=== PATIENT | female | born 1965 | race Two or more races ===

== ENCOUNTER 2020-10-31 13:54 | Outpatient (REF) | payer OTHER, SELFPAY | END 2020-10-31 13:55 | disposition home or self-care (01) | LOC: HO.LAB 13:54 | PROVIDERS: Visit Provider Internal Medicine | DX: Z20.828 Contact with and (suspected) exposure to other viral communicable diseases (principal) | CPT/HCPCS: C9803; U0003 ==

== ENCOUNTER 2021-05-21 13:12 | Outpatient (REF) | payer OTHER, SELFPAY ==
[2021-05-21 15:34] LABS: Estimated Average Glucose 151 mg/dL; Hemoglobin A1c % 6.9 %
[2021-05-21 16:00] LABS: Alanine Aminotransferase 44 U/L (0-31); Albumin Level 4.4 g/dL (3.5-5.0); Alkaline Phosphatase 72 U/L (39-117); Anion Gap 14 (12-20); Aspartate Amino Transferase 39 U/L (5-31); Blood Urea Nitrogen 13 mg/dL (9-16); Calcium 10.1 mg/dL (8.4-10.2); Carbon Dioxide 27 mmol/L (22-29); Chloride 101 mmol/L (96-108); Estimated Glomerular Filt Rate > 60; Glucose Random 106 mg/dL (60-115); Potassium 4.4 mmol/L (3.3-5.1); Sodium 138 mmol/L (135-145); Total Protein 7.7 g/dL (6.5-8.0)
[2021-05-21 16:43] LABS: Bilirubin Total 0.2 mg/dL (0.0-1.0)
== END 2021-05-21 13:13 | disposition home or self-care (01) ==
LOC: HO.LAB 13:12
PROVIDERS: PCP Family Medicine; Referring Provider Family Medicine; Visit Provider Nurse Practitioner Family
DX: K58.9 Irritable bowel syndrome, unspecified (principal); K21.9 Gastro-esophageal reflux disease without esophagitis; K75.81 Nonalcoholic steatohepatitis (NASH); K74.60 Unspecified cirrhosis of liver; E11.9 Type 2 diabetes mellitus without complications
CPT/HCPCS: 36415; 80053; 83036; 99212

== ENCOUNTER 2021-08-09 09:46 | Outpatient (REF) | payer OTHER, SELFPAY ==
--- NOTE | ~2021-08-09 | MM_ITS ---
EXAMINATION: MM SCREENING DIGITAL BREAST TOMOSYNTHESIS, BILATERAL CLINICAL INFORMATION: Screening. Asymptomatic. The lifetime risk of breast cancer based on the Tyrer-Cuzick Model is 9.0%. COMPARISON: Mammography: May 22, 2019 and studies dating back to February 23, 2014 TECHNIQUE: Digital breast tomosynthesis is performed in both the craniocaudal and mediolateral oblique views along with computer-aided detection (CAD). Synthesized 2D images are generated from the tomosynthesis. FINDINGS: The breasts are almost entirely fatty (ACR BI-RADS breast composition Category a). There are no significant masses, abnormal calcifications, or other abnormalities. MM/MM tomosynthesis screening BI IMPRESSION: There are no significant changes from prior study. ASSESSMENT: BI-RADS 1: Negative RECOMMENDATION: Routine annual mammography screening. This patient's information was entered into a reminder system with a target due date for their next mammogram.
== END 2021-08-09 09:47 | disposition home or self-care (01) ==
LOC: HO.MAMMO 09:46
PROVIDERS: PCP Family Medicine; Visit Provider Family Medicine
DX: Z12.31 Encounter for screening mammogram for malignant neoplasm of breast (principal)
CPT/HCPCS: 77063; 77067

== ENCOUNTER 2021-10-07 08:31 | Outpatient (REF) | payer OTHER, SELFPAY ==
--- NOTE | ~2021-10-07 | US_ITS ---
EXAMINATION: US COMPLETE ABDOMEN WITH LIVER ELASTOGRAPHY CLINICAL INFORMATION: Abnormal findings on blood chemistry COMPARISON: Abdominal ultrasound 01/03/2019 TECHNIQUE: Real-time imaging of the abdominal viscera. Noninvasive ultrasound liver fibrosis assessment is performed using Caden ElastPQ point quantification shear wave elastography (pSWE) with a C5-2 MHz transducer. Multiple elastography samples are obtained. Today's examination is limited secondary to overlying bowel gas. FINDINGS: PANCREAS: The majority the pancreas is obscured by overlying bowel gas and therefore the pancreas is not accurately evaluated. Limited visualized portions of the pancreas are grossly unremarkable. ABDOMINAL AORTA: The proximal and middle aortic segments are normal in caliber. The distal abdominal aorta is poorly visualized. INFERIOR VENA CAVA: Visualized portions are normal. LIVER: The liver is normal in size but demonstrates diffusely increased echogenicity. There are some areas of decreased echogenicity adjacent to the gallbladder, nonspecific but suspected focal fatty sparing Liver contour is smooth. No focal hepatic lesion identified. No intrahepatic biliary ductal dilatation. The right lobe measures 16.2 cm in length. The left lobe measures 11.4 cm in length. Portal flow is hepatopedal Shear wave liver elastography median stiffness is 1.7 m/s (reference: normal median stiffness is 1.3 m/s or less). IQR/median stiffness to assess sampling precision is 0.14 (reference: good quality data set is IQR/median stiffness of 0.15 or less). GALLBLADDER: Normal. The gallbladder is physiologically distended without evidence of stones, sludge, polyps, wall thickening or pericholecystic fluid. Negative sonographic Conway's sign. COMMON BILE DUCT: Normal in caliber measuring 0.4 cm in diameter. RIGHT KIDNEY: Normal. No hydronephrosis. No renal calculi or focal parenchymal lesions. The kidney measures 11 cm in maximum dimension. LEFT KIDNEY: Normal. No hydronephrosis. No renal calculi or focal parenchymal lesions. The kidney measures 11.2 cm in maximum dimension. SPLEEN: Normal. The spleen measures 10.2 cm in maximum dimension. FREE FLUID: None. US/US abdomen comp w elastography IMPRESSION: 1. Diffusely increased liver echogenicity suggesting hepatic steatosis. Correlation with liver enzymes recommended. 2. Liver elastography: Measurements are suggestive of compensated advanced chronic liver disease but need further test for confirmation. REFERENCE: Society of Radiologists in Ultrasound Liver Stiffness Thresholds (2020): LIVER STIFFNESS THRESHOLDS: *Liver Stiffness equal or less than 1.3 m/s: High probability of being normal. *Liver Stiffness less than 1.7 m/s: In the absence of other known clinical signs, rules out compensated advanced chronic liver disease. *Liver Stiffness 1.7-2.1 m/s: Suggestive of compensated advanced chronic liver disease but need further test for confirmation. *Liver Stiffness over 2.1 m/s: Rules in compensated advanced chronic liver disease. *Liver Stiffness over 2.4 m/s: Suggestive of clinically significant portal hypertension. QUALITY OF DATA SET: *IQR/Median value equal or less than 0.15 implies a quality data set. *IQR/Median value over 0.15 implies a poor quality data set. SIGNIFICANT CHANGE FROM PRIOR EXAM: Significant change if liver stiffness measurement is 10% or greater from prior exam. OTHER CONSIDERATIONS: The stage of liver fibrosis may be overestimated in the setting of acute hepatitis, liver inflammation, elevated liver function tests, hepatic vascular congestion, obstructive cholestasis, non-fasting state, and infiltrative diseases such as amyloidosis and lymphoma. In some patients with NAFLD, the liver stiffness thresholds for compensated advanced chronic liver disease may be lower. In causes other than viral hepatitis and NAFLD, liver stiffness thresholds are not well established.
== END 2021-10-07 08:32 | disposition home or self-care (01) ==
LOC: HO.US 08:31
PROVIDERS: PCP Family Medicine; Visit Provider Nurse Practitioner Family
DX: R79.89 Other specified abnormal findings of blood chemistry (principal)
CPT/HCPCS: 76705; 76981

== ENCOUNTER → 2022-03-31 16:08 | Outpatient (BNVA) | payer OTHER, SELFPAY | PROVIDERS: PCP Family Medicine; Referring Provider Family Medicine; Visit Provider Nurse Practitioner Family | DX: K59.04 Chronic idiopathic constipation (principal); K58.1 Irritable bowel syndrome with constipation; K21.9 Gastro-esophageal reflux disease without esophagitis; K75.81 Nonalcoholic steatohepatitis (NASH) | CPT/HCPCS: 99212 ==

== ENCOUNTER 2022-07-31 16:06 | Outpatient (REF) | payer OTHER, SELFPAY ==
[2022-07-31 17:10] LABS: Estimated Average Glucose 171 mg/dL; Hemoglobin A1c % 7.6 %
[2022-07-31 17:11] LABS: Prothrombin Time 11.9 SEC (10.0-13.1)
[2022-07-31 17:47] LABS: Ferritin 142 ng/mL (10-250)
[2022-08-03 03:33] LABS: HBS Num1 1.85 mIU/mL (0-7.99); HBc Num1 0.13 S/CO (0.00-0.79); HBsAGNum1 0.19 S/CO (0.00-0.99); HIV AB/AG Nonreactive (Nonreactive); HIV Num 1 0.06 S/CO (0.00-0.99); Hepatitis B Core Antibody Nonreactive (Nonreactive); Hepatitis B Surface Antigen Negative (Negative); ~HepC Num1 0.06 S/CO (0.00-0.79); ~Hepatitis B Surface Antibody NONREACTIVE (Nonreactive); ~Hepatitis C Antibody Nonreactive (Nonreactive)
[2022-08-04 04:36] LABS: Ceruloplasmin 25 mg/dL (18-53)
[2022-08-04 11:51] LABS: Alpha Fetoprotein 2.1 ng/mL
[2022-08-04 14:37] LABS: Mitochondrial Antibodies NEGATIVE (NEGATIVE)
[2022-08-04 14:41] LABS: Anti Nuclear Antibody Screen POSITIVE (NEGATIVE)
[2022-08-04 16:36] LABS: Smooth Muscle Antibody <20 U (<20)
[2022-08-05 04:02] LABS: Hepatitis A Antibody IgM 0.26 Index (0-0.79); ~Hepatitis A Antibody IgM Nonreactive (Nonreactive)
== END 2022-07-31 16:07 | disposition home or self-care (01) ==
LOC: HO.LAB 16:06
PROVIDERS: PCP Family Medicine; Visit Provider Nurse Practitioner Family
DX: Z11.4 Encounter for screening for human immunodeficiency virus [HIV] (principal); R74.8 Abnormal levels of other serum enzymes; E11.9 Type 2 diabetes mellitus without complications; R79.89 Other specified abnormal findings of blood chemistry; K58.1 Irritable bowel syndrome with constipation; K21.9 Gastro-esophageal reflux disease without esophagitis; R74.01 Elevation of levels of liver transaminase levels
CPT/HCPCS: 36415; 82105; 82390; 82728; 83036; 85610; 86015; 86038; 86039; 86255; 86256; 86704; 86706; 86709; 86803; 87340; 87389; 99212

== ENCOUNTER 2022-08-10 14:40 | Outpatient (REF) | payer OTHER, SELFPAY ==
--- NOTE | ~2022-08-10 | MM_ITS ---
EXAMINATION: MM SCREENING DIGITAL BREAST TOMOSYNTHESIS, BILATERAL CLINICAL INFORMATION: Screening. Asymptomatic. The lifetime risk of breast cancer based on the Tyrer-Cuzick Model is 9%. COMPARISON: Mammography: 08/09/2021, 05/22/2019, 05/14/2018 TECHNIQUE: Digital breast tomosynthesis is performed in both the craniocaudal and mediolateral oblique views along with computer-aided detection (CAD). Synthesized 2D images are generated from the tomosynthesis. FINDINGS: The breasts are almost entirely fatty (ACR BI-RADS breast composition Category a). Background stromal markings are normal. There is no interval mass or architectural abnormality or abnormal calcifications. The axilla and skin contours are unremarkable. There is deodorant artifact overlying the bilateral axilla. MM/MM tomosynthesis screening BI IMPRESSION: No mammographic evidence of malignancy. ASSESSMENT: BI-RADS 2: Benign RECOMMENDATION: Routine annual mammography screening. This patient's information was entered into a reminder system with a target due date for their next mammogram.
== END 2022-08-10 14:41 | disposition home or self-care (01) ==
LOC: HO.MAMMO 14:40
PROVIDERS: PCP Family Medicine; Visit Provider Family Medicine
DX: Z12.31 Encounter for screening mammogram for malignant neoplasm of breast (principal)
CPT/HCPCS: 77063; 77067

== ENCOUNTER 2022-09-23 09:41 | Outpatient (REF) | payer OTHER, SELFPAY ==
--- NOTE | ~2022-09-23 | US_ITS ---
EXAMINATION: US ABDOMEN LIMITED CLINICAL INFORMATION: Other specific abnormal findings of blood chemistry. COMPARISON: Ultrasound abdomen complete 10/07/2021 TECHNIQUE: Real-time imaging of the right upper quadrant abdominal viscera. FINDINGS: PANCREAS: Normal. LIVER: The liver is normal in size. The liver contour is normal. Diffusely increased hepatic echogenicity and sound attenuation consistent with diffuse hepatic steatosis. There is an area of focal fatty sparing adjacent to gallbladder fossa. No suspicious or concerning focal hepatic lesion. There is no intrahepatic biliary duct dilatation seen. GALLBLADDER: Normal. The gallbladder is physiologically distended without evidence of stones, sludge, polyps, wall thickening or pericholecystic fluid. COMMON BILE DUCT: Normal in caliber measuring 0.3 cm in diameter. RIGHT KIDNEY: 2 mm right lower pole and 4 mm right upper pole nonobstructing renal calculi are present. No hydronephrosis or focal parenchymal lesions. The kidney measures 10.6 cm in maximum dimension. FREE FLUID: None. US/US abdomen limited IMPRESSION: Sonographic appearance consistent with diffuse hepatic steatosis. No biliary ductal dilatation. Nonobstructing right renal calculi without hydronephrosis.
== END 2022-09-23 09:42 | disposition home or self-care (01) ==
LOC: HO.US 09:41
PROVIDERS: Visit Provider Nurse Practitioner Family
DX: R79.89 Other specified abnormal findings of blood chemistry (principal)
CPT/HCPCS: 76705

== ENCOUNTER 2022-11-18 12:40 | Outpatient (REF) | payer OTHER, SELFPAY ==
[2022-11-18 16:48] LABS: Alanine Aminotransferase 50 U/L (0-31); Albumin Level 4.5 g/dL (3.5-5.0); Alkaline Phosphatase 68 U/L (39-117); Aspartate Amino Transferase 36 U/L (5-31); Bilirubin Direct < 0.2 mg/dL (0.0-0.5); Bilirubin Total 0.3 mg/dL (0.0-1.0)
== END 2022-11-18 12:41 | disposition home or self-care (01) ==
LOC: HO.LAB 12:40
PROVIDERS: PCP Family Medicine; Visit Provider Nurse Practitioner Family
DX: K58.1 Irritable bowel syndrome with constipation (principal); K21.9 Gastro-esophageal reflux disease without esophagitis; R74.01 Elevation of levels of liver transaminase levels
CPT/HCPCS: 36415; 80076; 99212

== ENCOUNTER → 2022-12-16 13:15 | Outpatient (BNVA) | payer OTHER, SELFPAY | PROVIDERS: PCP Family Medicine; Visit Provider Nurse Practitioner Family | DX: K58.1 Irritable bowel syndrome with constipation (principal); K21.9 Gastro-esophageal reflux disease without esophagitis; R74.01 Elevation of levels of liver transaminase levels | CPT/HCPCS: 99212 ==

== ENCOUNTER 2023-03-02 09:08 | Outpatient (REF) | payer OTHER, SELFPAY ==
--- NOTE | ~2023-03-02 | XR_ITS ---
EXAMINATION: XR CHEST CLINICAL INFORMATION: Cough and wheezing COMPARISON: 12/16/2007 TECHNIQUE: 2 views of the chest were obtained. FINDINGS: No significant abnormality is noted involving the heart, lungs, mediastinum, bony thorax or soft tissues. XR/XR chest 2V IMPRESSION: Unremarkable examination.
== END 2023-03-02 09:09 | disposition home or self-care (01) ==
LOC: HO.XRAY 09:08
PROVIDERS: PCP Family Medicine; Visit Provider Emergency Medicine
DX: R68.89 Other general symptoms and signs (principal); R05.9 Cough, unspecified; R06.2 Wheezing
CPT/HCPCS: 71046

== ENCOUNTER → 2023-03-16 11:43 | Outpatient (BNVA) | payer OTHER, SELFPAY | PROVIDERS: PCP Family Medicine; Visit Provider Nurse Practitioner Family | DX: Z12.11 Encounter for screening for malignant neoplasm of colon (principal); K58.1 Irritable bowel syndrome with constipation; K21.9 Gastro-esophageal reflux disease without esophagitis; R74.01 Elevation of levels of liver transaminase levels | CPT/HCPCS: 99212 ==

== ENCOUNTER 2023-04-22 14:34 | Outpatient (REF) | payer OTHER, SELFPAY ==
--- NOTE | ~2023-04-22 | XR_ITS ---
EXAMINATION: XR FOOT, RIGHT CLINICAL INFORMATION: Atraumatic pain for one week. COMPARISON: None available. TECHNIQUE: AP, lateral, and oblique views of the right foot. FINDINGS: There is no acute fracture or dislocation. The joint spaces are unremarkable. The tarsal bones are normally aligned. Incidental type I accessory navicular bone. Small plantar and moderate retrocalcaneal spurs. There is mild soft tissue swelling. XR/XR foot RT min 3V IMPRESSION: Mild soft tissue swelling and small degenerative calcaneal spurs. No acute fracture or significant degenerative changes.
== END 2023-04-22 14:35 | disposition home or self-care (01) ==
LOC: HO.HHCX 14:34
PROVIDERS: Visit Provider Family Medicine
DX: M79.671 Pain in right foot (principal)
CPT/HCPCS: 73630

== ENCOUNTER 2023-08-16 14:13 | Outpatient (REF) | payer OTHER, SELFPAY | END 2023-08-16 14:14 | disposition home or self-care (01) | LOC: HO.MAMMO 14:13 | PROVIDERS: PCP Family Medicine; Visit Provider Family Medicine | DX: Z12.31 Encounter for screening mammogram for malignant neoplasm of breast (principal) | CPT/HCPCS: 77063; 77067 ==

== ENCOUNTER → 2023-08-16 14:45 | Outpatient (BNV) | payer OTHER, SELFPAY | PROVIDERS: PCP Family Medicine; Visit Provider Radiology Diagnostic Radiology | DX: Z12.31 Encounter for screening mammogram for malignant neoplasm of breast (principal) | CPT/HCPCS: 77063; 77067 ==

== ENCOUNTER 2023-10-04 13:32 | Outpatient (REF) | payer OTHER, SELFPAY ==
[2023-10-04 16:28] LABS: Estimated Average Glucose 143 mg/dL; Hemoglobin A1c % 6.6 % (<6.0)
[2023-10-04 16:30] LABS: Alanine Aminotransferase 42 U/L (0-31); Albumin Level 4.4 g/dL (3.5-5.0); Alkaline Phosphatase 55 U/L (39-117); Anion Gap 16 (12-20); Aspartate Amino Transferase 40 U/L (5-31); Bilirubin Total 0.2 mg/dL (0.0-1.0); Blood Urea Nitrogen 13 mg/dL (9-16); Calcium 9.8 mg/dL (8.4-10.2); Carbon Dioxide 27 mmol/L (22-29); Chloride 100 mmol/L (96-108); Estimated Glomerular Filt Rate > 60; Glucose Random 106 mg/dL (60-115); Potassium 4.9 mmol/L (3.3-5.1); Sodium 138 mmol/L (135-145); Total Protein 7.9 g/dL (6.5-8.0)
== END 2023-10-04 13:33 | disposition home or self-care (01) ==
LOC: HO.HHCL 13:32
PROVIDERS: Visit Provider Family Medicine
DX: M10.9 Gout, unspecified (principal); E11.9 Type 2 diabetes mellitus without complications; I10 Essential (primary) hypertension
CPT/HCPCS: 36415; 80053; 83036; 84550

== ENCOUNTER 2023-10-21 10:08 | Outpatient (REF) | payer OTHER, SELFPAY ==
[2023-10-21 12:55] LABS: Alanine Aminotransferase 39 U/L (0-31); Albumin Level 4.5 g/dL (3.5-5.0); Alkaline Phosphatase 62 U/L (39-117); Aspartate Amino Transferase 34 U/L (5-31); Bilirubin Direct < 0.2 mg/dL (0.0-0.5); Bilirubin Total 0.2 mg/dL (0.0-1.0); Total Protein 8.2 g/dL (6.5-8.0); Uric Acid 6.1 mg/dL (2.4-5.7)
== END 2023-10-21 10:09 | disposition home or self-care (01) ==
LOC: HO.HHCL 10:08
PROVIDERS: Visit Provider Family Medicine
DX: M10.9 Gout, unspecified (principal); K76.0 Fatty (change of) liver, not elsewhere classified; Z79.899 Other long term (current) drug therapy
CPT/HCPCS: 36415; 80076; 84550

== ENCOUNTER 2023-12-30 10:30 | Day surgery (SDC) | payer OTHER, SELFPAY ==
[2023-12-28 10:19] VITALS: BMI 34.2
--- NOTE | 2023-12-29 09:28 | HO.ANESPROP2 ---
Documented by User: Edna De La Rosa NP 12/29/23 09:29 HPI - Anesthesia Eval Consult details Narrative: 58yo F for Upper Endoscopy and Colonoscopy PMF Active Problems Active Problems: All Active Problems (Updated 12/28/23 @ 10:17 by Leticia Rodriguez RN) IBS (irritable colon syndrome) (Acute) GERD (gastroesophageal reflux disease) (Acute) Past Medical History Medical History Elevated cholesterol HTN (hypertension) Diabetes IBS (irritable colon syndrome) GERD (gastroesophageal reflux disease) Family History Family History Mother Colon cancer Father Kidney disease Surgical History Surgical History History of surgery on wrist History of carpal tunnel surgery of left wrist Hx of tubal ligation Hx of umbilical hernia repair Hx of ventral hernia repair Hx of laparoscopy Hx of colonoscopy History of esophagogastroduodenoscopy (EGD) Social History Social History Advance Directives: No Advance Directives Information Provided: Yes Meds Allergies Allergy/AdvReac Type Severity Reaction Status Date / Time No Known Allergies Allergy Verified 03/16/23 11:49 [No Known Allergies*] Home Medications Medication Instructions Recorded Confirmed Last Taken Type aspirin 81 mg tablet,delayed 81 mg PO DAILY 05/21/21 12/28/23 Unknown History release blood sugar diagnostic #10 ea 05/21/21 05/21/21 Unknown History blood-glucose meter #1 ea 05/21/21 05/21/21 Unknown History buspirone 15 mg tablet 30 mg PO BID 05/21/21 12/28/23 Unknown History clonazepam 1 mg tablet 1 mg PO BID PRN Anxiety 05/21/21 12/28/23 Unknown History ergocalciferol (vitamin D2) 1,250 0 mcg PO 05/21/21 05/21/21 Unknown History mcg (50,000 unit) capsule lancets 28 gauge #100 ea 05/21/21 05/21/21 Unknown History lisinopril 40 mg tablet 40 mg PO DAILY 05/21/21 12/28/23 Unknown History metformin 500 mg tablet,extended 500 mg PO BID 05/21/21 12/28/23 Unknown History release 24 hr metoprolol succinate 25 mg 25 mg PO DAILY 05/21/21 12/28/23 Unknown History tablet,extended release 24 hr polyvinyl alcohol 1.4 % eye drops 1 drp ophthalmic (eye) TID-QID 05/21/21 05/21/21 Unknown History zolpidem 10 mg tablet 10 mg PO BEDTIME PRN Insomnia 05/21/21 12/28/23 Unknown History chlorthalidone 25 mg tablet 25 mg PO DAILY 03/31/22 12/28/23 Unknown History cholecalciferol (vitamin D3) 25 25 mcg PO DAILY 03/31/22 12/28/23 Unknown History mcg (1,000 unit) tablet hydrocortisone 1 % topical cream topical DAILY 03/31/22 Unknown History with perineal applicator nystatin 100,000 unit/gram topical topical BID 03/31/22 Unknown History cream sertraline 100 mg tablet 100 mg PO BID 03/31/22 12/28/23 Unknown History simvastatin 40 mg tablet 40 mg PO QPM 03/31/22 12/28/23 Unknown History Exam Height,Weight and Vital Signs: Height 5 ft 2 in Weight 84.822 kg Assessment and Plan Assessment Anesthesia Assessment: Chart Reviewed Documented by User: Fabiola Alejandro MD 12/30/23 12:12 [facility] Active Problems Active Problems: All Active Problems (Updated 12/30/23 @ 11:14 by Fabiola Alejandro MD) IBS (irritable colon syndrome) (Acute) GERD (gastroesophageal reflux disease) (Acute) Increased BMI Past Medical History Medical History Elevated cholesterol HTN (hypertension) Diabetes IBS (irritable colon syndrome) GERD (gastroesophageal reflux disease) Family History Family History Mother Colon cancer Father Kidney disease Family history of problems with anesthesia: No Surgical History Surgical History History of surgery on wrist History of carpal tunnel surgery of left wrist Hx of tubal ligation Hx of umbilical hernia repair Hx of ventral hernia repair Hx of laparoscopy Hx of colonoscopy History of esophagogastroduodenoscopy (EGD) History of Problems with Anesthesia: No Social History Social History Advance Directives: No Advance Directives Information Provided: Yes Meds Allergies Allergy/AdvReac Type Severity Reaction Status Date / Time No Known Allergies Allergy Verified 03/16/23 11:49 [No Known Allergies*] Home Medications Medication Instructions Recorded Confirmed Last Taken Type aspirin 81 mg tablet,delayed 81 mg PO DAILY 05/21/21 12/28/23 Unknown History release blood sugar diagnostic #10 ea 05/21/21 05/21/21 Unknown History blood-glucose meter #1 ea 05/21/21 05/21/21 Unknown History buspirone 15 mg tablet 30 mg PO BID 05/21/21 12/28/23 Unknown History clonazepam 1 mg tablet 1 mg PO BID PRN Anxiety 05/21/21 12/28/23 Unknown History ergocalciferol (vitamin D2) 1,250 0 mcg PO 05/21/21 05/21/21 Unknown History mcg (50,000 unit) capsule lancets 28 gauge #100 ea 05/21/21 05/21/21 Unknown History lisinopril 40 mg tablet 40 mg PO DAILY 05/21/21 12/28/23 Unknown History metformin 500 mg tablet,extended 500 mg PO BID 05/21/21 12/28/23 Unknown History release 24 hr metoprolol succinate 25 mg 25 mg PO DAILY 05/21/21 12/28/23 Unknown History tablet,extended release 24 hr polyvinyl alcohol 1.4 % eye drops 1 drp ophthalmic (eye) TID-QID 05/21/21 05/21/21 Unknown History zolpidem 10 mg tablet 10 mg PO BEDTIME PRN Insomnia 05/21/21 12/28/23 Unknown History chlorthalidone 25 mg tablet 25 mg PO DAILY 03/31/22 12/28/23 Unknown History cholecalciferol (vitamin D3) 25 25 mcg PO DAILY 03/31/22 12/28/23 Unknown History mcg (1,000 unit) tablet hydrocortisone 1 % topical cream topical DAILY 03/31/22 Unknown History with perineal applicator nystatin 100,000 unit/gram topical topical BID 03/31/22 Unknown History cream sertraline 100 mg tablet 100 mg PO BID 03/31/22 12/28/23 Unknown History simvastatin 40 mg tablet 40 mg PO QPM 03/31/22 12/28/23 Unknown History Exam Height,Weight and Vital Signs: Height 5 ft 2 in Weight 84.822 kg VS: 11:00 T 97.3 HR 73 RR 18 BP 151/75 SpO2 97%(RA) Airway Mallampati Class: II TM Dist: >3cm Neck ROM: Full Loose/Missing/Broken Teeth: Yes (Many missing) Heart: RRR Lungs: CTAB Assessment and Plan Assessment Anesthesia Assessment: Anesthesia Plan Discussed and Chart Reviewed Final Anesthetic Review Family History of Problems with Anesthesia: No History of Problems with Anesthesia: No NPO: No (Mouthful of orange juice at 8:30 for low blood sug) ASA Class: III Final Preanesthetic Review: No Changes in Pt Med Stat, Meds/Allgs Chart Reviewed, Consent Obtained/Reviewed and Anes Risks/Benef Reviewed Patient Risk: Intermediate Procedure Risk: Low Assessment/Block/Sedation in SS: Assess/Block/Sedation-SS Anesthetic Plan Anesthetic Plan: TIVA Disposition: Standard PACU
[2023-12-30 11:00] VITALS: BP 151/75; PULSE 76; RESP 18; TEMP 36.1; O2SAT 97
[2023-12-30 11:09] LABS: Glucose, Whole Blood 116 mg/dL (60-115)
--- NOTE | 2023-12-30 11:12 | MHC.SHP ---
Pre-Procedural Eval Section A - 24 Hr Update-Section A only Date of Service: 12/30/23 Section B - Complete if H&P > 30 days Chief Complaint: GERD, fam hx of CRC Details of Present Illness: PMH: GERD (gastroesophageal reflux disease) IBS (irritable colon syndrome) Surgical History History of esophagogastroduodenoscopy (EGD) Hx of colonoscopy Relevant Family History (Specify if Yes): Yes Present Medications: see Short Stay Collaborative assessment Allergies: Allergies Allergy/AdvReac Type Severity Reaction Status Date / Time No Known Allergies Allergy Verified 03/16/23 11:49 [No Known Allergies*] Review of Systems Review of Systems Comment: Ten point ROS negative Exam Exam Comment: Gen appear: No acute distress HEENT: no icterus Chest: No overt resp distress Abd: soft, nontender, nondistended Psych: Stable affect, answering questions appropriately Neuro: A/Ox3 noted to move all extremities spontaneously Ext: no peripheral edema Plan Diagnosis/Plan: Unchanged I have reviewed the history and physical and performed a pertinent physical examination on my patient. No changes have occurred unless specified. Time Spent With Patient Time: Total time managing care of this patient today ____ minutes.
--- NOTE | 2023-12-30 11:14 | P.OP_ITS ---
Operative Note Operative Note Date of Service: 12/30/23 Narrative: Procedure: Upper endoscopy and colonoscopy Indication: GERD, fam hx of colon ca Endoscopist: Cynthia Johnson MD Anesthesia Provider: Dr Fabiola Alejandro Anesthesia type: MAC Instrument: Olympus [id number]-[id number] ?? EGD Procedure:?? The procedure, indications, preparation and potential complications were reviewed with the patient, who indicated understanding and gave written informed consent to proceed. A physical exam was performed. The endoscope was introduced through the mouth, and advanced to the third part of duodenum. The mucosa was carefully examined on slow withdrawal of the endoscope. The patient tolerated the procedure well. There were no immediate complications.? ? EGD Findings:? * Esophagus:? Normal mucosa noted in the entire esophagus. The Z line was at 36 and irregular with the longest salmon colored tongue extending to 35 cm. Cold forceps biopsies were taken to rule out Chaudhari's esophagus. These will be sent for tissue cypher if dysplasia confirmed on pathology. Small hiatal he rnia was noted with a diaphragmatic pinch 38 cm. * Stomach:? A few scattered erosions were seen in the fundus and antrum of the stomach. Random cold forceps gastric biopsies were taken to rule out H Pylori infection. Retroflexion in the cardia showed Hill grade 2 hiatal hernia. * Duodenum:? Normal mucosa was noted in the whole of the examined duodenum. Colonoscopy Procedure: The patient was then turned for the colonoscopy. A digital rectal exam was performed which was normal. A distal attachment cap was affixed to the tip of the scope and the colonoscope was then inserted through the anus and advanced through the colon to the cecum at 80 cm. Appendiceal orifice and ileocecal valve were identified. Mucosa was carefully examined under high definition white light as the instrument was slowly withdrawn in a retrograde panoramic fashion. Retroflexion was performed in rectum. The procedure was not difficult. There were no immediate obvious complications. The quality of the prep was BBPS: 2+3+3 = adequate Withdrawal time 8 minutes. Limitations: No limitations. Colonoscopy Findings: Mucosa: Normal to cecum. Protruding lesions: * Medium internal hemorrhoids without stigmata of recent bleeding. Impressions:? * Irregular Z line r/o BE (biopsy, tissue cypher) * Hiatal hernia * Gastritis (biopsy) * Normal duodenum * Normal colon mucosa * Hemorrhoids Recommendations: - Follow path results. - If biopsies show BE, follow up EGD will be contingent on presence and extent of dysplasia. - Continue PPI - Repeat colonoscopy in 5 years due to family history of colon cancer
[2023-12-30] MEDS: Metoclopramide HCl 10 MG/2 ML VIAL IVPUSH (11:28)
[2023-12-30 12:04] VITALS: BP 90/49; PULSE 63; RESP 23; TEMP 36.4; O2SAT 96
[2023-12-30 12:20] VITALS: BP 112/61; PULSE 63; RESP 17; TEMP 36.4; O2SAT 96
--- NOTE | 2023-12-30 13:28 | PC.NURSE ---
patient speaks and understands [place]ian well. refused hospital supervisor.
== END 2023-12-30 12:52 | disposition home or self-care (01) ==
PROVIDERS: PCP Family Medicine; Visit Provider Internal Medicine
PROC: (CPT 43239; principal; 2023-12-30 14:40)
DX: K29.60 Other gastritis without bleeding (principal); K22.9 Disease of esophagus, unspecified; K44.9 Diaphragmatic hernia without obstruction or gangrene; Z12.11 Encounter for screening for malignant neoplasm of colon; K64.8 Other hemorrhoids; Z80.0 Family history of malignant neoplasm of digestive organs; E11.9 Type 2 diabetes mellitus without complications; I10 Essential (primary) hypertension; E78.00 Pure hypercholesterolemia, unspecified; K21.9 Gastro-esophageal reflux disease without esophagitis; K58.1 Irritable bowel syndrome with constipation; Z79.84 Long term (current) use of oral hypoglycemic drugs; Z79.82 Long term (current) use of aspirin; Z79.02 Long term (current) use of antithrombotics/antiplatelets
CPT/HCPCS: 43239; G0105; 82947; 88305; 88313; 88342; J2704; J2765

== ENCOUNTER → 2023-12-30 10:30 | Outpatient (BNV) | payer OTHER, SELFPAY | PROVIDERS: PCP Family Medicine; Visit Provider Internal Medicine | DX: Z12.11 Encounter for screening for malignant neoplasm of colon (principal); Z80.0 Family history of malignant neoplasm of digestive organs; K64.8 Other hemorrhoids; K21.9 Gastro-esophageal reflux disease without esophagitis; K29.70 Gastritis, unspecified, without bleeding; K22.89 Other specified disease of esophagus | CPT/HCPCS: 43239; G0105 ==

== ENCOUNTER 2024-01-14 11:26 | Outpatient (AMB) | payer OTHER, SELFPAY ==
[2024-01-14 11:29] VITALS: BP 148/83; PULSE 71; BMI 32.9
--- NOTE | 2024-01-14 11:29 | A.OFFVIS_ITS ---
Intake Vital Signs 01/14/24 11:29 Height 5 ft 2 in Weight 180 lb BMI 32.9 BP 148/83 H Blood Pressure Location Rt brachial Position Sitting Pulse 71 Pulse Source Monitor Intake Visit Reasons: s/p egd/colon Intake Note: Patient states no GI questions or concerns for today. Community Health Nursing Director Required: No Accompanied by: Brother Allergies No Known Allergies [No Known Allergies*] Allergy (Verified 01/14/24 11:33) HPI s/p egd/colon HPI Details LAST VISIT: IBS (irritable colon syndrome) Patient reports that she has been feeling better now that she started taking Dulcolax 2 tablets every day. Patient is also occasionally taking MiraLax. Patient states that she feels like she empties her bowels completely. He discussed with patient avoiding dietary triggers. Low FODMAP diet addressed with her again. GERD (gastroesophageal reflux disease) Continue taking pantoprazole. Patient was encouraged to avoid dietary triggers in late night snacking. Occasional acid reflux and epigastric discomfort with postprandial bloating. Will send patient for upper endoscopy as well to rule out esophagitis, gastritis, duodenitis, gastric or peptic ulcers, Chaudhari's, H pylori. Transaminitis Discussed with patient the importance of losing weight. Patient was also encouraged to eat food that is low in fat. Exercise stress with her as well. After colonoscopy will check her liver enzymes again. Patient had liver enzymes done end of October and were mildly elevated. Screen for colon cancer Discussed patient will to expect before during and after the procedure. Stressed importance of good bowel prep with patient. She is taking Dulcolax tablets every night and reports that she moves her bowels daily. Patient states that she feels like she empties empty completely. Patient was also encouraged to take MiraLax every day. Patient denies any issues with anesthesia in the past. Denies any history of sleep apnea. On low-dose aspirin. Denies any history of infectious diseases in the past or present. I will see her after the procedure, sooner on as needed basis. Patient is agreeable to this plan and verbalizes understanding of instructions. She was given the opportunity to ask questions and all questions answered. ? Thank you for allowing me participate care Plan Medications New polyethylene glycol 3350 (Miralax) As directed by gastroenterology department at [facility] 238 grams PO ONCE 238 grams 0RF Z12.11 - Encounter for screening for malignant neoplasm of colon magnesium oxide 400 mg PO BEDTIME 90 caps 2RF K59.04 - Chronic idiopathic constipation UPPER ENDOSCOPY AND COLONOSCOPY: EGD Findings:? * Esophagus:? Normal mucosa noted in the entire esophagus. The Z line was at 36 and irregular with the longest salmon colored tongue extending to 35 cm. Cold forceps biopsies were taken to rule out Chaudhari's esophagus. These will be sent for tissue cypher if dysplasia confirmed on pathology. Small hiatal hernia was noted with a diaphragmatic pinch 38 cm. * Stomach:? A few scattered erosions were seen in the fundus and antrum of the stomach. Random cold forceps gastric biopsies were taken to rule out H Pylori infection. Retroflexion in the cardia showed Hill grade 2 hiatal hernia. * Duodenum:? Normal mucosa was noted in the whole of the examined duodenum. Colonoscopy Procedure: The patient was then turned for the colonoscopy. A digital rectal exam was performed which was normal. A distal attachment cap was affixed to the tip of the scope and the colonoscope was then inserted through the anus and advanced through the colon to the cecum at 80 cm. Appendiceal orifice and ileocecal valve were identified. Mucosa was carefully examined under high definition white light as the instrument was slowly withdrawn in a r etrograde panoramic fashion. Retroflexion was performed in rectum. The procedure was not difficult. There were no immediate obvious complications. The quality of the prep was BBPS: 2+3+3 = adequate Withdrawal time 8 minutes. Limitations: No limitations. Colonoscopy Findings: Mucosa: Normal to cecum. Protruding lesions: * Medium internal hemorrhoids without stigmata of recent bleeding. Impressions:? * Irregular Z line r/o BE (biopsy, tissue cypher) * Hiatal hernia * Gastritis (biopsy) * Normal duodenum * Normal colon mucosa * Hemorrhoids Recommendations: - Follow path results. - If biopsies show BE, follow up EGD adelita l be contingent on presence and extent of dysplasia. - Continue PPI - Repeat colonoscopy in 5 years due to f amily history of colon cancer PATHOLOGY Diagnosis A. Stomach, random, biopsy: Antral-type and oxyntic mucosa with mild chronic inactive inflammation; no Helicobacter organisms seen. B. GE junction, biopsy: - Cardiofundic-type mucosa with moderate chronic inactive inflammation; no intestinal metaplasia seen. - Active esophagitis (maximum eosinophil count 3 per high powered field) TODAY'S VISIT Patient is here today for follow-up and to discuss upper endoscopy and colonoscopy results patient denies any ill effects with the prep, anesthesia or procedure itself. Patient reports to be feeling well. Takes pantoprazole every morning and her symptoms of acid reflux are suppressed. Patient also change her diet and is starting to lose weight. Patient reports that she is moving her bowels without any issues. Only takes MiraLax on as needed basis. Patient denies dyspepsia, dysphagia or odynophagia. Denies any melena, hematochezia, unintentional weight loss or ribbon like stools. Results from upper endoscopy, colonoscopy and biopsy discussed with patient. [facility] Medical History Elevated cholesterol HTN (hypertension) Diabetes IBS (irritable colon syndrome) GERD (gastroesophageal reflux disease) Surgical History History of surgery on wrist History of carpal tunnel surgery of left wrist Hx of tubal ligation Hx of umbilical hernia repair Hx of ventral hernia repair Hx of laparoscopy Hx of colonoscopy History of esophagogastroduodenoscopy (EGD) Family History Mother Colon cancer Father Kidney disease Social History Patient Tobacco Use Status: Never used Tobacco Review of Systems Const Denies weight gain and Denies weight loss ENT Reports no additional complaints, Denies dysphagia and Denies odynophagia Card Reports no additional complaints Resp Reports no additional complaints GI Denies abdominal pain, Denies belching, Denies melena, Denies bloating, Denies change in bowel habits, Denies dysphagia, Denies excessive flatus, Denies dyspepsia, Denies heartburn, Denies diarrhea, Denies loose stools, Denies nausea, Denies odynophagia and Denies vomiting Reports no additional complaints Musc Reports no additional complaints Neuro Reports no additional complaints Psych Reports no additional complaints Endo Reports no additional complaints Physical Exam Vital Signs: Last Vital Signs Pulse 71 01/14/24 11:29 BP 184/73 H 01/14/24 11:29 BMI result Body Mass Index 32.9 Const General: healthy appearing, no acute distress and well developed Nutritional Appearance: obese Orientation/consciousness: patient oriented x3 Resp Effort & Inspection: normal respiratory effort, able to speak in complete sentences, no tracheal deviation and symmetric chest movement Auscultation: clear to auscultation bilaterally Cardio Rate: regular rate GI Inspection: Yes normal to inspection, No distended and Yes obesity Palpation (GI): Soft to palpation, not firm, nontender and No hepatosplenomegaly present Auscultation: normal bowel sounds General: Yes no CVA tenderness Back/Spine/Pelvis Back: no CVA tenderness Skin General skin exam: elasticity normal, turgor normal and dry skin Neuro General: patient oriented x3 Psych Appearance: grossly normal Mental Status: mental status grossly normal Assessment & Plan Assessment & Plan (1) IBS (irritable colon syndrome): Code(s): K58.9 - Irritable bowel syndrome without diarrhea Qualifiers: Irritable bowel syndrome type: with constipation Qualified Code(s): K58.1 - Irritable bowel syndrome with constipation (2) GERD (gastroesophageal reflux disease): Code(s): K21.9 - Gastro-esophageal reflux disease without esophagitis Qualifiers: Esophagitis presence: esophagitis presence not specified Qualified Code(s): K21.9 - Gastro-esophageal reflux disease without esophagitis (3) Transaminitis: Code(s): R74.01 - Elevation of levels of liver transaminase levels Plan Continue pantoprazole every morning. Avoid dietary triggers and late night snacking. Staying upright for minimum 3 hours after meals discussed with patient. Continue diet change. Patient was encouraged to increase fluid intake and activity to promote better bowel motility. I will see patient on as needed basis. Colonoscopy recall in 5 years due to family history of CRC. I will see patient in 6 months, sooner on as needed basis. Patient is agreeable to this plan and verbalizes understanding of instructions. She was given the opportunity to ask questions and all questions answered. Thank you for allowing me to participate in her care Medications: Refilled pantoprazole take one tablet half an hour before breakfast 40 mg PO DAILY 90 tabs 2RF K21.9 - Gastro-esophageal reflux disease without esophagitis Discontinued magnesium oxide Discontinued Reason: Doctor's Order 400 mg PO BEDTIME 90 caps 2RF K59.04 - Chronic idiopathic constipation Coding Level of Care Code Est Pt Level 3 (27220) Diagnoses Irritable bowel syndrome with constipation K58.1 Irritable bowel syndrome type: with constipation Gastroesophageal reflux disease, unspecified whether esophagitis present K21.9 Esophagitis presence: esophagitis presence not specified Transaminitis R74.01 Time Spent (min) 30 Comment 20 minutes spent with patient and additional 10 minutes spent reviewing her records
== END 2024-01-14 11:55 | disposition home or self-care (01) ==
PROVIDERS: PCP Family Medicine; Visit Provider Nurse Practitioner Family
DX: K58.1 Irritable bowel syndrome with constipation (principal); K21.9 Gastro-esophageal reflux disease without esophagitis; R74.01 Elevation of levels of liver transaminase levels
CPT/HCPCS: 99213

== ENCOUNTER → 2024-01-14 11:26 | Outpatient (BNVA) | payer OTHER, SELFPAY | PROVIDERS: PCP Family Medicine; Visit Provider Nurse Practitioner Family | DX: K58.1 Irritable bowel syndrome with constipation (principal); K21.9 Gastro-esophageal reflux disease without esophagitis; R74.01 Elevation of levels of liver transaminase levels | CPT/HCPCS: 99212 ==

== ENCOUNTER 2024-03-28 13:33 | Outpatient (REF) | payer OTHER, SELFPAY ==
[2024-03-28 16:45] LABS: Estimated Average Glucose 146 mg/dL; Hemoglobin A1c % 6.7 % (<6.0)
[2024-03-28 17:22] LABS: Alanine Aminotransferase 55 U/L (0-31); Albumin Level 4.5 g/dL (3.5-5.0); Alkaline Phosphatase 69 U/L (39-117); Anion Gap 16 (12-20); Aspartate Amino Transferase 46 U/L (5-31); Bilirubin Total 0.2 mg/dL (0.0-1.0); Blood Urea Nitrogen 15 mg/dL (9-16); Calcium 10.4 mg/dL (8.4-10.2); Carbon Dioxide 26 mmol/L (22-29); Chloride 99 mmol/L (96-108); Cholesterol 175 mg/dL (<200); Estimated Glomerular Filt Rate > 60; Glucose Random 122 mg/dL (60-115); HDL Cholesterol 45 mg/dL (>40); LDL Cholesterol Calculated 99 mg/dL (<100); Potassium 4.3 mmol/L (3.3-5.1); Sodium 137 mmol/L (135-145); Total Protein 8.1 g/dL (6.5-8.0); Triglycerides 156 mg/dL (<150)
[2024-03-28 17:31] LABS: Folate 13.8 ng/mL (> or = 4.0); Vitamin B12 219 pg/mL (200-900)
[2024-03-28 17:41] LABS: TSH reflex Free T4 1.33 uIU/mL (0.32-4.0)
[2024-03-28 19:46] LABS: Creatinine Urine 30.18 mg/dL; Microalbumin Urine < 5.0 mg/L
[2024-03-28 20:19] LABS: Reflex LDLD? No
== END 2024-03-28 13:34 | disposition home or self-care (01) ==
LOC: HO.HHCL 13:33
PROVIDERS: Visit Provider Family Medicine
DX: E11.9 Type 2 diabetes mellitus without complications (principal)
CPT/HCPCS: 36415; 80053; 80061; 82570; 82607; 82746; 83036; 84443

== ENCOUNTER 2024-07-13 10:13 | Outpatient (REF) | payer OTHER, SELFPAY ==
--- NOTE | ~2024-07-13 | US_ITS ---
EXAMINATION: US COMPLETE ABDOMEN WITH LIVER ELASTOGRAPHY CLINICAL INFORMATION: Fatty liver. COMPARISON: Ultrasound abdomen 09/23/2022. TECHNIQUE: Real-time imaging of the abdominal viscera. Noninvasive ultrasound liver fibrosis assessment is performed using Caden ElastPQ point quantification shear wave elastography (pSWE) with a C5-2 MHz transducer. Multiple elastography samples are obtained. FINDINGS: PANCREAS: The visualized pancreas is unremarkable though most of the gland is obscured by bowel gas. ABDOMINAL AORTA: The proximal, middle, and distal aortic segments are normal in caliber. INFERIOR VENA CAVA: Visualized portions are normal. LIVER: Liver is enlarged and echogenic consistent with hepatic steatosis. There is focal fatty sparing seen adjacent to the gallbladder. No focal lesion or intrahepatic biliary duct dilatation. The right lobe measures 17.1 cm in length. The left lobe measures 16.3 cm in length. Portal flow is towards the liver (hepatopetal). Shear wave liver elastography median stiffness is 1.82 m/s (reference: normal median stiffness is 1.3 m/s or less). IQR/median stiffness to assess sampling precision is 0.10 (reference: good quality data set is IQR/median stiffness of 0.15 or less). GALLBLADDER: Normal. The gallbladder is physiologically distended without evidence of stones, sludge, polyps, wall thickening or pericholecystic fluid. COMMON BILE DUCT: CBD mildly dilated at 0.7 cm in diameter. RIGHT KIDNEY: Normal. No hydronephrosis. No renal calculi or focal parenchymal lesions. The kidney measures 10.7 cm in maximum dimension. LEFT KIDNEY: No hydronephrosis. No renal calculi . The kidney measures 10.6 cm in maximum dimension. A benign small 0.8 cm Bosniak class I renal cyst is noted which requires no additional imaging or follow up. No solid renal masses are seen. SPLEEN: Normal. The spleen measures 9.4 cm in maximum dimension. FREE FLUID: None. US/US abdomen comp w elastography IMPRESSION: 1. Enlarged fatty liver. 2. Liver Elastography: Measurements are suggestive of compensated advanced chroniic liver disease but need further test for confirmation. REFERENCE: Society of Radiologists in Ultrasound Liver Stiffness Thresholds (2020): LIVER STIFFNESS THRESHOLDS: *Liver Stiffness equal or less than 1.3 m/s: High probability of being normal. *Liver Stiffness less than 1.7 m/s: In the absence of other known clinical signs, rules out compensated advanced chronic liver disease. *Liver Stiffness 1.7-2.1 m/s: Suggestive of compensated advanced chronic liver disease but need further test for confirmation. *Liver Stiffness over 2.1 m/s: Rules in compensated advanced chronic liver disease. *Liver Stiffness over 2.4 m/s: Suggestive of clinically significant portal hypertension. QUALITY OF DATA SET: *IQR/Median value equal or less than 0.15 implies a quality data set. *IQR/Median value over 0.15 implies a poor quality data set. SIGNIFICANT CHANGE FROM PRIOR EXAM: Significant change if liver stiffness measurement is 10% or greater from prior exam. OTHER CONSIDERATIONS: The stage of liver fibrosis may be overestimated in the setting of acute hepatitis, liver inflammation, elevated liver function tests, hepatic vascular congestion, obstructive cholestasis, non-fasting state, and infiltrative diseases such as amyloidosis and lymphoma. In some patients with NAFLD, the liver stiffness thresholds for compensated advanced chronic liver disease may be lower. In causes other than viral hepatitis and NAFLD, liver stiffness thresholds are not well established. Electronically signed by: Jason Rubio MD 07/27/2024 09:55 PM EDT
== END 2024-07-13 10:14 | disposition home or self-care (01) ==
LOC: HO.US 10:13
PROVIDERS: PCP Family Medicine; Visit Provider Family Medicine
DX: K76.0 Fatty (change of) liver, not elsewhere classified (principal)
CPT/HCPCS: 76700; 76981

== ENCOUNTER 2024-08-07 12:33 | Outpatient (AMB) | payer OTHER, SELFPAY ==
[2024-08-07 12:55] VITALS: BP 152/76; PULSE 83; BMI 33.5
--- NOTE | 2024-08-07 12:55 | A.OFFVIS_ITS ---
Vital Signs 08/07/24 12:55 Height 5 ft 2 in Weight 182 lb 15.739 oz BMI 33.5 BP 152/76 H Blood Pressure Location Lt brachial Position Sitting Pulse 83 Intake Visit Reasons: 6 mos FUV. R/S from 07/14 Intake Note: Pauly presents to in office 6 months follow up of IBS. CC: Patient reports doing well with medications but reports occasional nausea sometimes after some meals. Denies having other GI concerns today. Allergies No Known Allergies [No Known Allergies*] Allergy (Verified 08/07/24 13:00) HPI HPI 6 mos FUV. R/S from 07/14: Details: LAST VISIT IBS (irritable colon syndrome) GERD (gastroesophageal reflux disease) Transaminitis Plan Continue pantoprazole every morning. Avoid dietary triggers and late night snacking. Staying upright for minimum 3 hours after meals discussed with patient. Continue diet change. Patient was encouraged to increase fluid intake and activity to promote better bowel motility. I will see patient on as needed basis. Colonoscopy recall in 5 years due to family history of CRC. I will see patient in 6 months, sooner on as needed basis. Patient is agreeable to this plan and verbalizes understanding of instructions. She was given the opportunity to ask questions and all questions answered. ? Thank you for allowing me to participate in her care Medications Refilled pantoprazole take one tablet half an hour before breakfast 40 mg PO DAILY 90 tabs 2RF K21.9 Discontinued magnesium oxide Discontinued Reason: Doctor's Order 400 mg PO BEDTIME 90 caps 2RF K59.04 TODAY'S VISIT Patient is here today for follow-up. Patient had ultrasound done with elastography that was ordered by PCP. Increased echogenicity and hepatomegaly found. Compensated chronic advanced liver disease found. Will need to order liver fibrosis panel to help stage it. Patient reports that she has been feeling well otherwise. Takes pantoprazole every morning. However patient does admit that occasionally she will feel nauseous depending on what she eats. Symptoms are very infrequent. Able to control her symptoms avoiding food that cause nausea. [facility] Medical History Elevated cholesterol HTN (hypertension) Diabetes IBS (irritable colon syndrome) GERD (gastroesophageal reflux disease) Surgical History History of surgery on wrist History of carpal tunnel surgery of left wrist Hx of tubal ligation Hx of umbilical hernia repair Hx of ventral hernia repair Hx of laparoscopy Hx of colonoscopy History of esophagogastroduodenoscopy (EGD) Family History Mother Colon cancer Father Kidney disease Social History Patient Tobacco Use Status: Never used Tobacco Review of Systems Const Denies weight gain and Denies weight loss ENT Reports no additional complaints, Denies dysphagia and Denies odynophagia Card Reports no additional complaints Resp Reports no additional complaints GI Denies abdominal pain, Denies belching, Denies melena, Denies bloating, Denies change in bowel habits, Denies dysphagia, Denies excessive flatus, Denies dyspepsia, Denies heartburn, Denies diarrhea, Denies loose stools, Reports nausea, Denies odynophagia and Denies vomiting Reports no additional complaints Musc Reports no additional complaints Neuro Reports no additional complaints Psych Reports no additional complaints Endo Reports no additional complaints Physical Exam Vital Signs: Last Vital Signs Pulse 83 08/07/24 12:55 BP 152/76 H 08/07/24 12:55 BMI result Body Mass Index 33.5 Const General: healthy appearing and no acute distress Nutritional Appearance: obese Orientation/consciousness: patient oriented x3 Resp Effort & Inspection: normal respiratory effort, able to speak in complete sentences, no tracheal deviation and symmetric chest movement Auscultation: clear to auscultation bilaterally Cardio Rate: regular rate GI Inspection: Yes normal to inspection, No distended and Yes obesity Palpation (GI): Soft to palpation, not firm, nontender and No hepatosplenomegaly present Auscultation: normal bowel sounds General: Yes no CVA tenderness Back/Spine/Pelvis Back: no CVA tenderness Skin General skin exam: elasticity normal, turgor normal and dry skin Neuro General: patient oriented x3 Psych Appearance: grossly normal Mental Status: mental status grossly normal Results Reviewed Results Reviewed: ABDOMINAL ULTRASOUND WITH ELASTOGRAPHY 07/13/2024 FINDINGS: PANCREAS: The visualized pancreas is unremarkable though most of the gland is obscured by bowel gas. ABDOMINAL AORTA: The proximal, middle, and distal aortic segments are normal in caliber. INFERIOR VENA CAVA: Visualized portions are normal. LIVER: Liver is enlarged and echogenic consistent with hepatic steatosis. There is focal fatty sparing seen adjacent to the gallbladder. No focal lesion or intrahepatic biliary duct dilatation. The right lobe measures 17.1 cm in length. The left lobe measures 16.3 cm in length. Portal flow is towards the liver (hepatopetal). Shear wave liver elastography median stiffness is 1.82 m/s (reference: normal median stiffness is 1.3 m/s or less). IQR/median stiffness to assess sampling precision is 0.10 (reference: good quality data set is IQR/median stiffness of 0.15 or less). GALLBLADDER: Normal. The gallbladder is physiologically distended without evidence of stones, sludge, polyps, wall thickening or pericholecystic fluid. COMMON BILE DUCT: CBD mildly dilated at 0.7 cm in diameter. RIGHT KIDNEY: Normal. No hydronephrosis. No renal calculi or focal parenchymal lesions. The kidney measures 10.7 cm in maximum dimension. LEFT KIDNEY: No hydronephrosis. No renal calculi . The kidney measures 10.6 cm in maximum dimension. A benign small 0.8 cm Bosniak class I renal cyst is noted which requires no additional imaging or follow up. No solid renal masses are seen. SPLEEN: Normal. The spleen measures 9.4 cm in maximum dimension. FREE FLUID: None. US/US abdomen comp w elastography IMPRESSION: 1. Enlarged fatty liver. 2. Liver Elastography: Measurements are suggestive of compensated advanced chroniic liver disease but need further test for confirmation. REFERENCE: Society of Radiologists in Ultrasound Liver Stiffness Thresholds (2020): LIVER STIFFNESS THRESHOLDS: *Liver Stiffness equal or less than 1.3 m/s: High probability of being normal. *Liver Stiffness less than 1.7 m/s: In the absence of other known clinical signs, rules out compensated advanced chronic liver disease. *Liver Stiffness 1.7-2.1 m/s: Suggestive of compensated advanced chronic liver disease but need further test for confirmation. *Liver Stiffness over 2.1 m/s: Rules in compensated advanced chronic liver disease. *Liver Stiffness over 2.4 m/s: Suggestive of clinically significant portal hypertension. QUALITY OF DATA SET: *IQR/Median value equal or less than 0.15 implies a quality data set. *IQR/Median value over 0.15 implies a poor quality data set. SIGNIFICANT CHANGE FROM PRIOR EXAM: Significant change if liver stiffness measurement is 10% or greater from prior exam. OTHER CONSIDERATIONS: The stage of liver fibrosis may be overestimated in the setting of acute hepatitis, liver inflammation, elevated liver function tests, hepatic vascular congestion, obstructive cholestasis, non-fasting state, and infiltrative diseases such as amyloidosis and lymphoma. In some patients with NAFLD, the liver stiffness thresholds for compensated advanced chronic liver disease may be lower. In causes other than viral hepatitis and NAFLD, liver stiffness thresholds are not well established. Assessment & Plan Assessment & Plan (1) IBS (irritable colon syndrome): Code(s): K58.9 - Irritable bowel syndrome without diarrhea Category: Medical Qualifiers: Irritable bowel syndrome type: with constipation Qualified Code(s): K58.1 - Irritable bowel syndrome with constipation (2) GERD (gastroesophageal reflux disease): Code(s): K21.9 - Gastro-esophageal reflux disease without esophagitis Category: Medical Qualifiers: Esophagitis presence: esophagitis presence not specified Qualified Code(s): K21.9 - Gastro-esophageal reflux disease without esophagitis (3) Transaminitis: Code(s): R74.01 - Elevation of levels of liver transaminase levels (4) Hepatic steatosis: Code(s): K76.0 - Fatty (change of) liver, not elsewhere classified Plan Patient will continue pantoprazole daily. Avoid dietary triggers and late night snacking. May take Dulcolax on as needed basis. Will repeat liver panel as well as liver fibrosis panel to help stage it. Low-fat high-protein diet recommended. Avoid carbs. Patient was encouraged to try to lose weight. Follow-up in the office in 6 months, sooner on as needed basis. She is agreeable to this plan and verbalizes understanding of instructions. She was given the opportunity to ask questions and all questions answered. Thank you for allowing me to participate in her care Orders: Orders Liver Panel Today R74.01 - Elevation of levels of liver transaminase levels Liver Fibrosis Pnl Today K76.0 - Fatty (change of) liver, not elsewhere classified Coding Level of Care Code Est Pt Level 3 (58240) Diagnoses Irritable bowel syndrome with constipation K58.1 Irritable bowel syndrome type: with constipation Gastroesophageal reflux disease, unspecified whether esophagitis present K21.9 Esophagitis presence: esophagitis presence not specified Transaminitis R74.01 Hepatic steatosis K76.0 Time Spent (min) 25 Comment 15 minutes spent with patient and additional 10 minutes spent reviewing her records
== END 2024-08-07 13:23 | disposition home or self-care (01) ==
PROVIDERS: PCP Family Medicine; Visit Provider Nurse Practitioner Family
DX: K58.1 Irritable bowel syndrome with constipation (principal); K21.9 Gastro-esophageal reflux disease without esophagitis; R74.01 Elevation of levels of liver transaminase levels; K76.0 Fatty (change of) liver, not elsewhere classified
CPT/HCPCS: 99213

== ENCOUNTER → 2024-08-07 12:33 | Outpatient (BNVA) | payer OTHER, SELFPAY | PROVIDERS: PCP Family Medicine; Visit Provider Nurse Practitioner Family | DX: K21.9 Gastro-esophageal reflux disease without esophagitis (principal); K58.9 Irritable bowel syndrome, unspecified; R74.01 Elevation of levels of liver transaminase levels; K76.0 Fatty (change of) liver, not elsewhere classified | CPT/HCPCS: 99212 ==

== ENCOUNTER 2024-08-21 07:54 | Outpatient (REF) | payer OTHER, SELFPAY ==
--- NOTE | ~2024-08-21 | MM_ITS ---
EXAMINATION: MM SCREENING DIGITAL BREAST TOMOSYNTHESIS, BILATERAL CLINICAL INFORMATION: Screening. Asymptomatic. COMPARISON: Mammography: Comparison is made with available priors TECHNIQUE: Digital breast mammography with tomosynthesis is performed in both the craniocaudal and mediolateral oblique views along with computer-aided detection (CAD). FINDINGS: There are scattered areas of fibroglandular density (ACR BI-RADS breast composition Category b). There are no significant masses, abnormal calcifications, or other abnormalities. MM/MM tomosynthesis screening BI IMPRESSION: No mammographic evidence of malignancy. ASSESSMENT: BI-RADS BI-RADS 1 - Negative RECOMMENDATION: Routine annual mammography screening. 1 year F/U This examination should not preclude the clinical evaluation of a suspicious palpable abnormality. This patient's information was entered into a reminder system with a target due date for their next mammogram. Electronically signed by: Patsy Quintana DO 08/31/2024 06:35 PM EDT
[2024-08-21 08:45] LABS: MANUAL DIFF FLAG NO
[2024-08-21 09:09] LABS: Basophils Absolute Auto 0.1 X10*3/uL (0.0-0.2); Basophils Percent Auto 0.7 % (0-2); Eosinophils Absolute Auto 0.3 X10*3/uL (0.0-0.4); Eosinophils Percent Auto 3.6 % (0-4); Hematocrit 37.8 % (37.0-47.0); Hemoglobin 12.6 g/dl (12.0-16.0); Imm Gran Abs Auto 0.02 X10*3/uL (0.00-0.03); Imm Gran Pct Auto 0.2 % (0.0-0.4); Lymphocytes Percent Auto 45.6 % (20-40); Mean Corpuscular HGB Conc 33.3 g/dl (31.0-35.0); Mean Corpuscular Volume 86.9 fL (80.0-98.0); Mean Platelet Volume 10.6 fL (9.4-12.3); Monocytes Absolute Auto 0.6 X10*3/uL (0.1-1.2); Monocytes Percent Auto 7.3 % (2-11); Neutrophils Absolute Auto 3.8 x10*3/uL (2.0-8.3); Neutrophils Percent Auto 42.6 % (45-73); Platelet Count 295 X10*3/uL (160-400); Red Blood Count 4.35 X10*6/uL (4.20-5.50); Red Cell Distribution Width 12.7 % (11.0-16.0); White Blood Count 8.8 X10*3/uL (4.8-10.8)
[2024-08-21 09:53] LABS: Alanine Aminotransferase 46 U/L (0-31); Albumin Level 4.5 g/dL (3.5-5.0); Alkaline Phosphatase 58 U/L (39-117); Anion Gap 14 (12-20); Aspartate Amino Transferase 52 U/L (5-31); Bilirubin Direct < 0.2 mg/dL (0.0-0.5); Bilirubin Total 0.2 mg/dL (0.0-1.0); Blood Urea Nitrogen 15 mg/dL (9-16); Calcium 10.6 mg/dL (8.4-10.2); Carbon Dioxide 29 mmol/L (22-29); Chloride 101 mmol/L (96-108); Cholesterol 117 mg/dL (<200); Estimated Glomerular Filt Rate > 60; Glucose Random 146 mg/dL (60-115); HDL Cholesterol 39 mg/dL (>40); LDL Cholesterol Calculated 61 mg/dL (<100); Potassium 4.5 mmol/L (3.3-5.1); Sodium 139 mmol/L (135-145); Triglycerides 85 mg/dL (<150); Uric Acid 7.4 mg/dL (2.4-5.7)
[2024-08-21 10:46] LABS: Reflex LDLD? No
[2024-08-26 18:18] LABS: FIB-ALT 41 U/L (6-29); FIB-Alpha-2-Macroglobulin 218 mg/dL (106-279); FIB-Apolipoprotein A1 142 mg/dL (101-198); FIB-GGT 53 U/L (3-65); FIB-Haptoglobin 202 mg/dL (43-212); FIB-Total Bilirubin 0.2 mg/dL (0.2-1.2); Liver Fibrosis Score 0.15; Liver Fibrosis Stage F0; Nec Inflam Act Grade A0-A1; Nec Inflam Act Score 0.19
== END 2024-08-21 07:55 | disposition home or self-care (01) ==
LOC: HO.MAMMO 07:54
PROVIDERS: Absent Provider Nurse Practitioner Family; PCP Family Medicine; Visit Provider Family Medicine
DX: Z12.31 Encounter for screening mammogram for malignant neoplasm of breast (principal); K76.0 Fatty (change of) liver, not elsewhere classified; E11.9 Type 2 diabetes mellitus without complications; E78.00 Pure hypercholesterolemia, unspecified; E79.0 Hyperuricemia without signs of inflammatory arthritis and tophaceous disease; R74.01 Elevation of levels of liver transaminase levels
CPT/HCPCS: 36415; 77063; 77067; 80053; 80061; 81596; 82248; 84550; 85025

== ENCOUNTER → 2024-08-21 08:15 | Outpatient (BNV) | payer OTHER, SELFPAY | PROVIDERS: Absent Provider Nurse Practitioner Family; PCP Family Medicine; Visit Provider Internal Medicine | DX: Z12.31 Encounter for screening mammogram for malignant neoplasm of breast (principal) | CPT/HCPCS: 77063; 77067 ==

== ENCOUNTER 2025-02-01 12:32 | Outpatient (AMB) | payer OTHER, SELFPAY ==
--- NOTE | 2025-02-01 13:06 | MHC.OFFVIS ---
Vital Signs 02/01/25 13:19 Height 5 ft 2 in Weight 177 lb 11.081 oz BMI 32.5 BP 148/64 H Blood Pressure Location Rt brachial Position Sitting Pulse 66 Pulse Source Pulse Oximeter Pulse Oximetry (%) 97 Oxygen Delivery Method Room Air Intake Visit Reasons: 6 month follow up Intake Note: ESTABLISHED PATIENT for GERD mgmt. Lab done. Chief Complaint; Pt states that her reflux is well controlled currently and has improved since last visit. Headlight Adjuster Required: No Allergies No Known Allergies [No Known Allergies*] Allergy (Verified 08/07/24 13:00) HPI HPI 6 month follow up: Details: LAST VISIT IBS (irritable colon syndrome) GERD (gastroesophageal reflux disease) Transaminitis Hepatic steatosis Plan Patient will continue pantoprazole daily. Avoid dietary triggers and late night snacking. May take Dulcolax on as needed basis. Will repeat liver panel as well as liver fibrosis panel to help stage it. Low-fat high-protein diet recommended. Avoid carbs. Patient was encouraged to try to lose weight. Follow-up in the office in 6 months, sooner on as needed basis. She is agreeable to this plan and verbalizes understanding of instructions. She was given the opportunity to ask questions and all questions answered. ? Thank you for allowing me to participate in her care Orders Orders Liver Panel Today R74.01 Liver Fibrosis Pnl Today K76.0 TODAY'S VISIT: Patient is here today for f/u . Patient reports that she has been doing well since last visit. Patient is taking pantoprazole in the morning and her symptoms of acid reflux are suppressed. Patient is taking MiraLax as needed when no bowel movements in 2-3 days. Patient denies any nausea or vomiting. Denies any dyspepsia, dysphagia or odynophagia. Denies melena, hematochezia, unintentional weight loss or ribbon like stools. Patient had liver enzymes done last fall and they are still elevated. PCP send patient for ultrasound, last ultrasound was done in June ABDOMINAL ULTRASOUND WITH ELASTOGRAPHY MPRESSION: 1. Enlarged fatty liver. 2. Liver Elastography: Measurements are suggestive of compensated advanced chroniic liver disease but need further test for confirmation. Laboratory Tests 03/28/24 08/21/24 13:35 08:45 AST 46 H 52 H ALT 55 H 46 H Alkaline Phosphatase 69 58 Liver Fibrosis Stage F0 [facility] Medical History Elevated cholesterol HTN (hypertension) Diabetes IBS (irritable colon syndrome) GERD (gastroesophageal reflux disease) Surgical History History of surgery on wrist History of carpal tunnel surgery of left wrist Hx of tubal ligation Hx of umbilical hernia repair Hx of ventral hernia repair Hx of laparoscopy Hx of colonoscopy History of esophagogastroduodenoscopy (EGD) Family History Mother Colon cancer Father Kidney disease Social History Patient Tobacco Use Status: Never used Tobacco Review of Systems Const Denies weight gain and Denies weight loss ENT Reports no additional complaints, Denies dysphagia and Denies odynophagia Card Reports no additional complaints Resp Reports no additional complaints GI Denies abdominal pain, Denies belching, Denies melena, Denies bloating, Denies change in bowel habits, Denies dysphagia, Denies excessive flatus, Denies dyspepsia, Denies heartburn, Denies diarrhea, Denies loose stools, Denies nausea, Denies odynophagia and Denies vomiting Musc Reports no additional complaints Neuro Reports no additional complaints Psych Reports no additional complaints Endo Reports no additional complaints Physical Exam Vital Signs: Last Vital Signs Pulse 66 02/01/25 13:19 BP 148/64 H 02/01/25 13:19 Pulse Ox 97 02/01/25 13:19 Oxygen Delivery Method Room Air 02/01/25 13:19 BMI result Body Mass Index 32.5 Const General: healthy appearing and no acute distress Nutritional Appearance: obese Orientation/consciousness: patient oriented x3 Resp Effort & Inspection: normal respiratory effort, able to speak in complete sentences, no tracheal deviation and symmetric chest movement Auscultation: clear to auscultation bilaterally Cardio Rate: regular rate GI Inspection: Yes normal to inspection, No distended and Yes obesity Palpation (GI): Soft to palpation, not firm, nontender and No hepatosplenomegaly present Auscultation: normal bowel sounds General: Yes no CVA tenderness Back/Spine/Pelvis Back: no CVA tenderness Skin General skin exam: elasticity normal, turgor normal and dry skin Neuro General: patient oriented x3 Psych Appearance: grossly normal Mental Status: mental status grossly normal Assessment & Plan Assessment & Plan (1) IBS (irritable colon syndrome): Code(s): K58.9 - Irritable bowel syndrome, unspecified Category: Medical Qualifiers: Irritable bowel syndrome type: with constipation Qualified Code(s): K58.1 - Irritable bowel syndrome with constipation (2) GERD (gastroesophageal reflux disease): Code(s): K21.9 - Gastro-esophageal reflux disease without esophagitis Category: Medical Qualifiers: Esophagitis presence: esophagitis presence not specified Qualified Code(s): K21.9 - Gastro-esophageal reflux disease without esophagitis (3) Transaminitis: Code(s): R74.01 - Elevation of levels of liver transaminase levels (4) Hepatic steatosis: Code(s): K76.0 - Fatty (change of) liver, not elsewhere classified (5) Hepatomegaly: Code(s): R16.0 - Hepatomegaly, not elsewhere classified Plan patient was encouraged to eat low-fat, low salt, low carb and high-protein diet. Encouraged to control her sugar currently is on metformin. Patient might benefit from taking GLP 1 and can be monitored for symptoms. Will repeat liver enzymes and liver fibrosis panel. Patient will be sent for abdominal ultrasound with elastography again to compare. Continue pantoprazole daily. Patient was encouraged to take MiraLax daily to help her move her bowels better. Increase fluid intake and activity to promote better bowel motility. patient will follow-up in 6 months, sooner on as needed basis. Patient is agreeable to this plan and verbalizes understanding of instructions. She was given the opportunity to ask questions and all questions answered. Thank you for allowing me to participate in her care Orders: Orders Liver Panel Today R74.01 - Elevation of levels of liver transaminase levels Liver Fibrosis Pnl Today K76.0 - Fatty (change of) liver, not elsewhere classified US abdomen garcia w elastography Today K76.0 - Fatty (change of) liver, not elsewhere classified Medications: Refilled pantoprazole take one tablet half an hour before breakfast 40 mg PO DAILY 90 tabs 3RF K21.9 - Gastro-esophageal reflux disease without esophagitis Coding Level of Care Code Est Pt Level 4 (89101) Complex EM visit Add On G2211 Diagnoses Irritable bowel syndrome with constipation K58.1 Irritable bowel syndrome type: with constipation Gastroesophageal reflux disease, unspecified whether esophagitis present K21.9 Esophagitis presence: esophagitis presence not specified Transaminitis R74.01 Hepatic steatosis K76.0 Hepatomegaly R16.0 Time Spent (min) 35 Comment 25 minutes spent with patient and additional 10 minutes spent reviewing her records
[2025-02-01 13:19] VITALS: BP 148/64; PULSE 66; O2SAT 97; BMI 32.5
--- OUTSIDE RECORDS SUMMARY | 2025-02-01 15:48 | XMS_ITS | Encounter Summary ---
Author Organization [facility] Address [address] [facility] [address] [place] [address] Care Team Providers Care Beauty Advisor Name Role Phone Richa Jeter MD Primary Care Provider [phone] Jer Guerra PharmD Unavailable [phone] Reason for Referral * Consultation (Routine) - Authorized Specialty Diagnoses / Procedures Referred By Contdavid t Referred To Contact Pharmacy Diagnoses Primary hypertension Type 2 diabetes mellitus without complication, without long-term current use of insulin (CMS/HCC) Richa Jeter MD [address] [place] [address] Phone: tel: fax: Referral ID Status Reason Start Date Expiration Date Visits Requested Visits Authorized [id number] Authorized Consult and Treat 10/03/2024 10/03/2025 6 6 Encounter Details Date Type Department Care Team (Late st Contact Info) Description 10/03/2024 Orders Only [facility] [address] [place], [place] [phone] Richa Jeter MD [address] [place], [place] [phone] Primary hypertension (Primary Dx); Type 2 diabetes mellitus without complication, without long-term current use of insulin (CMS/HCC) Social History Tobacco Use Types Packs/Day Years Used Date Smoking Tobacco: Never Passive Smoke Exposure: Never Smokeless Tobacco: Never Alcohol Use Standard Drinks/Week Comments Never 0 (1 standard drink = 0.6 oz pur e alcohol) Depression Answer Date Recorded Patient Health Questionnaire-9 Score 7 06/29/2024 Patient Health Questionnaire-9 Score 7 06/29/2024 Last PHQ-9: Questionnaire Data Not on file 0 06/29/2024 Housing Stability Answer Date Recorded What is your housing situation today? I have zachary brunson 09/20/[address] you li ve. Do you have problems with any of the following? None of the above 09/20/2023 Food Insecurity Answer Date Recorded Within the past 12 months, y ou worried that your food would run out before you got money to buy more: Never True 09/20/2023 Within the past 12 months,th e food you bought just didn't last and you didn't have enough money to get more: Never True Transportation Answer Date Recorded In the past 12 months, has l ack of transportation kept you from medical appts, meetings, work or from getting things needed for daily living? No 03/21/2024 Utilities Answer Date Recorded In the past 12 months, has t he electric, gas, oil or water company threatened to shut off services in your home? No 09/20/2023 Depression Answer Date Recorded Patient Health Questionnaire-2 Score 3 06/29/2024 Comments Unknown Sex and Gender Information Value Date Recorded Sex Assigned at Female 09/21/2022 10:14 AM EDT Legal Sex Female 10:14 AM EDT Gender Identity Female 09/21/2022 10:14 AM EDT Sexual Orientation Straight 09/21/2022 10 :14 AM EDT documented as of this encounter Plan of Treatment Upcoming Encounters Date Type Department Care Team (Late st Contact Info) Description 04/25/2025 10:30 AM EDT Medication Management [facility] [address] [place] [address] Jer Guerra, PharmD [address] [place] [address] Scheduled Referrals Name Type Priority Associated Diagnoses Orde r Schedule Referral to Pharmacy CDTM Outpatient Referral Routine Primary hypertension Type 2 diabetes mellitus without complication, without long-term current use of insulin ([facility]) Ordered: 10/03/2024 documented as of this encounter Goals Goal Patient Goal Type Associated Problems Recent Progress Patient-Stated? Author Blood Pressure < 140/90 Blood Pressure 132/66( 025 10:32 AM EST) No Jer Guerra, PharmD documented as of this encounter Visit Diagnoses Diagnosis Primary hypertension- Primary Unspecified essential hypertension Type 2 diabetes mellitus without complication, without long-term current use of insulin ([facility]) documented in this encounter Additional Health Concerns Assessment Noted Time PHQ-9 Depression Total Score: 7 06/29/20 24 11:26 AM EDT documented as of this encounter Care Teams Beauty Advisor Relationship Specialty Start Date End Date Richa Jeter MD [address] [place] [address] PCP - General Family Medicine 11/22/18 Jer Guerra, PharmD [address] [place] [address] Pharmacist Internal Medicine 10/08/23 documented as of this encounter
--- OUTSIDE RECORDS SUMMARY | 2025-02-01 15:48 | XMS_ITS | Encounter Summary ---
Author Organization [employer] [facility] Address [address] [facility] 7t [place] [address] Care Team Providers Care Test Department Helper Name Role Phone Richa Jeter MD Primary Care Provider [phone] Jer Guerra PharmD Unavailable [phone] Encounter Details Date Type Department Care Team (Late Contact Info) Description 04/23/2023 Orders Only [facility] [address] [place], [place] [phone] Negin Flowers MD [address] [place], [place] [phone] Social History Tobacco Use Types Packs/Day Years Used Date Smoking Tobacco: Never Smokeless Tobacco: Never Alcohol Use Standard Drinks/Week Comments Never 0 (1 standard drink = 0.6 oz pur e alcohol) PHQ-2 Answer Date Recorded Patient Health Questionnaire-2 Score 2 03/31/2023 Depression Answer Date Recorded Patient Health Questionnaire-9 Score 4 12/31/2022 Depression Answer Date Recorded Patient Health Questionnaire-2 Score 2 03/31/2023 Comments Unknown Sex and Gender Information Value Date Recorded Sex Assigned at Female 09/21/2022 10:14 AM EDT Legal Sex Female 10:14 AM EDT Gender Identity Female 09/21/2022 10:14 AM EDT Sexual Orientation Straight 09/21/2022 10 :14 AM EDT COVID-19 Exposure Response Date Recorded In the last 10 days, have yo u been in contact with someone who was confirmed or suspected to have Coronavirus/COVID-19? No / Unsure 04/22/2023 1:22 PM EDT documented as of this encounter Plan of Treatment Upcoming Encounters Date Type Department Care Team (Late Contact Info) Description 04/25/2025 10:30 AM EDT Medication Management [facility] [address] [place] [address] Jer Guerra, PharmD [address] [place] [address] documented as of this encounter Procedures Procedure Name Priority Date/Time Associated Diagnosis Comments XR FOOT 3+ VIEWS RIGHT Routine 04/22/2023 2:49 PM EDT documented in this encounter Results * XR Foot 3+ Views Right (04/22/2023 2:49 PM EDT) Anatomical Region Laterality Modality Lower Extremities, Foot Right Radiogra phic Imaging 04/22/2023 2:49 PM EDT Narrative 04/22/2023 3:23 PM EDT ?[facility] ?[address] ?[place] [address] ?XRay Report ? Signed ? Patient: Pauly Mendoza ?MR#: [id number] ?? [id number] ? : 1965 ?Acct:[id number] ? Age/Sex: 57 / F ?ADM Date: 04/22/23 ? Loc: HO.HHCX ? Attending Dr: Negin Flowers MD ? Ordering Physician: Negin Flowers MD ?? Date of Service: 04/22/23 ?? Procedure(s): XR foot RT min 3V ?? Accession Number(s): [id number] ? cc: Negin Flowers MD ? EXAMINATION: ?? XR FOOT, RIGHT ? CLINICAL INFORMATION: ?? Atraumatic pain for one week. ? COMPARISON: ?? None available. ? TECHNIQUE: ?? AP, lateral, and oblique views of the right foot. ? FINDINGS: ?? There is no acute fracture or dislocation. The joint spaces are ?? unremarkable. The tarsal bones are normally aligned. Incidental type I ?? accessory navicular bone. Small plantar and moderate retrocalcaneal ?? spurs. There is mild soft tissue swelling. ? XR/XR foot RT min 3V ?? IMPRESSION: ?? Mild soft tissue swelling and small degenerative calcaneal spurs. No ?? acute fracture or significant degenerative changes. ? Dictated By: ?Watson Smith MD ? Signed By: ?<Electronically signed by Watson Smith MD in OV> ?04/22/23 1521 ? DD/ 1449 ? TD/TT: ? Glass Etcher Helper: RYLIE ? Procedure Note [place], Image - 05/19/[address] [address] XRay Report Signed Patient: Kip Mendoza#: [id number] : 1965Acct:[id number] Age/Sex: 57 / FADM Date: 04/22/23 Loc: HO.HHCX Attending Dr: Negin Flowers MD Ordering Physician: Negin Flowers MD Date of Service: 04/22/23 Procedure(s): XR foot RT min 3V Accession Number(s): [id number] cc: Negin Flowers MD EXAMINATION: XR FOOT, RIGHT CLINICAL INFORMATION: Atraumatic pain for one week. COMPARISON: None available. TECHNIQUE: AP, lateral, and oblique views of the right foot. FINDINGS: There is no acute fracture or dislocation. The joint spaces are unremarkable. The tarsal bones are normally aligned. Incidental type I accessory navicular bone. Small plantar and moderate retrocalcaneal spurs. There is mild soft tissue swelling. XR/XR foot RT min 3V IMPRESSION: Mild soft tissue swelling and small degenerative calcaneal spurs. No acute fracture or significant degenerative changes. Dictated By: Watson Smith MD Signed By: <Electronically signed by Watson Smith MD in OV> 04/22/23 1521 DD/ 1449 TD/TT: Glass Etcher Helper: RYLIE [facility] External Provider IMG XR PROCEDURES Final Result documented in this encounter Visit Diagnoses Not on filedocumented in this encounter Additional Health Concerns Assessment Noted Time PHQ-9 Depression Total Score: 4 12/31/19 23 11:23 AM EST documented as of this encounter Care Teams Test Department Helper Relationship Specialty Start Date End Date Richa Jeter MD [address] [place] [address] PCP - General Family Medicine 11/22/18 Jer Guerra, TrangD [address] [place] [address] Pharmacist Internal Medicine 10/08/23 documented as of this encounter
--- OUTSIDE RECORDS SUMMARY | 2025-02-01 15:49 | XMS_ITS | Encounter Summary ---
Author Organization [facility] [facility] Address [address] [facility] 7t [place] [address] Care Team Providers Care Memorial Mason Name Role Phone Richa Jeter MD Primary Care Provider [phone] Jer Guerra PharmD Unavailable [phone] Reason for Visit * Reason Comments Med Refill Encounter Details Date Type Department Care Team (Late Contact Info) Description 02/26/2023 Refill [facility] [address] [place], [place] [phone] Richa Jeter MD [address] [place] [address] Type 2 diabetes mellitus without complication, without long-term current use of insulin ([facility]) Social History Tobacco Use Types Packs/Day Years Used Date Smoking Tobacco: Never Smokeless Tobacco: Never Alcohol Use Standard Drinks/Week Comments Never 0 (1 standard drink = 0.6 oz pur e alcohol) Depression Answer Date Recorded Patient Health Questionnaire-9 Score 4 12/31/2022 Comments Unknown Sex and Gender Information Value [...] suspected to have Coronavirus/COVID-19? No / Unsure 03/01/2023 10:54 AM EDT documented as of this encounter Plan of Treatment Upcoming Encounters Date Type Department Care Team (Late Contact Info) Description 04/25/2025 10:30 AM EDT Medication Management [facility] [address] [place] [address] Jer Guerra, PharmD [address] [place] [address] documented as of this encounter Visit Diagnoses Diagnosis Type 2 diabetes mellitus without complication, without long-term current use of insulin ([facility]) documented in this encounter Additional Health Concerns Assessment Noted Time PHQ-9 Depression Total Score: 4 12/31/19 23 11:23 AM EST documented as of this encounter Care Teams [facility] Relationship Specialty Start Date End Date Richa Jeter MD [address] [place] [phone] PCP - General Family Medicine 11/22/18 Jer Guerra, PharmD [address] [place] [address] Pharmacist Internal Medicine 10/08/23 documented as of this encounter
--- OUTSIDE RECORDS SUMMARY | 2025-02-01 15:49 | XMS_ITS | Encounter Summary ---
Author Organization [employer] Address [address] [facility] [address] [place] [address] Care Team Providers Care Grade Teacher Name Role Phone Richa Jeter MD Primary Care Provider [phone] Jer Guerra PharmD Unavailable [phone] Encounter Details Date Type Department Care Team (Late st Contact Info) Description 02/01/2025 Orders Only [facility] EXTERNAL DATA DEPARTMENT Provider, Generic External Data Social History Tobacco Use Types Packs/Day Years [...] Description 04/25/2025 10:30 AM EDT Medication [address] [facility] [address] [place] [address] Jer Guerra PharmD [address] [place] [address] documented as of this encounter Goals Goal Patient Goal Type Associated Problems Recent Progress Patient-Stated? Author Blood Pressure < 140/90 Blood Pressure 132/66( 025 10:32 AM EST) No Jer Guerra, Gopi documented as of this encounter Procedures Procedure Name Priority Date/Time Associated Diagnosis Comments HEPATIC FUNCTION PANEL Routine 02/01/2025 1:38 PM EDT documented in this encounter Results * (ABNORMAL) Hepatic Function Panel (02/01/2025 1:38 PM EDT) Bilirubin, Total 0.2 0.0 - 1.0 mg/dL [facility] Bilirubin, Direct <0.2 0.0 - 0.5 mg/dL [facility] Aspartate Amino Transferase 30 5 - 31 U/L [facility] Alanine Aminotransferase 34(H) 0 - 31 U/L [facility] Total Protein 8.1(H) 6.5 - 8.0 g/dL [facility] Albumin Level 4.2 3.5 - 5.0 g/dL [facility] Alkaline Phosphatase 58 39 - 117 U/L [facility] 02/01/2025 1:38 PM EDT 02/01/2025 1:38 PM EDT us Generic External Data Provider LAB BLOOD ORDERAB LES Final Result [facility] [address] [place] [address] [phone] documented in this encounter Visit Diagnoses Not on filedocumented in this encounter Additional Health Concerns Assessment Noted Time PHQ-9 Depression Total Score: 7 06/29/20 24 11:26 AM EDT documented as of this encounter Care Teams Grade Teacher Relationship Specialty Start Date End Date Richa Jeter MD [address] [place] [address] PCP - General Family Medicine 11/22/18 Jer Guerra, PharmD [address] [place] [address] Pharmacist Internal Medicine 10/08/23 documented as of this encounter
--- OUTSIDE RECORDS SUMMARY | 2025-02-01 15:49 | XMS_ITS | Encounter Summary ---
Author Organization [employer] Address [address] [facility] [address]t [place] [address] Care Team Providers Care Golf Club Maker Name Role Phone Richa Jeter MD Primary Care Provider [phone] Jer Guerra PharmD Unavailable [phone] Encounter Details Date Type Department Care Team (Latest Contact Info) Description 01/17/2025 Travel Social History Tobacco Use Types Packs/Day Years [...] is your housing situation today? I have zacharybing brunson 09/20/[address] you [...] Description 04/25/2025 10:30 AM EDT Medication Management [facility] [address] [place] [address] Jer Guerra PharmD [address] [place] [address] documented as of this encounter Goals Goal Patient Goal Type Associated Problems Recent Progress Patient-Stated? Author Blood Pressure < 140/90 Blood Pressure 132/66( 025 10:32 AM EST) No Jer Guerra PharmD documented as of this encounter Visit Diagnoses Not on filedocumented in this encounter Additional Health Concerns Assessment Noted Time PHQ-9 Depression Total Score: 7 06/29/20 24 11:26 AM EDT documented as of this encounter Care Teams Golf Club Maker Relationship Specialty Start Date End Date Richa Jeter MD [address] [place] [address] PCP - General Family Medicine 11/22/18 Jer Guerra, TrangD [address] [place] [address] Pharmacist Internal Medicine 10/08/23 documented as of this encounter
--- OUTSIDE RECORDS SUMMARY | 2025-02-01 15:49 | XMS_ITS | Encounter Summary ---
Author Organization [employer] Address [address] [facility] [address] [place] [address] Care Team Providers Care Car Rental Service Attendant Name Role Phone Richa Jeter MD Primary Care Provider [phone] Jer Guerra PharmD Unavailable [phone] Reason for Visit * Reason Comments Med Refill Encounter Details Date Type Department Care Team ([facility] st Contact Info) Description 01/15/2025 Refill [facility] [address] [place], [place] [phone] Richa Jeter MD [address] [place], [place] [phone] Type 2 diabetes mellitus without complication, without long-term current use of insulin ([facility]) Social History Tobacco Use Types Packs/Day Years [...] Description 04/25/2025 10:30 AM EDT Medication Management [facility] [address] [place] [address] Jer Guerra, PharmD [address] [place] [phone] documented as of this encounter Goals Goal Patient Goal Type Associated Problems Recent Progress Patient-Stated? Author Blood Pressure < 140/90 Blood Pressure 132/66( 025 10:32 AM EST) No Jer Guerra, PharmEugenie documented as of this encounter Visit Diagnoses Diagnosis Type 2 diabetes mellitus without complication, without long-term current use of insulin ([facility]) documented in this encounter Additional Health Concerns Assessment Noted Time PHQ-9 Depression Total Score: 7 06/29/20 24 11:26 AM EDT documented as of this encounter Care Teams Car Rental Service Attendant Relationship Specialty Start Date End Date Richa Jeter MD [address] [place] [address] [phone] PCP - General Family Medicine 11/22/18 Jer Guerra, PharmD [address] [place] [address] [phone] Pharmacist Internal Medicine 10/08/23 documented as of this encounter
--- OUTSIDE RECORDS SUMMARY | 2025-02-01 15:49 | XMS_ITS | Encounter Summary ---
Author Organization [employer] Address [address] [facility] [address] [place] [address] Care Team Providers Care Equipment Service Technician Name Role Phone Richa Jeter MD Primary Care Provider [phone] Jer Guerra PharmD Unavailable [phone] Reason for Visit * Reason Comments Med Refill Encounter Details Date Type Department Care Team ([facility] st Contact Info) Description 01/30/2025 Refill [facility] [address] [place], [place] [phone] Richa Jeter MD [address] [place], [place] [phone] Type 2 diabetes mellitus without complication, without long-term current use of insulin ([facility]) Social History Tobacco Use Types Packs/Day Years [...] Description 04/25/2025 10:30 AM EDT Medication Management [facility] [address] [place] [address] Jer Guerra, PharmD [address] [place] [phone] documented as of this encounter Goals Goal Patient Goal Type Associated Problems Recent Progress Patient-Stated? Author Blood Pressure < 140/90 Blood Pressure 132/66( 025 10:32 AM EST) No Jer Guerra, PharmEugenie documented as of this encounter Visit Diagnoses Diagnosis Type 2 diabetes mellitus without complication, without long-term current use of insulin ([facility]) documented in this encounter Additional Health Concerns Assessment Noted Time PHQ-9 Depression Total Score: 7 06/29/20 24 11:26 AM EDT documented as of this encounter Care Teams Equipment Service Technician Relationship Specialty Start Date End Date Richa Jeter MD [address] [place] [address] [phone] PCP - General Family Medicine 11/22/18 Jer Guerra, PharmD [address] [place] [address] [phone] Pharmacist Internal Medicine 10/08/23 documented as of this encounter
--- OUTSIDE RECORDS SUMMARY | 2025-02-01 15:49 | XMS_ITS | Clinical Summary ---
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 023 Active Hydrocortisone, Perianal, 1 % cream APPLY TO AFFECTED AREA EVERY DAY 022 Active clonazePAM (KlonoPIN) 1 MG tablet Take 1 mg by mouth 2 times daily. 023 Active lidocaine (Lidoderm) 5 % patchIndication s:Fibromyalgia, Disseminated idiopathic skeletal hyperostosis Apply 1 patch topically in the morning. Remove & discard patch within 12 hours or as directed by MD. 90 patch 3 023 Active albuterol 108 (90 Base) MCG/ACT inhaler Inhale 2 puffs every 4 (four) hours if needed for wheezing or shortness of breath. 18 g 1 023 Active Spacer/Aero-Hol ding Chambers (OptiChamber Ashli) misc 1 each every 4 (four) hours if needed (asthma). 1 each 023 Active nystatin (Mycostatin) cream Apply topically 2 times daily. to affected area 30 g 3 023 Active busPIRone (Buspar) 15 MG tablet 023 Active GaviLAX 17 GM/SCOOP powder 238 G ORALLY ONCE DIRECTED BY GASTROENTEROLOGY DEPARTMENT AT [facility] 023 Active Blood Pressure Monitor kitIndications: Essential hypertension Use daily as directed to measure blood pressure 1 kit 023 Active FreeStyle lancetsIndicati ons:Type 2 diabetes mellitus without complication, without long-term current use of insulin ([facility]) 1 each by Other route 2 times daily. Check blood glucose 100 each 12 024 Active lisinopril 40 MG tablet Take 1 tablet (40 mg) by mouth Once per day. 90 tablet 3 024 Active rosuvastatin (Crestor) 20 MG tablet Take 1 tablet (20 mg) by mouth Once per day. 90 tablet 3 024 2024 Active FREESTYLE LITE test stripIndication s:Type 2 diabetes mellitus without complications (CMS/[facility]),Essen tial (primary) hypertension USE TO TEST TWICE DAILY 100 strip 10 024 Active cholecalciferol (Vitamin D3) 25 MCG (1000 UT) tablet TAKE 1 TABLET (25 MCG) BY MOUTH IN THE MORNING 90 tablet 2 024 Active metoprolol succinate XL (Toprol XL) 100 MG 24 hr tabletIndicatio ns:Primary hypertension Take 1 tablet by mouth once daily 90 tablet 3 024 Active allopurinol (Zyloprim) 100 MG tablet TAKE 2 TABLETS BY MOUTH EVERY DAY 180 tablet 3 024 Active Blood Glucose Monitoring Suppl (FreeStyle [place] Lite) w/Device kitIndications: Type 2 diabetes mellitus without complication, without long-term current use of insulin ([facility]) Use to test blood sugar 2 times daily 1 kit 024 Active hydrocortisone 2.5 % cream APPLY TOPICALLY 2 TIMES DAILY. APPLY TO AFFECTED AREA THIN LAYER ONCE DAILY 476 g 3 024 Active chlorthalidone (Hygroton) 25 MG tabletIndicatio ns:Primary hypertension TAKE 1 TABLET BY MOUTH EVERY DAY 90 tablet 3 Active dapagliflozin (Farxiga) 5 MG Take 1 tablet (5 mg) by mouth Once per day. 90 tablet 3 024 2024 Active ibuprofen 800 MG tablet TAKE 1 TABLET BY MOUTH EVERY 8 HOURS IF NEEDED FOR MILD PAIN OR MODERATE PAIN. 90 tablet 1 025 Active Aspirin Low Dose 81 MG EC tabletIndicatio ns:Type 2 diabetes mellitus without complication, without long-term current use of insulin (CMS/HCC) TAKE 1 TABLET BY MOUTH EVERY DAY 90 tablet 3 025 Active metFORMIN XR (Glucophage-XR) 500 MG 24 hr tabletIndicatio ns:Type 2 diabetes mellitus without complication, without long-term current use of insulin (CMS/[facility]) TAKE 2 TABLETS BY MOUTH WITH BREAKFAST AND EVENING MEAL 360 tablet 025 Active Aspirin Low Dose 81 MG EC tabletIndicatio ns:Type 2 diabetes mellitus without complication, without long-term current use of insulin (CMS/[facility]) TAKE 1 TABLET BY MOUTH EVERY DAY 90 tablet 3 024 2024 Discontinued metFORMIN XR (Glucophage-XR) 500 MG 24 hr tabletIndicatio ns:Type 2 diabetes mellitus without complication, without long-term current use of insulin ([facility]) TAKE 2 TABLETS BY MOUTH WITH BREAKFAST AND EVENING MEAL 360 tablet 3 024 2024 Discontinued Active Problems Problem Noted Date Diagnosed Date Carpal tunnel syndrome 06/29/2024 Assessment & Plan (06/29/2024 11:58 AM EDT): - s/p carpal tunnel release >10 years ago - continue judicious use of ibuprofen - will prescribe wrist brace - she is not interested in another surgery Sleep disturbance 01/18/2024 Assessment & Plan (01/18/2024 4:12 PM EST): Wakes up several times per night, ro ARNAUD Order sleep study and fu with PCP Hyperuricemia 10/08/2023 Assessment & Plan (06/30/2024 6:07 PM EDT): - continue allopurinol - low purine diet - check uric acid and adjust allopurinol dose accordingly Assessment & Plan (01/03/2024 9:08 AM EST): - continue allopurinol - low purine diet Assessment & Plan (10/08/2023 9:55 AM EST): - will start allopurinol if still elevated - will monitor LFT closely Gout 10/04/2023 Assessment & Plan (11/06/2024 6:03 PM EST): - Hx hyperuricemia, last uric acid 7.4 on 08/21/24 - last flare in April 2023 - judicious use of NSAIDs - low-purine diet - continue allopurinol 200 mg daily, consider increasing Assessment & Plan (06/30/2024 6:07 PM EDT): - Hx hyperuricemia - last flare in April 2023 - judicious use of NSAIDs Assessment & Plan (01/03/2024 9:06 AM EST): - Hx hyperuricemia - last flare in April 2023 - judicious use of NSAIDs Assessment & Plan (10/08/2023 9:54 AM EST): - Hx hyperuricemia - Will check uric acid level and will start allopurinol if still elevated - judicious use of NSAIDs Right foot pain 04/22/2023 Overview (04/22/2023): Likely sprain but will check uric acid and x-ray. Supportive care given. Tylenol for pain. Shivam bandage. Assessment & Plan (04/22/2023 2:19 PM EDT): Likely sprain but will check uric acid and x-ray. Supportive care given. Tylenol for pain. Shivam bandage. Candidiasis of breast 03/31/2023 Assessment & Plan (03/31/2023 5:18 PM EDT): Recurrent Avoid wearing bra Aerate the area Apply Nysatin cream Irritable bowel syndrome 12/31/2022 Assessment & Plan (01/03/2024 9:01 AM EST): -Followed by GI -Continue low FODMAP diet -Previously tried Linzess, but pt self-discontinued due to intolerance -Predominantly constipation, current bowel regimen with Miralax and Dulcolax Assessment & Plan (10/08/2023 9:52 AM EST): -Followed by GI, last seen on 03/16/23 -Continue low FODMAP diet -Previously tried Linzess, but pt self-discontinued due to intolerance -Predominantly constipation, current bowel regimen with Miralax and Dulcolax Assessment & Plan (07/05/2023 1:00 PM EDT): -Followed by GI, last seen on 03/16/23 -Continue low FODMAP diet -Previously tried Linzess, but pt self-discontinued due to intolerance -Predominantly constipation, current bowel regimen with Miralax and Dulcolax Assessment & Plan (03/31/2023 5:15 PM EDT): -Followed by GI, last seen on 03/16/23 -Continue FODMAP diet -Previously tried Linzess, but pt self-discontinued due to intolerance -Predominantly constipation, current bowel regimen with Miralax and Dulcolax Assessment & Plan (01/01/2023 7:03 AM EST): -Followed by GI, last seen on 12/14/21 -Continue FODMAP diet -Previously tried Linzess, but pt self-discontinued due to intolerance -Predominantly constipation, current bowel regimen with Miralax and Dulcolax Metabolic dysfunction-associ ated steatotic liver disease (MASLD) 12/31/2022 Assessment & Plan (11/06/2024 5:08 AM EST): [place] [facility] [place] abdominal US performed on 09/23/22, no focal lesion or cirrhosis -FIB4 index 1.23 -Fibrosis test 08/11/24 Stage F0 -Avoid hepatotoxic drugs -Continue working on lifestyle modfications Assessment & Plan (06/30/2024 6:06 PM EDT): -[place] [facility] [place]Last abdominal US performed on 09/23/22, no focal lesion or cirrhosis -FIB4 index 1.23 -Avoid hepatotoxic drugs -Continue working on lifestyle modfications Assessment & Plan (03/28/2024 1:08 PM EDT): -Most recent LFT 10/21/23 AST 34; ALT 39, stable -GI: [facility] -Last abdominal US performed on 09/23/22, no focal lesion or cirrhosis -Avoid hepatotoxic drugs -Continue working on lifestyle modfications Assessment & Plan (01/03/2024 9:01 AM EST): -Most recent LFT 10/21/23 AST 34; ALT 39, stable -GI: [facility] -Last abdominal US performed on 09/23/22, no focal lesion or cirrhosis -Avoid hepatotoxic drugs -Continue working on lifestyle modfications Assessment & Plan (10/08/2023 9:58 AM EST): -Most recent LFT 03/2023, stable -GI: [facility] -Last abdominal US performed on 09/23/22, no focal lesion or cirrhosis -Avoid hepatotoxic drugs -Continue working on lifestyle modfications Assessment & Plan (07/05/2023 1:00 PM EDT): -Most recent LFT 05/21/21 AST 39; ALT 44, stable -GI: [facility] -Last abdominal US performed on 09/23/22, no focal lesion or cirrhosis -Avoid hepatotoxic drugs -Continue working on lifestyle modfications Assessment & Plan (03/31/2023 5:14 PM EDT): -Most recent LFT 05/21/21 AST 39; ALT 44, stable -GI: [facility] -Last abdominal US performed on 09/23/22, no focal lesion or cirrhosis -Avoid hepatotoxic drugs -Continue working on lifestyle modfications Assessment & Plan (01/01/2023 7:05 AM EST): -Most recent LFT 05/21/21 AST 39; ALT 44, stable -GI: [facility] -Last abdominal US performed on 09/23/22, no focal lesion or cirrhosis -Avoid hepatotoxic drugs -Continue working on lifestyle modfications Fibromyalgia 12/31/2022 Assessment & Plan (01/03/2024 9:03 AM EST): Consider consulting her psychiatrist for changing sertraline to duloxetine, if her symptoms worsen. Encouraged to stay physically active. Pt has already been seen by laryngologist. Pt has already tried acupuncture and physical therapy. Continue judicious use of APAP prn. Previously tried medications: tramadol; cyclobenzaprine; gabapentin; tizanidine Continue lidocaine topical, which has been effective Recommended to speak with her psychiatrist if pt can try duloxetine Assessment & Plan (07/05/2023 1:02 PM EDT): Consider consulting her psychiatrist for changing sertraline to duloxetine, if her symptoms worsen. Encouraged to stay physically active. Pt has already been seen by laryngologist. Pt has already tried acupuncture and physical therapy. Continue judicious use of APAP prn. Previously tried medications: tramadol; cyclobenzaprine; gabapentin; tizanidine Continue lidocaine topical, which has been effective Recommended to speak with her psychiatrist if pt can try duloxetine Assessment & Plan (03/31/2023 5:16 PM EDT): Consider consulting her psychiatrist for changing sertraline to duloxetine, if her symptoms worsen. Encouraged to stay physically active. Pt has already been seen by laryngologist. Pt has already tried acupuncture and physical therapy. Continue judicious use of APAP prn. Previously tried medications: tramadol; cyclobenzaprine; gabapentin; tizanidine Continue lidocaine topical, which has been effective Assessment & Plan (01/01/2023 7:00 AM EST): Consider consulting her psychiatrist for changing sertraline to duloxetine, if her symptoms worsen. Encouraged to stay physically active. Pt has already been seen by laryngologist. Pt has already tried acupuncture and physical therapy. Continue judicious use of APAP prn. Previously tried medications: tramadol; cyclobenzaprine; gabapentin; tizanidine Restart lidocaine topical. Pt previously had a good response to lidoderm. History of right salpingo-oophorectomy 9 Primary hypertension 09/23/2015 Assessment & Plan (11/06/2024 5:58 PM EST): -Goal BP <140/90 per JNC-8 guideline, < 130/80 per ACC/AHA guideline -BP not at goal 11/06/24, starting SGLT2 inhibitor today -Co-managed with our pharmacist through [facility] -Continue monitoring BP at home -Continue working on lifestyle modifications -Continue metoprolol succinate 50 mg daily -Continue lisinopril 40mg dailydaily -Continue chlorthalidone 25 mg daily -Continue ASA 81 mg daily (no absolute indication, will discuss to discontinue) - Treatment Hx: hydrochlorothiazide was switched to chlorthalidone in March 2023 - Invited [employer] walking program Assessment & Plan (06/30/2024 6:10 PM EDT): -Goal BP <140/90 per JNC-8 guideline, < 130/80 per ACC/AHA guideline -Co-managed with our pharmacist through [facility] -Continue monitoring BP at home -Continue working on lifestyle modifications -Continue metoprolol succinate 50 mg daily -Continue lisinopril 40mg dailydaily -Continue chlorthalidone 25 mg daily -Continue ASA 81 mg daily (no absolute indication, will discuss to discontinue) - Treatment Hx: hydrochlorothiazide was switched to chlorthalidone in March 2023 -Follow up in 3 - 6 mo or sooner prn Assessment & Plan (03/28/2024 1:08 PM EDT): Uncontrolled x 1w, it had previously improved with increased dose of metoprolol. No change in meds today, continue monitoring BP and fu with [facility] on 01/29, consider changing metoprolol to a non selective B-jignesh. Order sleep study. Assessment & Plan (01/18/2024 4:11 PM EST): Uncontrolled x 1w, it had previously improved with increased dose of metoprolol. No change in meds today, continue monitoring BP and fu with [facility] on 01/29, consider changing metoprolol to a non selective B-jignesh. Order sleep study. Assessment & Plan (01/03/2024 8:58 AM EST): -Goal BP <140/90 per JNC-8 guideline, < 130/80 per ACC/AHA guideline -Co-managed with our pharmacist through [facility] -Continue monitoring BP at home -Continue working on lifestyle modifications -Continue metoprolol succinate 50 mg daily -Continue lisinopril 40mg dailydaily -Continue chlorthalidone 25 mg daily -Continue ASA 81 mg daily (no absolute indication, will discuss to discontinue) - Treatment Hx: hydrochlorothiazide was switched to chlorthalidone in March 2023 -Follow up in 3 - 6 mo or sooner prn Assessment & Plan (10/08/2023 9:51 AM EST): -Goal BP <140/90 per JNC-8 guideline, < 130/80 per ACC/AHA guideline -Home SBP is > 140 about half of the time -Discussed about the importance of lifestyle modification and medication adherence. -Continue metoprolol succinate 25 mg daily -Continue lisinopril 40mg dailydaily -Continue chlorthalidone 25 mg daily -Continue ASA 81 mg daily (no absolute indication, will discuss to discontinue) - Treatment Hx: hydrochlorothiazide was switched to chlorthalidone in March 2023 -Referred to [facility] -Follow up in 3 - 6 mo or sooner prn Assessment & Plan (07/05/2023 1:04 PM EDT): -Goal BP <140/90. Suboptimally controelled -Discussed about the importance of lifestyle modification and medication adherence. -Continue metoprolol succinate 25 mg daily -Continue lisinopril 40mg dailydaily -Continue chlorthalidone 25 mg daily -Continue ASA 81 mg daily - Treatment Hx: hydrochlorothiazide was switched to chlorthalidone in March 2023 -Refer to [facility] -Follow up in 3 - 6 mo or sooner prn Assessment & Plan (03/31/2023 5:13 PM EDT): -Goal BP <140/90. BP in acceptable range at home -Discussed about the importance of lifestyle modification and medication adherence. -Continue metoprolol succinate 25 mg daily -Continue lisinopril 40mg daily -Discontinue HCTZ 25 mg daily -Continue chlorthalidone 25 mg daily -Continue ASA 81 mg daily -Follow up in 3 - 6 mo or sooner prn Assessment & Plan (12/31/2022 11:37 AM EST): -Goal BP <140/90. BP in acceptable range today -Discussed about the importance of lifestyle modification and medication adherence. -Continue metoprolol succinate 25 mg daily -Continue lisinopril 40mg daily -Discontinue HCTZ 25 mg daily -Continue chlorthalidone 25 mg daily -Continue ASA 81 mg daily -Advised to check home BP and contact us if it is persistently elevated at home Type 2 diabetes mellitus 09/23/2015 Assessment & Plan (11/06/2024 6:01 PM EST): -A1C 6.8% on 06/29/24, stable -A1C 7.6% on 10/09/24 -Continue working on lifestyle modification. -Continue SMBG. -Continue Metformin ER 1,000mg BID -Start SGLT2 inhibitor, dapagliflozin (Farxiga) 5 mg or empagliflozin 10 mg daily -Discussed starting GLP-1. Pt is hesitant to use injectable medication, but interested in it. -Last eye exam: 11/03/24, no diabetic retinopathy. -Last comprehensive foot exam: 03/28/24 -Last microalbumin test: 03/28/24 UACR normal. No microalbuminuria -Last lipid profile: 03/28/24 TC 175; TG 156; HDL 45; LDL 99 -Immunizations: Up to date Assessment & Plan (06/29/2024 11:56 AM EDT): -A1C 6.8% on 06/29/24, stable -Continue working on lifestyle modification. -Continue SMBG. -Continue Metformin ER 1,000mg BID -Last eye exam: 06/18/23, no diabetic retinopathy. -Last comprehensive foot exam: 03/28/24 -Last microalbumin test: 03/28/24 UACR normal. No microalbuminuria -Last lipid profile: 03/28/24 TC 175; TG 156; HDL 45; LDL 99 -Immunizations: Up to date -f/u in 3 months Assessment & Plan (03/28/2024 1:31 PM EDT): -A1C 6.8% on 01/03/24, stable for last 6 mo (6.6% on 10/05/23, 6.9% on 07/05/23) -Continue working on lifestyle modification. -Continue SMBG. -Continue Metformin ER 1,000mg BID -Last eye exam: 06/18/23, no diabetic retinopathy. -Last comprehensive foot exam: 03/28/24 -Last microalbumin test: 04/02/23 UACR 3. No microalbuminuria -Last lipid profile: 04/02/23 TC 168; TG 111; HDL 55; LDL 92 -Immunizations: Up to date -f/u in 3 months Assessment & Plan (01/03/2024 9:05 AM EST): -A1C 6.8% on 01/03/24, stable for last 6 mo (6.6% on 10/05/23, 6.9% on 07/05/23) -Continue working on lifestyle modification. -Continue SMBG. -Continue Metformin ER 1,000mg BID -Last eye exam: 06/18/23, no diabetic retinopathy. -Last comprehensive foot exam: 07/05/23 -Last microalbumin test: 04/02/23 UACR 3. No microalbuminuria -Last lipid profile: 04/02/23 TC 168; TG 111; HDL 55; LDL 92 -Immunizations: Up to date -f/u in 3 months Assessment & Plan (10/08/2023 9:57 AM EST): -A1C 6.6% on 10/05/23, 6.9% on 07/05/23, improved from 7.4% on 03/31/23 -Continue working on lifestyle modification. -Continue SMBG. -Continue Metformin ER 1,000mg BID -Last eye exam: 06/18/23, no diabetic retinopathy. -Last comprehensive foot exam: 07/05/23 -Last microalbumin test: 04/02/23 UACR 3. No microalbuminuria -Last lipid profile: 04/02/23 TC 168; TG 111; HDL 55; LDL 92 -Immunizations: Up to date -f/u in 3 months Assessment & Plan (07/05/2023 1:03 PM EDT): -A1C 6.9% on 07/05/23, improved from 7.4% on 03/31/23 -Continue working on lifestyle modification. -Continue SMBG. -Continue Metformin ER 1,000mg BID -Last eye exam: 05/21/22, no diabetic retinopathy. -Last comprehensive foot exam: 07/05/23 -Last microalbumin test: 04/02/23 UACR 3. No microalbuminuria -Last lipid profile: 04/02/23 TC 168; TG 111; HDL 55; LDL 92 -Immunizations: Up to date -f/u in 3 months Assessment & Plan (03/31/2023 5:18 PM EDT): -A1C 7.4% on 03/31/23 improved from 8.0% on 12/31/22 -Continue working on lifestyle modification. -Continue SMBG. -Continue Metformin ER 1,000mg BID -Last eye exam: 05/21/22, no diabetic retinopathy. -Last comprehensive foot exam: 07/06/22 -Last microalbumin test: 12/05/21. UACR 5. No microalbuminuria -Last FLP: 12/13/20, currently on simvastatin Immunizations: Up to date -f/u in 3 months Assessment & Plan (01/01/2023 6:51 AM EST): -A1C 8.0% on 12/31/22, worsened from 7.5% on 07/06/22, -Continue working on lifestyle modification. -Continue SMBG. -Increase Metformin ER 500 mg BID to 1,000mg BID -Last eye exam: 05/21/22, no diabetic retinopathy. -Last comprehensive foot exam: 07/06/22 -Last microalbumin test: 12/05/21. UACR 5. No microalbuminuria -Last FLP: 12/13/20, currently on simvastatin Immunizations: Up to date -f/u in 3 months History of Helicobacter pylori infection 015 Lumbar spondylosis 03/20/2015 Trochanteric bursitis 03/20/2015 Chronic recurrent major depressive disorder 01/2014 Disseminated idiopathic skeletal hyperostosis Assessment & Plan (01/01/2023 6:59 AM EST): -previously followed by rheumatology service; discharged due to no change in treatment plan -Continue judicious use of APAP prn. -Restart lidocaine topical; consider diclofenac topical -Previously tried medications: tramadol; cyclobenzaprine; gabapentin; tizanidine -Previously tried acupuncture and physical therapy -Encouraged to stay physically active Mixed anxiety and depressive disorder 06/02/2013 Assessment & Plan (11/06/2024 6:03 PM EST): -[facility] provider: Dr. Diamond MEREDITH -Current medications: lorazepam; sertraline; zolpidem -Continue current treatment plan. -She was able to contract her safety today. Assessment & Plan (06/29/2024 11:32 AM EDT): -[facility] provider: Dr. Diamond MEREDITH -Current medications: lorazepam; sertraline -Continue current treatment plan. -She was able to contract her safety today. Assessment & Plan (01/03/2024 9:09 AM EST): -[facility] provider: Dr. Diamond MEREDITH -Current medications: lorazepam; sertraline -Continue current treatment plan. -She was able to contract her safety today. Assessment & Plan (03/31/2023 10:14 AM EDT): -[facility] provider: Dr. Diamond MEREDITH -Current medications: lorazepam; sertraline -Currently grieving. -Continue current treatment plan. -She was able to contract her safety today. Assessment & Plan (12/31/2022 11:36 AM EST): -[facility] provider: Dr. Diamond MEREDITH -Current medications: lorazepam; sertraline -Currently grieving. -Continue current treatment plan. -She was able to contract her safety today. Abdominal hernia without obstruction or gangrene 03/01/2013 Constipation 08/31/2012 Assessment & Plan (01/03/2024 8:59 AM EST): [place] [facility] [place]Fiber-rich diet -Continue Miralax and Dulolax -Colonoscopy on 12/30/23 Assessment & Plan (07/05/2023 1:01 PM EDT): -follow[place] [facility] [place] [facility] [place]Fiber-rich diet -Continue Miralax and Dulolax Assessment & Plan (03/31/2023 5:14 PM EDT): -follow[place] [facility] [place] [facility] [place]Fiber-rich diet -Continue Miralax and Dulolax Assessment & Plan (01/01/2023 7:04 AM EST): -[place] [facility] [place] [facility] [place]Fiber-rich diet -Continue Miralax and Dulolax Chronic abdominal pain 08/31/2012 Assessment & Plan (11/06/2024 1:06 PM EST): - following with GI - colonoscopy / EGD done on 12/30/23 with [facility] [place] [facility] Assessment & Plan (07/05/2023 1:00 PM EDT): - following with GI - currently having a new abdominal pain with increased BM - check H. Pylori - recommended to go to [facility] [place] [facility] [place] to schedule colonoscopy / EGD Vitamin D deficiency 08/31/2012 Assessment & Plan (07/05/2023 4:47 AM EDT): 04/02/23 vitamin D 24 Continue Vitamin D supplementation, 1000 units daily currently. Assessment & Plan (03/31/2023 10:17 AM EDT): Continue Vitamin D supplementation Obesity 07/08/2012 Gastroesophageal reflux disease 05/11/2012 Assessment & Plan (03/28/2024 1:08 PM EDT): -Followed by GI -Recently switched from omeprazole to pantoprazole with good effect -Continue pantoprazole 40 mg daily -EGD being scheduled Assessment & Plan (01/03/2024 9:01 AM EST): -Followed by GI -Recently switched from omeprazole to pantoprazole with good effect -Continue pantoprazole 40 mg daily -EGD being scheduled Assessment & Plan (10/08/2023 9:52 AM EST): -Followed by GI -Recently switched from omeprazole to pantoprazole with good effect -Continue pantoprazole 40 mg daily -EGD being scheduled Assessment & Plan (03/31/2023 5:16 PM EDT): -Followed by GI -Recently switched from omeprazole to pantoprazole with good effect -Continue pantoprazole 40 mg daily -EGD being scheduled Assessment & Plan (01/01/2023 7:06 AM EST): -Followed by GI -Recently switched from omeprazole to pantoprazole with good effect -Continue pantoprazole 40 mg daily PCOS (polycystic ovarian syndrome) 05/11/2012 Hypercholesterolemia 04/14/2012 Assessment & Plan (06/29/2024 11:59 AM EDT): - Current medication: Simvastatin 40 mg at bedtime, will switch to rosuvastatin 20 mg at bedtime - Last lipid profile 03/28/24 - Continue working on lifestyle modification Assessment & Plan (07/05/2023 1:03 PM EDT): Current medication: Simvastatin 40 mg at bedtime Last lipid profile 04/02/23 TC 168; TG 111; HDL 55; LDL 92 Consider changing to atorvastatin or rosuvastatin, especially if pt needs to start CCB. Continue working on lifestyle modification Assessment & Plan (03/31/2023 10:08 AM EDT): Current medication: Simvastatin 40 mg at bedtime Last lipid profile > 1 year ago Check lipid profile Consider changing to atorvastatin or rosuvastatin Continue working on lifestyle modification Assessment & Plan (01/01/2023 6:52 AM EST): Current medication: Simvastatin 40 mg at bedtime Last lipid profile > 1 year ago Check lipid profile Consider changing to atorvastatin or rosuvastatin Continue working on lifestyle modification Encounters Date Type Department Care Team Description 02/01/2025 Orders Only GENERIC EXTERNAL DATA DEPARTMENT Provider, Generic External Data 01/30/2025 Refill [facility] [address] [facility] [place] [address] Richa Jeter MD Type 2 diabetes mellitus without complication, without long-term current use of insulin ([facility]) 01/17/2025 Travel 01/15/2025 Refill [facility] [address] [address] Richa Jeter MD Type 2 diabetes mellitus without complication, without long-term current use of insulin (CMS/HCC) 12/30/2024 Refill [facility] [address] [address] Richa Jeter MD 12/18/2024 Travel 11/06/2024 1:00 PM EST Office Visit [facility] [address] [address] Richa Jeter MD Chronic abdominal pain (Primary Dx); Primary hypertension; Metabolic dysfunction-associate d steatotic liver disease (MASLD); Type 2 diabetes mellitus without complication, without long-term current use of insulin (CMS/HCC); Gout, unspecified cause, unspecified chronicity, unspecified site; Encounter for immunization; Dietary counseling; Exercise counseling; Class 2 severe obesity due to excess calories with serious comorbidity and body mass index (BMI) of 36.0 to 36.9 in adult ([facility]); Chronic recurrent major depressive disorder ([facility]); Mixed anxiety and depressive disorder 11/06/2024 Travel 11/05/2024 Refill [facility] [address] [place] [address] Richa Jeter MD Primary hypertension from Last 3 Months Immunizations Name Administration Dates Next Due DTaP 08/18/2010 Hep A, Adult 11/06/2024 Hep B, adult 10/07/2015,06/25/2015,03/20/2015 Influenza injectable quadriv alent IIV4 with preservative 08/31/2018,11/17/2017,10/07/2015 Influenza injectable quadriv alent preservative free 10/04/2023,12/31/2022,09/04/2021,08/02,10/05/2019,11/03/2016 Influenza, IIV3, injectable 09/25/2014,0 08/05/2011,08/18/2010,08/09,2008,08/05/2007,08/26/2006 ,11/17/2004,08/31/2003,09/18/2002 Influenza, Split (incl. [place] f[place] antigen) 08/15/2014,09/13/2013,08/31/2012 Influenza, seasonal, injecta ble, preservative free 11/06/2024,10/19/2005 Moderna Covid-19 Vaccine 12+ 12/31/2022 Pneumococcal Conjugate PCV 20 06/29/2024 Pneumococcal Polysaccharide PPSV23 07/24/2014,,2002 TD (adult), 2 Lf tetanus tox oid, preservative free, adsorbed 12/31/2022,07/23/2000 Tdap 08/18/2010 Family History Medical History Relation Name Comments Mental illness Brother Diabetes Father Hypertension Father Kidney disease Father Colon cancer Mother Diabetes Mother Hypertension Mother Relation Name Status Comments Brother Father Mother Social History Tobacco Use Types Packs/Day Years Used Date Smoking Tobacco: Never Passive Smoke Exposure: Never Smokeless Tobacco: Never Tobacco Cessation:Counseling Given: Not Answered Alcohol Use Standard Drinks/Week Comments Never 0 [...] Orientation Straight 09/21/2022 10 :14 AM EDT Last Filed Vital Signs Vital Sign Reading Time Taken Comments Blood Pressure 132/66 01/17/2025 10:32 AM EST Pulse 66 01/17/2025 10:32 AM EST Temperature 36.1 ??C (96.9 ??F) 11/06/2024 1:02 PM ES T Respiratory Rate 17 11/06/2024 1:02 PM EST Oxygen Saturation 95% 11/06/2024 1:02 PM EST Inhaled Oxygen Concentration - - Weight 83.1 kg (183 lb 3.2 oz) 11/06/2024 1:02 P M EST Height 151.2 cm (4' 11.54 ) 11/06/2024 1:[address] Body Mass Index 36.34 11/06/2024 1:02 PM EST Plan of Treatment Upcoming Encounters Date Type Department Care Team (Late st Contact Info) Description 04/25/2025 10:30 AM EDT Medication Management [facility] [address] [place] [address] Jer Guerra, PharmD [address] [place] [address] Health Maintenance Due Date Last Done Comments CT Colonography 1965 FIT DNA/Cologuard 1965 FIT 1965 FOBT 1965 Sigmoidoscopy 1965 Zoster Vaccines (1 of 2) 2013 RSV Patients and Patients Aged 60 years or older (1 - Risk 60-74 years 1-dose series) 2023 COVID-19 Vaccine ( season) 2024 12/31/2022, 12/05/2021, 02/21/2021, Additional history exists Pap Smear 03/16/2025 03/16/2022 SDOH Screening 03/21/2025 03/21/2024 Diabetes: Foot Exam 03/28/2025 03/28/2024, 03/28/2024, 03/28/2024, Additional history exists Diabetes: Urine Protein Screening 03/28/2025 03/28/2024, 04/02/2023, 12/05/2021, Additional history exists Hepatitis A Vaccines (2 of 2 - Risk 2-dose series) 05/07/2025 11/06/2024 Depression Screening 06/29/2025 06/29/2024, 06/29/20 Diabetes: Hemoglobin A1C 07/17/2025 025, 10/09/2024, 06/29/2024, Additional history exists Lipid Panel 08/21/2025 08/21/2024, 05/2024, 04/02/2023, Additional history exists Alcohol/Substance Use Screening 11/06/2025 11/06/2024 Tobacco Screening 01/17/2026 01/17/2025 Mammogram 08/21/2026 08/21/2024, 07/24, 08/10/2022, Additional history exists Eye Exam 10/23/2026 10/23/2024, 12/2023, 10/23/2024, Additional history exists Cervical Cancer Screening 03/16/2027 HPV/Cotest 03/16/2027 03/16/2022, 08/04/2016 Colonoscopy 12/30/2028 12/30/2023, 07/11/2018 Colorectal Cancer Screening 12/30/2028 DTaP/Tdap/Td Vaccines (4 - Td or Tdap) 12/31/2032 12/31/2022, 08/18/2010, 08/18/2010, Additional history exists Hepatitis B Vaccines Completed 10/07/2015, 06/25/2015, 03/20/2015 HIV Screening Completed 07/31/2022, 12/28/2019 Hepatitis C Screening Completed 07/31/2022, 020 Pneumococcal Vaccine: 50+ Years Completed 06/29/2024, 07/24/2014, 08/09/2009, Additional history exists Influenza Vaccine Completed 11/06/2024, , 12/31/2022, Additional history exists HIB Vaccines Aged Out No longer eligi ble based on patient's age to complete this topic HPV Vaccines Aged Out No longer eligi ble based on patient's age to complete this topic IPV Vaccines Aged Out No longer eligi ble based on patient's age to complete this topic Meningococcal Vaccine Aged Out No juan ramon elena eligible based on patient's age to complete this topic RSV under 20 months Aged Out No longe r eligible based on patient's age to complete this topic Rotavirus Vaccines Aged Out No longer eligible based on patient's age to complete this topic Goals Goal Patient Goal Type Associated Problems Recent Progress Patient-Stated? Author Blood Pressure < 140/90 Blood Pressure 132/66( 025 10:32 AM EST) No Jer Guerra, Gopi Procedures Procedure Name Priority Date/Time Associated Diagnosis Comments HEPATIC FUNCTION PANEL Routine 1:38 PM EDT POCT GLYCATED HEMOGLOBIN, TOTAL Routine 01/17/2025 10:45 AM EST Type 2 diabetes mellitus without complication, without long-term current use of insulin (CMS/HCC) POCT GLUCOSE Routine 11/06/2024 1:01 PM EST Type 2 diabetes mellitus without complication, without long-term current use of insulin (CMS/HCC) LIPID PANEL WITH REFLEX TO DIRECT LDL Routine 08/21/2024 8:45 AM EDT Type 2 diabetes mellitus without complication, without long-term current use of insulin (CMS/HCC) Hypercholesterolem ia BI MAMMOGRAM SCREENING TOMOSYNTHESIS BILATERAL Routine 08/21/2024 8:00 AM EDT ALBUMIN, RANDOM URINE W/CREATININE Routine 03/28/2024 12:00 AM EDT Type 2 diabetes mellitus without complication, without long-term current use of insulin (CMS/HCC) HM COLONOSCOPY Routine 12/30/2023 ZZZ HISTORICAL HEPATITIS A,B,C PROFILE Routine 07/31/2022 4:21 PM EDT THINPREP IMAGING PAP AND HPV MRNA E6/E7 WITH REFLEX TO HPV 16,18/45 Routine 03/16/2022 2:00 PM EDT from Last 3 Months or Most Recently Relevant to Health Maintenance Results * (ABNORMAL) Hepatic Function Panel (02/01/2025 1:38 PM EDT) Bilirubin, Total 0.2 0.0 - 1.0 mg/dL [facility] Bilirubin, Direct <0.2 0.0 - 0.5 mg/dL [facility] Aspartate Amino Transferase 30 5 - 31 U/L [facility] Alanine Aminotransferase 34(H) 0 - 31 U/L [facility] Total Protein 8.1(H) 6.5 - 8.0 g/dL [facility] Albumin Level 4.2 3.5 - 5.0 g/dL [facility] Alkaline Phosphatase 58 39 - 117 U/L [facility] 02/01/2025 1:38 PM EDT 02/01/2025 1:38 PM EDT us Generic External Data Provider LAB BLOOD ORDERAB LES Final Result Performing Organization Address City/State/[facility] Co de Phone Number [facility] [address] [place] [phone] * (ABNORMAL) POCT HGB A1C (01/17/2025 10:45 AM EST) Hemoglobin A1C 6.9(A) 4.0 - 6.0 % QC Media Lot # [id number] Lot# Expiration Date Blood 01/17/2025 10:4 5 AM EST us Richa Jeter MD POINT OF CARE TEST ENTER/EDIT OR DERABLES Final Result * POCT glucose manually resulted (11/06/2024 1:01 PM EST) Glucose Blood, POC 146 60 - 200 mg/dL QC Media Lot # [id number] Lot# Expiration Date [id number] Blood Capillary blood specimen / Unknown 11/06/2024 1:01 PM EST us Richa Jeter MD POINT OF CARE TEST ENTER/EDIT OR DERABLES Final Result * (ABNORMAL) Lipid Panel with Reflex to Direct LDL (08/21/2024 8:45 AM EDT) Triglycerides 85 <150 mg/dL [facility] Comment:Desirable Triglyceri de: less than 150 mg/dLBorderline High Triglyceride 150-199 mg/dLHigh Triglyceride: 200-499 mg/dLVery High Triglyceride: greater than or equal to 5OO mg/dL Cholesterol 117 <200 mg/dL [facility] Comment:Desirable Cholestero l: less than 200 mg/dLBorderline High Cholesterol: 200-239 mg/dLHigh Cholesterol: greater than 239 mg/dL LDL Cholesterol Calculated 61 <100 mg/dL [facility] Comment:Desirable LDL: less than 100 mg/dLNear Optimal/Above Optimal LDL: 110- 129 mg/dLBorderline High LDL: 130-159 mg/dLHigh LDL: 160-189 mg/dLVery High LDL: greater than or equal to 190 mg/dL HDL Cholesterol 39(L) >40 mg/dL [facility] Comment:Desirable HDL: great er than 40 mg/dL Note: This HDL assay may give artificially low results in patients with liver disease. Blood 08/21/2024 8:45 AM EDT 08/21/2024 8:45 AM EDT us Richa Jeter MD LAB BLOOD ORDERABLES Final Resul t [facility] [address] [place] [phone] * BI Mammogram Screening Tomosynthesis Bilateral (08/21/2024 8:00 AM EDT) Anatomical Region Laterality Modality Breast Bilateral Mammography 08/21/2024 8:00 AM EDT Narrative 08/31/2024 6:39 PM EDT ? [facility] ? [address] ?[place] [address] ? Mammography Report ? Signed ? Patient: Reji Conroy,Pauly ?MR#: ?? [id number] ? : 1965 ?Acct:[id number] ? Age/Sex: 58 / F ?ADM Date: 08/21/24 ? Loc: HO.MAMMO ? Attending Dr: Richa Jeter MD ? Ordering Physician: Richa Jeter MD ?Results: 1Negative ? Date of Service: 08/21/24 ?Follow Up: 1 Year From Orig ?? inal Mammogram ? Procedure(s): MM tomosynthesis screening BI ?? Accession Number(s): [id number] ? cc: Richa Jeter MD ? EXAMINATION: ?? MM SCREENING DIGITAL BREAST TOMOSYNTHESIS, BILATERAL ? CLINICAL INFORMATION: ? Screening. Asymptomatic. ? COMPARISON: ?? Mammography: Comparison is made with available priors ? TECHNIQUE: ?? Digital breast mammography with tomosynthesis is performed in both the ?? craniocaudal and mediolateral oblique views along with computer-aided ?? detection (CAD). ? FINDINGS: ?? There are scattered areas of fibroglandular density (ACR BI-RADS breast ?? composition Category b). ? There are no significant masses, abnormal calcifications, or other ?? abnormalities. ? MM/MM tomosynthesis screening BI ?? IMPRESSION: ?? No mammographic evidence of malignancy. ? ASSESSMENT: ? BI-RADS BI-RADS 1 - Negative ? RECOMMENDATION: ?? Routine annual mammography screening. ? 1 year F/U ? This examination should not preclude the clinical evaluation of a ?? suspicious palpable abnormality. ? This patient's information was entered into a reminder system with a ?? target due date for their next mammogram. ? Electronically signed by: ??Patsy Quintana DO ??08/31/2024 06:35 PM EDT ?? RP ? Dictated By: ?Patsy Quintana DO ? Signed By: ?<Electronically signed by Patsy Quintana, DO in OV> ? 08/31/24 1835 ? DD/ 0800 ? TD/TT: 08/21/24 0820 ? Remote Control Assembler: ? Procedure Note Gauri, Image - 08/31/2024 [place] [facility] [address] [place], [place] [address] Mammography Report Signed Patient: Kip Mina#: [id number] : 1965Acct:[id number] Age/Sex: 58 / FADM Date: 08/21/24 Loc: [facility] Attending Dr: Richa Jeter MD Ordering Physician: Richa Jeter MDResults: 1Negative Date of Service: 08/21/24Follow Up: 1 Year From Orig inal Mammogram Procedure(s): MM tomosynthesis screening BI Accession Number(s): [id number] cc: Richa Jeter MD EXAMINATION: MM SCREENING DIGITAL BREAST TOMOSYNTHESIS, BILATERAL CLINICAL INFORMATION: Screening. Asymptomatic. COMPARISON: Mammography: Comparison is made with available priors TECHNIQUE: Digital breast mammography with tomosynthesis is performed in both the craniocaudal and mediolateral oblique views along with computer-aided detection (CAD). FINDINGS: There are scattered areas of fibroglandular density (ACR BI-RADS breast composition Category b). There are no significant masses, abnormal calcifications, or other abnormalities. MM/MM tomosynthesis screening BI IMPRESSION: No mammographic evidence of malignancy. ASSESSMENT: BI-RADS BI-RADS 1 - Negative RECOMMENDATION: Routine annual mammography screening. 1 year F/U This examination should not preclude the clinical evaluation of a suspicious palpable abnormality. This patient's information was entered into a reminder system with a target due date for their next mammogram. Electronically signed by: Patsy Quintana DO 08/31/2024 06:35 PM EDT RP Dictated By: Patsy Quintana DO Signed By: <Electronically signed by Patsy Quintana DO in OV> 08/31/24 1835 DD/ 0800 TD/TT: 08/21/24 0820 Remote Control Assembler: Richa Jeter MD IMG BI PROCEDURES Edited Result - Final * Albumin, Random Urine W/Creatinine (03/28/2024 12:00 AM EDT) Creatinine, Urine 30.18 mg/dL [facility] Microalbumin Urine <5.0 mg/L [facility] Microalbum Creatinine Ratio Ur TNP <30 ug/mg cr [facility] Comment:Unable to calculate albumin/creatinine ratio due to lowmicroalbumin or creatinine result. Urine 03/28/2024 03/28/2024 Richa Jeter MD LAB URINE ORDERABLES Final Resul t [facility] [address] [place] [phone] * Hm Colonoscopy (12/30/2023) Colonoscopy Normal Normal Jodi Thomson MD HEALTH MAINTENANCE Final Result * Hepatitis A,B,C Profile (07/31/2022 4:21 PM EDT) Pathologist [facility] Hepatitis B Core Antibody Nonreactive Nonreactive [facility] Hepatitis B Surface Antibody NONREACTIVE Nonreactive [facility] Comment:Nonreactive: < 8.00 mIU/mL Hepatitis B Surface Antigen Negative Negative [facility] Hepatitis C Antibody Nonreactive Nonreactive [facility] Comment: Antibodies to HCV not detected; does not exclude early acute HCV infection. HIV AB/AG Nonreactive Nonreactive [facility] Comment: HIV-1 p24 Ag and/or HIV-1/HIV-2 Ab not detected. ?? A test result that is nonreactive does not exclude the possibility of exposure to or infection with HIV-1 and/or HIV-2. Nonreactive results in this assay for individuals with prior exposure to HIV-1 and/or HIV-2 may be due to antigen and antibody levels that are below the limit of detection of this assay. ?? The [employer] HIV Ag/Ab Combo assay result and supplemental assay results should be interpreted in conjunction with the patient's clinical presentation, history and other laboratory results. ??If the results are inconsistent with clinical evidence, additional testing is suggested to confirm the result. 07/31/2022 4:21 PM EDT us Historical Provider HISTORICAL/NON ORDERABLE LABS Final Result [facility] [address] * THINPREP TIS PAP AND HPV mRNA E6/E7 WITH REFLEX TO HPV 16,18/45 (03/16/2022 2:00 PM EDT) Pathologist [facility] Clinical Information: None given [facility] COMMENT SEE COMMENT [facility] Comment: EXPLANATORY NOTE: ? The Pap is a screening test for cervical cancer. It is ?? not a diagnostic test and is subject to false negative ?? and false positive results. It is most reliable when a ?? satisfactory sample, regularly obtained, is submitted ?? with relevant clinical findings and history, and when ?? the Pap result is evaluated along with historic and ?? current clinical information. ?? COMMENT: This Pap test has been evaluated with computer assisted technology. [facility] Carder Blankets: SEE COMMENT [facility] Comment: [facility], CT(ASCP) CT screening location: [address] ??[id number] HPV nRNA E6/E7 Not Detected Not Detected [facility] Comment: Methodology: Global Marketing Specialist-Mediated Amplification This assay detects E6/E7 viral messenger RNA (mRNA) from 14 high-risk HPV types (16,18,31,33,35,39,45,51,52,56,58,59,66,68). ? The analytical performance characteristics of this assay have been determined by [employer]. The modifications have not been cleared or approved by the FDA. This assay has been validated pursuant to the CLIA regulations and is used for clinical purposes. ?? For additional information, please refer to http://education.[employer]/faq/XUX916h5 (This link if provided for information/ educational purposes only.) Interpretation/Res ult: SEE COMMENT [facility] Comment: Negative for intraepithelial lesion or malignancy. Atrophic pattern; predominantly parabasal cells LMP: NONE GIVEN [facility] Prev. BX: NONE GIVEN [facility] Prev. PAP: NONE GIVEN [facility] SOURCE: None given [facility] Statement Of Adequacy: SATISFACTORY FOR EVALUATION [facility] 03/16/2022 2:00 PM EDT Richa Jeter MD LAB PATHOLOGY ORDERABLES Final R esult [facility] [address] from Last 3 Months or Most Recently Relevant to Health Maintenance Insurance [facility] * Guarantor: Pauly Mina Account Type Relation to Patient Date of Phone Billing Address Personal/Family Self [address] [place] [address] * Guarantor: Pauly Mina Account Type Relation to Patient Date of Phone Billing Address Personal/Family Self [address] [place] [address] Care Teams Bicycle Repairman Relationship Specialty Start Date End Date Richa Jeter MD [address] [place] [address] PCP - General Family Medicine 11/22/18 Jer Guerra, PharmD [address] [place] [address] Pharmacist Internal Medicine 10/08/23
== END 2025-02-01 13:25 | disposition home or self-care (01) ==
LOC: HO.HGI 12:32
PROVIDERS: PCP Family Medicine; Visit Provider Nurse Practitioner Family
DX: K58.1 Irritable bowel syndrome with constipation (principal); K21.9 Gastro-esophageal reflux disease without esophagitis; R74.01 Elevation of levels of liver transaminase levels; K76.0 Fatty (change of) liver, not elsewhere classified; R16.0 Hepatomegaly, not elsewhere classified
CPT/HCPCS: 99214; G2211

== ENCOUNTER 2025-02-01 12:32 | Outpatient (REF) | payer OTHER, SELFPAY ==
[2025-02-01 14:51] LABS: Alanine Aminotransferase 34 U/L (0-31); Albumin Level 4.2 g/dL (3.5-5.0); Aspartate Amino Transferase 30 U/L (5-31); Bilirubin Direct < 0.2 mg/dL (0.0-0.5); Bilirubin Total 0.2 mg/dL (0.0-1.0); Total Protein 8.1 g/dL (6.5-8.0)
[2025-02-01 15:05] LABS: Alkaline Phosphatase 58 U/L (39-117)
--- OUTSIDE RECORDS SUMMARY | 2025-02-01 17:05 | XMS_ITS | Encounter Summary ---
Author Organization [facility] Address [address] [place] [address] Care Team Providers Care Defensive Secondary Coach Name Role Phone Richa Jeter MD Primary Care Provider [phone] Jer Guerra PharmD Unavailable [phone] Reason for Referral * Consultation (Routine) - Authorized Specialty Diagnoses / Procedures Referred By Contdavid t Referred To Contact Pharmacy Diagnoses Primary hypertension Type 2 diabetes mellitus without complication, without long-term current use of insulin (CMS/HCC) Richa Jeter MD [address] [place] [address] Phone: tel: fax: Referral ID Status Reason Start Date Expiration Date Visits Requested Visits Authorized [id number] Authorized Consult and Treat 10/03/2024 10/03/2025 6 6 Encounter Details Date Type Department Care Team (Late st Contact Info) Description 10/03/2024 Orders Only [facility] [address] [place], [place] [phone] Richa Jeter MD [address] [place], [place] [phone] Primary hypertension (Primary Dx); Type 2 diabetes [...] Description 04/25/2025 10:30 AM EDT Medication Management [facility] [address] [place] [address] Jer Guerra, PharmD [address] [place] [address] Scheduled Referrals Name Type Priority Associated Diagnoses Orde r Schedule Referral to Pharmacy CDTM Outpatient Referral Routine Primary hypertension Type 2 diabetes mellitus without complication, without long-term current use of insulin ([facility]) Ordered: 10/03/2024 documented as of this encounter Goals Goal Patient Goal Type Associated Problems Recent Progress Patient-Stated? Author Blood Pressure < 140/90 Blood Pressure 132/66( 025 10:32 AM EST) No Jer Guerra, PharmD documented as of this encounter Visit Diagnoses Diagnosis Primary hypertension- Primary Unspecified essential hypertension Type 2 diabetes mellitus without complication, without long-term current use of insulin ([facility]) documented in this encounter Additional Health Concerns Assessment Noted Time PHQ-9 Depression Total Score: 7 06/29/20 24 11:26 AM EDT documented as of this encounter Care Teams Defensive Secondary Coach Relationship Specialty Start Date End Date Richa Jeter MD [address] [place] [address] PCP - General Family Medicine 11/22/18 Jer Guerra, PharmD [address] [place] [address] Pharmacist Internal Medicine 10/08/23 documented as of this encounter
--- OUTSIDE RECORDS SUMMARY | 2025-02-01 17:05 | XMS_ITS | Encounter Summary ---
Author Organization [employer] [facility] Address [address] 7t [place] [address] Care Team Providers Care Marketing Automation Manager Name Role Phone Richa Jeter MD Primary Care Provider [phone] eJr Guerra PharmD Unavailable [phone] Encounter Details Date Type Department Care Team (Late Contact Info) Description 04/23/2023 Orders Only [facility] [address] [place], [place] [phone] Negin Flowers MD [address] [place], [place] [phone] Social History Tobacco Use Types Packs/Day Years [...] Description 04/25/2025 10:30 AM EDT Medication Management [facility] [address] [place] [address] Jer Guerra, PharmD [address] [place] [address] documented as of this encounter Procedures Procedure Name Priority Date/Time Associated Diagnosis Comments XR FOOT 3+ VIEWS RIGHT Routine 04/22/2023 2:49 PM EDT documented in this encounter Results * XR Foot 3+ Views Right (04/22/2023 2:49 PM EDT) Anatomical Region Laterality Modality Lower Extremities, Foot Right Radiogra phic Imaging 04/22/2023 2:49 PM EDT Narrative 04/22/2023 3:23 PM EDT ?[facility] ?[address] ?[place] [address] ?XRay Report ? Signed ? Patient: Pauly Mendoza ?MR#: [id number] ?? [id number] ? : 1965 ?Acct:[id number] ? Age/Sex: 57 / F ?ADM Date: 04/22/23 ? Loc: HO.HHCX ? Attending Dr: Negin Flowers MD ? Ordering Physician: Negin Flowers MD ?? Date of Service: 04/22/23 ?? Procedure(s): XR foot RT min 3V ?? Accession Number(s): [id number] ? cc: Negin Flowers MD ? EXAMINATION: [...] 1521 ? DD/ 1449 ? TD/TT: ? News Internship: [facility] ? Procedure Note Donmathew, Image - 05/19/[address] [address] XRay Report Signed Patient: Kip Mendoza#: [id number] : 1965Acct:[id number] Age/Sex: 57 / FADM Date: 04/22/23 Loc: HO.HHCX Attending Dr: Negin Flowers MD Ordering Physician: Negin Flowers MD Date of Service: 04/22/23 Procedure(s): XR foot RT min 3V Accession Number(s): [id number] cc: Negin Flowers MD EXAMINATION: XR FOOT, [...] in OV> 04/22/23 1521 DD/ 1449 TD/TT: News Internship: [facility] External Provider IMG XR PROCEDURES Final Result documented in this encounter Visit Diagnoses Not on filedocumented in this encounter Additional Health Concerns Assessment Noted Time PHQ-9 Depression Total Score: 4 12/31/19 23 11:23 AM EST documented as of this encounter Care Teams Marketing Automation Manager Relationship Specialty Start Date End Date Richa Jeter MD [address] [place] [address] PCP - General Family Medicine 11/22/18 Jer Guerra, TrangD [address] [place] [phone] Pharmacist Internal Medicine 10/08/23 documented as of this encounter
--- OUTSIDE RECORDS SUMMARY | 2025-02-01 17:06 | XMS_ITS | Encounter Summary ---
Author Organization [employer] Address [address] [facility] 7t [place] [address] Care Team Providers Care Supervisor Paste Plant Name Role Phone Richa Jeter MD Primary Care Provider [phone] Jer Guerra PharmD Unavailable [phone] Encounter Details Date Type Department Care Team [...] Description 04/25/2025 10:30 AM EDT Medication Management [facility] 230 [place] [address] Jer Guerra PharmD [address] [place] [address] documented as of this encounter Goals Goal [...] documented as of this encounter Care Teams Supervisor Paste Plant Relationship Specialty Start Date End Date Richa Jeter MD [address] [place] [phone] PCP - General Family Medicine 11/22/18 Jer Guerra, TrangD [address] [place] [phone] Pharmacist Internal Medicine 10/08/23 documented as of this encounter
--- OUTSIDE RECORDS SUMMARY | 2025-02-01 17:06 | XMS_ITS | Encounter Summary ---
Author Organization [employer] [facility] Address [address] 7t [place] [address] Care Team Providers Care Clinical Reviewer Name Role Phone Richa Jeter MD Primary Care Provider [phone] Jer Guerra PharmD Unavailable [phone] Reason for Visit * Reason Comments Med Refill Encounter Details Date Type Department Care Team (Late Contact Info) Description 02/26/[address] [facility] 230 [place], [place] [phone] Richa Jeter MD 230 [place] [address] Type 2 diabetes mellitus without complication, without long-term current use of insulin ([facility]) Social History Tobacco Use Types Packs/Day Years [...] 04/25/2025 10:30 AM EDT Medication Management [facility] [address] [place] [address] Jer Guerra, PharmD [address] [place] [address] documented as of this encounter Visit Diagnoses Diagnosis Type 2 diabetes mellitus without complication, without long-term current use of insulin ([facility]) documented in this encounter Additional Health Concerns Assessment Noted Time PHQ-9 Depression Total Score: 4 12/31/19 23 11:23 AM EST documented as of this encounter Care Teams Clinical Reviewer Relationship Specialty Start Date End Date Richa Jeter MD [address] [place] [phone] PCP - General Family Medicine 11/22/18 Jer Guerra, PharmD [address] [place] [phone] Pharmacist Internal Medicine 10/08/23 documented as of this encounter
--- OUTSIDE RECORDS SUMMARY | 2025-02-01 17:06 | XMS_ITS | Encounter Summary ---
Author Organization [employer] Address [address] [facility] 7t [place] [address] Care Team Providers Care Sustainability Engineer Name Role Phone Richa Jeter MD Primary Care Provider [phone] Jer Guerra PharmD Unavailable Reason for Visit * Reason Comments Med Refill Encounter Details Date Type Department Care Team ([facility] st Contact Info) Description 01/30/2025 Refill [facility] [address] [place], [place] [phone] Richa Jeter MD 230 [place], [place] [phone] Type 2 diabetes mellitus without complication, without long-term current use of insulin ([facility]) Social History Tobacco Use [...] Description 04/25/2025 10:30 AM EDT Medication Management [facility] [address] [place] [address] Jer Guerra, PharmD [address] [place] [phone] documented as of this encounter Goals Goal Patient Goal Type Associated Problems Recent Progress Patient-Stated? Author Blood Pressure < 140/90 Blood Pressure 132/66( 025 10:32 AM EST) No Jer Guerra, PharmEugenie documented as of this encounter Visit Diagnoses Diagnosis Type 2 diabetes mellitus without complication, without long-term current use of insulin ([facility]) documented in this encounter Additional Health Concerns Assessment Noted Time PHQ-9 Depression Total Score: 7 06/29/20 24 11:26 AM EDT documented as of this encounter Care Teams Sustainability Engineer Relationship Specialty Start Date End Date Richa Jeter MD [address] [place] [address] [phone] PCP - General Family Medicine 11/22/18 Jer Guerra, PharmD [address] [place] [address] [phone] Pharmacist Internal Medicine 10/08/23 documented as of this encounter
--- OUTSIDE RECORDS SUMMARY | 2025-02-01 17:06 | XMS_ITS | Clinical Summary ---
Demographics Address [address] [place] [address] Mobile Phone Home Phone Preferred Language es Marital Status Single Gnosticist Affiliation Unknown Race Other Race Ethnic Group or Author Organization [employer] Address [address] [facility] 7t [place] [address] Care Team Providers Care Melting Furnace Skimmer Name Role Phone Richa Jeter MD Primary Care Provider Jer Guerra PharmD Unavailable [phone] Allergies No known active allergies Medications pantoprazole [...] ORALLY ONCE DIRECTED BY GASTROENTEROLOGY DEPARTMENT AT [facility] 023 Active Blood Pressure Monitor kitIndications: Essential hypertension Use daily as directed to measure blood pressure 1 kit 023 Active FreeStyle lancetsIndicati ons:Type 2 diabetes mellitus without complication, without long-term current use of insulin ([facility]) 1 each by Other route 2 [...] stripIndication s:Type 2 diabetes mellitus without complications ([facility]),Essen tial (primary) hypertension USE TO TEST [...] 024 Active Blood Glucose Monitoring Suppl (FreeStyle [place] Lite) w/Device kitIndications: Type 2 diabetes mellitus without complication, without long-term current use of insulin ([facility]) Use to test blood sugar 2 [...] complication, without long-term current use of insulin ([facility]) TAKE 2 TABLETS BY MOUTH WITH BREAKFAST AND EVENING MEAL 360 tablet 025 Active Aspirin Low Dose 81 MG EC tabletIndicatio ns:Type 2 diabetes mellitus without complication, without long-term current use of insulin ([facility]) TAKE 1 TABLET BY MOUTH EVERY DAY 90 tablet 3 024 2024 Discontinued metFORMIN XR (Glucophage-XR) 500 MG 24 hr tabletIndicatio ns:Type 2 diabetes mellitus without complication, without long-term current use of insulin ([facility]) TAKE 2 TABLETS BY MOUTH WITH [...] & Plan (11/06/2024 5:08 AM EST): -GI: [facility] -Last abdominal US performed on 09/23/22, no focal lesion or cirrhosis -FIB4 index 1.23 -Fibrosis test 08/11/24 Stage F0 -Avoid hepatotoxic drugs -Continue working on lifestyle modfications Assessment & Plan (06/30/2024 6:06 PM EDT): -GI: [facility] -Last abdominal US performed on 09/23/22, no [...] active. Pt has already been seen by seismograph observer. Pt has already tried acupuncture and physical [...] active. Pt has already been seen by seismograph observer. Pt has already tried acupuncture and physical [...] active. Pt has already been seen by seismograph observer. Pt has already tried acupuncture and physical therapy. Continue judicious use of APAP prn. Previously tried medications: tramadol; cyclobenzaprine; gabapentin; tizanidine Continue lidocaine topical, which has been effective Assessment & Plan (01/01/2023 7:00 AM EST): Consider consulting her psychiatrist for changing sertraline to duloxetine, if her symptoms worsen. Encouraged to stay physically active. Pt has already been seen by seismograph observer. Pt has already tried acupuncture and physical [...] today, continue monitoring BP and fu with [facility] HTN clinic on 01/29, consider changing metoprolol to a non selective B-jignesh. Order sleep study. Assessment & Plan (01/18/2024 4:11 PM EST): Uncontrolled x 1w, it had previously improved with increased dose of metoprolol. No change in meds today, continue monitoring BP and fu with [facility] HTN clinic on 01/29, consider changing metoprolol [...] Assessment & Plan (11/06/2024 6:03 PM EST): -[facility] provider: Dr. Diamond MEREDITH -Current medications: lorazepam; sertraline; zolpidem -Continue current treatment plan. -She was able to contract her safety today. Assessment & Plan (06/29/2024 11:32 AM EDT): -[facility] provider: Dr. Diamond MEREDITH -Current medications: lorazepam; sertraline -Continue current treatment plan. -She was able to contract her safety today. Assessment & Plan (01/03/2024 9:09 AM EST): -[facility] provider: Dr. Diamond MEREDITH -Current medications: lorazepam; sertraline -Continue current treatment plan. -She was able to contract her safety today. Assessment & Plan (03/31/2023 10:14 AM EDT): -[facility] provider: Dr. Diamond MEREDITH -Current medications: lorazepam; sertraline -Currently grieving. -Continue current treatment plan. -She was able to contract her safety today. Assessment & Plan (12/31/2022 11:36 AM EST): -[facility] provider: Dr. Diamond MEREDITH -Current medications: lorazepam; sertraline -Currently grieving. -Continue current treatment plan. -She was able to contract her safety today. Abdominal hernia without obstruction or gangrene 03/01/2013 Constipation 08/31/2012 Assessment & Plan (01/03/2024 8:59 AM EST): -followed by [facility] -Fiber-rich diet -Continue Miralax and Dulolax -Colonoscopy on 12/30/23 Assessment & Plan (07/05/2023 1:01 PM EDT): -followed by [facility] GI -Fiber-rich diet -Continue Miralax and Dulolax Assessment & Plan (03/31/2023 5:14 PM EDT): -followed by [facility] -Fiber-rich diet -Continue Miralax and Dulolax Assessment & Plan (01/01/2023 7:04 AM EST): -followed by [facility] GI -Fiber-rich diet -Continue Miralax and Dulolax Chronic abdominal pain 08/31/2012 Assessment & Plan (11/06/2024 1:06 PM EST): - following with GI - colonoscopy / EGD done on 12/30/23 with [facility] Assessment & Plan (07/05/2023 1:00 PM EDT): - following with GI - currently having a new abdominal pain with increased BM - check H. Pylori - recommended to go to [facility] office to schedule colonoscopy / EGD [...] Provider, Generic External Data 01/30/2025 Refill [facility] [address] [facility] [place] [facility] [place] [address] Richa Jeter MD Type 2 diabetes mellitus without complication, without long-term current use of insulin ([facility]) 01/17/2025 Travel 01/15/2025 Refill [facility] [address] [facility] [place] [address] iRcha Jeter MD Type 2 diabetes mellitus without complication, without long-term current use of insulin (CMS/HCC) 12/30/2024 Refill [facility] [address] [facility] [place] [address] Richa Jeter MD 12/18/2024 Travel 11/06/2024 1:00 PM EST Office Visit [facility] [address] [facility] [place] [address] Richa Jeter MD Chronic abdominal pain (Primary [...] (BMI) of 36.0 to 36.9 in adult ([facility]); Chronic recurrent major depressive disorder ([facility]); Mixed anxiety and depressive disorder 11/06/2024 Travel 11/05/2024 Refill [facility] [address] [place] [address] Richa Jeter MD Primary hypertension from Last [...] 04/25/2025 10:30 AM EDT Medication Management [facility] [address] [place] [address] Jer Guerra, PharmD [address] [place] [address] Health Maintenance Due Date Last Done Comments [...] this topic Meningococcal Vaccine Aged Out No juanr amon elena eligible based on patient's age to [...] Bilirubin, Total 0.2 0.0 - 1.0 mg/dL [facility] Bilirubin, Direct <0.2 0.0 - 0.5 mg/dL [facility] Aspartate Amino Transferase 30 5 - 31 U/L [facility] Alanine Aminotransferase 34(H) 0 - 31 U/L [facility] Total Protein 8.1(H) 6.5 - 8.0 g/dL [facility] Albumin Level 4.2 3.5 - 5.0 g/dL [facility] Alkaline Phosphatase 58 39 - 117 U/L [facility] 02/01/2025 1:38 PM EDT 02/01/2025 1:38 PM EDT us Generic External Data Provider LAB BLOOD ORDERAB LES Final Result Performing Organization Address City/State/[facility] Co de Phone Number [facility] [address] [place] [phone] * (ABNORMAL) POCT HGB A1C (01/17/2025 [...] Media Lot # [id number] Lot# Expiration Date [id number] Blood Capillary blood specimen / Unknown 11/06/2024 1:01 PM EST us Richa Jeter MD POINT OF CARE TEST ENTER/EDIT OR DERABLES Final Result * (ABNORMAL) Lipid Panel with Reflex to Direct LDL (08/21/2024 8:45 AM EDT) Triglycerides 85 <150 mg/dL [facility] Comment:Desirable Triglyceri de: less than 150 mg/dLBorderline High Triglyceride 150-199 mg/dLHigh Triglyceride: 200-499 mg/dLVery High Triglyceride: greater than or equal to 5OO mg/dL Cholesterol 117 <200 mg/dL [facility] Comment:Desirable Cholestero l: less than 200 mg/dLBorderline High Cholesterol: 200-239 mg/dLHigh Cholesterol: greater than 239 mg/dL LDL Cholesterol Calculated 61 <100 mg/dL [facility] Comment:Desirable LDL: less than 100 mg/dLNear Optimal/Above Optimal LDL: 110- 129 mg/dLBorderline High LDL: 130-159 mg/dLHigh LDL: 160-189 mg/dLVery High LDL: greater than or equal to 190 mg/dL HDL Cholesterol 39(L) >40 mg/dL [facility] Comment:Desirable HDL: great er than 40 mg/dL Note: This HDL assay may give artificially low results in patients with liver disease. Blood 08/21/2024 8:45 AM EDT 08/21/2024 8:45 AM EDT us Richa Jeter MD LAB BLOOD ORDERABLES Final Resul t [facility] [address] [place] [phone] * BI Mammogram Screening Tomosynthesis Bilateral (08/21/2024 8:00 AM EDT) Anatomical Region Laterality Modality Breast Bilateral Mammography 08/21/2024 8:00 AM EDT Narrative 08/31/2024 6:39 PM EDT ? [facility] ? [address] ?[place] [address] ? Mammography Report ? Signed ? Patient: Reji Conroy,Pauly ?MR#: ?? [id number] ? : 1965 ?Acct:[id number] ? Age/Sex: 58 / F ?ADM Date: 08/21/24 ? Loc: HO.MAMMO ? Attending Dr: Richa Jeter MD ? Ordering Physician: Richa Jeter MD ?Results: 1Negative ? Date of Service: 08/21/24 ?Follow Up: 1 Year From Orig ?? inal Mammogram ? Procedure(s): MM tomosynthesis screening BI ?? Accession Number(s): [id number] ? cc: Richa Jeter MD ? EXAMINATION: [...] DD/ 0800 ? TD/TT: 08/21/24 0820 ? Adjunct Faculty Instructor: ? Procedure Note Gauri, Image - 08/31/2024 [place] [facility] [address] [place], [place] [address] Mammography Report Signed Patient: Kip Mina#: [id number] : 1965Acct:[id number] Age/Sex: 58 / FADM Date: 08/21/24 Loc: [facility] Attending Dr: Richa Jeter MD Ordering Physician: Richa Jeter MDResults: 1Negative Date of Service: 08/21/24Follow Up: 1 Year From Orig inal Mammogram Procedure(s): MM tomosynthesis screening BI Accession Number(s): [id number] cc: Richa Jeter MD EXAMINATION: MM SCREENING [...] 08/31/24 1835 DD/ 0800 TD/TT: 08/21/24 0820 Adjunct Faculty Instructor: Richa Jeter MD IMG BI PROCEDURES Edited Result - Final * Albumin, Random Urine W/Creatinine (03/28/2024 12:00 AM EDT) Creatinine, Urine 30.18 mg/dL [facility] Microalbumin Urine <5.0 mg/L [facility] Microalbum Creatinine Ratio Ur TNP <30 ug/mg cr [facility] Comment:Unable to calculate albumin/creatinine ratio due to lowmicroalbumin or creatinine result. Urine 03/28/2024 03/28/2024 Richa Jeter MD LAB URINE ORDERABLES Final Resul t [facility] [address] [place] [address] [phone] * Hm Colonoscopy (12/30/2023) Colonoscopy Normal Normal Jodi Thomson MD HEALTH MAINTENANCE Final Result * Hepatitis A,B,C Profile (07/31/2022 4:21 PM EDT) Pathologist [facility] Hepatitis B Core Antibody Nonreactive Nonreactive [facility] Hepatitis B Surface Antibody NONREACTIVE Nonreactive [facility] Comment:Nonreactive: < 8.00 mIU/mL Hepatitis B Surface Antigen Negative Negative [facility] Hepatitis C Antibody Nonreactive Nonreactive [facility] Comment: Antibodies to HCV not [...] detection of this assay. ?? The [employer] Control Operator HIV Ag/Ab Combo assay result and supplemental assay results should be interpreted in conjunction with the patient's clinical presentation, history and other laboratory results. ??If the results are inconsistent with clinical evidence, additional testing is suggested to confirm the result. 07/31/2022 4:21 PM EDT us Historical Provider HISTORICAL/NON ORDERABLE LABS Final Result [facility] [address] * THINPREP TIS PAP AND HPV mRNA E6/E7 WITH REFLEX TO HPV 16,18/45 (03/16/2022 2:00 PM EDT) Pathologist [facility] Clinical Information: None given [facility] COMMENT SEE COMMENT [facility] [...] has been evaluated with computer assisted technology. [facility] Racing Car Driver: SEE COMMENT [facility] Comment: [facility], CT(ASCP) CT screening location: [address] ??[id number] HPV nRNA E6/E7 Not Detected Not Detected [facility] Comment: Methodology: Nurse Supervisor-Mediated Amplification This assay detects E6/E7 viral messenger RNA (mRNA) from 14 high-risk HPV types (16,18,31,33,35,39,45,51,52,56,58,59,66,68). ? The analytical performance characteristics of this assay have been determined by [employer]. The modifications have not been cleared or approved by the FDA. This assay has been validated pursuant to the CLIA regulations and is used for clinical purposes. ?? For additional information, please refer to http://education.[employer]pine/faq/OHW336x8 (This link if provided for information/ educational [...] MD LAB PATHOLOGY ORDERABLES Final R esult [facility] [address] from Last 3 Months or Most Recently Relevant to Health Maintenance Insurance [facility] * Guarantor: Pauly Mina Account Type Relation to Patient Date of Phone Billing Address Personal/Family Self [address] [place] [address] * Guarantor: Pauly Mina Account Type Relation to Patient Date of Phone Billing Address Personal/Family Self [address] [place] [address] Care Teams Melting Furnace Skimmer Relationship Specialty Start Date End Date Richa Jeter MD [address] [place] [address] PCP - General Family Medicine 11/22/18 Jer Guerra, PharmD [address] [place] [address] Pharmacist Internal Medicine 10/08/23
--- OUTSIDE RECORDS SUMMARY | 2025-02-01 17:06 | XMS_ITS | Encounter Summary ---
Author Organization [employer] Address 75 [facility] 7t [place] [address] Care Team Providers Care Technical Training Coordinator Name Role Phone Richa Jeter MD Primary Care Provider [phone] Jer Guerra PharmD Unavailable [phone] Encounter Details Date Type Department Care Team [...] Description 04/25/2025 10:30 AM EDT Medication Management [facility] [address] [place] [address] Jer Guerra PharmD [address] [place] [address] documented as of this encounter Goals Goal [...] Bilirubin, Total 0.2 0.0 - 1.0 mg/dL [facility] Bilirubin, Direct <0.2 0.0 - 0.5 mg/dL [facility] Aspartate Amino Transferase 30 5 - 31 U/L [facility] Alanine Aminotransferase 34(H) 0 - 31 U/L [facility] Total Protein 8.1(H) 6.5 - 8.0 g/dL [facility] Albumin Level 4.2 3.5 - 5.0 g/dL [facility] Alkaline Phosphatase 58 39 - 117 U/L [facility] 02/01/2025 1:38 PM EDT 02/01/2025 1:38 PM EDT us Generic External Data Provider LAB BLOOD ORDERAB LES Final Result [facility] [address] [place] [address] [phone] documented in this encounter Visit Diagnoses Not on filedocumented in this encounter Additional Health Concerns Assessment Noted Time PHQ-9 Depression Total Score: 7 06/29/20 24 11:26 AM EDT documented as of this encounter Care Teams Technical Training Coordinator Relationship Specialty Start Date End Date Richa Jeter MD [address] [place] [address] PCP - General Family Medicine 11/22/18 Jer Guerra, PharmD [address] [place] [address] Pharmacist Internal Medicine 10/08/23 documented as of this encounter
--- OUTSIDE RECORDS SUMMARY | 2025-02-01 17:06 | XMS_ITS | Encounter Summary ---
Author Organization [employer] Address 75 [facility] 7t [place] [address] Care Team Providers Care Geotechnical Engineering Technician Name Role Phone Richa Jeter MD Primary Care Provider [phone] Jer Guerra PharmD Unavailable [phone] Reason for Visit * Reason Comments Med Refill Encounter Details Date Type Department Care Team ([facility] st Contact Info) Description 01/15/2025 Refill [facility] [address] [place], [place] [phone] Richa Jeter MD 230 [place], [place] [phone] Type 2 diabetes mellitus without complication, without long-term current use of insulin ([facility]) Social History Tobacco Use Types Packs/Day [...] Description 04/25/2025 10:30 AM EDT Medication Management [facility] [address] [place] [address] Jer Guerra, PharmD [address] [place] [phone] documented as of this encounter Goals Goal Patient Goal Type Associated Problems Recent Progress Patient-Stated? Author Blood Pressure < 140/90 Blood Pressure 132/66( 025 10:32 AM EST) No Jer Guerra, PharmEugenie documented as of this encounter Visit Diagnoses Diagnosis Type 2 diabetes mellitus without complication, without long-term current use of insulin ([facility]) documented in this encounter Additional Health Concerns Assessment Noted Time PHQ-9 Depression Total Score: 7 06/29/20 24 11:26 AM EDT documented as of this encounter Care Teams Geotechnical Engineering Technician Relationship Specialty Start Date End Date Richa Jeter MD [address] [place] [address] [phone] PCP - General Family Medicine 11/22/18 Jer Guerra, PharmD [address] [place] [address] [phone] Pharmacist Internal Medicine 10/08/23 documented as of this encounter
[2025-02-08 15:58] LABS: FIB-ALT 26 U/L (6-29); FIB-Alpha-2-Macroglobulin 223 mg/dL (106-279); FIB-Apolipoprotein A1 135 mg/dL (101-198); FIB-GGT 28 U/L (3-65); FIB-Haptoglobin 213 mg/dL (43-212); FIB-Total Bilirubin 0.2 mg/dL (0.2-1.2); Liver Fibrosis Score 0.13; Liver Fibrosis Stage F0; Nec Inflam Act Grade A0; Nec Inflam Act Score 0.09
== END 2025-02-01 12:33 | disposition home or self-care (01) ==
LOC: HO.LAB 12:32
PROVIDERS: PCP Family Medicine; Visit Provider Nurse Practitioner Family
DX: R74.01 Elevation of levels of liver transaminase levels (principal); K76.0 Fatty (change of) liver, not elsewhere classified; K21.9 Gastro-esophageal reflux disease without esophagitis; K58.1 Irritable bowel syndrome with constipation; R16.0 Hepatomegaly, not elsewhere classified
CPT/HCPCS: 36415; 80076; 81596; 99212

== ENCOUNTER 2025-03-07 09:05 | Outpatient (REF) | payer OTHER, SELFPAY ==
--- NOTE | ~2025-03-07 | US_ITS ---
EXAMINATION: US ABDOMEN LIMITED WITH LIVER ELASTOGRAPHY HISTORY: K76.0 - Fatty (change of) liver, not elsewhere classified TECHNIQUE: Real-time grayscale ultrasound imaging of the right upper quadrant was performed and images were reviewed. COMPARISON: Comparison is made with the prior examination dated 07/13/2024. FINDINGS: Liver: The right lobe of the liver measures 14.2 cm in size. The left lobe of the liver measures 10.7 cm in size. The liver demonstrates increased echotexture, consistent with steatosis. There is a 5 mm cyst in the right lobe. No intrahepatic biliary ductal dilatation is identified. There is normal hepatopedal flow in the portal vein. Ultrasound elastography of the liver was performed with 10 separate measurements of the liver parenchyma with the patient in the supine position. Measurements were obtained approximately 2 cm below Digna's capsule and perpendicular to the capsule. Images are of satisfactory quality. The median shear wave velocity is 1.23 m/s (previously 1.82 m/s). The interquartile range/median (IQR/median) is 0.06. Gallbladder and biliary tree: The gallbladder is unremarkable, without evidence of calculi, wall thickening, or pericholecystic fluid. There is no sonographic Conway sign. The common bile duct is normal in caliber measuring 3 mm. Right Kidney: The right kidney measures 10.2 cm in length. There is a prominent artery noted extending laterally through the renal cortex into the retroperitoneum which cannot be followed. The right kidney is otherwise unremarkable, without evidence of masses, hydronephrosis, or calculi. Pancreas: The pancreatic head, neck, and body are unremarkable. The pancreatic tail is obscured by bowel gas. Abdominal aorta and inferior vena cava: The visualized portions of the abdominal aorta and inferior vena cava are normal in caliber. There is no free fluid in the right upper quadrant. US/US abdomen garcia w elastography IMPRESSION: Hepatic steatosis. The median shear wave velocity in the liver is 1.23 m/s, corresponding to a median liver stiffness of 4.61 kPa. The IQR/median value is 0.06. This is indicative of a quality data set. Findings are indicative of a normal elastography value with a low likelihood of severe fibrosis or cirrhosis. REFERENCE: Society of Radiologists in Ultrasound Liver Stiffness Thresholds (2020): LIVER STIFFNESS THRESHOLDS: *Shear wave velocity less than 1.3 m/s (Liver Stiffness equal or less than 5 kPa): High probability of being normal. *Shear wave velocity less than 1.7 m/s (Liver Stiffness less than 9 kPa): In the absence of other known clinical signs, rules out compensated advanced chronic liver disease. *Shear wave velocity between 1.7-2.1 m/s (Liver Stiffness 9-13 kPa): Suggestive of compensated advanced chronic liver disease but need further test for confirmation. *Shear wave velocity between 2.1-2.4 m/s (Liver Stiffness 13-17 kPa): Rules in compensated advanced chronic liver disease. *Shear wave velocity greater than 2.4 m/s (Liver Stiffness over 17 kPa): Suggestive of clinically significant portal hypertension. QUALITY OF DATA SET: *IQR/Median value equal or less than 0.15 implies a quality data set. *IQR/Median value over 0.15 implies a poor quality data set. SIGNIFICANT CHANGE FROM PRIOR EXAM: Significant change if liver stiffness measurement is 10% or greater from prior exam. OTHER CONSIDERATIONS: The stage of liver fibrosis may be overestimated in the setting of acute hepatitis, liver inflammation, elevated liver function tests, hepatic vascular congestion, obstructive cholestasis, non-fasting state, and infiltrative diseases such as amyloidosis and lymphoma. In some patients with NAFLD, the liver stiffness thresholds for compensated advanced chronic liver disease may be lower. In causes other than viral hepatitis and NAFLD, liver stiffness thresholds are not well established. Electronically signed by: Modesto Godoy MD 03/07/2025 10:51 AM EDT
--- OUTSIDE RECORDS SUMMARY | 2025-03-07 09:47 | XMS_ITS | Encounter Summary ---
Author Organization [employer] Address 75 [facility] 7t [place] [address] Care Team Providers Care Help Desk Administrator Name Role Phone Richa Jeter MD Primary Care Provider [phone] Jer Guerra PharmD Unavailable [phone] Reason for Visit * Reason Comments Med Change Request Encounter Details Date Type Department Care Team ([facility] st Contact Info) Description 03/02/2025 Refill [facility] MEDICINE [address] [place] [address] Lisa Sims MD [address] [place] [address] Social History Tobacco Use Types Packs/Day Years [...] Description 04/25/2025 10:30 AM EDT Medication Management [facility] [address] [place] [phone] Jer Guerra PharmD [address] [place] [phone] documented as of this encounter Goals Goal [...] documented as of this encounter Care Teams Help Desk Administrator Relationship Specialty Start Date End Date Richa Jeter MD [address] [place] [phone] PCP - General Family Medicine 11/22/18 Jer Guerra PharmD [address] [place] [phone] Pharmacist Internal Medicine 10/08/23 documented as of this encounter
--- OUTSIDE RECORDS SUMMARY | 2025-03-07 09:47 | XMS_ITS | Encounter Summary ---
Author Organization [facility] Address 75 [facility] 7t [place] [address] Care Team Providers Care Windows Desktop Support Name Role Phone Richa Jeter MD Primary Care Provider [phone] Jer Guerra PharmD Unavailable [phone] Reason for Visit * Reason Comments Med Refill Encounter Details Date Type Department Care Team (Late Contact Info) Description 02/26/2023 Refill [facility] MED[facility]INE [address] [place], [place] [phone] Richa Jeter MD 230 [place] [address] Type 2 diabetes mellitus without complication, without long-term current use of insulin ([facility]) Social History Tobacco Use Types Packs/Day [...] Description 04/25/2025 10:30 AM EDT Medication Management [facility] MEDICINE [address] [place] [address] Jer Guerra, PharmD [address] [place] [address] documented as of this encounter Visit Diagnoses Diagnosis Type 2 diabetes mellitus without complication, without long-term current use of insulin ([facility]) documented in this encounter Additional Health Concerns Assessment Noted Time PHQ-9 Depression Total Score: 4 12/31/19 23 11:23 AM EST documented as of this encounter Care Teams Windows Desktop Support Relationship Specialty Start Date End Date Richa Jeter MD [address] [place] [phone] PCP - General Family Medicine 11/22/18 Jer Guerra, PharmD [address] [place] [phone] Pharmacist Internal Medicine 10/08/23 documented as of this encounter
--- OUTSIDE RECORDS SUMMARY | 2025-03-07 09:47 | XMS_ITS | Encounter Summary ---
Author Organization [facility] Address 75 [facility] 7t [place] [address] Care Team Providers Care Turret Lathe Tender Name Role Phone Richa Jeter MD Primary Care Provider [phone] Jer Guerra PharmD Unavailable [phone] Reason for Referral * Consultation (Routine) - Authorized Specialty Diagnoses / Procedures Referred By Contdavid t Referred To Contact Pharmacy Diagnoses Primary hypertension Type 2 diabetes mellitus without complication, without long-term current use of insulin (CMS/HCC) Richa Jeter MD [address] [place] [address] Phone: tel: fax: Referral ID Status Reason Start Date Expiration Date Visits Requested Visits Authorized [id number] Authorized Consult and Treat 10/03/2024 10/03/2025 6 6 Encounter Details Date Type Department Care Team (Late st Contact Info) Description 10/03/2024 Orders Only [facility] MEDICINE [address] [place], [place] [phone] Richa Jeter MD [address] [place], [place] [phone] Primary hypertension (Primary Dx); Type 2 diabetes [...] Description 04/25/2025 10:30 AM EDT Medication Management [facility] MEDICINE [address] [place] [address] Jer Guerra, PharmD [address] [place] [address] Scheduled Referrals Name Type Priority Associated Diagnoses Orde r Schedule Referral to Pharmacy CDTM Outpatient Referral Routine Primary hypertension Type 2 diabetes mellitus without complication, without long-term current use of insulin ([facility]) Ordered: 10/03/2024 documented as of this encounter Goals Goal Patient Goal Type Associated Problems Recent Progress Patient-Stated? Author Blood Pressure < 140/90 Blood Pressure 132/66( 025 10:32 AM EST) No Jer Guerra, PharmD documented as of this encounter Visit Diagnoses Diagnosis Primary hypertension- Primary Unspecified essential hypertension Type 2 diabetes mellitus without complication, without long-term current use of insulin ([facility]) documented in this encounter Additional Health Concerns Assessment Noted Time PHQ-9 Depression Total Score: 7 06/29/20 24 11:26 AM EDT documented as of this encounter Care Teams Turret Lathe Tender Relationship Specialty Start Date End Date Richa Jeter MD [address] [place] [address] PCP - General Family Medicine 11/22/18 Jer Guerra, PharmD [address] [place] [address] Pharmacist Internal Medicine 10/08/23 documented as of this encounter
--- OUTSIDE RECORDS SUMMARY | 2025-03-07 09:47 | XMS_ITS | Encounter Summary ---
Author Organization [employer] Address 75 [facility] 7t [place] [address] Care Team Providers Care Academic Advisement Director Name Role Phone Richa Jeter MD Primary Care Provider [phone] Jer Guerra PharmD Unavailable [phone] Reason for Visit * Reason Comments Med Refill Encounter Details Date Type Department Care Team (Late st Contact Info) Description 02/04/[address] [facility] MEDICINE [address] [place], [place] [phone] Karen Becker MD 230 [place], [place] [phone] Type 2 diabetes mellitus without complication, without long-term current use of insulin ([facility]) Social History Tobacco Use Types Packs/Day Years [...] 04/25/2025 10:30 AM EDT Medication Management [facility] MEDICINE [address] [place] [phone] Jer Guerra, PharmD [address] [place] [phone] documented as of this encounter Goals Goal Patient Goal Type Associated Problems Recent Progress Patient-Stated? Author Blood Pressure < 140/90 Blood Pressure 132/66( 025 10:32 AM EST) No Jer Guerra, PharmEugenie documented as of this encounter Visit Diagnoses Diagnosis Type 2 diabetes mellitus without complication, without long-term current use of insulin ([facility]) documented in this encounter Additional Health Concerns Assessment Noted Time PHQ-9 Depression Total Score: 7 06/29/20 24 11:26 AM EDT documented as of this encounter Care Teams Academic Advisement Director Relationship Specialty Start Date End Date Richa Jeter MD [address] [place] [address] [phone] PCP - General Family Medicine 11/22/18 Jer Guerra, PharmD [address] [place] [address] [phone] Pharmacist Internal Medicine 10/08/23 documented as of this encounter
--- OUTSIDE RECORDS SUMMARY | 2025-03-07 09:47 | XMS_ITS | Encounter Summary ---
Author Organization [employer] [facility] Address 75 [facility] 7t [place] [address] Care Team Providers Care Garland Maker Name Role Phone Richa Jeter MD Primary Care Provider [phone] Jer Guerra PharmD Unavailable [phone] Encounter Details Date Type Department Care Team (Late Contact Info) Description 04/23/2023 Orders Only [facility] MEDICINE [address] [place], [place] [phone] Negin Flowers MD [address] [place], [place] [phone] Social History Tobacco Use Types Packs/Day Years [...] Description 04/25/2025 10:30 AM EDT Medication Management [facility] MEDICINE [address] [place] [address] Jer Guerra, PharmD [address] [place] [address] documented as of this encounter Procedures Procedure Name Priority Date/Time Associated Diagnosis Comments XR FOOT 3+ VIEWS RIGHT Routine 04/22/2023 2:49 PM EDT documented in this encounter Results * XR Foot 3+ Views Right (04/22/2023 2:49 PM EDT) Anatomical Region Laterality Modality Lower Extremities, Foot Right Radiogra phic Imaging 04/22/2023 2:49 PM EDT Narrative 04/22/2023 3:23 PM EDT ?[facility] ?[address] ?[place] [address] ?XRay Report ? Signed ? Patient: Pauly Mendoza ?MR#: [id number] ?? [id number] ? : 1965 ?Acct:[id number] ? Age/Sex: 57 / F ?ADM Date: 04/22/23 ? Loc: HO.HHCX ? Attending Dr: Negin Flowers MD ? Ordering Physician: Negin Flowers MD ?? Date of Service: 04/22/23 ?? Procedure(s): XR foot RT min 3V ?? Accession Number(s): [id number] ? cc: Negin Flowers MD ? EXAMINATION: [...] 1521 ? DD/ 1449 ? TD/TT: ? Capacity Planning Analyst: RYLIE ? Procedure Note [place], Image - 05/19/[address] [address] XRay Report Signed Patient: Kip Mendoza#: [id number] : 1965Acct:[id number] Age/Sex: 57 / FADM Date: 04/22/23 Loc: HO.HHCX Attending Dr: Negin Flowers MD Ordering Physician: Negin Flowers MD Date of Service: 04/22/23 Procedure(s): XR foot RT min 3V Accession Number(s): [id number] cc: Negin Flowers MD EXAMINATION: XR FOOT, [...] in OV> 04/22/23 1521 DD/ 1449 TD/TT: Capacity Planning Analyst: RYLIE [facility] External Provider IMG XR PROCEDURES Final Result documented in this encounter Visit Diagnoses Not on filedocumented in this encounter Additional Health Concerns Assessment Noted Time PHQ-9 Depression Total Score: 4 12/31/19 23 11:23 AM EST documented as of this encounter Care Teams Garland Maker Relationship Specialty Start Date End Date Richa Jeter MD [address] [place] [address] PCP - General Family Medicine 11/22/18 Jer Guerra, TrangD [address] [place] [phone] Pharmacist Internal Medicine 10/08/23 documented as of this encounter
--- OUTSIDE RECORDS SUMMARY | 2025-03-07 09:47 | XMS_ITS | Clinical Summary ---
Demographics Address [address] [facility] [address] [place] [address] Mobile Phone Home Phone Preferred Language es Marital Status Single Cheondoism Affiliation Unknown Race Other Race Ethnic Group or Author Organization [employer] Address [address] [facility] 7[address] [place] [address] Care Team Providers Care Hand Rounder Name Role Phone Richa Jeter MD Primary Care Provider [phone] Jer Guerra PharmD Unavailable [phone] Allergies No known active allergies Medications pantoprazole [...] ORALLY ONCE DIRECTED BY GASTROENTEROLOGY DEPARTMENT AT [facility] 023 Active Blood Pressure Monitor kitIndications: Essential hypertension Use daily as directed to measure blood pressure 1 kit 023 Active FreeStyle lancetsIndicati ons:Type 2 diabetes mellitus without complication, without long-term current use of insulin ([facility]) 1 each by Other route 2 [...] stripIndication s:Type 2 diabetes mellitus without complications ([facility]),Essen tial (primary) hypertension USE TO TEST [...] 024 Active Blood Glucose Monitoring Suppl (FreeStyle [place] Lite) w/Device kitIndications: Type 2 diabetes mellitus without complication, without long-term current use of insulin ([facility]) Use to test blood sugar 2 times daily 1 kit 024 Active chlorthalidone ([place]ro[place]) 25 MG tabletIndicatio ns:Primary hypertension TAKE 1 TABLET BY MOUTH EVERY DAY 90 tablet 3 024 Active dapagliflozin (Farxiga) 5 MG Take 1 tablet (5 mg) by mouth Once per day. 90 tablet 3 024 2024 Active Aspirin Low Dose 81 MG EC tabletIndicatio ns:Type 2 diabetes mellitus without complication, without long-term current use of insulin ([facility]) TAKE 1 TABLET BY MOUTH EVERY DAY 90 tablet 3 025 Active metFORMIN XR (Glucophage-XR) 500 MG 24 hr tabletIndicatio ns:Type 2 diabetes mellitus without complication, without long-term current use of insulin ([facility]) TAKE 2 TABLETS BY MOUTH WITH BREAKFAST AND EVENING MEAL 360 tablet 025 Active ibuprofen 800 MG tablet TAKE 1 TABLET BY MOUTH EVERY 8 HOURS IF NEEDED FOR MILD PAIN OR MODERATE PAIN. 90 tablet 025 Active hydrocortisone 2.5 % cream Apply topically if needed each day for rash. Apply to affected area thin layer once daily 476 g 025 Active hydrocortisone 2.5 % cream APPLY TOPICALLY 2 TIMES DAILY. APPLY TO AFFECTED AREA THIN LAYER ONCE DAILY 476 g 3 024 2024 Discontinued ibuprofen 800 MG tablet TAKE 1 TABLET BY MOUTH EVERY 8 HOURS IF NEEDED FOR MILD PAIN OR MODERATE PAIN. 90 tablet 1 025 2024 Discontinued hydrocortisone 2.5 % cream APPLY TOPICALLY 2 TIMES DAILY. APPLY TO AFFECTED AREA THIN LAYER ONCE DAILY 453.6 g 025 2024 Discontinued Active Problems Problem Noted Date [...] & Plan (11/06/2024 5:08 AM EST): -GI: [facility] -Last abdominal US performed on 09/23/22, no focal lesion or cirrhosis -FIB4 index 1.23 -Fibrosis test 08/11/24 Stage F0 -Avoid hepatotoxic drugs -Continue working on lifestyle modfications Assessment & Plan (06/30/2024 6:06 PM EDT): -GI: [facility] -Last abdominal US performed on 09/23/22, no [...] active. Pt has already been seen by recreation officer. Pt has already tried acupuncture and physical [...] active. Pt has already been seen by recreation officer. Pt has already tried acupuncture and physical [...] active. Pt has already been seen by recreation officer. Pt has already tried acupuncture and physical therapy. Continue judicious use of APAP prn. Previously tried medications: tramadol; cyclobenzaprine; gabapentin; tizanidine Continue lidocaine topical, which has been effective Assessment & Plan (01/01/2023 7:00 AM EST): Consider consulting her psychiatrist for changing sertraline to duloxetine, if her symptoms worsen. Encouraged to stay physically active. Pt has already been seen by recreation officer. Pt has already tried acupuncture and physical [...] today, continue monitoring BP and fu with [facility] clinic on 01/29, consider changing metoprolol to a non selective B-jignesh. Order sleep study. Assessment & Plan (01/18/2024 4:11 PM EST): Uncontrolled x 1w, it had previously improved with increased dose of metoprolol. No change in meds today, continue monitoring BP and fu with [facility]N clinic on 01/29, consider changing [...] Assessment & Plan (11/06/2024 6:03 PM EST): -[facility] provider: Dr. Diamond MEREDITH -Current medications: lorazepam; sertraline; zolpidem -Continue current treatment plan. -She was able to contract her safety today. Assessment & Plan (06/29/2024 11:32 AM EDT): -[facility] provider: Dr. Diamond MEREDITH -Current medications: lorazepam; sertraline -Continue current treatment plan. -She was able to contract her safety today. Assessment & Plan (01/03/2024 9:09 AM EST): -[facility] provider: Dr. Diamond MEREDITH -Current medications: lorazepam; sertraline -Continue current treatment plan. -She was able to contract her safety today. Assessment & Plan (03/31/2023 10:14 AM EDT): -[facility] provider: Dr. Diamond MEREDITH -Current medications: lorazepam; sertraline -Currently grieving. -Continue current treatment plan. -She was able to contract her safety today. Assessment & Plan (12/31/2022 11:36 AM EST): -[facility] provider: Dr. Diamond MEREDITH -Current medications: lorazepam; sertraline -Currently grieving. -Continue current treatment plan. -She was able to contract her safety today. Abdominal hernia without obstruction or gangrene 03/01/2013 Constipation 08/31/2012 Assessment & Plan (01/03/2024 8:59 AM EST): -followed by [facility] GI -Fiber-rich diet -Continue Miralax and Dulolax -Colonoscopy on 12/30/23 Assessment & Plan (07/05/2023 1:01 PM EDT): -followed by [facility] GI -Fiber-rich diet -Continue Miralax and Dulolax Assessment & Plan (03/31/2023 5:14 PM EDT): -followed by [facility] GI -Fiber-rich diet -Continue Miralax and Dulolax Assessment & Plan (01/01/2023 7:04 AM EST): -followed by [facility] GI -Fiber-rich diet -Continue Miralax and Dulolax Chronic abdominal pain 08/31/2012 Assessment & Plan (11/06/2024 1:06 PM EST): - following with GI - colonoscopy / EGD done on 12/30/23 with [facility] GI Assessment & Plan (07/05/2023 1:00 PM EDT): - following with GI - currently having a new abdominal pain with increased BM - check H. Pylori - recommended to go to [facility] GI office to schedule colonoscopy / EGD [...] Encounters Date Type Department Care Team Description 03/02/2025 Refill [facility] [address] [place] [address] Lisa Sims MD 03/02/2025 Refill [facility] [address] [place] [address] Richa Jeter MD 02/04/2025 Refill [facility] [address] [place] [address] Karen Becker MD Type 2 diabetes mellitus without complication, without long-term current use of insulin ([facility]) 02/04/2025 [facility]ill [facility] [address] [facility] [place] [address] Richa Jeter MD 02/01/2025 Orders Only GENERIC EXTERNAL DATA DEPARTMENT Provider, Generic External Data 01/30/2025 Refill [facility] [address] [place] [address] Richa Jeter MD Type 2 diabetes mellitus without complication, without long-term current use of insulin ([facility]) 01/17/2025 Travel 01/15/2025 Refill [facility] [address] [place] [address] Richa Jeter MD Type 2 diabetes mellitus without complication, without long-term current use of insulin ([facility]) 12/30/2024 Refill [facility] [address] [place] [address] Richa Jeter MD 12/18/2024 Travel from Last 3 Months Immunizations Name Administration [...] Description 04/25/2025 10:30 AM EDT Medication Management [facility] [address] [place] [address] Jer Guerra, PharmD [address] [place] [address] Health Maintenance Due Date Last Done Comments [...] Procedure Name Priority Date/Time Associated Diagnosis Comments LIVER FIBROSIS, FIBROTEST ACTITEST PANEL Routine 02/01/2025 1:38 PM EDT HEPATIC FUNCTION PANEL Routine 1:38 PM EDT [...] Relevant to Health Maintenance Results * (ABNORMAL) Liver Fibrosis (HCV), FibroTest-ActiTest Panel (02/01/2025 1:38 PM EDT) Liver Fibrosis Score 0.13 [facility] Liver Fibrosis Stage F0 [facility] Liver Fibrosis Interpretation SEE NOTE [facility] Comment:no fibrosisFibro Amina t Score (f) Metavir Score f>=0 and f<=0.21 : F0 (no fibrosis)f>0.21 and f<=0.27 : F0-F1 (no fibrosis)f>0.27 and f<=0.31 : F1 (minimal fibrosis)f>0.31 and f<=0.48 : F1-F2 (minimal fibrosis)f>0.48 and f<=0.58 : F2 (moderate fibrosis)f>0.58 and f<=0.72 : F3 (advanced fibrosis)f>0.72 and f<=0.74 : F3-F4 (advanced fibrosis)f>0.74 and f<=1.00 : F4 (severe fibrosis) Nec Inflam Act Score 0.09 [facility] Nec Inflam Act Grade A0 [facility] Nec Inflam Act Interpretation SEE NOTE [facility] Comment:no activityActiTest Score (a) Metavir Score a>=0 and a<=0.17 : A0 (no activity)a>0.17 and a<=0.29 : A0-A1 (no activity)a>0.29 and a<=0.36 : A1 (minimal activity)a>0.36 and a<=0.52 : A1-A2 (minimal activity)a>0.52 and a<=0.60 : A2 (significant activity)a>0.60 and a<=0.62 : A2-A3 (significant activity)a>0.62 and a<=1.00 : A3 (severe activity) NJE-Bihqi-2-Macroglo bulin 223 106 - 279 mg/dL [facility] FIB-Haptoglobin 213(A) 43 - 212 mg/dL [facility] FIB-Apolipoprotein A1 135 101 - 198 mg/dL [facility] FIB-Total Bilirubin 0.2 0.2 - 1.2 mg/dL [facility] FIB-GGT 28 3 - 65 U/L [facility] FIB-ALT 26 6 - 29 U/L [facility] Reference ID [id number] [facility] Footnote SEE NOTE [facility] Comment: The reliability of results is dependent on compliance withthe preanalytical and analytical conditions recommended by[employer]. The tests have to be deferred for: acutehemolysis, acute hepatitis, acute inflammation, extrahepatic cholestasis. The advice of a specialist should besought for interpretation in chronic hemolysis and Gilbert'ssyndrome. The test interpretation is not validated in livertransplant patients. Isolated extreme values of one of thecomponents should lead to caution in interpreting theresults. In case of discordance between a biopsy result yaa test, it is recommended to seek the advice of aspecialist. The causes of these discordances could be due toa flaw of the test or to a flaw in the biopsy: i.e. a liverbiopsy has a 33% variability rate for one fibrosis stage.FibroTest is interpretable for chronic hepatitis B and C,alcoholic and non alcoholic steatosis. ActiTest isinterpretable for chronic hepatitis B and C.The performance characteristics have been determined by[employer] [facility]. Ithas not been cleared or approved by the U.S. Food and DrugAdministration. Performance characteristics refer to theanalytical performance of the test.[employer], the associated logo, [employer] and all associated [employer] love are theregistered trademarks of [employer]. All third partymarks - (R) and (TM) - are the property of their respectiveowners. (C) [id number] [employer]. Allrights reserved.THIS TEST WAS PERFORMED AT:[employer] [id number] [place], [place] ??[id number] MOE MD,PHD,EDITH 02/01/2025 1:38 PM EDT 02/01/2025 1:38 PM EDT Generic External Data Provider LAB BLOOD ORDERAB LES Final Result Performing Organization Address [facility]/ZIP Co de Phone Number [facility] [address] [place] [phone] * (ABNORMAL) Hepatic Function Panel (02/01/2025 1:38 PM EDT) Pathologist [facility] Bilirubin, Total 0.2 0.0 - 1.0 mg/dL [facility] Bilirubin, Direct <0.2 0.0 - 0.5 mg/dL [facility] Aspartate Amino Transferase 30 5 - 31 U/L [facility] Alanine Aminotransferase 34(H) 0 - 31 U/L [facility] Total Protein 8.1(H) 6.5 - 8.0 g/dL [facility] Albumin Level 4.2 3.5 - 5.0 g/dL [facility] Alkaline Phosphatase 58 39 - 117 U/L [facility] 02/01/2025 1:38 PM EDT 02/01/2025 1:38 PM EDT Generic External Data Provider LAB BLOOD ORDERAB LES Final Result Performing Organization Address [facility] Co de Phone Number [facility] [address] [place] [phone] * (ABNORMAL) POCT HGB A1C (01/17/2025 10:45 AM EST) [facility] Hemoglobin A1C 6.9(A) 4.0 - 6.0 % QC Media Lot # [id number] Lot# Expiration Date Blood 01/17/2025 10:4 5 AM EST Richa Jeter MD POINT OF CARE TEST ENTER/EDIT OR DERABLES Final Result * (ABNORMAL) Lipid Panel with Reflex to Direct LDL (08/21/2024 8:45 AM EDT) Pathologist [facility] Triglycerides 85 <150 mg/dL [facility] Comment:Desirable Triglyceri de: less than 150 mg/dLBorderline High Triglyceride 150-199 mg/dLHigh Triglyceride: 200-499 mg/dLVery High Triglyceride: greater than or equal to 5OO mg/dL Cholesterol 117 <200 mg/dL [facility] Comment:Desirable Cholestero l: less than 200 mg/dLBorderline High Cholesterol: 200-239 mg/dLHigh Cholesterol: greater than 239 mg/dL LDL Cholesterol Calculated 61 <100 mg/dL [facility] Comment:Desirable LDL: less than 100 mg/dLNear Optimal/Above Optimal LDL: 110- 129 mg/dLBorderline High LDL: 130-159 mg/dLHigh LDL: 160-189 mg/dLVery High LDL: greater than or equal to 190 mg/dL HDL Cholesterol 39(L) >40 mg/dL [facility] Comment:Desirable HDL: great er than 40 mg/dL Note: This HDL assay may give artificially low results in patients with liver disease. Blood 08/21/2024 8:45 AM EDT 08/21/2024 8:45 AM EDT us Richa Jeter MD LAB BLOOD ORDERABLES Final Resul t [facility] [address] [place] [phone] * BI Mammogram Screening Tomosynthesis Bilateral (08/21/2024 8:00 AM EDT) Anatomical Region Laterality Modality Breast Bilateral Mammography 08/21/2024 8:00 AM EDT Narrative 08/31/2024 6:39 PM EDT ? [facility] [place] ? [address] ?[place] [address] ? Mammography Report ? Signed ? Patient: Reji Conroy,Pauly ?MR#: ?? [id number] ? : 1965 ?Acct:[id number] ? Age/Sex: 58 / F ?ADM Date: 09/30/24 ? Loc: HO.MAMMO ? Attending Dr: Richa Jeter MD ? Ordering Physician: Richa Jeter MD ?Results: 1Negative ? Date of Service: 08/21/24 ?Follow Up: 1 Year From Orig ?? inal Mammogram ? Procedure(s): MM tomosynthesis screening BI ?? Accession Number(s): [id number] ? cc: Richa Jeter MD ? EXAMINATION: [...] DD/ 0800 ? TD/TT: 08/21/24 0820 ? Felt Pad Cutter: ? Procedure Note Donotuseinterpreter, Image - 08/31/[address] [facility] [address] [place], [place] [address] Mammography Report Signed Patient: Kip Mina#: [id number] : 1965Acct:[id number] Age/Sex: 58 / FADM Date: 08/21/24 Loc: [facility] Attending Dr: Richa Jeter MD Ordering Physician: Richa Jeter MDResults: 1Negative Date of Service: 08/21/24Follow Up: 1 Year From Orig inal Mammogram Procedure(s): MM tomosynthesis screening BI Accession Number(s): [id number] cc: Richa Jeter MD EXAMINATION: MM SCREENING [...] Patsy Quintana DO 08/31/2024 06:35 PM EDT Dictated By: Patsy Quintana DO Signed By: <Electronically signed by Patsy Quintana DO in OV> 08/31/24 1835 DD/ 0800 TD/TT: 08/21/24 0820 Felt Pad Cutter: Richa Jeter MD IMG BI PROCEDURES Edited Result - Final * Albumin, Random Urine W/Creatinine (03/28/2024 12:00 AM EDT) [facility] Creatinine, Urine 30.18 mg/dL [facility] Microalbumin Urine <5.0 mg/L [facility] Microalbum Creatinine Ratio Ur TNP <30 ug/mg cr [facility] Comment:Unable to calculate albumin/creatinine ratio due to lowmicroalbumin or creatinine result. Urine 03/28/2024 03/28/2024 Richa Jeter MD LAB URINE ORDERABLES Final Resul t [facility] [address] [place] [phone] * Colonoscopy (12/30/2023) [facility] Colonoscopy Normal Normal Jodi Thomson MD HEALTH MAINTENANCE Final Result * Hepatitis A,B,C Profile (07/31/2022 4:21 PM EDT) [facility] Hepatitis B Core Antibody Nonreactive Nonreactive [facility] Hepatitis B Surface Antibody NONREACTIVE Nonreactive [facility] Comment:Nonreactive: < 8.00 mIU/mL Hepatitis B Surface Antigen Negative Negative [facility] Hepatitis C Antibody Nonreactive Nonreactive [facility] Comment: Antibodies to HCV not detected; does not exclude early acute HCV infection. HIV AB/AG Nonreactive Nonreactive [facility] Comment: HIV-1 p24 Ag and/or [...] detection of this assay. ?? The Mcdaniels Skein Winding Operator HIV Ag/Ab Combo assay result and supplemental assay results should be interpreted in conjunction with the patient's clinical presentation, history and other laboratory results. ??If the results are inconsistent with clinical evidence, additional testing is suggested to confirm the result. 07/31/2022 4:21 PM EDT us Historical Provider HISTORICAL/NON ORDERABLE LABS Final Result [facility] [address] * THINPREP TIS PAP AND HPV mRNA E6/E7 WITH REFLEX TO HPV 16,18/45 (03/16/2022 2:00 PM EDT) Clinical Information: None given [facility] COMMENT SEE COMMENT FOUNDAT[facility] [...] evaluated with computer assisted technology. [facility] Refrigeration Systems Installer: SEE COMMENT [facility] Comment: JANETTE CT(ASCP) CT screening location: [address] ??[address] HPV nRNA E6/E7 Not Detected Not Detected [facility] Comment: Methodology: Yarn Salvager-Mediated Amplification This assay detects E6/E7 viral messenger RNA (mRNA) from 14 high-risk HPV types (16,18,31,33,35,39,45,51,52,56,58,59,66,68). ? The analytical performance characteristics of this assay have been determined by [employer]. The modifications have not been cleared or approved by the FDA. This assay has been validated pursuant to the CLIA regulations and is used for clinical purposes. ?? For additional information, please refer to http://education.[employer]/faq/YDS916e2 (This link if provided for information/ educational [...] [facility] 03/16/2022 2:00 PM EDT us Richa Jeter MD LAB PATHOLOGY ORDERABLES Final R esult [facility] [address] [place] [address], from Last 3 Months or Most Recently Relevant to Health Maintenance Insurance * Guarantor: Pauly Mina Account Type Relation to Patient Date of Phone Billing Address Personal/Family Self [address] [place] [address] [facility] * Guarantor: Pauly Mina Account Type Relation to Patient Date of Phone Billing Address Personal/Family Self [address] [place] [address] * Guarantor: Pauly Mina Account Type Relation to Patient Date of Phone Billing Address Personal/Family Self [address] [place] [address] Care Teams Hand Rounder Relationship Specialty Start Date End Date Richa Jeter MD [address] [place], [place] [phone] PCP - General Family Medicine 11/22/18 Jer Guerra, TrangD [address] [place], [place] [phone] Pharmacist Internal Medicine 10/08/23
--- OUTSIDE RECORDS SUMMARY | 2025-03-07 09:47 | XMS_ITS | Encounter Summary ---
Author Organization [employer] Address [address] [facility] 7t [place] [address] Care Team Providers Care Library Manager Name Role Phone Richa Jeter MD Primary Care Provider [phone] Jer Guerra PharmD Unavailable [phone] Reason for Visit * Reason Comments Med Refill Encounter Details Date Type Department Care Team (Late st Contact Info) Description 03/02/2025 Refill [facility] MED[facility] [address] [place], [place] [phone] Richa Jeter MD [address] [place], [place] [phone] Social History Tobacco Use Types Packs/Day Years [...] Description 04/25/2025 10:30 AM EDT Medication Management [facility] MED[facility] [address] [place] [phone] Jer Guerra PharmD [address] [place] [phone] documented as of this encounter Goals Goal [...] documented as of this encounter Care Teams Library Manager Relationship Specialty Start Date End Date Richa Jeter MD [address] [place] [phone] PCP - General Family Medicine 11/22/18 Jer Guerra, TrangD [address] [place] [phone] Pharmacist Internal Medicine 10/08/23 documented as of this encounter
--- OUTSIDE RECORDS SUMMARY | 2025-03-07 09:47 | XMS_ITS | Encounter Summary ---
Author Organization [employer] Address [address] [facility] [address] [place] [address] Care Team Providers Care Directional Driller Name Role Phone Richa Jeter MD Primary Care Provider [phone] Jer Guerra PharmD Unavailable [phone] Reason for Visit * Reason Comments Med Refill Encounter Details Date Type Department Care Team (Late st Contact Info) Description 02/04/2025 Refill [facility] MED[facility] [address] [place], [place] [phone] Richa Jeter MD [address] [place], [place] [phone] Social History Tobacco Use Types Packs/Day Years [...] Description 04/25/2025 10:30 AM EDT Medication Management [facility] MED[facility]INE [address] [place] [phone] Jer Guerra PharmD [address] [place] [phone] documented as of this encounter Goals Goal [...] documented as of this encounter Care Teams Directional Driller Relationship Specialty Start Date End Date Richa Jeter MD [address] [place] [phone] PCP - General Family Medicine 11/22/18 Jer Guerra, TrangD [address] [place] [phone] Pharmacist Internal Medicine 10/08/23 documented as of this encounter
== END 2025-03-07 09:06 | disposition home or self-care (01) ==
LOC: HO.US 09:05
PROVIDERS: PCP Family Medicine; Visit Provider Nurse Practitioner Family
DX: K76.0 Fatty (change of) liver, not elsewhere classified (principal)
CPT/HCPCS: 76705; 76981

== ENCOUNTER → 2025-03-07 09:08 | Outpatient (BNV) | payer OTHER, SELFPAY | PROVIDERS: PCP Family Medicine; Visit Provider Radiology Diagnostic Radiology | DX: K76.0 Fatty (change of) liver, not elsewhere classified (principal) | CPT/HCPCS: 76705; 76981 ==

== ENCOUNTER 2025-08-02 14:28 | Outpatient (AMB) | payer OTHER, SELFPAY ==
[2025-08-02 14:29] VITALS: BP 140/74; PULSE 70; O2SAT 96; BMI 31.6
--- NOTE | 2025-08-02 14:29 | MHC.OFFVIS ---
Vital Signs 08/02/25 14:29 Height 5 ft 2 in Weight 172 lb 13.478 oz BMI 31.6 BP 140/74 H Blood Pressure Location Lt brachial Position Sitting Pulse 70 Pulse Source Pulse Oximeter Pulse Oximetry (%) 96 Oxygen Delivery Method Room Air Intake Visit Reasons: 6m GERD review imaging Intake Note: ESTABLISHED PATIENT for GERD mgmt. Chief Complaint; C.O. LUQ pain, constipation, and bloating despite current therapies. Pt states that her PPI is working as intended. No additional concerns at this time. Medical Officer Psychiatry Required: No Accompanied by: Other Relationship Allergies No Known Allergies (No Known Allergies*) Allergy (Verified 08/07/24 13:00) HPI HPI 6m GERD review imaging: Details: LAST VISIT IBS (irritable colon syndrome) GERD (gastroesophageal reflux disease) Transaminitis Hepatic steatosis Hepatomegaly Plan patient was encouraged to eat low-fat, low salt, low carb and high-protein diet. Encouraged to control her sugar currently is on metformin. Patient might benefit from taking GLP 1 and can be monitored for symptoms. Will repeat liver enzymes and liver fibrosis panel. Patient will be sent for abdominal ultrasound with elastography again to compare. Continue pantoprazole daily. Patient was encouraged to take MiraLax daily to help her move her bowels better. Increase fluid intake and activity to promote better bowel motility. patient will follow-up in 6 months, sooner on as needed basis. Patient is agreeable to this plan and verbalizes understanding of instructions. She was given the opportunity to ask questions and all questions answered. ? Thank you for allowing me to participate in her care Orders Liver Panel Today R74.01 Liver Fibrosis Pnl Today K76.0 US abdomen garcia w elastography Today K76.0 Refilled pantoprazole take one tablet half an hour before breakfast 40 mg PO DAILY 90 tabs 3RF K21.9 TODAY'S VISIT Patient is here today for follow-up and to discuss lab results and ultrasound results. Elastography improved as well as liver enzymes. Patient is eating better. She lost 5 lb since last visit. She reports that her acid reflux is suppressed. Is denies any dyspepsia, dysphagia or odynophagia. Currently is taking pantoprazole daily. Patient reports left upper quadrant pain. Patient reports that last week she was constipated for over 1 week. Patient was taking Dulcolax and took extra MiraLax. Was able to have couple bowel movements since 1 on Wednesday and then small amount on Wednesday. Patient denies melena, hematochezia, unintentional weight loss or ribbon like stools. Patient denies any other GI concerning symptoms. Last colonoscopy in 2022 recommendation was made for 5 year follow-up. [facility] Medical History Elevated cholesterol HTN (hypertension) Diabetes IBS (irritable colon syndrome) GERD (gastroesophageal reflux disease) Surgical History History of surgery on wrist History of carpal tunnel surgery of left wrist Hx of tubal ligation Hx of umbilical hernia repair Hx of ventral hernia repair Hx of laparoscopy Hx of colonoscopy History of esophagogastroduodenoscopy (EGD) Family History Mother Colon cancer Father Kidney disease Social History Patient Tobacco Use Status: Never used Tobacco Review of Systems Const Denies weight gain and Denies weight loss ENT Reports no additional complaints, Denies dysphagia and Denies odynophagia Card Reports no additional complaints Resp Reports no additional complaints GI Denies abdominal pain, Denies belching, Denies melena, Denies bloating, Denies change in bowel habits, Denies dysphagia, Denies excessive flatus, Denies dyspepsia, Denies heartburn, Denies diarrhea, Denies loose stools, Denies nausea, Denies odynophagia and Denies vomiting Musc Reports no additional complaints Neuro Reports no additional complaints Psych Reports no additional complaints Endo Reports no additional complaints Physical Exam Const General: healthy appearing and no acute distress Nutritional Appearance: obese Orientation/consciousness: patient oriented x3 Resp Effort & Inspection: normal respiratory effort, able to speak in complete sentences, no tracheal deviation and symmetric chest movement Auscultation: clear to auscultation bilaterally Cardio Rate: regular rate GI Inspection: Yes normal to inspection, No distended and Yes obesity Palpation (GI): Soft to palpation, not firm, nontender and No hepatosplenomegaly present Auscultation: normal bowel sounds General: Yes no CVA tenderness Back/Spine/Pelvis Back: no CVA tenderness Skin General skin exam: elasticity normal, turgor normal and dry skin Neuro General: patient oriented x3 Psych Appearance: grossly normal Mental Status: mental status grossly normal Results Reviewed Results Reviewed: Laboratory Tests 02/01/25 13:38 Total Bilirubin 0.2 Direct Bilirubin < 0.2 AST 30 ALT 34 H Alkaline Phosphatase 58 Liver Fibrosis Stage F0 ABDOMINAL ULTRASOUND WITH LIVER ELASTOGRAPHY FINDINGS: Liver: The right lobe of the liver measures 14.2 cm in size. The left lobe of the liver measures 10.7 cm in size. The liver demonstrates increased echotexture, consistent with steatosis. There is a 5 mm cyst in the right lobe. No intrahepatic biliary ductal dilatation is identified. There is normal hepatopedal flow in the portal vein. Ultrasound elastography of the liver was performed with 10 separate measurements of the liver parenchyma with the patient in the supine position. Measurements were obtained approximately 2 cm below Digna's capsule and perpendicular to the capsule. Images are of satisfactory quality. The median shear wave velocity is 1.23 m/s (previously 1.82 m/s). The interquartile range/median (IQR/median) is 0.06. Gallbladder and biliary tree: The gallbladder is unremarkable, without evidence of calculi, wall thickening, or pericholecystic fluid. There is no sonographic Conway sign. The common bile duct is normal in caliber measuring 3 mm. Right Kidney: The right kidney measures 10.2 cm in length. There is a prominent artery noted extending laterally through the renal cortex into the retroperitoneum which cannot be followed. The right kidney is otherwise unremarkable, without evidence of masses, hydronephrosis, or calculi. Pancreas: The pancreatic head, neck, and body are unremarkable. The pancreatic tail is obscured by bowel gas. Abdominal aorta and inferior vena cava: The visualized portions of the abdominal aorta and inferior vena cava are normal in caliber. There is no free fluid in the right upper quadrant. US/US abdomen garcia w elastography IMPRESSION: Hepatic steatosis. The median shear wave velocity in the liver is 1.23 m/s, corresponding to a median liver stiffness of 4.61 kPa. The IQR/median value is 0.06. This is indicative of a quality data set. Findings are indicative of a normal elastography value with a low likelihood of severe fibrosis or cirrhosis. Assessment & Plan Assessment & Plan (1) IBS (irritable colon syndrome): Code(s): K58.9 - Irritable bowel syndrome, unspecified Category: Medical Qualifiers: Irritable bowel syndrome type: with constipation Qualified Code(s): K58.1 - Irritable bowel syndrome with constipation (2) GERD (gastroesophageal reflux disease): Code(s): K21.9 - Gastro-esophageal reflux disease without esophagitis Category: Medical Qualifiers: Esophagitis presence: esophagitis presence not specified Qualified Code(s): K21.9 - Gastro-esophageal reflux disease without esophagitis (3) Elevated transaminase measurement: Code(s): R74.01 - Elevation of levels of liver transaminase levels (4) Steatosis of liver: Code(s): K76.0 - Fatty (change of) liver, not elsewhere classified (5) Hepatomegaly: Code(s): R16.0 - Hepatomegaly, not elsewhere classified Plan Patient will continue taking Dulcolax. Will add Colace. Patient will take it together with Dulcolax. She can continue taking MiraLax daily. Increase fluid intake and activity to promote better bowel motility. Continue weight loss as discussed. Will order labs next visit. Discussed with patient low fat, low salt, low carb and high-protein diet. Avoid dietary triggers to avoid reflux. Continue pantoprazole daily. Patient will return to the office in 3 months, sooner on as needed basis. She is agreeable to this plan and verbalizes understanding of instructions. She was given the opportunity to ask questions and all questions answered. Thank you for allowing me to participate in her care Medications: New magnesium oxide 400 mg PO DAILY 90 caps 2RF K59.04 - Chronic idiopathic constipation docusate sodium 200 mg (2 x 100 mg) PO BEDTIME 180 caps 3RF K59.00 - Constipation, unspecified Refilled bisacodyl (Dulcolax (bisacodyl)) 10 mg (2 x 5 mg) PO BEDTIME 90 tabs 4RF K59.00 - Constipation, unspecified Coding Level of Care Code Est Pt Level 4 (16710) Complex EM visit Add On G2211 Diagnoses Irritable bowel syndrome with constipation K58.1 Irritable bowel syndrome type: with constipation Gastroesophageal reflux disease, unspecified whether esophagitis present K21.9 Esophagitis presence: esophagitis presence not specified Elevated transaminase measurement R74.01 Steatosis of liver K76.0 Hepatomegaly R16.0 Time Spent (min) 35 Comment 25 minute spent with patient and additional 10 minutes spent reviewing her records
--- OUTSIDE RECORDS SUMMARY | 2025-08-02 18:11 | XMS_ITS | Encounter Summary ---
Author Organization [employer] Address [address] [place] [address] Care Team Providers Care Buyer Name Role Phone Richa Jeter MD Primary Care Provider Jer Guerra PharmD Unavailable [phone] Reason for Visit * Reason Comments Med Refill Encounter Details Date Type Department Care Team ([facility] st Contact Info) Description 03/07/2025 Refill [facility] [address], [place] [phone] Karen Becker MD [address] [place] [address] Type 2 diabetes mellitus without complication, without long-term current use of insulin ([facility]) Social History Tobacco Use Types Packs/Day Years [...] Care Team (Late st Contact Info) Description 08/23/2025 11:30 AM EDT Office Visit [facility] [address] [place] [address] Richa Jeter MD [address] [place] [address] 10/25/2025 11:00 AM EST Medication Management [facility] [address] [place] [address] Jer Guerra, PharmD [address] [place] [address] 12/14/2025 11:00 AM EST Office Visit [facility] [address] [place] [address] Colette Anders, PAVITHRA [address] [place] [address] documented as of this encounter Goals Goal Patient Goal Type Associated Problems Recent Progress Patient-Stated? Author Blood Pressure < 140/90 Blood Pressure 110/68( 025 10:02 AM EDT) No Jer Guerra, PharmD documented as of this encounter Visit Diagnoses Diagnosis Type 2 diabetes mellitus without complication, without long-term current use of insulin ([facility]) documented in this encounter Additional Health Concerns Assessment Noted Time PHQ-9 Depression Total Score: 7 06/29/20 24 11:26 AM EDT documented as of this encounter Care Teams Buyer Relationship Specialty Start Date End Date Richa Jeter MD [address] [place] [address] PCP - General Family Medicine 11/22/18 Jer Guerra, Gopi [address] [place] [address] Pharmacist Internal Medicine 10/08/23 documented as of this encounter
--- OUTSIDE RECORDS SUMMARY | 2025-08-02 18:11 | XMS_ITS | Encounter Summary ---
Author Organization [employer] Address [address] [place] [address] Care Team Providers Care Cartography Supervisor Name Role Phone Richa Jeter MD Primary Care Provider [phone] Jer Guerra PharmD Unavailable [phone] Encounter Details Date Type Department Care Team (Late Contact Info) Description 04/23/2023 Orders Only [facility] [address] [place] [address] Negin Flowers MD [address] [place] [address] Social History Tobacco Use Types Packs/Day Years [...] Description 08/23/2025 11:30 AM EDT Office Visit [facility] [address] [place] [address] Richa Jeter MD [address] [place] [address] 10/25/2025 11:00 AM EST Medication Management [facility] [address] [place] [address] Jer Guerra, PharmD [address] [place] [address] 12/14/2025 11:00 AM EST Office Visit [facility] OPTOMETRY [address] [place] [address] ChagoColette bullard, OD [address] [place] [address] documented as of this encounter Procedures Procedure Name Priority Date/Time Associated Diagnosis Comments XR FOOT 3+ VIEWS RIGHT Routine 04/22/2023 2:49 PM EDT documented in this encounter Results * XR Foot 3+ Views Right (04/22/2023 2:49 PM EDT) Anatomical Region Laterality Modality Lower Extremities, Foot Right Radiogra phic Imaging 04/22/2023 2:49 PM EDT Narrative 04/22/2023 3:23 PM EDT [facility] [address] [place] [address] XRay Report Signed Patient: Pauly Mendoza MR#: [id number] : 1965 Acct:[id number] Age/Sex: 57 / F ADM Date: 04/22/23 Loc: .[facility] Attending Dr: Negin Flowers MD Ordering Physician: Negin Flowers MD Date of Service: 04/22/23 Procedure(s): XR foot RT min 3V Accession Number(s): [id number] cc: Negin Flowers MD EXAMINATION: XR FOOT, [...] in OV> 04/22/23 1521 DD/ 1449 TD/TT: Part Maker: RYLIE Procedure Note Donotuseinterpreter, Image - 05/19/[address] [address] XRay Report Signed Patient: Kip Mendoza#: [id number] : 1965Acct:[id number] Age/Sex: 57 / FADM Date: 04/22/23 Loc: [facility] Attending Dr: Negin Flowers MD Ordering Physician: Negin Flowers MD Date of Service: 04/22/23 Procedure(s): XR foot RT min 3V Accession Number(s): [id number] cc: Negin Flowers MD EXAMINATION: XR FOOT, [...] in OV> 04/22/23 1521 DD/ 1449 TD/TT: Part Maker: RYLIE [facility] External Provider IMG XR PROCEDURES Final Result documented in this encounter Visit Diagnoses Not on filedocumented in this encounter Additional Health Concerns Assessment Noted Time PHQ-9 Depression Total Score: 4 12/31/19 23 11:23 AM EST documented as of this encounter Care Teams Cartography Supervisor Relationship Specialty Start Date End Date Richa Jeter MD [address] [place] [address] PCP - General Family Medicine 11/22/18 Jer Guerra, TrangD [address] [place] [address] Pharmacist Internal Medicine 10/08/23 documented as of this encounter
--- OUTSIDE RECORDS SUMMARY | 2025-08-02 18:11 | XMS_ITS | Clinical Summary ---
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 023 Active clonazePAM (KlonoPIN) 1 MG tablet Take 1 mg by mouth 2 times daily. 023 Active lidocaine (Lidoderm) 5 % patchIndications :Fibromyalgia,Di sseminated idiopathic skeletal hyperostosis Apply 1 patch topically in the morning. Remove & discard patch within 12 hours or as directed by MD. 90 patch 3 023 Active albuterol 108 (90 Base) MCG/ACT inhaler Inhale 2 puffs every 4 (four) hours if needed for wheezing or shortness of breath. 18 g 1 023 Active Spacer/Aero-Hold ing Chambers (OptiChamber Ashli) misc 1 each every 4 (four) hours if needed (asthma). 1 each 023 Active busPIRone (Buspar) 15 MG tablet 023 Active GaviLAX 17 GM/SCOOP powder 238 G ORALLY ONCE DIRECTED BY GASTROENTEROLOGY DEPARTMENT AT [facility] 023 Active Blood Pressure Monitor kitIndications:E ssential hypertension Use daily as directed to measure blood pressure 1 kit 023 Active lisinopril 40 MG tablet Take 1 tablet (40 mg) by mouth Once per day. 90 tablet 3 024 Active FREESTYLE LITE test stripIndications :Type 2 diabetes mellitus without complications ([facility]),Essent ial (primary) hypertension USE TO TEST TWICE DAILY 100 strip 10 024 Active metoprolol succinate XL (Toprol XL) 100 MG 24 hr tabletIndication s:Primary hypertension Take 1 tablet by mouth once daily 90 tablet 3 024 Active chlorthalidone (Hygroton) 25 MG tabletIndication s:Primary hypertension TAKE 1 TABLET BY MOUTH EVERY DAY 90 tablet 3 024 Active dapagliflozin (Farxiga) 5 MG Take 1 tablet (5 mg) by mouth Once per day. 90 tablet 3 024 11/06 Active Aspirin Low Dose 81 MG EC tabletIndication s:Type 2 diabetes mellitus without complication, without long-term current use of insulin ([facility]) TAKE 1 TABLET BY MOUTH EVERY DAY 90 tablet 3 025 Active cholecalciferol (Vitamin D3) 25 MCG (1000 UT) tablet TAKE 1 TABLET (25 MCG) BY MOUTH IN THE MORNING 90 tablet 2 025 Active rosuvastatin (Crestor) 20 MG tablet TAKE 1 TABLET BY MOUTH EVERY DAY 90 tablet 3 025 Active Ketotifen Fumarate 0.035 % solutionIndicati ons:Allergic conjunctivitis of both eyes Administer 1 drop into affected eye(s) if needed in the morning and at bedtime (allergies). 10 mL 025 Active hydrocortisone 2.5 % cream APPLY TOPICALLY IF NEEDED EACH DAY FOR RASH. APPLY TO AFFECTED AREA THIN LAYER ONCE DAILY 453.6 g 11 025 Active metFORMIN XR (Glucophage-XR) 500 MG 24 hr tabletIndication s:Type 2 diabetes mellitus without complication, without long-term current use of insulin ([facility]) Take 2 tablets (1,000 mg) by mouth with breakfast and with evening meal. Do not crush, chew, or split.TAKE 2 TABLETS BY MOUTH WITH BREAKFAST AND EVENING MEAL 360 tablet 3 025 Active FreeStyle lancetsIndicatio ns:Type 2 diabetes mellitus without complication, without long-term current use of insulin ([facility]) 1 each by Other route 2 times daily. Check blood glucose 100 each Active Blood Glucose Monitoring Suppl (FreeStyle Lite) w/Device kit 1 Device before breakfast. 1 kit 1 Active ibuprofen 800 MG tablet TAKE 1 TABLET BY MOUTH EVERY 8 HOURS IF NEEDED FOR MILD PAIN OR MODERATE PAIN. 90 tablet 025 Active allopurinol (Zyloprim) 100 MG tablet TAKE 2 TABLETS BY MOUTH EVERY DAY 180 tablet 3 025 Active allopurinol (Zyloprim) 100 MG tablet TAKE 2 TABLETS BY MOUTH EVERY DAY 180 tablet 3 024 07/09 Discontinued ibuprofen 800 MG tablet TAKE 1 TABLET BY MOUTH EVERY 8 HOURS IF NEEDED FOR MILD PAIN OR MODERATE PAIN. 90 tablet 025 07/05 Discontinued Active Problems Problem Noted Date Diagnosed [...] liver disease (MASLD) 12/31/2022 Assessment & Plan (06/04/2025 1:06 PM EDT): -GI: [facility] -Last abdominal US performed on 03/07/25. Hepatic steatosis, no focal lesion or cirrhosis. The mean shear velocity is 1.23 m/s -FIB4 index 1.56 -Fibrosis test 08/11/24 Stage F0 -Avoid hepatotoxic drugs -Continue working on lifestyle modfications -Discussed about GLP1 RA pros and cons. Assessment & Plan (11/06/2024 5:08 AM EST): -GI: [facility] -Last abdominal US performed on 09/23/22, no focal lesion or cirrhosis -FIB4 index 1.23 -Fibrosis test 08/11/24 Stage F0 -Avoid hepatotoxic drugs -Continue working on lifestyle modfications Assessment & Plan (06/30/2024 6:06 PM EDT): -GI: [facility] -Last abdominal US performed on [...] 05/21/21 AST 39; ALT 44, stable -GI: [facility] -Last abdominal US performed on 09/23/22, no focal lesion or cirrhosis -Avoid hepatotoxic drugs -Continue working on lifestyle modfications Fibromyalgia 12/31/2022 Assessment & Plan (01/03/2024 9:03 AM EST): Consider consulting her psychiatrist for changing sertraline to duloxetine, if her symptoms worsen. Encouraged to stay physically active. Pt has already been seen by wastewater plant civil engineer. Pt has already tried acupuncture and physical [...] active. Pt has already been seen by wastewater plant civil engineer. Pt has already tried acupuncture and physical [...] active. Pt has already been seen by wastewater plant civil engineer. Pt has already tried acupuncture and physical therapy. Continue judicious use of APAP prn. Previously tried medications: tramadol; cyclobenzaprine; gabapentin; tizanidine Continue lidocaine topical, which has been effective Assessment & Plan (01/01/2023 7:00 AM EST): Consider consulting her psychiatrist for changing sertraline to duloxetine, if her symptoms worsen. Encouraged to stay physically active. Pt has already been seen by wastewater plant civil engineer. Pt has already tried acupuncture and physical therapy. Continue judicious use of APAP prn. Previously tried medications: tramadol; cyclobenzaprine; gabapentin; tizanidine Restart lidocaine topical. Pt previously had a good response to lidoderm. History of right salpingo-oophorectomy 9 Primary hypertension 09/23/2015 Assessment & Plan (06/11/2025 5:55 PM EDT): -Goal BP < 130/80 per ACC/AHA guideline -BP at goal today -Co-managed with our pharmacist through [facility] -Continue monitoring BP at home -Continue working on lifestyle modifications -Continue metoprolol succinate 50 mg daily -Continue lisinopril 40mg dailydaily -Continue chlorthalidone 25 mg daily -Continue ASA 81 mg daily (no absolute indication, will discuss to discontinue) - Treatment Hx: hydrochlorothiazide was switched to chlorthalidone in March 2023 - Invited [employer] walking program Assessment & Plan (11/06/2024 5:58 PM EST): [...] today, continue monitoring BP and fu with [facility] clinic on 01/29, consider changing metoprolol to a non selective B-jignesh. Order sleep study. Assessment & Plan (01/18/2024 4:11 PM EST): Uncontrolled x 1w, it had previously improved with increased dose of metoprolol. No change in meds today, continue monitoring BP and fu with [facility] clinic on 01/29, consider changing [...] 2 diabetes mellitus 09/23/2015 Assessment & Plan (06/11/2025 5:57 PM EDT): - Current A1c: 6.7% 04/25/25 -Previous A1C: 7.6% on 10/09/24 -Continue working on lifestyle modification. -Continue SMBG. -Continue Metformin ER 1,000mg BID -Continue dapagliflozin (Farxiga) 5 mg -Discussed about GLP-1RA. Pt is hesitant to use injectable medication, but interested in it. -Last eye exam: 11/03/24, no diabetic retinopathy. -Last comprehensive foot exam: 06/04/2025 -Last microalbumin test: 03/28/24 UACR normal. No microalbuminuria -Last lipid profile: 08/21/24 TC 117; TG 85; HDL 39; LDL 61 -Immunizations: Up to date except COVId and Shingrix. Assessment & Plan (11/06/2024 6:01 PM EST): [...] and depressive disorder 06/02/2013 Assessment & Plan (06/11/2025 5:59 PM EDT): - PHQ-9 score 1 on 06/04/2025; NANCY-7 score 8 on 06/04/2025 -[facility] provider: Dr. Diamond MEREDITH -Current medications: Clonazepam; sertraline; zolpidem -Continue current treatment plan. -She was able to contract her safety today. Assessment & Plan (11/06/2024 6:03 PM EST): -[facility] provider: Dr. Diamond MEREDITH -Current medications: lorazepam; sertraline; zolpidem -Continue current treatment plan. -She was able to contract her safety today. Assessment & Plan (06/29/2024 11:32 AM EDT): -[facility] provider: Dr. Diamond MEREDITH -Current medications: lorazepam; sertraline -Continue current treatment plan. -She was able to contract her safety today. Assessment & Plan (01/03/2024 9:09 AM EST): -[facility] provider: Dr. Diamond MEREDITH -Current medications: lorazepam; sertraline -Continue current treatment plan. -She was able to contract her safety today. Assessment & Plan (03/31/2023 10:14 AM EDT): -[facility] provider: Dr. Diamond MEREDITH -Current medications: lorazepam; sertraline -Currently grieving. -Continue current treatment plan. -She was able to contract her safety today. Assessment & Plan (12/31/2022 11:36 AM EST): -[facility] provider: Dr. Diamond MEREDITH -Current medications: lorazepam; sertraline -Currently grieving. -Continue current treatment plan. -She was able to contract her safety today. Abdominal hernia without obstruction or gangrene 03/01/2013 Constipation 08/31/2012 Assessment & Plan (01/03/2024 8:59 AM EST): -followed by [facility] GI -Fiber-rich diet -Continue Miralax and Dulolax -Colonoscopy on 12/30/23 Assessment & Plan (07/05/2023 1:01 PM EDT): -followed by [facility] GI -Fiber-rich diet -Continue Miralax and Dulolax Assessment & Plan (03/31/2023 5:14 PM EDT): -followed by [facility] GI -Fiber-rich diet -Continue Miralax and Dulolax Assessment & Plan (01/01/2023 7:04 AM EST): -followed by [facility] GI -Fiber-rich diet -Continue Miralax and Dulolax Chronic abdominal pain 08/31/2012 Assessment & Plan (11/06/2024 1:06 PM EST): - following with GI - colonoscopy / EGD done on 12/30/23 with [facility] Assessment & Plan (07/05/2023 1:00 PM EDT): - following with GI - currently having a new abdominal pain with increased BM - check H. Pylori - recommended to go to [facility] GI office to schedule colonoscopy / EGD Vitamin D deficiency 08/31/2012 Assessment & Plan (07/05/2023 4:47 AM EDT): 04/02/23 vitamin D 24 Continue Vitamin D supplementation, 1000 units daily currently. Assessment & Plan (03/31/2023 10:17 AM EDT): Continue Vitamin D supplementation Obesity 07/08/2012 Assessment & Plan (06/04/2025 11:51 AM EDT): - Continue working on lifestyle modifications. - Discussed about a GLP1 RA; Pt would like to consider Gastroesophageal reflux disease 05/11/2012 Assessment & Plan [...] syndrome) 05/11/2012 Hypercholesterolemia 04/14/2012 Assessment & Plan (06/04/2025 1:11 PM EDT): - Current medication: Simvastatin 40 mg at bedtime, will switch to rosuvastatin 20 mg at bedtime - Last lipid profile 08/21/24 - Continue working on lifestyle modification Assessment & Plan (06/29/2024 11:59 AM EDT): [...] Encounters Date Type Department Care Team Description 07/08/2025 Refill [facility] [address] [place] [address] Richa Jeter MD 07/05/2025 Refill [place] [address] Richa Jeter MD 06/04/2025 10:00 AM EDT Office Visit [place] [address] Richa Jeter MD Hypercholesterolemia (Primary Dx); Type 2 diabetes mellitus without complication, without long-term current use of insulin (CMS/HCC); Primary hypertension; Metabolic dysfunction-associated steatotic liver disease (MASLD); Class 1 obesity due to excess calories with serious comorbidity and body mass index (BMI) of 33.0 to 33.9 in adult; Mixed anxiety and depressive disorder; Chronic recurrent major depressive disorder (CMS/HCC); Dietary counseling; Exercise counseling 06/04/2025 Travel 06/03/2025 [place]ill [place] [address] Richa Jeter MD 06/01/2025 Telephone [place] [address] Richa Jeter MD chart prep 05/06/2025 Refill [facility] [address] [place] [address] Karen Becker MD Type 2 diabetes mellitus without complication, without long-term current use of insulin (CMS/HCC) 05/06/2025 Refill [facility] [address] [place] [address] Lisa Sims MD Type 2 diabetes mellitus without complication, without long-term current use of insulin (CMS/HCC) 05/04/2025 Orders Only [place] [address] Richa Jeter MD Type 2 diabetes mellitus without complication, without long-term current use of insulin ([facility]) (Primary Dx); Primary hypertension 05/02/2025 Telephone [facility] [address] [place] [address] Richa Jeter MD from Last 3 Months Immunizations Immunization Administration Dates Next Due DTaP 08/18/2010 Hep A, Adult 06/04/2025,11/06/2024 Hep B, adult 10/07/2015,06/25/2015,03/20/2015 Influenza injectable quadriv [...] Answer Date Recorded Patient Health Questionnaire-9 Score 8 06/04/2025 Patient Health Questionnaire-9 Score 8 06/04/2025 Last PHQ-9: Questionnaire Data Not on file 0 06/04/2025 Housing Stability Answer Date Recorded What is your housing situation today? I have zachary brunson 06/04/[address] you li ve. Do you have problems with any of the following? None of the above 06/04/2025 Food Insecurity Answer Date Recorded Within the past 12 months, y ou worried that your food would run out before you got money to buy more: Never True 06/04/2025 Within the past 12 months,th e food you bought just didn't last and you didn't have enough money to get more: Never True Transportation Answer Date Recorded In the past 12 months, has l ack of transportation kept you from medical appts, meetings, work or from getting things needed for daily living? No 06/04/2025 Utilities Answer Date Recorded In the past 12 months, has t he electric, gas, oil or water company threatened to shut off services in your home? No 06/04/2025 Depression Answer Date Recorded Patient Health Questionnaire-2 Score 1 06/04/2025 Internet Access Answer Date Recorded Internet Access Q1 Yes 06/04/2025 Internet Access Q2 Not on file 06/04/2025 Comments No Sex and Gender Information Value Date Recorded Sex Assigned at Female 09/21/2022 10:14 AM EDT Legal Sex Female 10:14 AM EDT Gender Identity Female 09/21/2022 10:14 AM EDT Sexual Orientation Straight 09/21/2022 10 :14 AM EDT Last Filed Vital Signs Vital Sign Reading Time Taken Comments Blood Pressure 110/68 06/04/2025 10:02 AM EDT Pulse 63 06/04/2025 10:02 AM EDT Temperature 36 C (96.8 F) 06/04/2025 10:02 AM EDT Respiratory Rate 15 06/04/2025 10:0 2 AM EDT Oxygen Saturation 98% 06/04/2025 10: 02 AM EDT Inhaled Oxygen Concentration - - Weight 78.8 kg (173 lb 12.8 oz) 025 10:02 AM EDT Height 149.9 cm (4' 11 ) 06/04/2025 10: 02 AM EDT Body Mass Index 35.1 06/04/2025 10:02 AM EDT Plan of Treatment Upcoming Encounters Date Type Department Care Team (Late st Contact Info) Description 08/23/2025 11:30 AM EDT Office Visit [facility] [address] [place] [address] Richa Jeter MD [address] [place] [address] 10/25/2025 11:00 AM EST Medication Management [facility] [address] [place] [address] Jer Guerra, PharmD [address] [place] [address] 12/14/2025 11:00 AM EST Office Visit [facility] [address] [place] [address] Colette Anders, OD [address] [place] [address] Health Maintenance Due Date Last Done Comments CT Colonography 1965 FIT DNA/Cologuard 1965 FIT 1965 FOBT 1965 Sigmoidoscopy 1965 Zoster Vaccines (1 of 2) 2013 RSV Patients and Patients Aged 60 years or older (1 - Risk 60-74 years 1-dose series) 2023 Pap Smear 03/16/2025 03/16/2022 Diabetes: Urine Protein Screening 03/28/2025 03/28/2024, 04/02/2023, 12/05/2021, Additional history exists COVID-19 Vaccine ( season) 2025 12/31/2022, 12/05/2021, 02/21/2021, Additional history exists Influenza Vaccine (#1) 2025 , 10/04/2023, 12/31/2022, Additional history exists Diabetes: Hemoglobin A1C 07/26/2025 025, 01/17/2025, 10/09/2024, Additional history exists Lipid Panel 08/21/2025 08/21/2024, 050 05/2024, 04/02/2023, Additional history exists Alcohol/Substance Use Screening 11/06/2025 11/06/2024 Depression Screening 06/04/2026 06/04/2025, 06/04/20 25 Diabetes: Foot Exam 06/04/2026 06/04/2025, 06/04/2025, 06/04/2025, Additional history exists Disability Screening 06/04/2026 06/04/2025 SDOH Screening 06/04/2026 06/04/2025 Tobacco Screening 06/04/2026 06/04/2025 Mammogram 08/21/2026 08/21/2024, 07/24, 08/10/2022, Additional history [...] Completed 06/29/2024, 07/24/2014, 08/09/2009, Additional history exists Hepatitis A Vaccines Completed 06/04/2025, 11/06/20 24 HIB Vaccines Aged Out No longer eligi ble based on patient's age to complete this topic HPV Vaccines Aged Out No longer eligi ble based on patient's age to complete this topic IPV Vaccines Aged Out No longer eligi ble based on patient's age to complete this topic Meningococcal B Vaccine Aged Out No l onger eligible based on patient's age to complete [...] Blood Pressure 110/68( 025 10:02 AM EDT) Jer Youngblood, Gopi Procedures Procedure Name Priority Date/Time Associated Diagnosis Comments POCT GLUCOSE Routine 06/04/2025 10:03 AM EDT Type 2 diabetes mellitus without complication, without long-term current use of insulin ([facility]) POCT GLYCATED HEMOGLOBIN, TOTAL Routine 04/25/2025 10:46 AM EDT Type 2 diabetes mellitus without complication, without long-term current use of insulin ([facility]) LIPID PANEL WITH REFLEX TO DIRECT LDL Routine 08/21/2024 8:45 AM EDT Type 2 diabetes mellitus without complication, without long-term current use of insulin ([facility]) Hypercholesterolem ia BI MAMMOGRAM SCREENING TOMOSYNTHESIS BILATERAL Routine 08/21/2024 8:00 AM EDT ALBUMIN, RANDOM URINE W/CREATININE Routine 03/28/2024 12:00 AM EDT Type 2 diabetes mellitus without complication, without long-term current use of insulin ([facility]) HM COLONOSCOPY Routine 12/30/2023 ZZZ HISTORICAL HEPATITIS A,B,C PROFILE Routine 07/31/2022 4:21 PM EDT THINPREP IMAGING PAP AND HPV MRNA E6/E7 WITH REFLEX TO HPV 16,18/45 Routine 03/16/2022 2:00 PM EDT from Last 3 Months or Most Recently Relevant to Health Maintenance Results * POCT glucose manually resulted (06/04/2025 10:03 AM EDT) Glucose Blood, POC 135 60 - 200 mg/dL QC Media Lot # [id number] Lot# Expiration Date Blood Capillary blood specimen / Unknown 06/04/2025 10:03 AM EDT Richa Jeter MD POINT OF CARE TEST ENTER/EDIT OR DERABLES Final Result * (ABNORMAL) POCT HGB A1C (04/25/2025 10:46 AM EDT) Hemoglobin A1C 6.7(A) 4.0 - 6.0 % QC Media Lot # [id number] Lot# Expiration Date Blood 04/25/2025 10:4 6 AM EDT Richa Jeter MD POINT OF CARE TEST ENTER/EDIT OR DERABLES Final Result * (ABNORMAL) Lipid Panel with Reflex to Direct LDL (08/21/2024 8:45 AM EDT) Pathologist [facility] Triglycerides 85 <150 mg/dL [facility] Comment:Desirable Triglyceri de: less than 150 mg/dLBorderline High Triglyceride 150-199 mg/dLHigh Triglyceride: 200-499 mg/dLVery High Triglyceride: greater than or equal to 5OO mg/dL Cholesterol 117 <200 mg/dL [facility] Comment:Desirable Cholestero l: less than 200 mg/dLBorderline High Cholesterol: 200-239 mg/dLHigh Cholesterol: greater than 239 mg/dL LDL Cholesterol Calculated 61 <100 mg/dL [facility] Comment:Desirable LDL: less than 100 mg/dLNear Optimal/Above Optimal LDL: 110- 129 mg/dLBorderline High LDL: 130-159 mg/dLHigh LDL: 160-189 mg/dLVery High LDL: greater than or equal to 190 mg/dL HDL Cholesterol 39(L) >40 mg/dL [facility] Comment:Desirable HDL: great er than 40 mg/dL Note: This HDL assay may give artificially low results in patients with liver disease. Blood 08/21/2024 8:45 AM EDT 08/21/2024 8:45 AM EDT us Richa Jeter MD LAB BLOOD ORDERABLES Final Resul t [facility] [address] [place] [address] [phone] * BI Mammogram Screening Tomosynthesis Bilateral (08/21/2024 8:00 AM EDT) Anatomical Region Laterality Modality Breast Bilateral Mammography 08/21/2024 8:00 AM EDT Narrative 08/31/2024 6:39 PM EDT [address] [place] [address] Mammography Report Signed Patient: Pauly Mina MR#: [id number] : 1965 Acct:[id number] Age/Sex: 58 / F ADM Date: 08/21/24 Loc: [facility] Attending Dr: Richa Jeter MD Ordering Physician: Richa Jeter MD Results: 1Negative Date of Service: 08/21/24 Follow Up: 1 Year From [facility] Mammogram Procedure(s): MM tomosynthesis screening BI Accession Number(s): [id number] cc: Richa Jeter MD EXAMINATION: MM SCREENING [...] 08/31/24 1835 DD/ 0800 TD/TT: 08/21/24 0820 Hide Buyer: Procedure Note Donotuseinterpreter, Image - 08/31/2024 [facility] [address] [place] [address] Mammography Report Signed Patient: Kip Mina#: [id number] : 1965Acct:[id number] Age/Sex: 58 / FADM Date: 08/21/24 Loc: [facility] Attending Dr: Richa Jeter MD Ordering Physician: Richa Jeter MDResults: 1Negative Date of Service: 08/21/24Follow Up: 1 Year From Orig inal Mammogram Procedure(s): MM tomosynthesis screening BI Accession Number(s): [id number] cc: Richa Jeter MD EXAMINATION: MM SCREENING [...] 08/31/24 1835 DD/ 0800 TD/TT: 08/21/24 0820 Hide Buyer: Richa Jeter MD IMG BI PROCEDURES Edited Result - Final * Albumin, Random Urine W/Creatinine (03/28/2024 12:00 AM EDT) [facility] Creatinine, Urine 30.18 mg/dL [facility] Microalbumin Urine <5.0 mg/L [facility] Microalbum Creatinine Ratio Ur TNP <30 ug/mg cr [facility] Comment:Unable to calculate albumin/creatinine ratio due to lowmicroalbumin or creatinine result. Urine 03/28/2024 03/28/2024 Richa Jeter MD LAB URINE ORDERABLES Final Resul t [facility] [address] [place] [address] [phone] * Colonoscopy (12/30/2023) [facility] Colonoscopy Normal Normal Jodi Thomson MD HEALTH MAINTENANCE Final Result * Hepatitis A,B,C Profile (07/31/2022 4:21 PM EDT) [facility] Hepatitis B Core Antibody Nonreactive [...] p24 Ag and/or HIV-1/HIV-2 Ab not detected. A test result that is nonreactive does not exclude the possibility of exposure to or infection with HIV-1 and/or HIV-2. Nonreactive results in this assay for individuals with prior exposure to HIV-1 and/or HIV-2 may be due to antigen and antibody levels that are below the limit of detection of this assay. The [employer] HIV Ag/Ab Combo assay result and supplemental assay results should be interpreted in conjunction with the patient's clinical presentation, history and other laboratory results. If the results are inconsistent with clinical evidence, additional testing is suggested to confirm the result. 07/31/2022 4:21 PM EDT us Historical Provider HISTORICAL/NON ORDERABLE LABS Final Result [facility] [address] * THINPREP TIS PAP AND HPV mRNA E6/E7 WITH REFLEX TO HPV 16,18/45 (03/16/2022 2:00 PM EDT) Clinical Information: None given [facility] [facility] COMMENT SEE COMMENT [facility] Comment: EXPLANATORY NOTE: The Pap is a screening test for cervical cancer. It is not a diagnostic test and is subject to false negative and false positive results. It is most reliable when a satisfactory sample, regularly obtained, is submitted with relevant clinical findings and history, and when the Pap result is evaluated along with historic and current clinical information. COMMENT: This Pap test has been evaluated with computer assisted technology. [facility] Glassware Verifier: SEE COMMENT [facility] Comment: [facility], CT(ASCP) CT screening location: [place] [address] HPV nRNA E6/E7 Not Detected Not Detected [facility] Comment: Methodology: Size Roller Operator-Mediated Amplification This assay detects E6/E7 viral messenger RNA (mRNA) from 14 high-risk HPV types (16,18,31,33,35,39,45,51,52,56,58,59,66,68). The analytical performance characteristics of this assay have been determined by [employer]. The modifications have not been cleared or approved by the FDA. This assay has been validated pursuant to the CLIA regulations and is used for clinical purposes. For additional information, please refer to http://education.doForms.EZ4U/faq/SES658k0 (This link if provided for information/ educational [...] [facility] [address] from Last 3 Months or Most Recently Relevant to Health Maintenance Insurance * Guarantor: Pauly Mina Account Type Relation to Patient Date of Phone Billing Address Personal/Family Self [address] [place] [address] [facility] < 63 [address] [id number] * Guarantor: Pauly Mina Account Type Relation to Patient Date of Phone Billing Address Personal/Family Self [address] [place] [address] * Guarantor: Pauly Mina Account Type Relation to Patient Date of Phone Billing Address Personal/Family Self [address] [place] [address] * Guarantor: Pauly Mina Account Type Relation to Patient Date of Phone Billing Address Personal/Family Self [address] [place] [address] Care Teams High School Music Instructor Relationship Specialty Start Date End Date Richa Jeter MD [address] [place] [address] PCP - General Family Medicine 11/22/18 Jer Guerra, TrangD [address] [place] [address] Pharmacist Internal Medicine 10/08/23
--- OUTSIDE RECORDS SUMMARY | 2025-08-02 18:11 | XMS_ITS | Encounter Summary ---
Author Organization [employer] Address [address] [facility] [address] [address] Care Team Providers Care Special Needs Bus Driver Name Role Phone Richa Jeter MD Primary Care Provider Jer Guerra PharmD Unavailable [phone] Reason for Referral * Consultation (Routine) - Canceled Specialty Diagnoses / Procedures Referred By Thalia t Referred To Contact Pharmacy Diagnoses Primary hypertension Type 2 diabetes mellitus without complication, without long-term current use of insulin (CMS/HCC) Richa Jeter MD [address] [place] [address] Phone: tel: fax: Referral ID Status Reason Start Date Expiration Date V isits Requested Visits Authorized [id number] Canceled Consult and Treat 10/03/2024 10/03/2025 6 6 Encounter Details Date Type Department Care Team (Late st Contact Info) Description 10/03/2024 Orders Only [facility] [address] [place], [place] [phone] Richa Jeter MD [address] [place], [place] [phone] Primary hypertension (Primary Dx); Type 2 diabetes [...] Description 08/23/2025 11:30 AM EDT Office Visit [facility] [address] [place] [address] Richa Jeter MD [address] [place] [address] 10/25/2025 11:00 AM EST Medication Management [facility] [address] [place] [address] Jer Guerra, PharmD [address] [place] [address] 12/14/2025 11:00 AM EST Office Visit [facility] [address] [place] [address] ChagoColette, OD [address] [place] [address] Scheduled Referrals Name Type Priority Associated Diagnoses Orde r Schedule Referral to Pharmacy CDTM Outpatient Referral Routine Primary hypertension Type 2 diabetes mellitus without complication, without long-term current use of insulin (CMS/[facility]) Ordered: 10/03/2024 documented as of this encounter Goals Goal Patient Goal Type Associated Problems Recent Progress Patient-Stated? Author Blood Pressure < 140/90 Blood Pressure 110/68( 025 10:02 AM EDT) No Jer Guerra, PharmEugenie documented as of this encounter Visit Diagnoses Diagnosis Primary hypertension- Primary Unspecified essential hypertension Type 2 diabetes mellitus without complication, without long-term current use of insulin (CMS/[facility]) documented in this encounter Additional Health Concerns Assessment Noted Time PHQ-9 Depression Total Score: 7 06/29/20 24 11:26 AM EDT documented as of this encounter Care Teams Special Needs Bus Driver Relationship Specialty Start Date End Date Richa Jeter MD [address] [place] [address] PCP - General Family Medicine 11/22/18 Jer Guerra, PharmD [address] [place] [address] Pharmacist Internal Medicine 10/08/23 documented as of this encounter
--- OUTSIDE RECORDS SUMMARY | 2025-08-02 18:11 | XMS_ITS | Encounter Summary ---
Author Organization [employer] Address [address] [facility] [address] [address] Care Team Providers Care Associate Professor Of Physics Name Role Phone Richa Jeter MD Primary Care Provider Jer Guerra PharmD Unavailable [phone] Reason for Visit * Reason Comments Med Refill Encounter Details Date Type Department Care Team ([facility] st Contact Info) Description 03/07/2025 Refill [facility] [address] [place] [address] Lisa Sims MD [address] [place] [address] Social History Tobacco Use Types Packs/Day Years [...] Upcoming Encounters Date Type Department Care Team ([facility] st Contact Info) Description 08/23/2025 11:30 AM EDT Office Visit [facility] [address] [place] [address] Richa Jeter MD [address] [place] [address] 10/25/2025 11:00 AM EST Medication Management [facility] [address] [place] [address] Jer Guerra, PharmD 230 [place] [address] 12/14/2025 11:00 AM EST Office Visit [facility] [address] [place] [address] Colette Anders, OD [address] [place] [address] documented as of this encounter Goals Goal [...] documented as of this encounter Care Teams Associate Professor Of Physics Relationship Specialty Start Date End Date Richa Jeter MD [address] [place], [place] [phone] PCP - General Family Medicine 11/22/18 Jer Guerra, TrangD [address] [place] [address] Pharmacist Internal Medicine 10/08/23 documented as of this encounter
--- OUTSIDE RECORDS SUMMARY | 2025-08-02 18:11 | XMS_ITS | Encounter Summary ---
Author Organization [employer] Address 75 [facility] [address] [place] [address] Care Team Providers Care Parts Representative Name Role Phone Richa Jeter MD Primary Care Provider [phone] Jer Guerra PharmD Unavailable [phone] Reason for Visit * Reason Comments Med Refill Encounter Details Date Type Department Care Team ([facility] st Contact Info) Description 02/04/2025 Refill [facility] [address] [place], [place] [phone] Karen Becker MD 230 [place] [address] Type 2 diabetes mellitus without complication, without long-term current use of insulin ([facility]) Social History Tobacco Use Types [...] Description 08/23/2025 11:30 AM EDT Office Visit [facility] [address] [place] [address] Richa Jeter MD [address] [place] [address] 10/25/2025 11:00 AM EST Medication Management [facility] [address] [place] [address] Jer Guerra, PharmD [address] [place] [address] 12/14/2025 11:00 AM EST Office Visit [facility] [address] [place] [address] Colette Anders, PAVITHRA [address] [place] [address] documented as of this encounter Goals Goal Patient Goal Type Associated Problems Recent Progress Patient-Stated? Author Blood Pressure < 140/90 Blood Pressure 110/68( 025 10:02 AM EDT) No Jer Guerra, PharmD documented as of this encounter Visit Diagnoses Diagnosis Type 2 diabetes mellitus without complication, without long-term current use of insulin ([facility]) documented in this encounter Additional Health Concerns Assessment Noted Time PHQ-9 Depression Total Score: 7 06/29/20 24 11:26 AM EDT documented as of this encounter Care Teams Parts Representative Relationship Specialty Start Date End Date Richa Jeter MD [address] [place] [address] PCP - General Family Medicine 11/22/18 Jer Guerra, Gopi [address] [place] [address] Pharmacist Internal Medicine 10/08/23 documented as of this encounter
--- OUTSIDE RECORDS SUMMARY | 2025-08-02 18:11 | XMS_ITS | Encounter Summary ---
Author Organization [employer] Address [address] [facility] [address] [address] Care Team Providers Care Progress Worker Name Role Phone Richa Jeter MD Primary Care Provider [phone] Jer Guerra PharmD Unavailable Reason for Visit * Reason Comments Med Refill Encounter Details Date Type Department Care Team ([facility] st Contact Info) Description 02/04/2025 Refill [facility] [address] [place], [place] [phone] Richa Jeter MD [address] [place] [address] Social History Tobacco Use Types Packs/Day Years [...] Upcoming Encounters Date Type Department Care Team ([facility] st Contact Info) Description 08/23/2025 11:30 AM EDT Office Visit [facility] [address] [place] [address] Richa Jeter MD [address] [place] [address] 10/25/2025 11:00 AM EST Medication Management [facility] [address] [place] [address] Jer Guerra, PharmD [address] [place] [address] 12/14/2025 11:00 AM EST Office Visit [facility] [address] [place] [address] Colette Anders, OD [address] [place] [address] documented as of this encounter Goals Goal [...] documented as of this encounter Care Teams Progress Worker Relationship Specialty Start Date End Date Sakurai, Richa, MD [address] [place], [place] [phone] PCP - General Family Medicine 11/22/18 Jer Guerra, TrangD [address] [place] [address] Pharmacist Internal Medicine 10/08/23 documented as of this encounter
--- OUTSIDE RECORDS SUMMARY | 2025-08-02 18:11 | XMS_ITS | Encounter Summary ---
Author Organization [employer] Address [address] [facility] [address] [place] [address] Care Team Providers Care Lead Principal Technical Architect Name Role Phone Richa Jeter MD Primary Care Provider [phone] Jer Guerra PharmD Unavailable [phone] Reason for Referral * Consultation (Routine) - Authorized Specialty Diagnoses / Procedures Referred By Contac t Referred To Contact Pharmacy Diagnoses Type 2 diabetes mellitus without complication, without long-term current use of insulin (CMS/HCC) Primary hypertension Richa Jeter MD [address] [place] [address] Phone: tel: fax: Referral ID Status Reason Start Date Expiration Date Visits Requested Visits Authorized [id number] Authorized Consult and Treat 05/04/2025 05/04/2026 6 6 Encounter Details Date Type Department Care Team (Late st Contact Info) Description 05/04/2025 Orders Only [facility] 230 [place], [place] [phone] Richa Jeter MD [address] [place], [place] [phone] Type 2 diabetes mellitus without complication, without long-term current use of insulin (CMS/HCC) (Primary Dx); Primary hypertension Social History Tobacco Use Types Packs/Day Years [...] Description 08/23/2025 11:30 AM EDT Office Visit [facility] [address] [place] [address] Richa Jeter MD [address] [place] [address] 10/25/2025 11:00 AM EST Medication Management [facility] [address] [place] [address] Jer Guerra, PharmD [address] [place] [address] 12/14/2025 11:00 AM EST Office Visit [facility] [address] [place] [address] Colette Anders, OD [address] [place] [address] Scheduled Referrals Name Type Priority Associated Diagnoses Orde r Schedule Referral to Pharmacy CDTM Outpatient Referral Routine Type 2 diabetes mellitus without complication, without long-term current use of insulin ([facility]) Primary hypertension Ordered: 05/04/2025 documented as of this encounter Goals Goal Patient Goal Type Associated Problems Recent Progress Patient-Stated? Author Blood Pressure < 140/90 Blood Pressure 110/68( 025 10:02 AM EDT) No Jer Guerra, PharmD documented as of this encounter Visit Diagnoses Diagnosis Type 2 diabetes mellitus without complication, without long-term current use of insulin ([facility])- Primary Primary hypertension Unspecified essential hypertension documented in this encounter Additional Health Concerns Assessment Noted Time PHQ-9 Depression Total Score: 7 06/29/20 24 11:26 AM EDT documented as of this encounter Care Teams Lead Principal Technical Architect Relationship Specialty Start Date End Date Richa Jeter MD [address] [place] [address] PCP - General Family Medicine 11/22/18 Jer Guerra, PharmD [address] [place] [address] Pharmacist Internal Medicine 10/08/23 documented as of this encounter
--- OUTSIDE RECORDS SUMMARY | 2025-08-02 18:11 | XMS_ITS | Encounter Summary ---
Author Organization [employer] Address 75 [facility] [place] [address] [address] Care Team Providers Care Manager Unit Name Role Phone Richa Jeter MD Primary Care Provider Jer Geurra PharmD Unavailable [phone] Reason for Visit * Reason Comments Med Refill Encounter Details Date Type Department Care Team (Late Contact Info) Description 02/26/2023 Refill [facility] [address] [place] [address] Richa Jeter MD [address] [place] [address] Type 2 diabetes mellitus without complication, without long-term current use of insulin ([facility]) Social History Tobacco Use [...] Department Care Team (Late Contact Info) Description 08/23/2025 11:30 AM EDT Office Visit [facility] [address] [place] [address] Richa Jeter MD [address] [place] [address] 10/25/2025 11:00 AM EST Medication Management [facility] [address] [place] [address] Jer Guerra, Gopi [address] [place] [address] 12/14/2025 11:00 AM EST Office Visit [facility] [address] [place] [address] Colette Anders, OD [address] [place] [address] documented as of this encounter Visit Diagnoses Diagnosis Type 2 diabetes mellitus without complication, without long-term current use of insulin ([facility]) documented in this encounter Additional Health Concerns Assessment Noted Time PHQ-9 Depression Total Score: 4 12/31/19 23 11:23 AM EST documented as of this encounter Care Teams Manager Unit Relationship Specialty Start Date End Date Richa Jeter MD [address] [place] [address] PCP - General Family Medicine 11/22/18 Jer Guerra, Gopi [address] [place] [address] Pharmacist Internal Medicine 10/08/23 documented as of this encounter
== END 2025-08-02 14:48 | disposition home or self-care (01) ==
LOC: HO.HGI 14:28
PROVIDERS: PCP Family Medicine; Visit Provider Nurse Practitioner Family
DX: K58.1 Irritable bowel syndrome with constipation (principal); K21.9 Gastro-esophageal reflux disease without esophagitis; R74.01 Elevation of levels of liver transaminase levels; K76.0 Fatty (change of) liver, not elsewhere classified; R16.0 Hepatomegaly, not elsewhere classified
CPT/HCPCS: 99214; G2211

== ENCOUNTER → 2025-08-02 14:28 | Outpatient (BNVA) | payer OTHER, SELFPAY | PROVIDERS: PCP Family Medicine; Visit Provider Nurse Practitioner Family | DX: K21.9 Gastro-esophageal reflux disease without esophagitis (principal); K58.1 Irritable bowel syndrome with constipation; R74.01 Elevation of levels of liver transaminase levels; R16.0 Hepatomegaly, not elsewhere classified | CPT/HCPCS: 99212 ==

== ENCOUNTER 2025-08-20 08:15 | Outpatient (REF) | payer OTHER, SELFPAY ==
--- OUTSIDE RECORDS SUMMARY | 2025-08-20 08:23 | XMS_ITS | Encounter Summary ---
Author Organization [employer] Address [address] [facility] [address] [place] [address] Care Team Providers Care Circular Distributor Name Role Phone Richa Jeter MD Primary Care Provider [phone] Jer Guerra PharmD Unavailable [phone] Encounter Details Date Type Department Care Team (Late Contact Info) Description 04/23/2023 Orders Only [facility] [address] [place] [address] Negin Flowers MD [address] [place] [address] Social History Tobacco Use Types Packs/Day Years [...] Description 08/23/2025 11:30 AM EDT Office Visit [facility] [address] [place] [address] Richa Jeter MD [address] [place] [address] 10/25/2025 11:00 AM EST Medication Management [facility] [address] [place] [address] Jer Guerra, PharmD [address] [place] [address] 12/14/2025 11:00 AM EST Office Visit [facility] [address] [place] [address] ChagoColette bullard, OD 230 [place] [address] documented as of this encounter Procedures Procedure Name Priority Date/Time Associated Diagnosis Comments XR FOOT 3+ VIEWS RIGHT Routine 04/22/2023 2:49 PM EDT documented in this encounter Results * XR Foot 3+ Views Right (04/22/2023 2:49 PM EDT) Anatomical Region Laterality Modality Lower Extremities, Foot Right Radiogra phic Imaging 04/22/2023 2:49 PM EDT Narrative 04/22/2023 3:23 PM EDT [facility] [address] [place] [address] XRay Report Signed Patient: Pauly Mendoza MR#: [id number] : 1965 Acct:[id number] Age/Sex: 57 / F ADM Date: 04/22/23 Loc: .[facility] Attending Dr: Negin Flowers MD Ordering Physician: Negin Flowers MD Date of Service: 04/22/23 Procedure(s): XR foot RT min 3V Accession Number(s): [id number] cc: Negin Flowers MD EXAMINATION: XR FOOT, [...] in OV> 04/22/23 1521 DD/ 1449 TD/TT: Bilingual Elementary School Teacher: RYLIE Procedure Note Donotuseinterpreter, Image - 05/19/[address] [address] XRay Report Signed Patient: Kip Mendoza#: [id number] : 1965Acct:[id number] Age/Sex: 57 / FADM Date: 04/22/23 Loc: [facility] Attending Dr: Negin Flowers MD Ordering Physician: Negin Flowers MD Date of Service: 04/22/23 Procedure(s): XR foot RT min 3V Accession Number(s): [id number] cc: Negin Flowers MD EXAMINATION: XR FOOT, [...] in OV> 04/22/23 1521 DD/ 1449 TD/TT: [employer]ilingual [employer] Teacher: RYLIE [facility] External Provider IMG XR PROCEDURES Final Result documented in this encounter Visit Diagnoses Not on filedocumented in this encounter Additional Health Concerns Assessment Noted Time PHQ-9 Depression Total Score: 4 12/31/19 23 11:23 AM EST documented as of this encounter Care Teams Circular Distributor Relationship Specialty Start Date End Date Richa Jeter MD [address] [place] [address] PCP - General Family Medicine 11/22/18 Jer Guerra, TrangD [address] [place] [address] Pharmacist Internal Medicine 10/08/23 documented as of this encounter
--- OUTSIDE RECORDS SUMMARY | 2025-08-20 08:23 | XMS_ITS | Encounter Summary ---
Author Organization [employer] Address 75 [facility] [address] [place] [address] Care Team Providers Care Wrapper Leaf Inspector Name Role Phone Richa Jeter MD Primary Care Provider [phone] Jer Guerra PharmD Unavailable [phone] Reason for Referral * Consultation (Routine) - Authorized Specialty Diagnoses / Procedures Referred By Contac t Referred To Contact Pharmacy Diagnoses Type 2 diabetes mellitus without complication, without long-term current use of insulin (HCC) Primary hypertension Richa Jeter MD [address] [place] [address] Phone: tel: fax: Referral ID Status Reason Start Date Expiration Date Visits Requested Visits Authorized [id number] Authorized Consult and Treat 05/04/2025 05/04/2026 6 6 Encounter Details Date Type Department Care Team (Late st Contact Info) Description 05/04/2025 Orders Only [facility] [address] [place], [place] [phone] Richa Jeter MD [address] [place], [place] [phone] Type 2 diabetes mellitus without complication, without [...] Description 08/23/2025 11:30 AM EDT Office Visit [facility] [address] [place] [address] Richa Jeter MD [address] [place] [address] 10/25/2025 11:00 AM EST Medication Management [facility] [address] [place] [address] Jer Guerra, PharmD [address] [place] [address] 12/14/2025 11:00 AM EST Office Visit [facility] [address] [place] [address] Colette Anders, OD [address] [place] [address] Scheduled Referrals Name Type Priority Associated Diagnoses Orde r Schedule Referral to Pharmacy CDTM Outpatient Referral Routine Type 2 diabetes mellitus without complication, without long-term current use of insulin ([facility]) Primary hypertension Ordered: 05/04/2025 documented as of this encounter Goals Goal Patient Goal Type Associated Problems Recent Progress Patient-Stated? Author Blood Pressure < 140/90 Blood Pressure 110/68( 025 10:02 AM EDT) No Jer Guerra, PharmEugenie documented as of this encounter Visit Diagnoses Diagnosis Type 2 diabetes mellitus without complication, without long-term current use of insulin ([facility])- Primary Primary hypertension Unspecified essential hypertension documented in this encounter Additional Health Concerns Assessment Noted Time PHQ-9 Depression Total Score: 7 06/29/20 24 11:26 AM EDT documented as of this encounter Care Teams Wrapper Leaf Inspector Relationship Specialty Start Date End Date Richa Jeter MD [address] [place] [address] PCP - General Family Medicine 11/22/18 Jer Guerra, PharmD [address] [place] [address] Pharmacist Internal Medicine 10/08/23 documented as of this encounter
--- OUTSIDE RECORDS SUMMARY | 2025-08-20 08:23 | XMS_ITS | Encounter Summary ---
Author Organization [employer] Address 75 [facility] [address] [address] Care Team Providers Care College [employer] Dean Name Role Phone Richa Jeter MD Primary Care Provider [phone] Jer Guerra PharmD Unavailable [phone] Reason for Referral * Consultation (Routine) - Canceled Specialty Diagnoses / Procedures Referred By Contdavid t Referred To Contact Pharmacy Diagnoses Primary hypertension Type 2 diabetes mellitus without complication, without long-term current use of insulin (HCC) Richa Jeter MD [address] [place] [address] Phone: tel: fax: Referral ID Status Reason Start Date Expiration Date V isits Requested Visits Authorized [id number] Canceled Consult and Treat 10/03/2024 10/03/2025 6 6 Encounter Details Date Type Department Care Team (Late st Contact Info) Description 10/03/2024 Orders Only [facility] [address] [place], [place] [phone] Richa Jeter MD [address] [place], [place] [phone] Primary hypertension (Primary Dx); Type 2 diabetes [...] 08/23/2025 11:30 AM EDT Office Visit [facility] [address] [place] [address] Richa Jeter MD [address] [place] [address] 10/25/2025 11:00 AM EST Medication Management [facility] [address] [place] [address] Jer Guerra, PharmD [address] [place] [address] 12/14/2025 11:00 AM EST Office Visit [facility] [address] [place] [address] Colette Anders, OD 230 [place] [address] Scheduled Referrals Name Type Priority Associated Diagnoses Orde r Schedule Referral to Pharmacy CDTM Outpatient Referral Routine Primary hypertension Type 2 diabetes mellitus without complication, without long-term current use of insulin ([facility]) Ordered: 10/03/2024 documented as of this encounter Goals Goal Patient Goal Type Associated Problems Recent Progress Patient-Stated? Author Blood Pressure < 140/90 Blood Pressure 110/68( 025 10:02 AM EDT) No Jer Guerra, PharmD documented as of this encounter Visit Diagnoses Diagnosis Primary hypertension- Primary Unspecified essential hypertension Type 2 diabetes mellitus without complication, without long-term current use of insulin ([facility]) documented in this encounter Additional Health Concerns Assessment Noted Time PHQ-9 Depression Total Score: 7 06/29/20 24 11:26 AM EDT documented as of this encounter Care Teams College [employer] Dean Relationship Specialty Start Date End Date Richa Jeter MD [address] [place] [address] PCP - General Family Medicine 11/22/18 Jer Guerra, PharmD [address] [place] [address] Pharmacist Internal Medicine 10/08/23 documented as of this encounter
--- OUTSIDE RECORDS SUMMARY | 2025-08-20 08:23 | XMS_ITS | Encounter Summary ---
Author Organization [employer] Address [address] [facility] [address] [place] [address] Care Team Providers Care Tool And Cutter Grinder Name Role Phone Richa Jeter MD Primary Care Provider [phone] Jer Guerra PharmD Unavailable [phone] Reason for Visit * Reason Comments Med Refill Encounter Details Date Type Department Care Team ([facility] st Contact Info) Description 03/07/2025 Refill [facility] MEDICINE [address] [place] [address] Lisa Sims MD 230 [place] [address] Social History Tobacco Use Types Packs/Day Years [...] Upcoming Encounters Date Type Department Care Team ([facility] st Contact Info) Description 08/23/2025 11:30 AM EDT Office Visit [facility] MEDICINE [address] [place] [address] Richa Jeter MD 230 [place] [address] 10/25/2025 11:00 AM EST Medication Management [facility] MEDICINE [address] [place] [address] Jer Guerra, PharmD 230 [place] [address] 12/14/2025 11:00 AM EST Office Visit [facility] OPTOMETRY [address] [place] [address] Colette Anders, OD 230 [place] [address] documented as of this encounter Goals Goal [...] documented as of this encounter Care Teams Tool And Cutter Grinder Relationship Specialty Start Date End Date Richa Jeter MD 230 [place], [place] [phone] PCP - General Family Medicine 11/22/18 Jer Guerra, TrangD 230 [place] [address] Pharmacist Internal Medicine 10/08/23 documented as of this encounter
--- OUTSIDE RECORDS SUMMARY | 2025-08-20 08:23 | XMS_ITS | Encounter Summary ---
Author Organization [employer] Address [address] [facility] [address] [place] [address] Care Team Providers Care Oil Field Tester Name Role Phone Richa Jeter MD Primary Care Provider [phone] Jer Guerra PharmD Unavailable [phone] Reason for Visit * Reason Comments Med Refill Encounter Details Date Type Department Care Team ([facility] st Contact Info) Description 03/07/2025 Refill [facility] MEDICINE [address] [place], [place] [phone] Karen Becker MD [address] [place] [address] Type 2 diabetes mellitus without complication, without long-term current use of insulin ([facility]) Social History Tobacco Use Types Packs/Day Years [...] Description 08/23/2025 11:30 AM EDT Office Visit [facility] MEDICINE [address] [place] [address] Richa Jeter MD [address] [place] [address] 10/25/2025 11:00 AM EST Medication Management [facility] MEDICINE [address] [place] [address] Jer Guerra, PharmD [address] [place] [address] 12/14/2025 11:00 AM EST Office Visit [facility] OPTOMETRY [address] [place] [address] Colette Anders, PAVITHRA 230 [place] [address] documented as of this encounter Goals Goal Patient Goal Type Associated Problems Recent Progress Patient-Stated? Author Blood Pressure < 140/90 Blood Pressure 110/68( 025 10:02 AM EDT) No Jer Guerra, PharmD documented as of this encounter Visit Diagnoses Diagnosis Type 2 diabetes mellitus without complication, without long-term current use of insulin (HCC) documented in this encounter Additional Health Concerns Assessment Noted Time PHQ-9 Depression Total Score: 7 06/29/20 24 11:26 AM EDT documented as of this encounter Care Teams Oil Field Tester Relationship Specialty Start Date End Date Richa Jeter MD [address] [place] [address] PCP - General Family Medicine 11/22/18 Jer Guerra, TrangD [address] [place] [address] Pharmacist Internal Medicine 10/08/23 documented as of this encounter
--- OUTSIDE RECORDS SUMMARY | 2025-08-20 08:23 | XMS_ITS | Clinical Summary ---
Demographics Address [address] [facility] [address] [place] [address] Mobile Phone Home Phone Preferred Language es Marital Status Single Mu-Ism Affiliation Unknown Race Other Race Ethnic Group Unknown Author Organization [employer] Address [address] [facility] [address] [place] [address] Care Team Providers Care Aeroplane Pilot Name Role Phone Richa Jeter MD Primary Care Provider [phone] Jer Guerra PharmD Unavailable [phone] Allergies No known active allergies Medications pantoprazole [...] ORALLY ONCE DIRECTED BY GASTROENTEROLOGY DEPARTMENT AT [facility] 023 Active Blood Pressure Monitor kitIndications:E ssential hypertension Use daily as directed to measure blood pressure 1 kit 023 Active metoprolol succinate XL (Toprol XL) 100 [...] without long-term current use of insulin (HCC) TAKE 1 TABLET BY MOUTH EVERY DAY [...] without long-term current use of insulin (HCC) Take 2 tablets (1,000 mg) by mouth with breakfast and with evening meal. Do not crush, chew, or split.TAKE 2 TABLETS BY MOUTH WITH BREAKFAST AND EVENING MEAL 360 tablet 3 025 Active FreeStyle lancetsIndicatio ns:Type 2 diabetes mellitus without complication, without long-term current use of insulin (HCC) 1 each by Other route 2 times daily. Check blood glucose 100 each 12 Active Blood Glucose Monitoring Suppl (FreeStyle Lite) w/Device kit 1 Device before breakfast. 1 kit 1 025 Active allopurinol (Zyloprim) 100 MG tablet TAKE 2 TABLETS BY MOUTH EVERY DAY 180 tablet 3 025 Active FREESTYLE LITE test stripIndications :Type 2 diabetes mellitus without complications (HCC),Essential (primary) hypertension USE TO TEST TWICE DAILY 100 strip 10 025 Active ibuprofen 800 MG tablet TAKE 1 TABLET BY MOUTH EVERY 8 HOURS IF NEEDED FOR MILD PAIN OR MODERATE PAIN. 90 tablet 025 Active lisinopril 40 MG tablet Take 1 tablet (40 mg) by mouth Once per day. 90 tablet 3 025 Active lisinopril 40 MG tablet Take 1 tablet (40 mg) by mouth Once per day. 90 tablet 3 024 08/06 Discontinued( Reorder (will not trigger notification to Pharmacy)) FREESTYLE LITE test stripIndications :Type 2 diabetes mellitus without complications (HCC),Essential (primary) hypertension USE TO TEST TWICE DAILY 100 strip 10 024 08/06 Discontinued ibuprofen 800 MG tablet TAKE 1 TABLET BY MOUTH EVERY 8 HOURS IF NEEDED FOR MILD PAIN OR MODERATE PAIN. 90 tablet 025 08/06 Discontinued Active Problems Problem Noted Date Diagnosed [...] & Plan (06/04/2025 1:06 PM EDT): [place] [facility] [place]Last abdominal US performed on 03/07/25. Hepatic steatosis, no focal lesion or cirrhosis. The mean shear velocity is 1.23 m/s -FIB4 index 1.56 -Fibrosis test 08/11/24 Stage F0 -Avoid hepatotoxic drugs -Continue working on lifestyle modfications -Discussed about GLP1 RA pros and cons. Assessment & Plan (11/06/2024 5:08 AM EST): [place] [facility] [place]Last [...] active. Pt has already been seen by [facility]. Pt has already tried acupuncture and physical [...] active. Pt has already been seen by hollock maker. Pt has already tried acupuncture and physical [...] active. Pt has already been seen by holl[facility] maker. Pt has already tried acupuncture and physical therapy. Continue judicious use of APAP prn. Previously tried medications: tramadol; cyclobenzaprine; gabapentin; tizanidine Continue lidocaine topical, which has been effective Assessment & Plan (01/01/2023 7:00 AM EST): Consider consulting her psychiatrist for changing sertraline to duloxetine, if her symptoms worsen. Encouraged to stay physically active. Pt has already been seen by hollock maker. Pt has already tried acupuncture and physical [...] to chlorthalidone in March 2023 - Invited [employer] walking program Assessment & Plan (11/06/2024 5:58 [...] to chlorthalidone in March 2023 - Invited [employer] walking program Assessment & Plan (06/30/2024 6:10 [...] today, continue monitoring BP and fu with [facility] HTN clinic on 01/29, consider changing metoprolol to a non selective B-jignesh. Order sleep study. Assessment & Plan (01/18/2024 4:11 PM EST): Uncontrolled x 1w, it had previously improved with increased dose of metoprolol. No change in meds today, continue monitoring BP and fu with [facility]N clinic on 01/29, consider changing metoprolol [...] on 06/04/2025; NANCY-7 score 8 on 06/04/2025 -[facility] provider: Dr. Diamond MEREDITH -Current medications: Clonazepam; sertraline; zolpidem -Continue current treatment plan. -She was able to contract her safety today. Assessment & Plan (11/06/2024 6:03 PM EST): -[facility] provider: Dr. Diamond MEREDITH -Current medications: lorazepam; sertraline; zolpidem -Continue current treatment plan. -She was able to contract her safety today. Assessment & Plan (06/29/2024 11:32 AM EDT): -[facility] provider: Dr. Diamond MEREDITH -Current medications: lorazepam; sertraline -Continue current treatment plan. -She was able to contract her safety today. Assessment & Plan (01/03/2024 9:09 AM EST): -[facility] provider: Dr. Diamond MEREDITH -Current medications: lorazepam; sertraline -Continue current treatment plan. -She was able to contract her safety today. Assessment & Plan (03/31/2023 10:14 AM EDT): -[facility] provider: Dr. Diamond MEREDITH -Current medications: lorazepam; sertraline -Currently grieving. -Continue current treatment plan. -She was able to contract her safety today. Assessment & Plan (12/31/2022 11:36 AM EST): -[facility] provider: Dr. Diamond MEREDITH -Current medications: lorazepam; sertraline -Currently grieving. -Continue current treatment plan. -She was able to contract her safety today. Abdominal hernia without obstruction or gangrene 03/01/2013 Constipation 08/31/2012 Assessment & Plan (01/03/2024 8:59 AM EST): -[place] [facility] [place] -Fiber-rich diet -Continue Miralax and Dulolax -Colonoscopy on 12/30/23 Assessment & Plan (07/05/2023 1:01 PM EDT): -followed [place] [facility] [place] -Fiber-rich diet -Continue Miralax and Dulolax Assessment & Plan (03/31/2023 5:14 PM EDT): -follow[place] [facility] [place] -Fiber-rich diet -Continue Miralax and Dulolax Assessment & Plan (01/01/2023 7:04 AM EST): -followed [place] [facility] [place] -Fiber-rich diet -Continue Miralax and Dulolax Chronic abdominal pain 08/31/2012 Assessment & Plan (11/06/2024 1:06 PM EST): - following with GI - colonoscopy / EGD done on 12/30/23 with [facility] [place] Assessment & Plan (07/05/2023 1:00 PM EDT): - following with GI - currently having a new abdominal pain with increased BM - check H. Pylori - recommended to go [place] [facility] [place] [...] Encounters Date Type Department Care Team Description 08/06/2025 Refill [facility] MEDICINE [address] [place] [address] Richa Jeter MD 08/04/2025 Refill [facility] [address] [place] [address] Richa Jeter MD Type 2 diabetes mellitus without complications (CMS/HCC); Essential (primary) hypertension 07/08/2025 Refill [facility] MEDICINE [address] [place] [address] Richa Jeter MD 07/05/2025 Refill [facility] MEDICINE [address] [place] [address] Richa Jeter MD 06/04/2025 10:00 AM EDT Office Visit [facility] MEDICINE [address] [place] [address] Richa Jeter MD Hypercholesterolemia (Primary Dx); Type [...] counseling; Exercise counseling 06/04/2025 Travel 06/03/2025 Refill [facility] MEDICINE [address] [place] [address] Richa Jeter MD 06/01/2025 Telephone [facility] MEDICINE [address] [place] [address] Richa Jeter MD chart prep from Last 3 Months Immunizations Immunization Administration [...] your housing situation today? I have zachary sing 06/04/[address] you li [...] [facility] MEDICINE [address] [place] [address] Richa Jeter MD [address] [place] [address] 10/25/2025 11:00 AM EST Medication Management [facility] MEDICINE [address] [place] [address] Jer Guerra, PharmD [address] [place] [address] 12/14/2025 11:00 AM EST Office Visit [facility] OPTOMETRY [address] [place] [address] ChagoColette bullard, OD [address] [place] [address] Health Maintenance Due Date Last Done Comments [...] Additional history exists Diabetes: Hemoglobin A1C 07/26/2025 06/2 025, 01/17/2025, 10/09/2024, Additional history exists Lipid Panel 08/21/2025 08/21/2024, 05/0 05/2024, 04/02/2023, Additional history exists Alcohol/Substance Use [...] Pressure 110/68( 025 10:02 AM EDT) Jer Youngblood PharmD Procedures Procedure Name Priority Date/Time Associated Diagnosis Comments POCT GLUCOSE Routine 06/04/2025 10:03 AM EDT Type 2 diabetes mellitus without complication, without long-term current use of insulin (CMS/[facility]) POCT GLYCATED HEMOGLOBIN, TOTAL Routine 04/25/2025 10:46 AM EDT Type 2 diabetes mellitus without complication, without long-term current use of insulin (CMS/[facility]) LIPID PANEL WITH REFLEX TO DIRECT LDL Routine 08/21/2024 8:45 AM EDT Type 2 diabetes mellitus without complication, without long-term current use of insulin (CMS/[facility]) Hypercholesterolem ia BI MAMMOGRAM SCREENING TOMOSYNTHESIS BILATERAL Routine 08/21/2024 8:00 AM EDT ALBUMIN, RANDOM URINE W/CREATININE Routine 03/28/2024 12:00 AM EDT Type 2 diabetes mellitus without complication, without long-term current use of insulin ([facility]) HM COLONOSCOPY Routine 12/30/2023 [facility] HISTORICAL HEPATITIS [...] specimen / Unknown 06/04/2025 10:03 AM EDT us Richa Jeter MD POINT OF CARE TEST ENTER/EDIT OR DERABLES Final Result * (ABNORMAL) POCT HGB A1C (04/25/2025 10:46 AM EDT) Hemoglobin A1C 6.7(A) 4.0 - 6.0 % QC Media Lot # [id number] Lot# Expiration Date Blood 04/25/2025 10:4 6 AM EDT us Richa Jeter MD POINT OF CARE TEST ENTER/EDIT OR DERABLES Final Result * (ABNORMAL) Lipid Panel with Reflex to Direct LDL (08/21/2024 8:45 AM EDT) Triglycerides 85 <150 mg/dL [facility] Comment:Desirable Triglyceri de: less than 150 mg/dLBorderline High Triglyceride 150-199 mg/dLHigh Triglyceride: 200-499 mg/dLVery High Triglyceride: greater than or equal to 5OO mg/dL Cholesterol 117 <200 mg/dL [facility] Comment:Desirable Cholestero l: less than 200 mg/dLBorderline High Cholesterol: 200-239 mg/dLHigh Cholesterol: greater than 239 mg/dL LDL Cholesterol Calculated 61 <100 mg/dL [facility] Comment:Desirable LDL: less than 100 mg/dLNear Optimal/Above Optimal LDL: 110- 129 mg/dLBorderline High LDL: 130-159 mg/dLHigh LDL: 160-189 mg/dLVery High LDL: greater than or equal to 190 mg/dL HDL Cholesterol 39(L) >40 mg/dL [facility] Comment:Desirable HDL: great er than 40 mg/dL Note: This HDL assay may give artificially low results in patients with liver disease. Blood 08/21/2024 8:45 AM EDT 08/21/2024 8:45 AM EDT us Richa Jeter MD LAB BLOOD ORDERABLES Final Resul t [facility] [address] [place] [address] [phone] * BI Mammogram Screening Tomosynthesis Bilateral (08/21/2024 8:00 AM EDT) Anatomical Region Laterality Modality Breast Bilateral Mammography 08/21/2024 8:00 AM EDT Narrative 08/31/2024 6:39 PM EDT [facility] [address] [place] [address] Mammography Report Signed Patient: Pauly Mina MR#: [id number] : 1965 Acct:[id number] Age/Sex: 58 / F ADM Date: 08/21/24 Loc: [facility] Attending Dr: Rihca Jeter MD Ordering Physician: Richa Jeter MD Results: 1Negative Date of Service: 08/21/24 Follow Up: 1 Year From [facility] Mammogram Procedure(s): MM tomosynthesis screening BI Accession Number(s): [id number] cc: Richa Jeter MD EXAMINATION: MM SCREENING [...] 08/31/24 1835 DD/ 0800 TD/TT: 08/21/24 0820 Commercial Finance Analyst: Procedure Note Donotuseinterpreter, Image - 08/31/2024 [facility] [address] [place], [place] [address] Mammography Report Signed Patient: Kip Mina#: [id number] : 1965Acct:[id number] Age/Sex: 58 / FADM Date: 08/21/24 Loc: HO.MAMMO Attending Dr: Richa Jeter MD Ordering Physician: Richa Jeter MDResults: 1Negative Date of Service: 08/21/24Follow Up: 1 Year From Orig inal Mammogram Procedure(s): MM tomosynthesis screening BI Accession Number(s): [id number] cc: Richa Jeter MD EXAMINATION: MM SCREENING [...] Quintana DO in OV> 08/31/24 1835 DD/ 08 TD/TT: 08/21/24 0820 Commercial Finance Analyst: Richa Jeter MD IMG BI PROCEDURES Edited Result - Final * Albumin, Random Urine W/Creatinine (03/28/2024 12:00 AM EDT) [facility] Creatinine, Urine 30.18 mg/dL [facility] Microalbumin Urine <5.0 mg/L [facility] Microalbum Creatinine Ratio Ur TNP <30 ug/mg cr [facility] Comment:Unable to calculate albumin/creatinine ratio due to lowmicroalbumin or creatinine result. Urine 03/28/2024 03/28/2024 Richa Jeter MD LAB URINE ORDERABLES Final Resul t [facility] [address] [place] [phone] * Colonoscopy (12/30/2023) [facility] Colonoscopy Normal Normal [facility] Provider HEALTH MAINTENANCE Final Result * Hepatitis A,B,C Profile (07/31/2022 4:21 PM EDT) [facility] Hepatitis B Core Antibody Nonreactive Nonreactive [facility] [...] of detection of this assay. The [place] [facility] HIV Ag/Ab Combo assay result and supplemental assay results should be interpreted in conjunction with the patient's clinical presentation, history and other laboratory results. If the results are inconsistent with clinical evidence, additional testing is suggested to confirm the result. 07/31/2022 4:21 PM EDT us Historical Provider HISTORICAL/NON ORDERABLE LABS Final Result [facility] [address] [place] [address], * THINPREP TIS PAP AND HPV mRNA E6/E7 WITH REFLEX TO HPV 16,18/45 (03/16/2022 2:00 PM EDT) Clinical Information: None given [facility] COMMENT SEE COMMENT [facility] [...] has been evaluated with computer assisted technology. [facility] Transverse Abdominal Muscle Surgeon: SEE COMMENT [facility] Comment: BJ, CT(ASCP) CT screening location: [place] [address] HPV nRNA E6/E7 Not Detected Not Detected [facility] Comment: Methodology: Retail Experience Specialist-Mediated Amplification This assay detects E6/E7 viral messenger RNA (mRNA) from 14 high-risk HPV types (16,18,31,33,35,39,45,51,52,56,58,59,66,68). The analytical performance characteristics of this assay have been determined by [employer]. The modifications have not been cleared or approved by the FDA. This assay has been validated pursuant to the CLIA regulations and is used for clinical purposes. For additional information, please refer to http://education.[employer] Education.TicTacTi/faq/SOT571j6 (This link if provided for information/ educational purposes only.) Interpretation/Res ult: SEE COMMENT [facility] Comment: Negative for intraepithelial lesion or malignancy. Atrophic pattern; predominantly parabasal cells LMP: NONE GIVEN [facility] Prev. BX: NONE GIVEN [facility] Prev. PAP: NONE GIVEN [facility] SOURCE: None given [facility] Statement Of Adequacy: SATISFACTORY FOR EVALUATION [facility] 03/16/2022 2:00 PM EDT Richa Jeter MD LAB PATHOLOGY ORDERABLES Final R esult [facility] [address] from Last 3 Months or Most Recently Relevant to Health Maintenance Insurance [facility] ONE CARE < 65 [place] [id number] Care Teams Aeroplane Pilot Relationship Specialty Start Date End Date Richa Jeter MD [address] [place] [id number] PCP - General Family Medicine 11/22/18 Jer Guerra PharmD [address] [place] [phone] Pharmacist Internal Medicine 10/08/23
--- OUTSIDE RECORDS SUMMARY | 2025-08-20 08:24 | XMS_ITS | Encounter Summary ---
Author Organization [employer] Address [address] [facility] [address] [place] [address] Care Team Providers Care Property Custodian Name Role Phone Richa eJter MD Primary Care Provider [phone] Jer Guerra PharmD Unavailable [phone] Reason for Visit * Reason Comments Med Refill Encounter Details Date Type Department Care Team ([facility] st Contact Info) Description 02/04/2025 Refill [facility] MEDICINE [address] [place], [place] [phone] Karen Becker MD [address] [place] [address] Type 2 diabetes mellitus without complication, without long-term current use of insulin ([facility]) Social History Tobacco Use Types Packs/Day Years [...] Description 08/23/2025 11:30 AM EDT Office Visit [facility] MEDICINE [address] [place] [address] Richa Jeter MD [address] [place] [address] 10/25/2025 11:00 AM EST Medication Management [facility] MEDICINE [address] [place] [address] Jer Guerra, PharmD [address] [place] [address] 12/14/2025 11:00 AM EST Office Visit [facility] OPTOMETRY [address] [place] [address] Colette Anders, PAVITHRA [address] [place] [address] documented as of this encounter Goals Goal [...] documented as of this encounter Care Teams Property Custodian Relationship Specialty Start Date End Date Richa Jeter MD [address] [place] [address] PCP - General Family Medicine 11/22/18 Jer Guerra, TrangD [address] [place] [address] Pharmacist Internal Medicine 10/08/23 documented as of this encounter
--- OUTSIDE RECORDS SUMMARY | 2025-08-20 08:24 | XMS_ITS | Encounter Summary ---
Author Organization [employer] Address [address] [facility] [address] [place] [address] Care Team Providers Care Entry Analyst Name Role Phone Richa Jeter MD Primary Care Provider [phone] Jer Guerra PharmD Unavailable [phone] Reason for Visit * Reason Comments Med Refill Encounter Details Date Type Department Care Team ([facility] st Contact Info) Description 02/04/2025 Refill [facility] MEDICINE [address] [place], [place] [phone] Richa Jeter MD [address] [place] [address] Social History Tobacco Use Types Packs/Day Years [...] Upcoming Encounters Date Type Department Care Team ([facility] st Contact Info) Description 08/23/2025 11:30 AM EDT Office Visit [facility] MEDICINE [address] [place] [address] Richa Jeter MD [address] [place] [address] 10/25/2025 11:00 AM EST Medication Management [facility] MEDICINE [address] [place] [address] Jer Guerra, PharmD [address] [place] [address] 12/14/2025 11:00 AM EST Office Visit [facility] OPTOMETRY [address] [place] [address] Colette Anders, OD [address] [place] [address] documented as of this encounter Goals Goal [...] documented as of this encounter Care Teams Entry Analyst Relationship Specialty Start Date End Date Sakurai, Richa, MD [address] [place], [place] [phone] PCP - General Family Medicine 11/22/18 Jer Guerra, TrangD [address] [place] [address] Pharmacist Internal Medicine 10/08/23 documented as of this encounter
--- OUTSIDE RECORDS SUMMARY | 2025-08-20 08:24 | XMS_ITS | Encounter Summary ---
Author Organization [employer] Address [address] [facility] [address] [place] [address] Care Team Providers Care Screen Machine Operator Name Role Phone Richa Jeetr MD Primary Care Provider [phone] Jer Guerra PharmD Unavailable [phone] Reason for Visit * Reason Comments Med Refill Encounter Details Date Type Department Care Team (Late Contact Info) Description 02/26/[address] [facility] MEDICINE [address] [place] [address] Richa Jeter MD [address] [place] [address] Type 2 diabetes mellitus without complication, without long-term current use of insulin ([facility]) Social History Tobacco Use Types Packs/Day [...] 11:30 AM EDT Office Visit [facility] MEDICINE [address] [place] [address] Richa Jeter MD [address] [place] [address] 10/25/2025 11:00 AM EST Medication Management [facility] MEDICINE [address] [place] [address] Jer Guerra, PharmEugenie [address] [place] [address] 12/14/2025 11:00 AM EST Office Visit [facility] OPTOMETRY [address] [place] [address] Colette Anders, OD [address] [place] [address] documented as of this encounter Visit Diagnoses Diagnosis Type 2 diabetes mellitus without complication, without long-term current use of insulin (HCC) documented in this encounter Additional Health Concerns Assessment Noted Time PHQ-9 Depression Total Score: 4 12/31/19 23 11:23 AM EST documented as of this encounter Care Teams Screen Machine Operator Relationship Specialty Start Date End Date Richa Jeter MD [address] [place] [id number] PCP - General Family Medicine 11/22/18 Jer Guerra, Gopi [address] [place] [phone] Pharmacist Internal Medicine 10/08/23 documented as of this encounter
[2025-08-20 11:56] LABS: Anion Gap 11 (12-20); Blood Urea Nitrogen 17 mg/dL (9-16); Calcium 10.2 mg/dL (8.4-10.2); Carbon Dioxide 30 mmol/L (22-29); Chloride 103 mmol/L (96-108); Cholesterol 112 mg/dL (<200); Estimated Glomerular Filt Rate > 60; HDL Cholesterol 33 mg/dL (>40); Potassium 4.1 mmol/L (3.3-5.1); Sodium 140 mmol/L (135-145); Triglycerides 77 mg/dL (<150)
== END 2025-08-20 08:16 | disposition home or self-care (01) ==
LOC: HO.HHCL 08:15
PROVIDERS: PCP Family Medicine; Visit Provider Family Medicine
DX: E11.9 Type 2 diabetes mellitus without complications (principal)
CPT/HCPCS: 36415; 80048; 80061

== ENCOUNTER 2025-08-21 08:06 | Outpatient (REF) | payer OTHER, SELFPAY ==
--- OUTSIDE RECORDS SUMMARY | 2025-08-21 08:23 | XMS_ITS | Encounter Summary ---
Author Organization [employer] Address 75 [facility] [address] [place] [address] Care Team Providers Care Apprentice Jockey Name Role Phone Richa Jeter MD Primary Care Provider [phone] Jer Guerra PharmD Unavailable [phone] Encounter Details Date Type Department Care Team (Late Contact Info) Description 04/23/2023 Orders Only [facility] MEDICINE [address] [place] [address] Negin Flowers MD [address] [place] [address] Social History Tobacco Use Types Packs/Day Years [...] Description 08/23/2025 11:30 AM EDT Office Visit [facility] MEDICINE [address] [place] [address] Richa Jeter MD [address] [place] [address] 10/25/2025 11:00 AM EST Medication Management [facility] MEDICINE [address] [place] [address] Jer Guerra, PharmD [address] [place] [address] 12/14/2025 11:00 AM EST Office Visit [facility] OPTOMETRY [address] [place] [address] ChagoColette bullard, OD [address] [place] [address] documented as of this encounter Procedures Procedure Name Priority Date/Time Associated Diagnosis Comments XR FOOT 3+ VIEWS RIGHT Routine 04/22/2023 2:49 PM EDT documented in this encounter Results * XR Foot 3+ Views Right (04/22/2023 2:49 PM EDT) Anatomical Region Laterality Modality Lower Extremities, Foot Right Radiogra phic Imaging 04/22/2023 2:49 PM EDT Narrative 04/22/2023 3:23 PM EDT [facility] [address] [place] [address] XRay Report Signed Patient: Pauly Mendoza MR#: [id number] : 1965 Acct:[id number] Age/Sex: 57 / F ADM Date: 04/22/23 Loc: .[facility] Attending Dr: Negin Flowers MD Ordering Physician: Negin Flowers MD Date of Service: 04/22/23 Procedure(s): XR foot RT min 3V Accession Number(s): [id number] cc: Negin Flowers MD EXAMINATION: XR FOOT, [...] in OV> 04/22/23 1521 DD/ 1449 TD/TT: Museum Librarian: RYLIE Procedure Note Donotuseinterpreter, Image - 05/19/[address] [address] XRay Report Signed Patient: Kip Mendoza#: [id number] : 1965Acct:[id number] Age/Sex: 57 / FADM Date: 04/22/23 Loc: [facility] Attending Dr: Negin Flowers MD Ordering Physician: Negin Flowers MD Date of Service: 04/22/23 Procedure(s): XR foot RT min 3V Accession Number(s): [id number] cc: Negin Flowers MD EXAMINATION: XR FOOT, [...] in OV> 04/22/23 1521 DD/ 1449 TD/TT: Museum Librarian: RYLIE [facility] External Provider IMG XR PROCEDURES Final Result documented in this encounter Visit Diagnoses Not on filedocumented in this encounter Additional Health Concerns Assessment Noted Time PHQ-9 Depression Total Score: 4 12/31/19 23 11:23 AM EST documented as of this encounter Care Teams Apprentice Jockey Relationship Specialty Start Date End Date Richa Jeter MD [address] [place] [address] PCP - General Family Medicine 11/22/18 Jer Guerra, TrangD [address] [place] [address] Pharmacist Internal Medicine 10/08/23 documented as of this encounter
--- OUTSIDE RECORDS SUMMARY | 2025-08-21 08:24 | XMS_ITS | Encounter Summary ---
Author Organization [employer] Address [address] [facility] [address] [address] Care Team Providers Care Granular Operator Name Role Phone Richa Jeter MD Primary Care Provider [phone] Jer Guerra PharmD Unavailable [phone] Reason for Referral * Consultation (Routine) - Authorized Specialty Diagnoses / Procedures Referred By Contac t Referred To Contact Pharmacy Diagnoses Type 2 diabetes mellitus without complication, without long-term current use of insulin (HCC) Primary hypertension Richa Jeter MD [address] [place] [address] Phone: tel: fax: Referral ID Status Reason Start Date Expiration Date Visits Requested Visits Authorized [id number] Authorized Consult and Treat 05/04/2025 05/04/2026 6 6 Encounter Details Date Type Department Care Team (Late st Contact Info) Description 05/04/2025 Orders Only [facility] MEDICINE [address] [place], [place] [phone] Richa Jeter MD [address] [place], [place] [phone] Type 2 diabetes mellitus without complication, without [...] Description 08/23/2025 11:30 AM EDT Office Visit [facility] MEDICINE [address] [place] [address] Richa Jeter MD [address] [place] [address] 10/25/2025 11:00 AM EST Medication Management [facility] MEDICINE [address] [place] [address] Jer Guerra, PharmD [address] [place] [address] 12/14/2025 11:00 AM EST Office Visit [facility] OPTOMETRY [address] [place] [address] Colette Anders, OD [address] [place] [address] Scheduled Referrals Name Type Priority Associated Diagnoses Orde r Schedule Referral to Pharmacy CDTM Outpatient Referral Routine Type 2 diabetes mellitus without complication, without long-term current use of insulin ([facility]) Primary hypertension Ordered: 05/04/2025 documented as of this encounter Goals Goal Patient Goal Type Associated Problems Recent Progress Patient-Stated? Author Blood Pressure < 140/90 Blood Pressure 110/68( 025 10:02 AM EDT) No Jer Guerra, PharmEugenie documented as of this encounter Visit Diagnoses Diagnosis Type 2 diabetes mellitus without complication, without long-term current use of insulin ([facility])- Primary Primary hypertension Unspecified essential hypertension documented in this encounter Additional Health Concerns Assessment Noted Time PHQ-9 Depression Total Score: 7 06/29/20 24 11:26 AM EDT documented as of this encounter Care Teams Granular Operator Relationship Specialty Start Date End Date Richa Jeter MD [address] [place] [address] PCP - General Family Medicine 11/22/18 Jer Guerra, PharmD [address] [place] [address] Pharmacist Internal Medicine 10/08/23 documented as of this encounter
--- OUTSIDE RECORDS SUMMARY | 2025-08-21 08:24 | XMS_ITS | Encounter Summary ---
Author Organization [employer] Address [address] [facility] [address] [place] [address] Care Team Providers Care Hot Kettle Tender Name Role Phone Richa Jeter MD Primary Care Provider [phone] Jer Guerra PharmD Unavailable [phone] Reason for Visit * Reason Comments Med Refill Encounter Details Date Type Department Care Team ([facility] st Contact Info) Description 03/07/2025 Refill [facility] MEDICINE [address] [place] [address] Lisa Sims MD [address] [place] [address] Social History Tobacco Use Types Packs/Day Years [...] Upcoming Encounters Date Type Department Care Team ([facility] st Contact Info) Description 08/23/2025 11:30 AM EDT Office Visit [facility] MEDICINE [address] [place] [address] Richa Jeter MD [address] [place] [address] 10/25/2025 11:00 AM EST Medication Management [facility] MEDICINE [address] [place] [address] Jer Guerra, PharmD [address] [place] [address] 12/14/2025 11:00 AM EST Office Visit [facility] OPTOMETRY [address] [place] [address] Colette Anders, OD [address] [place] [address] documented as of this encounter Goals Goal [...] documented as of this encounter Care Teams Hot Kettle Tender Relationship Specialty Start Date End Date Richa Jeter MD [address] [place], [place] [phone] PCP - General Family Medicine 11/22/18 Jer Guerra, TrangD [address] [place] [address] Pharmacist Internal Medicine 10/08/23 documented as of this encounter
--- OUTSIDE RECORDS SUMMARY | 2025-08-21 08:24 | XMS_ITS | Encounter Summary ---
Author Organization [employer] Address 75 [facility] [address] [place] [address] Care Team Providers Care Electric Installer Name Role Phone Richa Jeter MD Primary Care Provider [phone] Jer Guerra PharmD Unavailable [phone] Reason for Visit * Reason Comments Med Refill Encounter Details Date Type Department Care Team ([facility] st Contact Info) Description 03/07/2025 Refill [facility] MEDICINE [address] [place], [place] [phone] Karen Becker MD [address] [place] [address] Type 2 diabetes mellitus without complication, without long-term current use of insulin ([facility]) Social History Tobacco Use Types [...] Description 08/23/2025 11:30 AM EDT Office Visit [facility] MEDICINE [address] [place] [address] Richa Jeter MD [address] [place] [address] 10/25/2025 11:00 AM EST Medication Management [facility] MEDICINE [address] [place] [address] Jer Guerra, PharmD [address] [place] [address] 12/14/2025 11:00 AM EST Office Visit [facility] OPTOMETRY [address] [place] [address] Colette Anders, PAVITHRA [address] [place] [address] documented as of this encounter Goals Goal [...] documented as of this encounter Care Teams Electric Installer Relationship Specialty Start Date End Date Richa Jeter MD [address] [place] [address] PCP - General Family Medicine 11/22/18 Jer Guerra, TrangD [address] [place] [address] Pharmacist Internal Medicine 10/08/23 documented as of this encounter
--- OUTSIDE RECORDS SUMMARY | 2025-08-21 08:24 | XMS_ITS | Encounter Summary ---
Author Organization [employer] Address [address] [facility] 7t [place] [address] Care Team Providers Care Cheese Weigher Name Role Phone Richa Jeter MD Primary Care Provider [phone] Jer Guerra PharmD Unavailable [phone] Encounter Details Date Type Department Care Team (Late st Contact Info) Description 08/20/2025 Orders Only [facility] MEDICINE [address] [place], [place] [phone] Richa Jeter MD [address] [place], [place] [phone] Social History Tobacco Use Types Packs/Day Years [...] 11:30 AM EDT Office Visit [facility] MEDICINE [address] [place] [address] Richa Jeter MD [address] [place] [address] 10/25/2025 11:00 AM EST Medication Management [facility] MEDICINE [address] [place] [address] Jer Guerra, PharmD [address] [place] [address] 12/14/2025 11:00 AM EST Office Visit [facility] OPTOMETRY [address] [place] [address] Colette Anders, OD [address] [place] [address] documented as of this encounter Goals Goal Patient Goal Type Associated Problems Recent Progress Patient-Stated? Author Blood Pressure < 140/90 Blood Pressure 110/68( 025 10:02 AM EDT) No Jer Guerra, PharmD documented as of this encounter Procedures Procedure Name Priority Date/Time Associated Diagnosis Comments LIPID PANEL, STANDARD Routine 08/20/2025 8:43 AM EDT BASIC METABOLIC PANEL Routine 08/20/2025 8:43 AM EDT documented in this encounter Results * (ABNORMAL) Lipid Panel, Standard (08/20/2025 8:43 AM EDT) Triglycerides 77 <150 mg/dL [facility] Comment:Desirable Triglyceri de: less than 150 mg/dLBorderline High Triglyceride 150-199 mg/dLHigh Triglyceride: 200-499 mg/dLVery High Triglyceride: greater than or equal to 5OO mg/dL Cholesterol 112 <200 mg/dL [facility] Comment:Desirable Cholestero l: less than 200 mg/dLBorderline High Cholesterol: 200-239 mg/dLHigh Cholesterol: greater than 239 mg/dL LDL Cholesterol Calculated 64 <100 mg/dL [facility] Comment:Desirable LDL: less than 100 mg/dLNear Optimal/Above Optimal LDL: 110- 129 mg/dLBorderline High LDL: 130-159 mg/dLHigh LDL: 160-189 mg/dLVery High LDL: greater than or equal to 190 mg/dL HDL Cholesterol 33(L) >40 mg/dL [facility] Comment:Desirable HDL: great er than 40 mg/dL Note: This HDL assay may give artificially low results in patients with liver disease. 08/20/2025 8:43 AM EDT 08/20/2025 11:13 AM EDT us Richa Jeter MD LAB BLOOD ORDERABLES Final Resul t [facility] [address] [place] [address] [phone] * (ABNORMAL) Basic Metabolic Panel (08/20/2025 8:43 AM EDT) Sodium 140 135 - 145 mmol/L [facility] Potassium 4.1 3.3 - 5.1 mmol/L [facility] Chloride 103 96 - 108 mmol/L [facility] Carbon Dioxide 30(H) 22 - 29 mmol/L [facility] Anion Gap 11(L) 12 - 20 [facility] Urea Nitrogen (BUN) 17(H) 9 - 16 mg/dL [facility] Creatinine, Serum 0.78 0.5 - 1.4 mg/dL [facility] Estimated Glomerular Filt Rate >60 [facility] Comment:Chronic Kidney Disea se: Estimated GFR < 60 mL/min/1.60w3Tpvint Kidney Disease: Estimated GFR < 15 mL/min/1.73m2 Glucose 123(H) 60 - 115 mg/dL [facility] Calcium 10.2 8.4 - 10.2 mg/dL [facility] 08/20/2025 8:43 AM EDT 08/20/2025 11:13 AM EDT us Richa Jeter MD LAB BLOOD ORDERABLES Final Resul t [facility] [address] [place] [address] [phone] documented in this encounter Visit Diagnoses Not on filedocumented in this encounter Additional Health Concerns Assessment Noted Time PHQ-9 Depression Total Score: 8 06/04/20 25 10:04 AM EDT documented as of this encounter Care Teams Cheese Weigher Relationship Specialty Start Date End Date Richa Jeter MD [address] [place] [address] PCP - General Family Medicine 11/22/18 Jer Guerra, TrangD [address] [place] [address] Pharmacist Internal Medicine 10/08/23 documented as of this encounter
--- OUTSIDE RECORDS SUMMARY | 2025-08-21 08:24 | XMS_ITS | Encounter Summary ---
Author Organization [employer] Address [address] [facility] [address] [address] Care Team Providers Care Mold Worker Name Role Phone Richa Jeter MD Primary Care Provider [phone] Jer Guerra PharmD Unavailable [phone] Reason for Visit * Reason Comments Med Refill Encounter Details Date Type Department Care Team ([facility] st Contact Info) Description 02/04/2025 Refill [facility] MEDICINE [address] [place], [place] [phone] Richa Jeter MD [address] [place] [address] Social History Tobacco Use Types Packs/Day Years [...] Upcoming Encounters Date Type Department Care Team ([facility] st Contact Info) Description 08/23/2025 11:30 AM EDT Office Visit [facility] MEDICINE [address] [place] [address] Richa Jeter MD [address] [place] [address] 10/25/2025 11:00 AM EST Medication Management [facility] MEDICINE [address] [place] [address] Jer Guerra, PharmD [address] [place] [address] 12/14/2025 11:00 AM EST Office Visit [facility] OPTOMETRY [address] [place] [address] Colette Anders, OD [address] [place] [address] documented as of this encounter Goals Goal [...] documented as of this encounter Care Teams Mold Worker Relationship Specialty Start Date End Date Sakurai, Richa, MD [address] [place], [place] [phone] PCP - General Family Medicine 11/22/18 Jer Guerra, TrangD [address] [place] [address] Pharmacist Internal Medicine 10/08/23 documented as of this encounter
--- OUTSIDE RECORDS SUMMARY | 2025-08-21 08:24 | XMS_ITS | Clinical Summary ---
Demographics Address [address] [facility] [place] [address] Mobile Phone Home Phone Preferred Language es Marital Status Single Episcopal Affiliation Unknown Race Other Race Ethnic Group Unknown Author Organization [employer] Address [address] [facility] [address] [place] [address] Care Team Providers Care Cod Clerk Name Role Phone Richa Jeter MD Primary Care Provider Jer Guerra PharmD Unavailable [phone] Allergies No known active allergies Medications pantoprazole [...] ORALLY ONCE DIRECTED BY GASTROENTEROLOGY DEPARTMENT AT [facility] 023 Active Blood Pressure Monitor [...] & Plan (06/04/2025 1:06 PM EDT): -[place] [facility] [place]Last abdominal US performed on 03/07/25. Hepatic steatosis, no focal lesion or cirrhosis. The mean shear velocity is 1.23 m/s -FIB4 index 1.56 -Fibrosis test 08/11/24 Stage F0 -Avoid hepatotoxic drugs -Continue working on lifestyle modfications -Discussed about GLP1 RA pros and cons. Assessment & Plan (11/06/2024 5:08 AM EST): -[place] [facility] [place]Last abdominal US performed on 09/23/22, no [...] active. Pt has already been seen by medical center representative. Pt has already tried acupuncture and physical [...] active. Pt has already been seen by medical center representative. Pt has already tried acupuncture and physical [...] active. Pt has already been seen by medical center representative. Pt has already tried acupuncture and physical therapy. Continue judicious use of APAP prn. Previously tried medications: tramadol; cyclobenzaprine; gabapentin; tizanidine Continue lidocaine topical, which has been effective Assessment & Plan (01/01/2023 7:00 AM EST): Consider consulting her psychiatrist for changing sertraline to duloxetine, if her symptoms worsen. Encouraged to stay physically active. Pt has already been seen by medical center representative. Pt has already tried acupuncture and physical [...] to chlorthalidone in March 2023 - Invited [employer] walking program Assessment & Plan (11/06/2024 5:58 [...] to chlorthalidone in March 2023 - Invited [employer] walking program Assessment & Plan (06/30/2024 6:10 [...] today, continue monitoring BP and fu with [facility] on 01/29, consider changing metoprolol to a non selective B-jignesh. Order sleep study. Assessment & Plan (01/18/2024 4:11 PM EST): Uncontrolled x 1w, it had previously improved with increased dose of metoprolol. No change in meds today, continue monitoring BP and fu with [facility] on 01/29, consider changing metoprolol [...] on 06/04/2025; NANCY-7 score 8 on 06/04/2025 -[facility] provider: Dr. Diamond MEREDITH -Current medications: Clonazepam; sertraline; zolpidem -Continue current treatment plan. -She was able to contract her safety today. Assessment & Plan (11/06/2024 6:03 PM EST): -[facility] provider: Dr. Diamond MEREDITH -Current medications: lorazepam; sertraline; zolpidem -Continue current treatment plan. -She was able to contract her safety today. Assessment & Plan (06/29/2024 11:32 AM EDT): -[facility] provider: Dr. Diamond MEREDITH -Current medications: lorazepam; sertraline -Continue current treatment plan. -She was able to contract her safety today. Assessment & Plan (01/03/2024 9:09 AM EST): -[facility] provider: Dr. Diamond MEREDITH -Current medications: lorazepam; sertraline -Continue current treatment plan. -She was able to contract her safety today. Assessment & Plan (03/31/2023 10:14 AM EDT): -[facility] provider: Dr. Diamond MEREDITH -Current medications: lorazepam; sertraline -Currently grieving. -Continue current treatment plan. -She was able to contract her safety today. Assessment & Plan (12/31/2022 11:36 AM EST): -[facility] provider: Dr. Diamond MEREDITH -Current medications: lorazepam; sertraline -Currently grieving. -Continue current treatment plan. -She was able to contract her safety today. Abdominal hernia without obstruction or gangrene 03/01/2013 Constipation 08/31/2012 Assessment & Plan (01/03/2024 8:59 AM EST): -followed [place] [facility] -Fiber-rich diet -Continue Miralax and Dulolax -Colonoscopy on 12/30/23 Assessment & Plan (07/05/2023 1:01 PM EDT): -followed by [facility] -Fiber-rich diet -Continue Miralax and Dulolax Assessment & Plan (03/31/2023 5:14 PM EDT): -followed by [facility] -Fiber-rich diet -Continue Miralax and Dulolax Assessment & Plan (01/01/2023 7:04 AM EST): -followed by [facility] -Fiber-rich diet -Continue Miralax and Dulolax Chronic abdominal pain 08/31/2012 Assessment & Plan (11/06/2024 1:06 PM EST): - following with GI - colonoscopy / EGD done on 12/30/23 with [facility] Assessment & Plan (07/05/2023 1:00 PM EDT): - following with GI - currently having a new abdominal pain with increased BM - check H. Pylori - recommended to go to [facility] office to schedule colonoscopy / EGD [...] Encounters Date Type Department Care Team Description 08/20/2025 Orders Only [facility] [address] [place] [address] Richa Jeter MD 08/06/2025 Refill [facility] [address] [place] [address] Richa Jeter MD 08/04/2025 Refill [facility] [address] [place] [address] Richa Jeter MD Type 2 diabetes mellitus without complications (CMS/HCC); Essential (primary) hypertension 07/08/2025 Refill [facility] [address] [place] [address] Richa Jeter MD 07/05/2025 Refill [facility] [address] [place] [address] Richa Jeter MD 06/04/2025 10:00 AM EDT Office Visit [facility] [address] [place] [phone] Richa Jeter MD Hypercholesterolemia (Primary Dx); Type [...] counseling; Exercise counseling 06/04/2025 Travel 06/03/2025 Refill [facility] [address] [place] [address] Richa Jeter MD 06/01/[address] [address] Richa Jeter MD chart prep from Last [...] Description 08/23/2025 11:30 AM EDT Office Visit [facility] [address] [place] [address] Richa Jeter MD [address] [place] [address] 10/25/2025 11:00 AM EST Medication Management [facility] [address] [place] [address] Jer Guerra, PharmD [address] [place] [address] 12/14/2025 11:00 AM EST Office Visit [facility] OPTOMETRY [address] [place] [address] ChagoColette bullard, OD [address] [place] [address] Health Maintenance Due Date Last Done Comments [...] 12/31/2022, Additional history exists Diabetes: Hemoglobin A1C 07/26/202504/25/2 025, 01/17/2025, 10/09/2024, Additional history exists Alcohol/Substance Use Screening 11/06/2025 11/06/2024 Depression Screening 06/04/2026 06/04/2025, 06/04/20 Diabetes: Foot Exam 06/04/2026 06/04/2025, 06/04/2025, 06/04/2025, Additional history exists Disability Screening 06/04/2026 06/04/2025 SDOH Screening 06/04/2026 06/04/2025 Tobacco Screening 06/04/2026 06/04/2025 Lipid Panel 08/20/2026 08/20/2025, 07/25, 03/28/2024, Additional history exists Mammogram 08/21/2026 08/21/2024, 07/24, 08/10/2022, Additional history [...] METABOLIC PANEL Routine 08/20/2025 8:43 AM EDT POCT GLUCOSE Routine 06/04/2025 10:03 AM EDT Type 2 diabetes mellitus without complication, without long-term current use of insulin (CMS/HCC) POCT GLYCATED HEMOGLOBIN, TOTAL Routine 04/25/2025 10:46 AM EDT Type 2 diabetes mellitus without complication, without long-term current use of insulin (CMS/HCC) BI MAMMOGRAM SCREENING TOMOSYNTHESIS BILATERAL Routine 08/21/2024 [...] Relevant to Health Maintenance Results * (ABNORMAL) Lipid Panel, Standard (08/20/2025 8:43 AM EDT) Triglycerides 77 <150 mg/dL [facility] Comment:Desirable Triglyceri de: less than 150 mg/dLBorderline High Triglyceride 150-199 mg/dLHigh Triglyceride: 200-499 mg/dLVery High Triglyceride: greater than or equal to 5OO mg/dL Cholesterol 112 <200 mg/dL [facility] Comment:Desirable Cholestero l: less than 200 mg/dLBorderline High Cholesterol: 200-239 mg/dLHigh Cholesterol: greater than 239 mg/dL LDL Cholesterol Calculated 64 <100 mg/dL [facility] Comment:Desirable LDL: less than 100 mg/dLNear Optimal/Above Optimal LDL: 110- 129 mg/dLBorderline High LDL: 130-159 mg/dLHigh LDL: 160-189 mg/dLVery High LDL: greater than or equal to 190 mg/dL HDL Cholesterol 33(L) >40 mg/dL [facility] Comment:Desirable HDL: great er than 40 mg/dL Note: This HDL assay may give artificially low results in patients with liver disease. 08/20/2025 8:43 AM EDT 08/20/2025 11:13 AM EDT us Richa Jeter MD LAB BLOOD ORDERABLES Final Resul t [facility] [address] [place] [phone] * (ABNORMAL) Basic Metabolic Panel (08/20/2025 8:43 AM EDT) Sodium 140 135 - 145 mmol/L [facility] Potassium 4.1 3.3 - 5.1 mmol/L [facility] Chloride 103 96 - 108 mmol/L [facility] Carbon Dioxide 30(H) 22 - 29 mmol/L [facility] Anion Gap 11(L) 12 - 20 [facility] Urea Nitrogen (BUN) 17(H) 9 - 16 mg/dL [facility] Creatinine, Serum 0.78 0.5 - 1.4 mg/dL [facility] Estimated Glomerular Filt Rate >60 [facility] Comment:Chronic Kidney Disea se: Estimated GFR < 60 mL/min/1.47v5Fleiwo Kidney Disease: Estimated GFR < 15 mL/min/1.73m2 Glucose 123(H) 60 - 115 mg/dL [facility] Calcium 10.2 8.4 - 10.2 mg/dL [facility] 08/20/2025 8:43 AM EDT 08/20/2025 11:13 AM EDT Richa Jeter MD LAB BLOOD ORDERABLES Final Resul t [facility] [address] [place] [address] [phone] * POCT glucose manually resulted (06/04/2025 10:03 [...] TEST ENTER/EDIT OR DERABLES Final Result * BI Mammogram Screening Tomosynthesis Bilateral (08/21/2024 8:00 AM EDT) Anatomical Region Laterality Modality Breast Bilateral Mammography 08/21/2024 8:00 AM EDT Narrative 08/31/2024 6:39 PM EDT [facility] [address] [place] [address] Mammography Report Signed Patient: Pauly Mina MR#: [id number] : 1965 Acct:[id number] Age/Sex: 58 / F ADM Date: 08/21/24 Loc: HO.MAMMO Attending Dr: Richa Jeter MD Ordering Physician: Richa Jeter MD Results: 1Negative Date of Service: 08/21/24 Follow Up: 1 Year From Orig ina Mammogram Procedure(s): MM tomosynthesis screening BI Accession Number(s): [id number] cc: Richa Jeter MD EXAMINATION: MM SCREENING [...] 08/31/24 1835 DD/ 0800 TD/TT: 08/21/24 0820 Mononitrotoluene Operator: Procedure Note Donotuseinterpreter, Image - 08/31/2024 [facility] [address] [place] [address] Mammography Report Signed Patient: Kumar MinaR#: [id number] : 1965Acct:[id number] Age/Sex: 58 / FADM Date: 08/21/24 Loc: HO.MAMMO Attending Dr: Richa Jeter MD Ordering Physician: Richa Jeter MDResults: 1Negative Date of Service: 08/21/24Follow Up: 1 Year From [facility] Mammogram Procedure(s): MM tomosynthesis screening BI Accession Number(s): [id number] cc: Richa Jeter MD EXAMINATION: MM SCREENING [...] 08/31/2024 06:35 PM EDT Dictated By: Patsy Quitnana DO Signed By: <Electronically signed by Patsy Quintana DO in OV> 08/31/24 1835 DD/ 0800 TD/TT: 08/21/24 0820 Mononitrotoluene Operator: us Richa Jeter MD IMG BI PROCEDURES Edited Result - Final * Albumin, Random Urine W/Creatinine (03/28/2024 12:00 AM EDT) Creatinine, Urine 30.18 mg/dL [facility] Microalbumin Urine <5.0 mg/L [facility] Microalbum Creatinine Ratio Ur TNP <30 ug/mg cr [facility] Comment:Unable to calculate albumin/creatinine ratio due to lowmicroalbumin or creatinine result. Urine 03/28/2024 03/28/2024 Richa Jeter MD LAB URINE ORDERABLES Final Resul t [facility] [address] [place] [address] [phone] * Hm Colonoscopy (12/30/2023) Pathologist [facility] Colonoscopy Normal Normal Jodi Thomson MD HEALTH MAINTENANCE Final Result * Hepatitis A,B,C Profile (07/31/2022 4:21 PM EDT) [facility] Hepatitis B Core Antibody Nonreactive Nonreactive [facility] [...] of detection of this assay. [facility] Aides And Assistants Teacher HIV Ag/Ab Combo assay result and supplemental assay results should be interpreted in conjunction with the patient's clinical presentation, history and other laboratory results. If the results are inconsistent with clinical evidence, additional testing is suggested to confirm the result. 07/31/2022 4:21 PM EDT Jodi Thomson MD HISTORICAL/NON ORDERABLE LABS Final Result [facility] [address] * THINPREP TIS PAP AND HPV mRNA E6/E7 WITH REFLEX TO HPV 16,18/45 (03/16/2022 2:00 PM EDT) Clinical Information: None given [facility] COMMENT SEE COMMENT [facility] ON [...] has been evaluated with computer assisted technology. [facility] Automotive Customer Experience Advisor: SEE COMMENT [facility] Comment: BJ, CT(ASCP) CT screening location: [place] [address] HPV nRNA E6/E7 Not Detected Not Detected [facility] Comment: Methodology: Auger Mill Operator-Mediated Amplification This assay detects E6/E7 viral messenger RNA (mRNA) from 14 high-risk HPV types (16,18,31,33,35,39,45,51,52,56,58,59,66,68). The analytical performance characteristics of this assay have been determined by [employer]. The modifications have not been cleared or approved by the FDA. This assay has been validated pursuant to the CLIA regulations and is used for clinical purposes. For additional information, please refer to http://education.ROI²/faq/MCX178u6 (This link if provided for information/ educational [...] SYSTEM Statement Of Adequacy: SATISFACTORY FOR EVALUATION [facility] 03/16/2022 2:00 PM EDT us Richa Jeter MD LAB PATHOLOGY ORDERABLES Final R esult [facility] [address] from Last 3 Months or Most Recently Relevant to Health Maintenance Insurance * Guarantor: Pauly Mina Account Type Relation to Patient Date of Phone Billing Address Personal/Family Self [address] [place] [address] [facility] < 65 [place] [id number] * Guarantor: Pauly Mina Account Type Relation to Patient Date of Phone Billing Address Personal/Family Self [address] [facility] [place] [address] * Guarantor: Pauly Mina Account Type Relation to Patient Date of Phone Billing Address Personal/Family Self [address] [facility] [place] [address] Care Teams Cod Clerk Relationship Specialty Start Date End Date Richa Jeter MD [address] [place] [address] PCP - General Family Medicine 11/22/18 Jer Guerra, PharmD [address] [place] [address] Pharmacist Internal Medicine 10/08/23
--- OUTSIDE RECORDS SUMMARY | 2025-08-21 08:24 | XMS_ITS | Encounter Summary ---
Author Organization [employer] Address [address] [facility] [address] [place] [address] Care Team Providers Care Laborer Demolition Name Role Phone Richa Jeter MD Primary Care Provider [phone] eJr Guerra PharmD Unavailable Reason for Visit * Reason Comments Med Refill Encounter Details Date Type Department Care Team ([facility] st Contact Info) Description 02/04/2025 Refill [facility] [address] [place], [place] [phone] Karen Becker MD [address] [place] [address] Type 2 diabetes mellitus without complication, without long-term current use of insulin ([facility]) Social History Tobacco Use [...] AM EDT Office Visit [facility] [address] [place] [address] Richa Jeter MD [address] [place] [address] 10/25/2025 11:00 AM EST Medication Management [facility] [address] [place] [address] Jer Guerra, PharmD [address] [place] [address] 12/14/2025 11:00 AM EST Office Visit [facility] OPTOMET[facility] [address] [place] [address] Colette Anders, PAVITHRA [address] [place] [address] documented as of this encounter Goals Goal [...] documented as of this encounter Care Teams Laborer Demolition Relationship Specialty Start Date End Date Richa Jeter MD [address] [place] [address] PCP - General Family Medicine 11/22/18 Jer Guerra, TrangD [address] [place] [address] Pharmacist Internal Medicine 10/08/23 documented as of this encounter
--- OUTSIDE RECORDS SUMMARY | 2025-08-21 08:24 | XMS_ITS | Encounter Summary ---
Author Organization [email or web address] Address [address] [facility] [address] [place] [address] Care Team Providers Care Oil Well Services Dispatcher Name Role Phone Richa Jeter MD Primary Care Provider [phone] Jer Guerra PharmD Unavailable [phone] Reason for Visit * Reason Comments Med Refill Encounter Details Date Type Department Care Team (Late Contact Info) Description 02/26/2023 Refill [facility] [address] [place] [address] Richa Jeter MD [address] [place] [address] Type 2 diabetes mellitus without complication, without long-term current use of insulin ([facility]) Social History Tobacco Use Types Packs/Day Years [...] Description 08/23/2025 11:30 AM EDT Office Visit [facility] [address] [place] [address] Richa Jeter MD [address] [place] [address] 10/25/2025 11:00 AM EST Medication Management [facility] [address] [place] [address] Jer Guerra, PharmEugenie [address] [place] [address] 12/14/2025 11:00 AM EST Office Visit [facility] [address] [place] [address] Colette Anders, OD [address] [place] [address] documented as of this encounter Visit Diagnoses Diagnosis Type 2 diabetes mellitus without complication, without long-term current use of insulin (HCC) documented in this encounter Additional Health Concerns Assessment Noted Time PHQ-9 Depression Total Score: 4 12/31/19 23 11:23 AM EST documented as of this encounter Care Teams [employer] Well Services Dispatcher Relationship Specialty Start Date End Date Richa Jeter MD [address] [place] [address] PCP - General Family Medicine 11/22/18 Jer Guerra, Gopi [address] [place] [phone] Pharmacist Internal Medicine 10/08/23 documented as of this encounter
--- OUTSIDE RECORDS SUMMARY | 2025-08-21 08:24 | XMS_ITS | Encounter Summary ---
Author Organization [employer] Address [address] [facility] [address] [place] [address] Care Team Providers Care Enrollment Services Vice President Name Role Phone Richa Jeter MD Primary Care Provider [phone] Jer Guerra PharmD Unavailable [phone] Reason for Referral * Consultation (Routine) - Canceled Specialty Diagnoses / Procedures Referred By Contdavid t Referred To Contact Pharmacy Diagnoses Primary hypertension Type 2 diabetes mellitus without complication, without long-term current use of insulin (HCC) Richa Jeter MD [address] [place] [address] Phone: tel: fax: Referral ID Status Reason Start Date Expiration Date V isits Requested Visits Authorized [id number] Canceled Consult and Treat 10/03/2024 10/03/2025 6 6 Encounter Details Date Type Department Care Team (Late st Contact Info) Description 10/03/2024 Orders Only [facility] [address] [place], [place] [phone] Richa Jeter MD [address] [place], [place] [phone] Primary hypertension (Primary Dx); Type 2 diabetes [...] 11:30 AM EDT Office Visit [facility] [address] [place] [phone] Richa Jeter MD [address] [place] [address] 10/25/2025 11:00 AM EST Medication Management [facility] [address] [place] [phone] Jer Guerra, PharmD [address] [place] [address] 12/14/2025 11:00 AM EST Office Visit [facility] [address] [place] [address] Colette Anders, OD [address] [place] [address] Scheduled Referrals Name Type Priority Associated Diagnoses Orde r Schedule Referral to Pharmacy CDTM Outpatient Referral Routine Primary hypertension Type 2 diabetes mellitus without complication, without long-term current use of insulin ([facility]/HCC) Ordered: 10/03/2024 documented as of this encounter Goals Goal Patient Goal Type Associated Problems Recent Progress Patient-Stated? Author Blood Pressure < 140/90 Blood Pressure 110/68( 025 10:02 AM EDT) No Jer Guerra, PharmD documented as of this encounter Visit Diagnoses Diagnosis Primary hypertension- Primary Unspecified essential hypertension Type 2 diabetes mellitus without complication, without long-term current use of insulin ([facility]) documented in this encounter Additional Health Concerns Assessment Noted Time PHQ-9 Depression Total Score: 7 06/29/20 24 11:26 AM EDT documented as of this encounter Care Teams Enrollment Services Vice President Relationship Specialty Start Date End Date Richa Jeter MD [address] [place] [address] PCP - General Family Medicine 11/22/18 Jer Guerra, PharmD [address] [place] [address] Pharmacist Internal Medicine 10/08/23 documented as of this encounter
[2025-08-21 12:19] LABS: Microalbum/Creatinine Ratio Ur 14.1 ug/mg cr (<30)
== END 2025-08-21 08:07 | disposition home or self-care (01) ==
LOC: HO.HHCL 08:06
PROVIDERS: PCP Family Medicine; Visit Provider Family Medicine
DX: E11.9 Type 2 diabetes mellitus without complications (principal)
CPT/HCPCS: 82043; 82570

== ENCOUNTER 2025-08-27 07:51 | Outpatient (REF) | payer OTHER, SELFPAY ==
--- OUTSIDE RECORDS SUMMARY | 2025-08-23 11:30 | XMS_ITS | Encounter Summary ---
Author Organization [employer] Address [address] [facility] [address] [place] [address] Care Team Providers Care Social Services Name Role Phone Richa Jeter MD Primary Care Provider [phone] Jer Guerra PharmD Unavailable [phone] Reason for Visit * Reason Comments Follow-up Encounter Details Date Type Department Care Team ([facility] st Contact Info) Description 08/23/2025 11:30 AM EDT Office Visit [facility] MEDICINE [address] [place], [place] [id number] Richa Jeter MD [address] [place] [address] Primary hypertension (Primary Dx); Hypercholesterolemia; Type 2 diabetes mellitus without complication, without long-term current use of insulin (HCC); Metabolic dysfunction-associate d steatotic liver disease (MASLD); Irritable bowel syndrome with constipation; Chronic idiopathic constipation; Gastroesophageal reflux disease, unspecified whether esophagitis present; Encounter for immunization Social History Tobacco Use Types Packs/Day Years [...] the past 12 months, has t he [employer] gas, oil or water company threatened to [...] AM EDT documented as of this encounter Last Filed Vital Signs Vital Sign Reading Time Taken Comments Blood Pressure 133/80 08/23/2025 11:51 AM EDT Pulse 59 08/23/2025 11:51 AM EDT Temperature 36.1 C (97 F) 08/23/2025 11:51 AM EDT Respiratory Rate 16 08/23/2025 11:5 1 AM EDT Oxygen Saturation 98% 08/23/2025 11: 51 AM EDT Inhaled Oxygen Concentration - - Weight 77.5 kg (170 lb 12.8 oz) 025 11:51 AM EDT Height 157.5 cm (5' 2 ) 08/23/2025 11:5 1 AM EDT Body Mass Index 31.24 08/23/2025 11:51 AM EDT documented in this encounter Miscellaneous Notes * Assessment & Plan Note - Richa Jeter MD - 08/23/2025 5:55 AM EDTAssociated Problem(s): Irritable bowel syndrome -Followed by GI -Continue low FODMAP diet -Previously tried Linzess, but pt self-discontinued due to intolerance -Predominantly constipation, current bowel regimen with Miralax and Dulcolax * Assessment & Plan Note - Richa Jeter MD - 08/23/2025 5:55 AM EDTAssociated Problem(s): Metabolic dysfunction-associated steatotic liver disease (MASLD) [place] [facility] [place]Last abdominal US performed on 03/07/25. Hepatic steatosis, no focal lesion or cirrhosis. The meanshear velocity is 1.23 m/s -FIB4 index 1.56 -Fibrosis test 08/11/24 Stage F0 -Avoid hepatotoxic drugs -Continue working on lifestyle modfications -Discussed about GLP1 RA pros and cons. * Assessment & Plan Note - Richa Jeter MD - 08/23/2025 5:55 AM EDTAssociated Problem(s): Type 2 diabetes mellitus (HCC) - Current A1c: 6.7% 04/25/25 -Previous A1C: [...] Up to date except COVId and Shingrix. * Assessment & Plan Note - Richa Jeter MD - 08/23/2025 5:54 AM EDTAssociated Problem(s): Hypercholesterolemia - Current medication: Simvastatin 40 mg at bedtime, will switch to rosuvastatin 20 mg at bedtime - Last lipid profile 08/21/24 - Continue working on lifestyle modification * Assessment & Plan Note - Richa Jeter MD - 08/23/2025 5:54 AM EDTAssociated Problem(s): Primary hypertension -Goal BP < 130/80 per ACC/AHA guideline [...] March 2023 - Invited [employer] walking program documented in this encounter Plan of Treatment Upcoming Encounters Date Type Department Care Team (Late st Contact Info) Description 10/25/2025 11:00 AM EST Medication Management [facility] MEDICINE [address] [place] [address] Jer Guerra, PharmD [address] [place] [address] 12/14/2025 11:00 AM EST Office Visit [facility] OPTOMETRY [address] [place] [address] Colette Anders, OD [address] [place] [address] documented as of this encounter Goals Goal Patient Goal Type Associated Problems Recent Progress Patient-Stated? Author Blood Pressure < 140/90 Blood Pressure 133/80( 025 11:51 AM EDT) No Jer Guerra, PharmD documented as of this encounter Procedures Procedure Name Priority Date/Time Associated Diagnosis Comments POCT GLYCATED HEMOGLOBIN, TOTAL Routine 08/23/2025 11:55 AM EDT Type 2 diabetes mellitus without complication, without long-term current use of insulin (HCC) POCT GLUCOSE Routine 08/23/2025 11:53 AM EDT Type 2 diabetes mellitus without complication, without long-term current use of insulin (HCC) documented in this encounter Results * (ABNORMAL) POCT Hgb A1c (08/23/2025 11:55 AM EDT) Hemoglobin A1C 6.6(A) 4.0 - 5.7 % QC Media Lot # [id number] Lot# Expiration Date [id number] Blood 08/23/2025 11:5 5 AM EDT us Richa Jeter MD POINT OF CARE TEST ENTER/EDIT OR DERABLES Final Result * POCT Glucose (08/23/2025 11:53 AM EDT) Glucose Blood, POC 113 60 - 200 mg/dL QC Media Lot # [id number] Lot# Expiration Date [id number] Blood Capillary blood specimen / Unknown 08/23/2025 11:53 AM EDT us Richa Jeter MD POINT OF CARE TEST ENTER/EDIT OR DERABLES Final Result documented in this encounter Visit Diagnoses Diagnosis Primary hypertension- Primary Unspecified essential hypertension Hypercholesterolemia Pure hypercholesterolemia Type 2 diabetes mellitus without complication, without long-term current use of insulin (HCC) Metabolic dysfunction-associated steatotic liver disease (MASLD) Irritable bowel syndrome with constipation Irritable bowel syndrome Chronic idiopathic constipation Unspecified constipation Gastroesophageal reflux disease, unspecified whether esophagitis present Encounter for immunization documented in this encounter Additional Health Concerns Assessment Noted Time PHQ-9 Depression Total Score: 8 06/04/20 25 10:04 AM EDT documented as of this encounter Care Teams Social Services Relationship Specialty Start Date End Date Richa Jeter MD [address] [place] [id number] PCP - General Family Medicine 11/22/18 Jer Guerra PharmD [address] [place] [phone] Pharmacist Internal Medicine 10/08/23 documented as of this encounter
--- OUTSIDE RECORDS SUMMARY | 2025-08-27 07:56 | XMS_ITS | Encounter Summary ---
Author Organization [employer] Address [address] [facility] [address] [place] [address] Care Team Providers Care Gravel Inspector Name Role Phone Richa Jeter MD Primary Care Provider [phone] Jer Guerra PharmD Unavailable [phone] Encounter Details Date Type Department Care Team (Late Contact Info) Description 04/23/2023 Orders Only [facility] MEDICINE [address] [place] [address] Negin Flowers MD [address] [place] [address] Social History Tobacco Use Types Packs/Day Years [...] Description 10/25/2025 11:00 AM EST Medication Management [facility] MEDICINE [address] [place] [address] Jer Guerra, PharmD [address] [place] [address] 12/14/2025 11:00 AM EST Office Visit [facility] OPTOMETRY [address] [place] [address] Chago, Colette, OD [address] [place] [address] documented as of this encounter Procedures Procedure Name Priority Date/Time Associated Diagnosis Comments XR FOOT 3+ VIEWS RIGHT Routine 04/22/2023 2:49 PM EDT documented in this encounter Results * XR Foot 3+ Views Right (04/22/2023 2:49 PM EDT) Anatomical Region Laterality Modality Lower Extremities, Foot Right [facility] 04/22/2023 2:49 PM EDT Narrative 04/22/2023 3:23 PM EDT [facility] [address] [place] [address] XRay Report Signed Patient: Pauly Mendoza MR#: [id number] : 1965 Acct:[id number] Age/Sex: 57 / F ADM Date: 04/22/23 [facility]: Negin Flowers MD Ordering Physician: Negin Flowers MD Date of Service: 04/22/23 Procedure(s): XR foot RT min 3V Accession Number(s): [id number] cc: Negin Flowers MD EXAMINATION: XR FOOT, [...] in OV> 04/22/23 1521 DD/ 1449 TD/TT: Academic Coordinator: RYLIE Procedure Note Donotuseinterpreter, Image - 05/19/2023 [facility] [address] [place] [address] XRay Report Signed Patient: Kip Mendoza#: [id number] : 1965Acct:[id number] Age/Sex: 57 / FADM Date: 04/22/23 Loc: HO.[facility] Attending Dr: Negin Flowers MD Ordering Physician: Negin Flowers MD Date of Service: 04/22/23 Procedure(s): XR foot RT min 3V Accession Number(s): [id number] cc: Negin Flowers MD EXAMINATION: XR FOOT, [...] in OV> 04/22/23 1521 DD/ 1449 TD/TT: Academic Coordinator: RYLIE [facility] External Provider IMG XR PROCEDURES Final Result documented in this encounter Visit Diagnoses Not on filedocumented in this encounter Additional Health Concerns Assessment Noted Time PHQ-9 Depression Total Score: 4 12/31/19 23 11:23 AM EST documented as of this encounter Care Teams Gravel Inspector Relationship Specialty Start Date End Date Richa Jeter MD [address] [place] [address] PCP - General Family Medicine 11/22/18 Jer Guerra, TrangD [address] [place] [address] Pharmacist Internal Medicine 10/08/23 documented as of this encounter
--- OUTSIDE RECORDS SUMMARY | 2025-08-27 07:57 | XMS_ITS | Encounter Summary ---
Author Organization [email or web address] Address [address] [facility] [address] [address] Care Team Providers Care Client Insights Consultant Name Role Phone Richa Jeter MD Primary Care Provider Jer Guerra PharmD Unavailable [phone] Reason for Referral * Consultation (Routine) - Authorized Specialty Diagnoses / Procedures Referred By Contac t Referred To Contact Pharmacy Diagnoses Type 2 diabetes mellitus without complication, without long-term current use of insulin (HCC) Primary hypertension Richa Jeter MD [address] [place] [address] Phone: tel: fax: Referral ID Status Reason Start Date Expiration Date Visits Requested Visits Authorized [id number] Authorized Consult and Treat 05/04/2025 05/04/2026 6 6 Encounter Details Date Type Department Care Team (Late st Contact Info) Description 05/04/2025 Orders Only [facility] MEDICINE [address] [place], [place] [phone] Richa Jeter MD [address] [place], [place] [phone] Type 2 diabetes mellitus without complication, without [...] Description 10/25/2025 11:00 AM EST Medication Management [facility] MEDICINE [address] [place] [address] Jer Guerra, PharmD [address] [place] [address] 12/14/2025 11:00 AM EST Office Visit [facility] OPTOMETRY [address] [place] [address] Colette Anders, OD [address] [place] [address] Scheduled Referrals Name Type Priority Associated Diagnoses Orde r Schedule Referral to Pharmacy CDTM Outpatient Referral Routine Type 2 diabetes mellitus without complication, without long-term current use of insulin ([facility]) Primary hypertension Ordered: 05/04/2025 documented as of this encounter Goals Goal Patient Goal Type Associated Problems Recent Progress Patient-Stated? Author Blood Pressure < 140/90 Blood Pressure 133/80( 025 11:51 AM EDT) No Jer Guerra, Gopi documented as of this encounter Visit Diagnoses Diagnosis Type 2 diabetes mellitus without complication, without long-term current use of insulin ([facility])- Primary Primary hypertension Unspecified essential hypertension documented in this encounter Additional Health Concerns Assessment Noted Time PHQ-9 Depression Total Score: 7 06/29/20 24 11:26 AM EDT documented as of this encounter Care Teams Client Insights Consultant Relationship Specialty Start Date End Date Richa Jeter MD [address] [place] [address] PCP - General Family Medicine 11/22/18 Jer Guerra, TrangD [address] [place] [address] Pharmacist Internal Medicine 10/08/23 documented as of this encounter
--- OUTSIDE RECORDS SUMMARY | 2025-08-27 07:57 | XMS_ITS | Encounter Summary ---
Author Organization [employer] Address [address] [facility] [address] [place] [address] Care Team Providers Care Marketing Services Coordinator Name Role Phone Richa Jeter MD Primary Care Provider [phone] Jer Guerra PharmD Unavailable [phone] Reason for Visit * Reason Comments Med Refill Encounter Details Date Type Department Care Team ([facility] st Contact Info) Description 03/07/2025 Refill [facility] MEDICINE [address] [place] [address] Lisa Sims MD [address] [place] [address] Social History Tobacco Use Types Packs/Day Years [...] is your housing situation today? I have azchary brunson 09/20/[address] you [...] Description 10/25/2025 11:00 AM EST Medication Management [facility] MED[facility] [address] [place] [address] Jer Guerra PharmD [address] [place] [address] 12/14/2025 11:00 AM EST Office Visit [facility] OPTOMETRY [address] [place] [address] Colette Anders, OD [address] [place] [address] documented as of this encounter Goals Goal [...] as of this encounter Care Teams Marketing Services Coordinator Relationship Specialty Start Date End Date Richa Jeter MD [address] [place] [address] PCP - General Family Medicine 11/22/18 Jer Guerra, PharmD [address] [facility] [place] [address] Pharmacist Internal Medicine 10/08/23 documented as of this encounter
--- OUTSIDE RECORDS SUMMARY | 2025-08-27 07:57 | XMS_ITS | Encounter Summary ---
Author Organization [employer] Address [address] [facility] [address] [place] [address] Care Team Providers Care Strap Cutting Machine Operator Name Role Phone Richa Jeter MD Primary Care Provider Jer Guerra PharmD Unavailable [phone] Reason for Visit * Reason Onset Date Comments chart prep 2025 Encounter Details Date Type Department Care Team ([facility] st Contact Info) Description 2025 Telephone [facility] MEDICINE [address] [place] [address] Richa Jeter MD [address] [place] [address] chart prep Social History Tobacco Use Types Packs/Day Years [...] AM EDT documented as of this encounter Miscellaneous Notes * Telephone Encounter - Ángel Alonzo [place] - 2025 3:17 PM EDT Chart Prep Labs: done Images: done Referrals: complete Vaccines due: Covid, Flu, RSV, and Zoster Screenings: not applicable Overdue care gaps: A1c and Glucose documented in this encounter Plan of Treatment Upcoming Encounters Date Type Department Care Team (Late st Contact Info) Description 10/25/2025 11:00 AM EST Medication Management [facility] MEDICINE [address] [place] [address] Jer Guerra, PharmD [address] [place] [address] 12/14/2025 11:00 AM EST Office Visit [facility] OPTOMETRY [address] [place] [address] Colette Anders, OD [address] [place] [address] documented as of this encounter Goals Goal [...] documented as of this encounter Care Teams Strap Cutting Machine Operator Relationship Specialty Start Date End Date Richa Jeter MD [address] [place] [address] PCP - General Family Medicine 11/22/18 Jer Guerra, PharmD [address] [place] [address] Pharmacist Internal Medicine 10/08/23 documented as of this encounter
--- OUTSIDE RECORDS SUMMARY | 2025-08-27 07:57 | XMS_ITS | Clinical Summary ---
Demographics Address [address] [facility] [address] [place] [address] Mobile Phone Home Phone Preferred Language es Marital Status Single Scientologist Affiliation Unknown Race Other Race Ethnic Group Unknown Author Organization [employer] Address [address] [facility] 7[address] [place] [address] Care Team Providers Care Yoga Instructor Name Role Phone Richa Jeter MD Primary Care Provider [phone] Jer Guerra PharmD Unavailable [phone] Allergies No known active allergies Medications pantoprazole [...] ORALLY ONCE DIRECTED BY GASTROENTEROLOGY DEPARTMENT AT [facility] 023 Active Blood Pressure Monitor [...] Irritable bowel syndrome 12/31/2022 Assessment & Plan (08/23/2025 5:55 AM EDT): -Followed by GI -Continue low FODMAP diet -Previously tried Linzess, but pt self-discontinued due to intolerance -Predominantly constipation, current bowel regimen with Miralax and Dulcolax Assessment & Plan (01/03/2024 9:01 AM EST): [...] liver disease (MASLD) 12/31/2022 Assessment & Plan (08/23/2025 5:55 AM EDT): -GI: C -Last abdominal US performed on 03/07/25. Hepatic steatosis, no focal lesion or cirrhosis. The mean shear velocity is 1.23 m/s -FIB4 index 1.56 -Fibrosis test 08/11/24 Stage F0 -Avoid hepatotoxic drugs -Continue working on lifestyle modfications -Discussed about GLP1 RA pros and cons. Assessment & Plan (06/04/2025 1:06 PM EDT): -GI: [facility] -Last abdominal US performed on 03/07/25. Hepatic steatosis, no focal lesion or cirrhosis. The mean shear velocity is 1.23 m/s -FIB4 index 1.56 -Fibrosis test 08/11/24 Stage F0 -Avoid hepatotoxic drugs -Continue working on lifestyle modfications -Discussed about GLP1 RA pros and cons. Assessment & Plan (11/06/2024 5:08 AM EST): -GI: [facility] -Last abdominal US performed on [...] active. Pt has already been seen by anesthesia associate. Pt has already tried acupuncture and physical [...] active. Pt has already been seen by anesthesia associate. Pt has already tried acupuncture and physical [...] active. Pt has already been seen by anesthesia associate. Pt has already tried acupuncture and physical therapy. Continue judicious use of APAP prn. Previously tried medications: tramadol; cyclobenzaprine; gabapentin; tizanidine Continue lidocaine topical, which has been effective Assessment & Plan (01/01/2023 7:00 AM EST): Consider consulting her psychiatrist for changing sertraline to duloxetine, if her symptoms worsen. Encouraged to stay physically active. Pt has already been seen by anesthesia associate. Pt has already tried acupuncture and physical therapy. Continue judicious use of APAP prn. Previously tried medications: tramadol; cyclobenzaprine; gabapentin; tizanidine Restart lidocaine topical. Pt previously had a good response to lidoderm. History of right salpingo-oophorectomy 9 Primary hypertension 09/23/2015 Assessment & Plan (08/23/2025 5:54 AM EDT): -Goal BP < 130/80 per ACC/AHA [...] Invited [employer] walking program Assessment & Plan (06/11/2025 5:55 PM EDT): [...] today, continue monitoring BP and fu with [facility] HTN clinic on 01/29, consider changing metoprolol to a non selective B-jignesh. Order sleep study. Assessment & Plan (01/18/2024 4:11 PM EST): Uncontrolled x 1w, it had previously improved with increased dose of metoprolol. No change in meds today, continue monitoring BP and fu with [facility] HTN clinic on 01/29, consider changing [...] 2 diabetes mellitus 09/23/2015 Assessment & Plan (08/23/2025 5:55 AM EDT): - Current A1c: 6.7% 04/25/25 -Previous [...] except COVId and Shingrix. Assessment & Plan (06/11/2025 5:57 PM EDT): [...] on 06/04/2025; NANCY-7 score 8 on 06/04/2025 -[facility] provider: Dr. Diamond MEREDITH -Current medications: Clonazepam; sertraline; zolpidem -Continue current treatment plan. -She was able to contract her safety today. Assessment & Plan (11/06/2024 6:03 PM EST): -[facility] provider: Dr. Diamond MEREDITH -Current medications: lorazepam; sertraline; zolpidem -Continue current treatment plan. -She was able to contract her safety today. Assessment & Plan (06/29/2024 11:32 AM EDT): -[facility] provider: Dr. Diamond MEREDITH -Current medications: lorazepam; sertraline -Continue current treatment plan. -She was able to contract her safety today. Assessment & Plan (01/03/2024 9:09 AM EST): -[facility] provider: Dr. Diamond MEREDITH -Current medications: lorazepam; sertraline -Continue current treatment plan. -She was able to contract her safety today. Assessment & Plan (03/31/2023 10:14 AM EDT): -[facility] provider: Dr. Diamond MEREDITH -Current medications: lorazepam; sertraline -Currently grieving. -Continue current treatment plan. -She was able to contract her safety today. Assessment & Plan (12/31/2022 11:36 AM EST): -[facility] provider: Dr. Diamond MEREDITH -Current medications: lorazepam; sertraline -Currently grieving. -Continue current treatment plan. -She was able to contract her safety today. Abdominal hernia without obstruction or gangrene 03/01/2013 Constipation 08/31/2012 Assessment & Plan (01/03/2024 8:59 AM EST): -followed by [facility] GI -Fiber-rich diet -Continue Miralax and Dulolax -Colonoscopy on 12/30/23 Assessment & Plan (07/05/2023 1:01 PM EDT): -followed by [facility] GI -Fiber-rich diet -Continue Miralax and Dulolax Assessment & Plan (03/31/2023 5:14 PM EDT): -followed by [facility] GI -Fiber-rich diet -Continue Miralax and Dulolax Assessment & Plan (01/01/2023 7:04 AM EST): -followed by [facility] GI -Fiber-rich diet -Continue Miralax and Dulolax Chronic abdominal pain 08/31/2012 Assessment & Plan (11/06/2024 1:06 PM EST): - following with GI - colonoscopy / EGD done on 12/30/23 with [facility] GI Assessment & Plan (07/05/2023 1:00 PM EDT): - following with GI - currently having a new abdominal pain with increased BM - check H. Pylori - recommended to go to [facility] GI office to schedule colonoscopy / EGD [...] syndrome) 05/11/2012 Hypercholesterolemia 04/14/2012 Assessment & Plan (08/23/2025 5:54 AM EDT): - Current medication: Simvastatin 40 mg at bedtime, will switch to rosuvastatin 20 mg at bedtime - Last lipid profile 08/21/24 - Continue working on lifestyle modification Assessment & Plan (06/04/2025 1:11 PM EDT): [...] Encounters Date Type Department Care Team Description 08/23/2025 11:30 AM EDT Office Visit [facility] [address] [place] [phone] Richa Jeter MD Primary hypertension (Primary Dx); Hypercholesterolemia; Type 2 diabetes mellitus without complication, without long-term current use of insulin (HCC); Metabolic dysfunction-associated steatotic liver disease (MASLD); Irritable bowel syndrome with constipation; Chronic idiopathic constipation; Gastroesophageal reflux disease, unspecified whether esophagitis present; Encounter for immunization 08/23/2025 Travel 2025 Telephone [facility] [address] [place] [phone] Richa Jeter MD chart prep 08/21/2025 Orders Only [facility] [address] [place] [address] Richa Jeter MD 08/20/2025 Orders Only [facility] [address] [place] [address] [place] [address] Richa Jeter MD 08/06/2025 Refill [facility] [address] [place] [address] Richa Jeter MD 08/04/2025 Refill [facility] [address] [place] [address] Richa Jeter MD Type 2 diabetes mellitus without complications ([facility]/HCC); Essential (primary) hypertension 07/08/2025 Refill [facility] [address] [place] [phone] Richa Jeter MD 07/05/2025 Refill [facility] [address] [place] [address] Richa Jeter MD 06/04/2025 10:00 AM EDT Office Visit [facility] [address] [place] [phone] Richa Jeter MD Hypercholesterolemia (Primary Dx); Type [...] counseling; Exercise counseling 06/04/2025 Travel 06/03/2025 Refill [facility] [address] [place] [address] Richa Jeter MD 06/01/[address] [address] Richa Jeter MD chart prep from Last [...] housing situation today? I have zacharybing brunson 06/04/[address] you [...] Mass Index 31.24 08/23/2025 11:51 AM EDT Plan of Treatment Upcoming Encounters Date Type Department Care Team (Late st Contact Info) Description 10/25/2025 11:00 AM EST Medication Management [facility] [address] [place] [address] Jer Guerra, PharmD [address] [place] [address] 12/14/2025 11:00 AM EST Office Visit [facility] OPTOMETRY [address] [place] [address] Chago, Colette, OD [address] [place] [address] Health Maintenance Due Date Last Done Comments CT Colonography 1965 FIT DNA/Cologuard 1965 FIT 1965 FOBT 1965 Sigmoidoscopy 1965 Zoster Vaccines (1 of 2) 2013 RSV Patients and Patients Aged 60 years or older (1 - Risk 60-74 years 1-dose series) 2023 Pap Smear 03/16/2025 03/16/2022 COVID-19 Vaccine ( season) 2025 12/31/2022, 12/05/2021, 02/21/2021, Additional history exists Influenza Vaccine (#1) 2025 , 10/04/2023, 12/31/2022, Additional history exists Alcohol/Substance Use Screening 11/06/2025 11/06/2024 Diabetes: Hemoglobin A1C 11/23/2025 025, 04/25/2025, 01/17/2025, Additional history exists Depression Screening 06/04/2026 06/04/2025, 06/04/20 Diabetes: Foot Exam 06/04/2026 06/04/2025, 06/04/2025, 06/04/2025, Additional history exists Disability Screening 06/04/2026 06/04/2025 SDOH Screening 06/04/2026 06/04/2025 Lipid Panel 08/20/2026 08/20/2025, 07/25, 03/28/2024, Additional history exists Diabetes: Urine Protein Screening 08/21/2026 08/21/2025, 03/28/2024, 04/02/2023, Additional history exists Mammogram 08/21/2026 08/21/2024, 07/24, 08/10/2022, Additional history exists Tobacco Screening 08/23/2026 08/23/2025 Eye Exam 10/23/2026 10/23/2024, 1212/2023, 10/23/2024, Additional history exists Cervical Cancer Screening [...] 11:51 AM EDT) No Jer Guerra, Gopi Procedures Procedure Name Priority Date/Time Associated Diagnosis Comments POCT GLYCATED HEMOGLOBIN, TOTAL Routine 08/23/2025 11:55 AM EDT Type 2 diabetes mellitus without complication, without long-term current use of insulin (HCC) POCT GLUCOSE Routine 08/23/2025 11:53 AM EDT Type 2 diabetes mellitus without complication, without long-term current use of insulin (HCC) ALBUMIN, RANDOM URINE W/CREATININE Routine 08/21/2025 8:20 AM EDT LIPID PANEL, STANDARD Routine 08/20/2025 8:43 AM EDT BASIC METABOLIC PANEL Routine 08/20/2025 8:43 AM EDT POCT GLUCOSE Routine 06/04/2025 10:03 AM EDT Type 2 diabetes mellitus without complication, without long-term current use of insulin (CMS/HCC) BI MAMMOGRAM SCREENING TOMOSYNTHESIS BILATERAL Routine 08/21/2024 8:00 AM EDT HM COLONOSCOPY Routine 12/30/2023 ZZZ HISTORICAL HEPATITIS A,B,C PROFILE Routine 07/31/2022 4:21 PM EDT THINPREP IMAGING PAP AND HPV MRNA E6/E7 WITH REFLEX TO HPV 16,18/45 Routine 03/16/2022 2:00 PM EDT from Last 3 Months or Most Recently Relevant to Health Maintenance Results * (ABNORMAL) POCT Hgb A1c (08/23/2025 11:55 AM EDT) Hemoglobin A1C 6.6(A) 4.0 - 5.7 % QC Media Lot # [id number] Lot# Expiration Date Blood 08/23/2025 11:5 5 AM EDT us Richa Jeter MD POINT OF CARE TEST ENTER/EDIT OR DERABLES Final Result * POCT Glucose (08/23/2025 11:53 AM EDT) Only the most recent of2 resultswithin the time period is included. Glucose Blood, POC 113 60 - 200 mg/dL QC Media Lot # [id number] Lot# Expiration Date [id number] Blood Capillary blood specimen / Unknown 08/23/2025 11:53 AM EDT us Richa Jeter MD POINT OF CARE TEST ENTER/EDIT OR DERABLES Final Result * Albumin, Random Urine W/Creatinine (08/21/2025 8:20 AM EDT) Creatinine, Urine 99.12 mg/dL [facility] Microalbumin Urine 14.0 mg/L [facility] Microalbum Creatinine Ratio Ur 14.1 <30 ug/mg cr [facility] Comment:Albumin/Creatinine R atio Reference Ranges: Normal: < 30 ug/mg creatinine Microalbuminuria: 30 - 300 ug/mg creatinineClinical Albuminuria: > 300 ug/mg creatinine 08/21/2025 8:20 AM EDT 08/21/2025 11:23 AM EDT us Richa Jeter MD LAB URINE ORDERABLES Final Resul t Performing Organization Address City/[facility] Co de Phone Number [facility] [address] [place] [address] [phone] * (ABNORMAL) Lipid Panel, Standard (08/20/2025 8:43 AM EDT) Triglycerides 77 <150 mg/dL [facility] Comment:Desirable Triglyceri de: less than 150 mg/dLBorderline High Triglyceride 150-199 mg/dLHigh Triglyceride: 200-499 mg/dLVery High Triglyceride: greater than or equal to 5OO mg/dL Cholesterol 112 <200 mg/dL [facility] Comment:Desirable Cholestero l: less than 200 mg/dLBorderline High Cholesterol: 200-239 mg/dLHigh Cholesterol: greater than 239 mg/dL LDL Cholesterol Calculated 64 <100 mg/dL [facility] Comment:Desirable LDL: less than 100 mg/dLNear Optimal/Above Optimal LDL: 110- 129 mg/dLBorderline High LDL: 130-159 mg/dLHigh LDL: 160-189 mg/dLVery High LDL: greater than or equal to 190 mg/dL HDL Cholesterol 33(L) >40 mg/dL [facility] Comment:Desirable HDL: great er than 40 mg/dL Note: This HDL assay may give artificially low results in patients with liver disease. 08/20/2025 8:43 AM EDT 08/20/2025 11:13 AM EDT us Richa Jeter MD LAB BLOOD ORDERABLES Final Resul t [facility] [address] [place] [address] [phone] * (ABNORMAL) Basic Metabolic Panel (08/20/2025 8:43 AM EDT) Sodium 140 135 - 145 mmol/L [facility] Potassium 4.1 3.3 - 5.1 mmol/L [facility] Chloride 103 96 - 108 mmol/L [facility] Carbon Dioxide 30(H) 22 - 29 mmol/L [facility] Anion Gap 11(L) 12 - 20 [facility] Urea Nitrogen (BUN) 17(H) 9 - 16 mg/dL [facility] Creatinine, Serum 0.78 0.5 - 1.4 mg/dL [facility] Estimated Glomerular Filt Rate >60 [facility] Comment:Chronic Kidney Disea se: Estimated GFR < 60 mL/min/1.41g4Fjjoqh Kidney Disease: Estimated GFR < 15 mL/min/1.73m2 Glucose 123(H) 60 - 115 mg/dL [facility] Calcium 10.2 8.4 - 10.2 mg/dL [facility] 08/20/2025 8:43 AM EDT 08/20/2025 11:13 AM EDT us Richa Jeter MD LAB BLOOD ORDERABLES Final Resul t [facility] [address] [place] [phone] * BI Mammogram Screening Tomosynthesis Bilateral (08/21/2024 8:00 AM EDT) Anatomical Region Laterality Modality Breast Bilateral Mammography 08/21/2024 8:00 AM EDT Narrative 08/31/2024 6:39 PM EDT [facility] [address] [place] [address] Mammography Report Signed Patient: Pauly Mina MR#: [id number] : 1965 Acct:[id number] Age/Sex: 58 / F ADM Date: 08/21/24 Loc: MAMMMal[facility] Attending Dr: Richa Jeter MD Ordering Physician: Richa Jeter MD Results: 1Negative Date of Service: 08/21/24 Follow Up: 1 Year From [facility] ina Mammogram Procedure(s): MM tomosynthesis screening BI Accession Number(s): [id number] cc: Richa Jeter MD EXAMINATION: MM SCREENING [...] 08/31/24 1835 DD/ 0800 TD/TT: 08/21/24 0820 Enterprise Project Manager: Procedure Note Donotuseinterpreter, Image - 08/31/2024 [facility] [address] [place] [address] Mammography Report Signed Patient: Kip Mina#: [id number] : 1965Acct:[id number] Age/Sex: 58 / FADM Date: 08/21/24 Loc: [facility] Attending Dr: Richa Jeter MD Ordering Physician: Richa Jeter MDResults: 1Negative Date of Service: 08/21/24Follow Up: 1 Year From [facility] ina Mammogram Procedure(s): MM tomosynthesis screening BI Accession Number(s): [id number] cc: Richa Jeter MD EXAMINATION: MM SCREENING [...] 08/31/24 1835 DD/ 0800 TD/TT: 08/21/24 0820 Enterprise Project Manager: Richa Jeter MD [facility] PROCEDURES Edited Result - Final * Hm Colonoscopy (12/30/2023) Colonoscopy Normal Normal [facility] Provider HEALTH MAINTENANCE Final Result * Hepatitis A,B,C Profile (07/31/2022 4:21 PM EDT) Hepatitis B Core Antibody Nonreactive Nonreactive [facility] [...] of detection of this assay. The [employer] Supervisor HIV Ag/Ab Combo assay result and supplemental assay results should be interpreted in conjunction with the patient's clinical presentation, history and other laboratory results. If the results are inconsistent with clinical evidence, additional testing is suggested to confirm the result. 07/31/2022 4:21 PM EDT us Historical Provider MD HISTORICAL/NON ORDERABLE LABS Final Result [facility] [address] * THINPREP TIS PAP AND HPV mRNA E6/E7 WITH REFLEX TO HPV 16,18/45 (03/16/2022 2:00 PM EDT) Clinical Information: None given [facility] COMMENT SEE COMMENT [facility] ON [...] has been evaluated with computer assisted technology. [facility] Septic Tank Servicer: SEE COMMENT [facility] Comment: BJ, CT(ASCP) CT screening location: [place] [address] HPV nRNA E6/E7 Not Detected Not Detected [facility] Comment: Methodology: High Value Associate-Mediated Amplification This assay detects E6/E7 viral messenger RNA (mRNA) from 14 high-risk HPV types (16,18,31,33,35,39,45,51,52,56,58,59,66,68). The analytical performance characteristics of this assay have been determined by [employer]. The modifications have not been cleared or approved by the FDA. This assay has been validated pursuant to the CLIA regulations and is used for clinical purposes. For additional information, please refer to http://education.Teamo.ru/faq/LUJ488c0 (This link if provided for information/ educational [...] MD LAB PATHOLOGY ORDERABLES Final R esult Performing Organization Address City/State/[facility] Co de Phone Number [facility] [address] from Last 3 Months or Most Recently Relevant to Health Maintenance Insurance [facility] ONE CARE < 65 [place] [id number] * Guarantor: Pauly Mina Account Type Relation to Patient Date of Phone Billing Address Personal/Family Self [address] [facility] [address] [place] [address] Care Teams Yoga Instructor Relationship Specialty Start Date End Date Richa Jeter MD [address] [place] [address] PCP - General Family Medicine 11/22/18 Jer Guerra, PharmD [address] [place] [phone] Pharmacist Internal Medicine 10/08/23
--- OUTSIDE RECORDS SUMMARY | 2025-08-27 07:57 | XMS_ITS | Encounter Summary ---
Author Organization [employer] Address [address] [facility] [address] [place] [address] Care Team Providers Care Box Blank Machine Operator Name Role Phone Richa Jteer MD Primary Care Provider [phone] Jer Guerra PharmD Unavailable [phone] Reason for Visit * Reason Comments Med Refill Encounter Details Date Type Department Care Team ([facility] st Contact Info) Description 02/04/2025 Refill [facility] [address] [place], [place] [phone] Richa Jeter MD [address] [place] [address] Social History Tobacco Use Types Packs/Day Years [...] Description 10/25/2025 11:00 AM EST Medication Management [facility] [address] [place] [address] Jer Guerra PharmD [address] [place] [address] 12/14/2025 11:00 AM EST Office Visit [facility] OPTOMETRY [address] [place] [address] Chago, Colette, OD [address] [place] [address] documented as of this encounter Goals Goal [...] documented as of this encounter Care Teams Box Blank Machine Operator Relationship Specialty Start Date End Date Richa Jeter MD [address] [place] [address] PCP - General Family Medicine 11/22/18 Jer Guerra, TrangD [address] [place] [address] Pharmacist Internal Medicine 10/08/23 documented as of this encounter
--- OUTSIDE RECORDS SUMMARY | 2025-08-27 07:57 | XMS_ITS | Encounter Summary ---
Author Organization [employer] Address [address] [facility] [address] [place] [address] Care Team Providers Care Industrial Garage Servicer Name Role Phone Richa Jeter MD Primary Care Provider [phone] Jer Guerra PharmD Unavailable [phone] Encounter Details Date Type Department Care Team (Latest Contact Info) Description 08/23/2025 Travel Social History Tobacco Use Types Packs/Day [...] Description 10/25/2025 11:00 AM EST Medication Management [facility] [address] [place] [address] Jer Guerra PharmD [address] [place] [address] 12/14/2025 11:00 AM EST Office Visit [facility] OPTOMETRY [address] [place] [address] Chago, Colette, OD [address] [place] [address] documented as of this encounter Goals Goal [...] documented as of this encounter Care Teams Industrial Garage Servicer Relationship Specialty Start Date End Date Richa Jeter MD [address] [place] [address] PCP - General Family Medicine 11/22/18 Jer Guerra, Gopi [address] [place] [phone] Pharmacist Internal Medicine 10/08/23 documented as of this encounter
--- OUTSIDE RECORDS SUMMARY | 2025-08-27 07:57 | XMS_ITS | Encounter Summary ---
Author Organization [employer] Address [address] [facility] [address] [place] [address] Care Team Providers Care Gang Knife Fish Chopper Name Role Phone Richa eJter MD Primary Care Provider [phone] Jer Guerra PharmD Unavailable [phone] Reason for Visit * Reason Comments Med Refill Encounter Details Date Type Department Care Team ([facility] st Contact Info) Description 02/04/2025 Refill [facility] [address] [place], [place] [phone] Karen Becker MD [address] [place] [address] Type 2 diabetes mellitus without complication, without long-term current use of insulin ([facility]) Social History Tobacco Use Types Packs/Day [...] Description 10/25/2025 11:00 AM EST Medication Management [facility] [address] [place] [address] Jer Guerra, PharmD [address] [place] [address] 12/14/2025 11:00 AM EST Office Visit [facility] OPTOMET[facility] [address] [place] [address] Chago, Colette, OD [address] [place] [address] documented as of this encounter Goals Goal [...] documented as of this encounter Care Teams Gang Knife Fish Chopper Relationship Specialty Start Date End Date Richa Jeter MD [address] [place] [address] PCP - General Family Medicine 11/22/18 Jer Guerra, TrangD [address] [place] [phone] Pharmacist Internal Medicine 10/08/23 documented as of this encounter
--- OUTSIDE RECORDS SUMMARY | 2025-08-27 07:57 | XMS_ITS | Encounter Summary ---
Author Organization [employer] Address [address] [facility] [address] [place] [address] Care Team Providers Care Specimen Transporter Name Role Phone Richa Jeter MD Primary Care Provider [phone] Jer Guerra PharmD Unavailable [phone] Reason for Referral * Consultation (Routine) - Canceled Specialty Diagnoses / Procedures Referred By Contdavid t Referred To Contact Pharmacy Diagnoses Primary hypertension Type 2 diabetes mellitus without complication, without long-term current use of insulin (HCC) Richa Jeter MD [address] [place] [address] Phone: tel: fax: Referral ID Status Reason Start Date Expiration Date V isits Requested Visits Authorized [id number] Canceled Consult and Treat 10/03/2024 10/03/2025 6 6 Encounter Details Date Type Department Care Team (Late st Contact Info) Description 10/03/2024 Orders Only [facility] MEDICINE [address] [place], [place] [phone] Richa Jeter MD [address] [place], [place] [phone] Primary hypertension (Primary Dx); Type 2 diabetes [...] Description 10/25/2025 11:00 AM EST Medication Management [facility] MEDICINE [address] [place] [address] Jer Guerra, PharmD [address] [place] [address] 12/14/2025 11:00 AM EST Office Visit [facility] OPTOMETRY [address] [place] [address] Colette Anders, OD [address] [place] [address] Scheduled Referrals Name Type Priority Associated Diagnoses Orde r Schedule Referral to Pharmacy CD Outpatient Referral Routine Primary hypertension Type 2 diabetes mellitus without complication, without long-term current use of insulin ([facility]) Ordered: 10/03/2024 documented as of this [...] of insulin ([facility]) documented in this encounter Additional Health Concerns Assessment Noted Time PHQ-9 Depression Total Score: 7 06/29/20 24 11:26 AM EDT documented as of this encounter Care Teams Specimen Transporter Relationship Specialty Start Date End Date Richa Jeter MD [address] [place] [id number] PCP - General Family Medicine 11/22/18 Jer Guerra, PharmD [address] [place] [phone] Pharmacist Internal Medicine 10/08/23 documented as of this encounter
--- OUTSIDE RECORDS SUMMARY | 2025-08-27 07:57 | XMS_ITS | Encounter Summary ---
Author Organization [employer] Address [address] [facility] [address] [place] [address] Care Team Providers Care Talent Partner Name Role Phone Richa Jeter MD Primary Care Provider [phone] Jer Guerra PharmD Unavailable [phone] Reason for Visit * Reason Comments Med Refill Encounter Details Date Type Department Care Team (Late Contact Info) Description 02/26/2023 Refill [facility] [address] [place] [address] Richa Jeter MD [address] [place] [address] Type 2 diabetes mellitus without complication, without long-term current use of insulin ([facility]) Social History Tobacco Use Types [...] Department Care Team (Late Contact Info) Description 10/25/2025 11:00 AM EST Medication Management [facility] [address] [place] [address] Jer Guerra, PharmD [address] [place] [address] 12/14/2025 11:00 AM EST Office Visit [facility] OPTOMETRY [address] [place] [address] Chago, Colette, OD [address] [place] [address] documented as of this encounter Visit Diagnoses Diagnosis Type 2 diabetes mellitus without complication, without long-term current use of insulin (HCC) documented in this encounter Additional Health Concerns Assessment Noted Time PHQ-9 Depression Total Score: 4 12/31/19 23 11:23 AM EST documented as of this encounter Care Teams Talent Partner Relationship Specialty Start Date End Date Richa Jeter MD [address] [place] [phone] PCP - General Family Medicine 11/22/18 Jer Guerra, PharmD [address] [place] [address] [phone] Pharmacist Internal Medicine 10/08/23 documented as of this encounter
--- OUTSIDE RECORDS SUMMARY | 2025-08-27 07:57 | XMS_ITS | Encounter Summary ---
Author Organization [employer] Address [address] [facility] [address] [place] [address] Care Team Providers Care Steward/Stewardess Lounge Name Role Phone Richa Jeter MD Primary Care Provider [phone] Jer Guerra PharmD Unavailable [phone] Reason for Visit * Reason Comments Med Refill Encounter Details Date Type Department Care Team ([facility] st Contact Info) Description 03/07/2025 Refill [facility] [address] [place], [place] [phone] Karen Becker MD [address] [place] [address] Type 2 diabetes mellitus without complication, without long-term current use of insulin ([facility]) Social History Tobacco Use Types [...] Description 10/25/2025 11:00 AM EST Medication Management [facility] [address] [place] [address] Jer Guerra, PharmD [address] [place] [address] 12/14/2025 11:00 AM EST Office Visit [facility] OPTOMETRY [address] [place] [address] Chago, Colette, OD [address] [place] [address] documented as of this encounter Goals Goal [...] documented as of this encounter Care Teams Steward/Stewardess Lounge Relationship Specialty Start Date End Date Richa Jeter MD [address] [place] [address] PCP - General Family Medicine 11/22/18 Jer Guerra, TrangD [address] [place] [address] Pharmacist Internal Medicine 10/08/23 documented as of this encounter
== END 2025-08-27 07:52 | disposition home or self-care (01) ==
LOC: HO.MAMMO 07:51
PROVIDERS: PCP Family Medicine; Visit Provider Family Medicine
DX: Z12.31 Encounter for screening mammogram for malignant neoplasm of breast (principal)
CPT/HCPCS: 77063; 77067

== ENCOUNTER → 2025-08-27 08:15 | Outpatient (BNV) | payer OTHER, SELFPAY | PROVIDERS: PCP Family Medicine; Visit Provider Internal Medicine | DX: Z12.31 Encounter for screening mammogram for malignant neoplasm of breast (principal) | CPT/HCPCS: 77063; 77067 ==

== ENCOUNTER 2025-10-22 11:01 | Outpatient (REF) | payer OTHER, SELFPAY ==
--- NOTE | ~2025-10-22 | US_ITS ---
CLINICAL HISTORY: pelvic pain Ultrasound of the female pelvis Comparison: None provided Technique: Grayscale ultrasound with assistance of color Doppler. Transabdominal scanning performed for overall anatomy. Transvaginal scanning performed for better anatomic delineation. Findings: Technically difficult exam due to body habitus, limited visualization and evaluation of uterus and adnexa. The uterus is anteverted and appears normal in size, 7.9 x 3.0 x 2.2 cm, scar noted at the anterior lower uterine segment. The uterine fundus and body parenchyma are difficult to see, lower uterine segment to cervix are unremarkable. Endometrium is not convincingly seen. Ovaries are not visualized, no adnexal mass is seen. No free fluid. Impression: Very limited exam without acute finding, most of the uterus, endometrium and ovaries are not seen. This document has been electronically signed by: Germania Frye MD on 10/22/2025 13:33:26
--- OUTSIDE RECORDS SUMMARY | 2025-10-22 14:26 | XMS_ITS | Encounter Summary ---
Author Organization [employer] Address [address] [facility] [address] [place] [address] Care Team Providers Care Swat Team Member Name Role Phone Richa Jeter MD Primary Care Provider [phone] Jer Guerra PharmD Unavailable [phone] Encounter Details Date Type Department Care Team (Late Contact Info) Description 04/23/2023 Orders Only [facility] MEDICINE [address] [place] [address] Negin Flowers MD [address] [place] [address] Social History Tobacco Use Types Packs/Day Years [...] Description 10/25/2025 11:00 AM EST Medication Management [facility] MEDICINE [address] [place] [address] Jer Guerra, PharmD [address] [place] [address] 12/14/2025 11:00 AM EST Office Visit [facility] OPTOMETRY [address] [place] [address] Chago, Coltete, OD [address] [place] [address] documented as of this encounter Procedures Procedure Name Priority Date/Time Associated Diagnosis Comments XR FOOT 3+ VIEWS RIGHT Routine 04/22/2023 2:49 PM EDT documented in this encounter Results * XR Foot 3+ Views Right (04/22/2023 2:49 PM EDT) Anatomical Region Laterality Modality Lower Extremities, Foot Right [facility] 04/22/2023 2:49 PM EDT Narrative 04/22/2023 3:23 PM EDT [facility] [address] [place] [address] XRay Report Signed Patient: Pauly Mendoza MR#: [id number] : 1965 Acct:[id number] Age/Sex: 57 / F ADM Date: 04/22/23 [facility]: Negin Flowers MD Ordering Physician: Negin Flowers MD Date of Service: 04/22/23 Procedure(s): XR foot RT min 3V Accession Number(s): [id number] cc: Negin Flowers MD EXAMINATION: XR FOOT, [...] in OV> 04/22/23 1521 DD/ 1449 TD/TT: Crane Service Technician: RYLIE Procedure Note Donotuseinterpreter, Image - 05/19/2023 [facility] [address] [place] [address] XRay Report Signed Patient: Kip Mendoza#: [id number] : 1965Acct:[id number] Age/Sex: 57 / FADM Date: 04/22/23 Loc: [facility] Attending Dr: Negin Flowers MD Ordering Physician: Negin Flowers MD Date of Service: 04/22/23 Procedure(s): XR foot RT min 3V Accession Number(s): [id number] cc: Negin Flowers MD EXAMINATION: XR FOOT, [...] in OV> 04/22/23 1521 DD/ 1449 TD/TT: Crane Service Technician: RYLIE [facility] External Provider IMG XR PROCEDURES Final Result documented in this encounter Visit Diagnoses Not on filedocumented in this encounter Additional Health Concerns Assessment Noted Time PHQ-9 Depression Total Score: 4 12/31/19 23 11:23 AM EST documented as of this encounter Care Teams Swat Team Member Relationship Specialty Start Date End Date Richa Jeter MD [address] [place] [address] PCP - General Family Medicine 11/22/18 Jer Guerar, TrangD [address] [place] [address] Pharmacist Internal Medicine 10/08/23 documented as of this encounter
--- OUTSIDE RECORDS SUMMARY | 2025-10-22 14:26 | XMS_ITS | Encounter Summary ---
Author Organization [employer] Address [address] [facility] [address] [place] [address] Care Team Providers Care Polls Or Surveys Interviewer Name Role Phone Richa Jeter MD Primary Care Provider [phone] Jer Guerra PharmD Unavailable [phone] Reason for Referral * Consultation (Routine) - Canceled Specialty Diagnoses / Procedures Referred By Contdavid t Referred To Contact Pharmacy Diagnoses Primary hypertension Type 2 diabetes mellitus without complication, without long-term current use of insulin (HCC) Richa Jeter MD [address] [place] [address] Phone: tel: fax: Referral ID Status Reason Start Date Expiration Date V isits Requested Visits Authorized [id number] Canceled Consult and Treat 10/03/2024 10/03/2025 6 6 Encounter Details Date Type Department Care Team (Late st Contact Info) Description 10/03/2024 Orders Only [facility] MEDICINE [address] [place], [place] [phone] Richa Jeter MD [address] [place], [place] [phone] Primary hypertension (Primary Dx); Type 2 diabetes [...] Description 10/25/2025 11:00 AM EST Medication Management [facility] [address] [place] [address] Jer Guerra, PharmD [address] [place] [address] 12/14/2025 11:00 AM EST Office Visit [facility] OPTOMETRY [address] [place] [address] Colette Anders, OD [address] [place] [address] Scheduled Referrals Name Type Priority Associated Diagnoses Orde r Schedule Referral to Pharmacy CD Outpatient Referral Routine Primary hypertension Type 2 diabetes mellitus without complication, without long-term current use of insulin ([facility]) Ordered: 10/03/2024 documented as of this encounter Goals Goal Patient Goal Type Associated Problems Recent Progress Patient-Stated? Author Blood Pressure < 140/90 Blood Pressure 133/80( 025 11:51 AM EDT) No Jer Guerra, Gopi documented as of this encounter Visit Diagnoses Diagnosis Primary hypertension- Primary Unspecified essential hypertension Type 2 diabetes mellitus without complication, without long-term current use of insulin ([facility]) documented in this encounter Additional Health Concerns Assessment Noted Time PHQ-9 Depression Total Score: 7 06/29/20 24 11:26 AM EDT documented as of this encounter Care Teams Polls Or Surveys Interviewer Relationship Specialty Start Date End Date Richa Jeter MD [address] [place] [address] PCP - General Family Medicine 11/22/18 Jer Guerra, PharmD [address] [place] [address] Pharmacist Internal Medicine 10/08/23 documented as of this encounter
--- OUTSIDE RECORDS SUMMARY | 2025-10-22 14:27 | XMS_ITS | Encounter Summary ---
Author Organization [employer] Address [address] [facility] [address] [place] [address] Care Team Providers Care Media Supervisor Name Role Phone Richa Jeter MD Primary Care Provider [phone] Jer Guerra PharmD Unavailable [phone] Reason for Visit * Reason Onset Date Comments november recall 10/22/2025 Encounter Details Date Type Department Care Team ([facility] st Contact Info) Description 10/22/2025 Telephone [facility] MEDICINE [address] [place] [address] Richa Jeter MD [address] [place] [address] november recall Social History Tobacco Use Types Packs/Day Years [...] encounter Miscellaneous Notes * Telephone Encounter - Lucy Nunes MA - 10/22/2025 11:20 AM EST .Telephone call to patient to schedule a recall appointment. No answer, Left voicemail to return call to clinic.. Recall letter sent. Visit type: Pap Appointment notes: PAP Month due: November With: [place] Please schedule appointment above if patient returns call documented in this encounter Plan of Treatment Upcoming Encounters Date Type Department Care Team (Late st Contact Info) Description 10/25/2025 11:00 AM EST Medication Management [facility] MEDICINE [address] [place] [address] Jer Guerra, PharmD [address] [place] [address] 12/14/2025 11:00 AM EST Office Visit [facility] OPTOMETRY [address] [place] [address] Colette Anders, OD [address] [place] [address] documented as of this encounter Goals Goal Patient Goal Type Associated Problems Recent Progress Patient-Stated? Author Blood Pressure < 140/90 Blood Pressure 133/80( 025 11:51 AM EDT) No Jer Guerra, PharmD Help patients manage their type 2 diabetes Care Plan Help patients manage their type 2 diabetes Lucy Magdaleno MA Weekly blood pressure task Care Plan Weekly blood pressure task No Lucy Nunes MA Help patients manage their type 2 diabetes Care Plan Help patients manage their type 2 diabetes No Lucy Nunes MA Patient has chronic kidney disease Care Plan Patient has chronic kidney disease No Lucy Nunes MA Weekly blood pressure task Care Plan Weekly blood pressure task No Lucy Nunes MA Patient has chronic kidney disease Care Plan Patient has chronic kidney disease No Lucy Nunes MA documented as of this encounter Visit Diagnoses Not on filedocumented in this encounter Additional Health Concerns Active Problems Noted Date Diagnosed Date Help patients manage their type 2 diabetes 10/22 Weekly blood pressure task 10/22/2025 Help patients manage their type 2 diabetes 10/22 Patient has chronic kidney disease 10/22/2025 Weekly blood pressure task 10/22/2025 Patient has chronic kidney disease 10/22/2025 Assessment Noted Time PHQ-9 Depression Total Score: 8 06/04/20 25 10:04 AM EDT documented as of this encounter Care Teams Media Supervisor Relationship Specialty Start Date End Date Richa Jeter MD [address] [place] [address] PCP - General Family Medicine 11/22/18 Jer Guerra, PharmD [address] [place] [address] Pharmacist Internal Medicine 10/08/23 documented as of this encounter
--- OUTSIDE RECORDS SUMMARY | 2025-10-22 14:27 | XMS_ITS | Clinical Summary ---
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 90 tablet 3 Active ibuprofen 800 MG tablet TAKE 1 TABLET BY MOUTH EVERY 8 HOURS IF NEEDED FOR MILD PAIN OR MODERATE PAIN. 90 tablet 025 Active ibuprofen 800 MG tablet TAKE 1 TABLET BY MOUTH EVERY 8 HOURS IF NEEDED FOR MILD PAIN OR MODERATE PAIN. 90 tablet 025 10/01 Discontinued Active Problems Problem Noted Date Diagnosed Date Pelvic pain 08/31/2025 Carpal tunnel syndrome 06/29/2024 Assessment & Plan [...] & Plan (08/23/2025 5:55 AM EDT): -GI: [facility] -Last abdominal US performed on 03/07/25. Hepatic steatosis, no focal lesion or cirrhosis. The mean shear velocity is 1.23 m/s -FIB4 index 1.56 -Fibrosis test 08/11/24 Stage F0 -Avoid hepatotoxic drugs -Continue working on lifestyle modfications -Discussed about GLP1 RA pros and cons. Assessment & Plan (06/04/2025 1:06 PM EDT): -GI: [facility] -Last abdominal US performed [...] active. 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 Pt has already tried acupuncture and physical [...] active. 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 Pt has already tried acupuncture and physical [...] active. 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 Pt has already tried acupuncture and physical therapy. Continue judicious use of APAP prn. Previously tried medications: tramadol; cyclobenzaprine; gabapentin; tizanidine Continue lidocaine topical, which has been effective Assessment & Plan (01/01/2023 7:00 AM EST): Consider consulting her psychiatrist for changing sertraline to duloxetine, if her symptoms worsen. Encouraged to stay physically active. 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 Pt has already tried acupuncture and physical [...] today, continue monitoring BP and fu with [facility]N clinic on 01/29, consider changing metoprolol to a non selective B-jignesh. Order sleep study. Assessment & Plan (01/18/2024 4:11 PM EST): Uncontrolled x 1w, it had previously improved with increased dose of metoprolol. No change in meds today, continue monitoring BP and fu with [facility] HTN clinic on 01/29, consider changing metoprolol [...] 2 diabetes mellitus 09/23/2015 Assessment & Plan (08/31/2025 3:32 PM EDT): - Current A1c: 6.7% 04/25/25 -Previous A1C: 7.6% on 10/09/24 -Continue working on lifestyle modification. -Continue SMBG. -Continue Metformin ER 1,000mg BID -Continue dapagliflozin (Farxiga) 5 mg -Consider combining metformin and dapagliflozin to decrease pill burden -Discussed about GLP-1RA. Pt is hesitant to [...] 015 Lumbar spondylosis 03/20/2015 Trochanteric bursitis 03/20/2015 Depression 05/24/2014 Disseminated idiopathic skeletal hyperostosis Assessment & Plan (01/01/2023 6:59 AM EST): -previously followed by rheumatology service; discharged due to no change in treatment plan -Continue judicious use of APAP prn. -Restart lidocaine topical; consider diclofenac topical -Previously tried medications: tramadol; cyclobenzaprine; gabapentin; tizanidine -Previously tried acupuncture and physical therapy -Encouraged to stay physically active Mixed anxiety and depressive disorder 06/02/2013 Assessment & Plan (08/31/2025 3:39 PM EDT): - PHQ-9 score 8 on 06/04/2025; NANCY-7 score 8 on 06/04/2025 -[facility] provider: Dr. Diamond MEREDITH -Current medications: Clonazepam; sertraline; zolpidem -Continue current treatment plan. -She was able to contract her safety today. Assessment & Plan (06/11/2025 5:59 PM EDT): - PHQ-9 score 1 on 06/04/2025; NANCY-7 score 8 on 06/04/2025 -[facility] provider: Dr. Diamond MEREDITH -Current medications: Clonazepam; sertraline; zolpidem -Continue current treatment plan. -She was able to contract her safety today. Assessment & Plan (11/06/2024 6:03 PM EST): -[facility] provider: Dr. Diamond MEREDITH -Current medications: lorazepam; sertraline; zolpidem -Continue current treatment plan. -She was able to contract her safety today. Assessment & Plan (06/29/2024 11:32 AM EDT): -[facility] provider: Dr. Diamond MEREDITH -Current medications: lorazepam; sertraline -Continue current treatment plan. -She was able to contract her safety today. Assessment & Plan (01/03/2024 9:09 AM EST): -[facility] provider: Dr. Diamond MEREDITH -Current medications: lorazepam; sertraline -Continue current treatment plan. -She was able to contract her safety today. Assessment & Plan (03/31/2023 10:14 AM EDT): -[facility] provider: Dr. Diamond MEREDITH -Current medications: lorazepam; sertraline -Currently grieving. -Continue current treatment plan. -She was able to contract her safety today. Assessment & Plan (12/31/2022 11:36 AM EST): -[facility] provider: Dr. Diamond MEREDITH -Current medications: lorazepam; sertraline -Currently grieving. -Continue current treatment plan. -She was able to contract her safety today. Abdominal hernia without obstruction or gangrene 03/01/2013 Constipation 08/31/2012 Assessment & Plan (08/31/2025 3:36 PM EDT): -followed by [facility] GI -Fiber-rich diet -Continue Miralax and bisacodyl -Colonoscopy on 12/30/23 Assessment & Plan (01/03/2024 8:59 AM EST): -followed by [facility] GI -Fiber-rich diet -Continue Miralax and Dulolax -Colonoscopy on 12/30/23 Assessment & Plan (07/05/2023 1:01 PM EDT): -followed by [facility] GI -Fiber-rich diet -Continue Miralax and Dulolax Assessment & Plan (03/31/2023 5:14 PM EDT): -followed by [facility] GI -Fiber-rich diet -Continue Miralax and Dulolax Assessment & Plan (01/01/2023 7:04 AM EST): -followed by [facility] GI -Fiber-rich diet -Continue Miralax and Dulolax Chronic abdominal pain 08/31/2012 Assessment & Plan (11/06/2024 1:06 PM EST): - following with GI - colonoscopy / EGD done on 12/30/23 with [facility] GI Assessment & Plan (07/05/2023 1:00 PM EDT): - following with GI - currently having a new abdominal pain with increased BM - check H. Pylori - recommended to go to [facility] GI office to schedule [...] Gastroesophageal reflux disease 05/11/2012 Assessment & Plan (08/31/2025 3:36 PM EDT): -Followed by GI -Recently switched from omeprazole to pantoprazole with good effect -Continue pantoprazole 40 mg daily -EGD in Dec 2023 Assessment & Plan (03/28/2024 1:08 PM EDT): [...] syndrome) 05/11/2012 Hypercholesterolemia 04/14/2012 Assessment & Plan (08/31/2025 3:31 PM EDT): - Current medication: rosuvastatin 20 mg at bedtime - Treatment history: previously on simvastatin for approximately 20 years. Changed in May 2025 - Last lipid profile 08/20/2025 - Continue working on lifestyle modification Assessment [...] Encounters Date Type Department Care Team Description 10/22/2025 Telephone [facility] [address] [place] [address] Richa Jeter MD november09/30/2025 Refill [facility] [address] [place] [address] Richa Jeter MD 09/02/2025 Refill [facility] [address] [place] [address] Richa Jeter MD 08/27/2025 Orders Only [facility] [address] [place] [address] Richa Jeter MD 08/23/2025 11:30 AM EDT Office Visit [facility] [address] [place] [address] Richa Jeter MD Primary hypertension (Primary Dx); Hypercholesterolemia; Type 2 diabetes mellitus without complication, without long-term current use of insulin (HCC); Metabolic dysfunction-associated steatotic liver disease (MASLD); Irritable bowel syndrome with constipation; Chronic idiopathic constipation; Gastroesophageal reflux disease, unspecified whether esophagitis present; Encounter for immunization; Class 1 obesity due to excess calories with serious comorbidity and body mass index (BMI) of 31.0 to 31.9 in adult; Current moderate episode of major depressive disorder, unspecified whether recurrent (CMS/HCC) (HCC); Mixed anxiety and depressive disorder; Pelvic pain 08/23/2025 Travel 2025 Telephone [facility] [address] [place] [address] Richa Jeter MD chart prep 08/21/2025 Orders Only [facility] [address] [place] [address] Richa Jeter MD 08/20/2025 Orders Only [facility] [address] [place] [address] Richa Jeter MD 08/06/2025 Refill [facility] [address] [place] [address] Richa Jeter MD 08/04/2025 Refill [facility] [address] [place] [address] Richa Jeter MD Type 2 diabetes mellitus without complications (CMS/BLU); Essential (primary) hypertension from Last 3 Months Immunizations Immunization Administration Dates Next Due DTaP 08/18/2010 Hep A, Adult 06/04/2025,11/06/2024 Hep B, adult 10/07/2015,06/25/2015,03/20/2015 Influenza injectable quadriv alent IIV4 with preservative 08/31/2018,11/17/2017,10/07/2015 Influenza injectable quadriv alent preservative free 10/04/2023,12/31/2022,09/04/2021,08/02,10/05/2019,11/03/2016 Influenza, IIV3, injectable 09/25/2014,0 08/05/2011,08/18/2010,08/09,2008,08/05/2007,08/26/2006 ,11/17/2004,08/31/2003,09/18/2002 Influenza, Split (incl. [place] fied surface antigen) 08/15/2014,09/13/2013,08/31/2012 Influenza, seasonal, injecta ble, preservative free 08/23/2025,11/06/2024,10/19/2005 Moderna Covid-19 Vaccine 12+ 12/31/2022 Pneumococcal Conjugate [...] Description 10/25/2025 11:00 AM EST Medication Management [facility] [address] [place] [address] Jer Guerra, PharmD [address] [place] [address] 12/14/2025 11:00 AM EST Office Visit [facility] OPTOMETRY [address] [place] [address] Colette Anders, OD [address] [place] [address] Health Maintenance Due Date Last Done Comments CT Colonography 1965 FIT DNA/Cologuard 1965 FIT 1965 FOBT 1965 Sigmoidoscopy 1965 RSV Patients and Patients Aged 60 years or older (1 - Risk 50-74 years 1-dose series) 2013 Zoster Vaccines (1 of 2) 2013 Pap Smear 03/16/2025 03/16/2022 COVID-19 Vaccine ( season) 2025 12/31/2022, 12/05/2021, 02/21/2021, Additional history exists Alcohol/Substance Use Screening 11/06/2025 11/06/2024 Diabetes: Hemoglobin A1C 11/23/2025 025, 04/25/2025, 01/17/2025, Additional history exists Depression Screening 06/04/2026 06/04/2025, 06/04/20 Diabetes: Foot Exam 06/04/2026 06/04/2025, 06/04/2025, 06/04/2025, Additional history exists Disability Screening 06/04/2026 06/04/2025 SDOH Screening 06/04/2026 06/04/2025 Lipid Panel 08/20/2026 08/20/2025, 07/25, 03/28/2024, Additional history exists Diabetes: Urine Protein Screening 08/21/2026 08/21/2025, 03/28/2024, 04/02/2023, Additional history exists Tobacco Screening 08/31/2026 08/31/2025 Eye Exam 10/23/2026 10/23/2024, 1212/2023, 10/23/2024, Additional history exists Cervical Cancer Screening 03/16/2027 HPV/Cotest 03/16/2027 03/16/2022, 08/04/2016 Mammogram 08/27/2027 08/27/2025, 07/25, 08/16/2023, Additional history exists Colonoscopy 12/30/2028 12/30/2023, 07/11/2018 Colorectal Cancer Screening 12/30/2028 DTaP/Tdap/Td Vaccines (4 - Td or Tdap) 12/31/2032 12/31/2022, 08/18/2010, 08/18/2010, Additional history exists Hepatitis B Vaccines Completed 10/07/2015, 06/25/2015, 03/20/2015 HIV Screening Completed 07/31/2022, 12/28/2019 Hepatitis C Screening Completed 07/31/2022, 020 Pneumococcal Vaccine: 50+ Years Completed 06/29/2024, 07/24/2014, 08/09/2009, Additional history exists Hepatitis A Vaccines Completed 06/04/2025, 11/06/20 24 Influenza Vaccine Completed 08/23/2025, , 10/04/2023, Additional history exists HIB Vaccines Aged Out [...] type 2 diabetes No Lucy Nunes MA Weekly blood pressure [...] chronic kidney disease No Lucy Nunes MA Procedures Procedure Name Priority Date/Time Associated Diagnosis Comments US PELVIS TRANSVAGINAL Routine 1:33 PM EST Pelvic pain BI MAMMOGRAM SCREENING TOMOSYNTHESIS BILATERAL Routine 08/27/2025 8:10 AM EDT POCT GLYCATED HEMOGLOBIN, TOTAL Routine 08/23/2025 11:55 [...] METABOLIC PANEL Routine 08/20/2025 8:43 AM EDT HM COLONOSCOPY Routine 12/30/2023 ZZZ HISTORICAL HEPATITIS A,B,C PROFILE Routine 07/31/2022 4:21 PM EDT THINPREP IMAGING PAP AND HPV MRNA E6/E7 WITH REFLEX TO HPV 16,18/45 Routine 03/16/2022 2:00 PM EDT from Last 3 Months or Most Recently Relevant to Health Maintenance Results * US Pelvis Transvaginal (10/22/2025 1:33 PM EST) Anatomical Region Laterality Modality Pelvis Ultrasound 10/22/2025 1:33 PM EST Narrative 10/22/2025 1:34 PM EST [address] [address] Ultrasound Report Signed Patient: Pauly Mina MR#: [id number] : 1965 Acct:[id number] Age/Sex: 60 / F ADM Date: 10/22/25 Loc: HO.US Attending Dr: Richa Jeter MD Ordering Physician: Richa Jeter MD Date of Service: 10/22/25 Procedure(s): US pelvic and transvaginal Accession Number(s): [id number] cc: Richa Jeter MD Reason for Exam: pelvic pain CLINICAL HISTORY: pelvic pain Ultrasound of the female pelvis Comparison: None provided Technique: Grayscale ultrasound with assistance of color Doppler. Transabdominal scanning performed for overall anatomy. Transvaginal scanning performed for better anatomic delineation. Findings: Technically difficult exam due to body habitus, limited visualization and evaluation of uterus and adnexa. The uterus is anteverted and appears normal in size, 7.9 x 3.0 x 2.2 cm, scar noted at the anterior lower uterine segment. The uterine fundus and body parenchyma are difficult to see, lower uterine segment to cervix are unremarkable. Endometrium is not convincingly seen. Ovaries are not visualized, no adnexal mass is seen. No free fluid. Impression: Very limited exam without acute finding, most of the uterus, endometrium and ovaries are not seen. This document has been electronically signed by: Germania Frye MD on 10/22/2025 13:33:26 Dictated By: Germania Frye MD Signed By: <Electronically signed by Germania Frye MD in OV> 10/22/25 1334 DD/ 1333 TD/TT: 10/22/25 1333 Tours Captain: Procedure Note Donotuseinterpreter, Image - 10/22/2025 [place] [address] Ultrasound Report Signed Patient: Kip Mina#: [id number] : 1965Acct:[id number] Age/Sex: 60 / FADM Date: 10/22/25 Loc: HO.US Attending Dr: Richa Jeter MD Ordering Physician: Richa Jeter MD Date of Service: 10/22/25 Procedure(s): US pelvic and transvaginal Accession Number(s): [id number] cc: Richa Jeter MD Reason for Exam: pelvic pain CLINICAL HISTORY: pelvic pain Ultrasound of the female pelvis Comparison: None provided Technique: Grayscale ultrasound with assistance of color Doppler. Transabdominal scanning performed for overall anatomy. Transvaginal scanning performed for better anatomic delineation. Findings: Technically difficult exam due to body habitus, limited visualization and evaluation of uterus and adnexa. The uterus is anteverted and appears normal in size, 7.9 x 3.0 x 2.2 cm, scar noted at the anterior lower uterine segment. The uterine fundus and body parenchyma are difficult to see, lower uterine segment to cervix are unremarkable. Endometrium is not convincingly seen. Ovaries are not visualized, no adnexal mass is seen. No free fluid. Impression: Very limited exam without acute finding, most of the uterus, endometrium and ovaries are not seen. This document has been electronically signed by: Germania Frye MD on 10/22/2025 13:33:26 Dictated By: Germania Frye MD Signed By: <Electronically signed by Germania Frye MD in OV> 10/22/25 1334 DD/ 1333 TD/TT: 10/22/25 1333 Tours Captain: us Richa Jeter MD IMG US PROCEDURES Final Result * BI Mammogram Screening Tomosynthesis Bilateral (08/27/2025 8:10 AM EDT) Anatomical Region Laterality Modality Breast Bilateral Mammography 08/27/2025 8:10 AM EDT Narrative 09/02/2025 4:12 PM EDT [facility] [address] [place] [address] Mammography Report Signed Patient: Pauly Mina MR#: [id number] : 1965 Acct:[id number] Age/Sex: 60 / F ADM Date: 08/27/25 Loc: [facility] Attending Dr: Richa Jeter MD Ordering Physician: Richa Jeter MD Results: 1Negative Date of Service: 08/27/25 Follow Up: 1 Year From Orig inal Mammogram Procedure(s): MM tomosynthesis screening BI Accession Number(s): [id number] cc: Richa Jeter MD Reason For Exam: SCREENING EXAMINATION: MM SCREENING DIGITAL BREAST TOMOSYNTHESIS, BILATERAL CLINICAL INFORMATION: Screening. Asymptomatic. COMPARISON: Mammography: Comparison is made with available priors TECHNIQUE: Digital breast mammography with tomosynthesis is performed in both the craniocaudal and mediolateral oblique views along with computer-aided detection (CAD). FINDINGS: The breasts are almost entirely fatty. There are no significant masses, abnormal calcifications, or other abnormalities. MM/MM tomosynthesis screening BI IMPRESSION: No mammographic evidence of malignancy. ASSESSMENT: BI-RADS Category 1: Negative RECOMMENDATION: Routine annual mammography screening. 1 year F/U This examination should not preclude the clinical evaluation of a suspicious palpable abnormality. This patient's information was entered into a reminder system with a target due date for their next mammogram. Electronically signed by: Patsy Quintana DO 09/02/2025 04:09 PM EDT RP Dictated By: Patsy Quintana DO Signed By: <Electronically signed by Patsy Quintana DO in OV> 09/02/25 1609 DD/ 0810 TD/TT: 08/27/25 0820 Tours Captain: Procedure Note Donotuseinterpreter, Image - [facility]02/[facility] [address] [place] [address] Mammography Report Signed Patient: Kip Mina#: [id number] : 1965Acct:[id number] Age/Sex: 60 / FADM Date: 08/27/25 Loc: [facility] Attending Dr: Richa Jeter MD Ordering Physician: Richa Jeter MDResults: 1Negative Date of Service: 08/27/25Follow Up: 1 Year From Orig inal Mammogram Procedure(s): MM tomosynthesis screening BI Accession Number(s): [id number] cc: Richa Jeter MD Reason For Exam: SCREENING EXAMINATION: MM SCREENING DIGITAL BREAST TOMOSYNTHESIS, BILATERAL CLINICAL INFORMATION: Screening. Asymptomatic. COMPARISON: Mammography: Comparison is made with available priors TECHNIQUE: Digital breast mammography with tomosynthesis is performed in both the craniocaudal and mediolateral oblique views along with computer-aided detection (CAD). FINDINGS: The breasts are almost entirely fatty. There are no significant masses, abnormal calcifications, or other abnormalities. MM/MM tomosynthesis screening BI IMPRESSION: No mammographic evidence of malignancy. ASSESSMENT: BI-RADS Category 1: Negative RECOMMENDATION: Routine annual mammography screening. 1 year F/U This examination should not preclude the clinical evaluation of a suspicious palpable abnormality. This patient's information was entered into a reminder system with a target due date for their next mammogram. Electronically signed by: Patsy Quintana DO 09/02/2025 04:09 PM EDT RP Dictated By: Patsy Quintana DO Signed By: <Electronically signed by Patsy Quintana DO in OV> 09/02/25 1609 DD/ 0810 TD/TT: 08/27/25 0820 Tours Captain: us Richa Jeter MD IMG BI PROCEDURES Edited Result - Final * (ABNORMAL) POCT Hgb A1c (08/23/2025 11:55 AM EDT) Hemoglobin A1C 6.6(A) 4.0 - 5.7 % QC Media Lot # [id number] Lot# Expiration Date [id number] Blood 08/23/2025 11:5 5 AM EDT Richa Jeter MD POINT OF CARE TEST ENTER/EDIT OR DERABLES Final Result * POCT Glucose (08/23/2025 11:53 AM EDT) Glucose Blood, POC 113 60 - 200 mg/dL QC Media Lot # [id number] Lot# Expiration Date [id number] Blood Capillary blood specimen / Unknown 08/23/2025 11:53 AM EDT us Richa Jeter MD POINT OF CARE TEST ENTER/EDIT OR DERABLES Final Result * Albumin, Random Urine W/Creatinine (08/21/2025 8:20 AM EDT) Creatinine, Urine 99.12 mg/dL [facility] Microalbumin Urine 14.0 mg/L [facility] Microalbum Creatinine Ratio Ur 14.1 <30 ug/mg cr [facility] Comment:Albumin/Creatinine R atio Reference Ranges: Normal: < 30 ug/mg creatinine Microalbuminuria: 30 - 300 ug/mg creatinineClinical Albuminuria: > 300 ug/mg creatinine 08/21/2025 8:20 AM EDT 08/21/2025 11:23 AM EDT us Richa Jeter MD LAB URINE ORDERABLES Final Resul t [facility] [address] [place] [address] [phone] * (ABNORMAL) Lipid Panel, Standard (08/20/2025 8:43 AM EDT) Triglycerides 77 <150 mg/dL [facility] Comment:Desirable Triglyceri de: less than 150 mg/dLBorderline High Triglyceride 150-199 mg/dLHigh Triglyceride: 200-499 mg/dLVery High Triglyceride: greater than or equal to 5OO mg/dL Cholesterol 112 <200 mg/dL [facility] Comment:Desirable Cholestero l: less than 200 mg/dLBorderline High Cholesterol: 200-239 mg/dLHigh Cholesterol: greater than 239 mg/dL LDL Cholesterol Calculated 64 <100 mg/dL [facility] Comment:Desirable LDL: less than 100 mg/dLNear Optimal/Above Optimal LDL: 110- 129 mg/dLBorderline High LDL: 130-159 mg/dLHigh LDL: 160-189 mg/dLVery High LDL: greater than or equal to 190 mg/dL HDL Cholesterol 33(L) >40 mg/dL [facility] Comment:Desirable HDL: great er than 40 mg/dL Note: This HDL assay may give artificially low results in patients with liver disease. 08/20/2025 8:43 AM EDT 08/20/2025 11:13 AM EDT Richa Jeter MD LAB BLOOD ORDERABLES Final Resul t Performing Organization Address [facility] de Phone Number [facility] [address] [place] [phone] * (ABNORMAL) Basic Metabolic Panel (08/20/2025 8:43 AM EDT) Pathologist [facility] Sodium 140 135 - 145 mmol/L [facility] Potassium 4.1 3.3 - 5.1 mmol/L [facility] Chloride 103 96 - 108 mmol/L [facility] Carbon Dioxide 30(H) 22 - 29 mmol/L [facility] Anion Gap 11(L) 12 - 20 [facility] Urea Nitrogen (BUN) 17(H) 9 - 16 mg/dL [facility] Creatinine, Serum 0.78 0.5 - 1.4 mg/dL [facility] Estimated Glomerular Filt Rate >60 [facility] Comment:Chronic Kidney Disea se: Estimated GFR < 60 mL/min/[id number] Kidney Disease: Estimated GFR < 15 mL/min/1.73m2 Glucose 123(H) 60 - 115 mg/dL [facility] Calcium 10.2 8.4 - 10.2 mg/dL [facility] 08/20/2025 8:43 AM EDT 08/20/2025 11:13 AM EDT Richa Jeter MD LAB BLOOD ORDERABLES Final Resul t Performing Organization Address [facility] Co de Phone Number [facility] [address] [place] [phone] * Hm Colonoscopy (12/30/2023) Pathologist [facility] Colonoscopy Normal Normal Jodi Provider HEALTH MAINTENANCE Final Result * Hepatitis A,B,C Profile (07/31/2022 4:21 PM EDT) Pathologist [facility] Hepatitis B Core Antibody Nonreactive Nonreactive [facility] Hepatitis B Surface Antibody NONREACTIVE Nonreactive [facility] Comment:Nonreactive: < 8.00 mIU/mL Hepatitis B Surface Antigen Negative Negative [facility] Hepatitis C Antibody Nonreactive Nonreactive [facility] Comment: Antibodies to HCV not [...] of detection of this assay. [facility] Retail Sales Clerk HIV Ag/Ab Combo assay result and supplemental assay results should be interpreted in conjunction with the patient's clinical presentation, history and other laboratory results. If the results are inconsistent with clinical evidence, additional testing is suggested to confirm the result. 07/31/2022 4:21 PM EDT us Historical Provider MD HISTORICAL/NON ORDERABLE LABS Final Result [facility] [address] * THINPREP TIS PAP AND HPV mRNA E6/E7 WITH REFLEX TO HPV 16,18/45 (03/16/2022 2:00 PM EDT) Pathologist [facility] Clinical Information: None given [facility] COMMENT SEE COMMENT [facility] ON [...] along with historic and current clinical information. Comment: This Pap test has been evaluated with computer assisted technology. [facility] Backwinder: SEE COMMENT [facility] Comment: [facility], CT(ASCP) CT screening location: [address] [address] HPV nRNA E6/E7 Not Detected Not Detected [facility] Comment: Methodology: Lineman Apprentice-Mediated Amplification This assay detects E6/E7 viral messenger RNA (mRNA) from 14 high-risk HPV types (16,18,31,33,35,39,45,51,52,56,58,59,66,68). The analytical performance characteristics of this assay have been determined by [employer]. The modifications have not been cleared or approved by the FDA. This assay has been validated pursuant to the CLIA regulations and is used for clinical purposes. For additional information, please refer to http://education.Soci Ads/faq/CTZ512x9 (This link if provided for information/ educational [...] R esult [facility] [address] from Last 3 Months or Most Recently Relevant to Health Maintenance Additional Health Concerns Active Problems Noted Date Diagnosed Date Help patients manage their type 2 diabetes 10/22 Weekly blood pressure task 10/22/2025 Help patients manage their type 2 diabetes 10/22 Patient has chronic kidney disease 10/22/2025 Weekly blood pressure task 10/22/2025 Patient has chronic kidney disease 10/22/2025 Insurance [facility] CARE < 65 [place] [address] [id number] * Guarantor: Pauly Mina Account Type Relation to Patient Date of Phone Billing Address Personal/Family Self [address] [place] [address] * Guarantor: Pauly Mina Account Type Relation to Patient Date of Phone Billing Address Personal/Family Self [address] [place] [address] * Guarantor: Pauly Mina Account Type Relation to Patient Date of Phone Billing Address Personal/Family Self [address] [place] [address] Care Teams Ceramics Technician Relationship Specialty Start Date End Date Richa Jeter MD [address] [place] [address] PCP - General Family Medicine 11/22/18 Jer Guerra, TrangD [address] [place] [address] Pharmacist Internal Medicine 10/08/23
--- OUTSIDE RECORDS SUMMARY | 2025-10-22 14:27 | XMS_ITS | Encounter Summary ---
Author Organization [employer] Address [address] [facility] [address] [place] [address] Care Team Providers Care Honing Machine Set Up Operator Tool Name Role Phone Richa Jeter MD Primary Care Provider [phone] Jer Guerra PharmD Unavailable Reason for Visit * Reason Comments Med Refill Encounter Details Date Type Department Care Team ([facility] st Contact Info) Description 03/07/2025 Refill [facility] MEDICINE [address] [place] [address] Lisa Sims MD [address] [place] [address] Social History Tobacco Use Types Packs/Day Years [...] Description 10/25/2025 11:00 AM EST Medication Management [facility] MEDICINE [address] [place] [address] Jer Guerra PharmD [address] [place] [address] 12/14/2025 11:00 AM EST Office Visit [facility] OPTOMETRY [address] [place] [address] Colette Anders, OD 230 [place] [address] documented as of this encounter Goals Goal [...] documented as of this encounter Care Teams Honing Machine Set Up Operator Tool Relationship Specialty Start Date End Date Richa Jeter MD [address] [place] [address] PCP - General Family Medicine 11/22/18 Jer Guerra, PharmD [address] [facility] [place] [address] Pharmacist Internal Medicine 10/08/23 documented as of this encounter
--- OUTSIDE RECORDS SUMMARY | 2025-10-22 14:27 | XMS_ITS | Encounter Summary ---
Author Organization [employer] Address [address] [facility] [address] [address] Care Team Providers Care Health Informatics Advisor Name Role Phone Richa Jeter MD Primary Care Provider Jer Guerra PharmD Unavailable [phone] Reason for Visit * Reason Comments Med Refill Encounter Details Date Type Department Care Team ([facility] st Contact Info) Description 02/04/2025 Refill [facility] MEDICINE [address] [place], [place] [phone] Richa Jeter MD [address] [place] [address] Social History Tobacco Use Types Packs/Day Years [...] Description 10/25/2025 11:00 AM EST Medication Management [facility] MEDICINE [address] [place] [address] Jer Guerra PharmD [address] [place] [address] 12/14/2025 11:00 AM EST Office Visit [facility] OPTOMETRY [address] [place] [address] Chago, Colette, OD [address] [place] [address] documented as of this encounter Goals Goal [...] documented as of this encounter Care Teams Health Informatics Advisor Relationship Specialty Start Date End Date Richa Jeter MD [address] [place] [address] PCP - General Family Medicine 11/22/18 Jer Guerra, TrangD [address] [place] [address] Pharmacist Internal Medicine 10/08/23 documented as of this encounter
--- OUTSIDE RECORDS SUMMARY | 2025-10-22 14:27 | XMS_ITS | Encounter Summary ---
Author Organization [employer] Address [address] [facility] [address] [place] [address] Care Team Providers Care Roller Coaster Operator Name Role Phone Richa Jeter MD Primary Care Provider [phone] Jer Guerra PharmD Unavailable [phone] Reason for Visit * Reason Comments Med Refill Encounter Details Date Type Department Care Team (Late Contact Info) Description 02/26/2023 Refill [facility] MEDICINE [address] [place] [address] Richa Jeter MD [address] [place] [address] Type 2 diabetes mellitus without complication, without long-term current use of insulin ([facility]) Social History Tobacco Use Types Packs/Day [...] 10/25/2025 11:00 AM EST Medication Management [facility] MEDICINE [address] [place] [address] Jer Guerra, PharmD [address] [place] [address] 12/14/2025 11:00 AM EST Office Visit [facility] OPTOMETRY [address] [place] [address] Chago, Colette, OD [address] [place] [address] documented as of this encounter Visit Diagnoses Diagnosis Type 2 diabetes mellitus without complication, without long-term current use of insulin (HCC) documented in this encounter Additional Health Concerns Assessment Noted Time PHQ-9 Depression Total Score: 4 12/31/19 23 11:23 AM EST documented as of this encounter Care Teams Roller Coaster Operator Relationship Specialty Start Date End Date Richa Jeter MD [address] [place] [address] PCP - General Family Medicine 11/22/18 Jer Guerra, PharmD [address] [place] [phone] Pharmacist Internal Medicine 10/08/23 documented as of this encounter
--- OUTSIDE RECORDS SUMMARY | 2025-10-22 14:27 | XMS_ITS | Encounter Summary ---
Author Organization [employer] Address [address] [facility] [address] [place] [address] Care Team Providers Care Setter Cold Rolling Machine Name Role Phone Richa Jeter MD Primary Care Provider [phone] Jer Guerra PharmD Unavailable [phone] Reason for Visit * Reason Comments Med Refill Encounter Details Date Type Department Care Team ([facility] st Contact Info) Description 02/04/2025 Refill [facility] MEDICINE [address] [place], [place] [phone] Karen Becker MD [address] [place] [address] Type 2 diabetes mellitus without complication, without long-term current use of insulin ([facility]) Social History Tobacco Use Types [...] Description 10/25/2025 11:00 AM EST Medication Management [facility] MEDICINE [address] [place] [address] Jer Guerra, PharmD [address] [place] [address] 12/14/2025 11:00 AM EST Office Visit [facility] OPTOMETRY [address] [place] [address] Chago, Colette, OD [address] [place] [address] documented as of this encounter Goals Goal [...] documented as of this encounter Care Teams Setter Cold Rolling Machine Relationship Specialty Start Date End Date Richa Jeter MD [address] [place] [address] PCP - General Family Medicine 11/22/18 Jer Guerra, TrangD [address] [place] [address] Pharmacist Internal Medicine 10/08/23 documented as of this encounter
--- OUTSIDE RECORDS SUMMARY | 2025-10-22 14:27 | XMS_ITS | Encounter Summary ---
Author Organization [employer] Address [address] [facility] [address] [place] [address] Care Team Providers Care Assistant Professor Of Religion Name Role Phone Richa Jeter MD Primary Care Provider [phone] Jer Guerra PharmD Unavailable [phone] Reason for Visit * Reason Comments Med Refill Encounter Details Date Type Department Care Team ([facility] st Contact Info) Description 03/07/2025 Refill [facility] MEDICINE [address] [place], [place] [phone] Karen Becker MD [address] [place] [address] Type 2 diabetes mellitus without complication, without long-term current use of insulin ([facility]) Social History Tobacco Use Types Packs/Day [...] 11:00 AM EST Medication Management [facility] MEDICINE [address] [place] [address] Jer Guerra, PharmD [address] [place] [address] 12/14/2025 11:00 AM EST Office Visit [facility] OPTOMETRY [address] [place] [address] Chago, Colette, OD [address] [place] [address] documented as of this encounter Goals Goal [...] documented as of this encounter Care Teams Assistant Professor Of Religion Relationship Specialty Start Date End Date Richa Jeter MD [address] [place] [address] PCP - General Family Medicine 11/22/18 Jer Guerra, TragnD [address] [place] [address] Pharmacist Internal Medicine 10/08/23 documented as of this encounter
--- OUTSIDE RECORDS SUMMARY | 2025-10-22 14:27 | XMS_ITS | Encounter Summary ---
Author Organization [employer] Address [address] [facility] [address] [place] [address] Care Team Providers Care Fourth Mate Name Role Phone Richa Jeter MD Primary Care Provider [phone] Jer Guerra PharmD Unavailable [phone] Reason for Referral * Consultation (Routine) - Authorized Specialty Diagnoses / Procedures Referred By Contac t Referred To Contact Pharmacy Diagnoses Type 2 diabetes mellitus without complication, without long-term current use of insulin (HCC) Primary hypertension Richa Jeter MD [address] [place] [address] Phone: tel: fax: Referral ID Status Reason Start Date Expiration Date Visits Requested Visits Authorized [id number] Authorized Consult and Treat 05/04/2025 05/04/2026 6 6 Encounter Details Date Type Department Care Team (Late st Contact Info) Description 05/04/2025 Orders Only [facility] MEDICINE [address] [place], [place] [phone] Richa Jeter MD [address] [place], [place] [phone] Type 2 diabetes mellitus without complication, without [...] Description 10/25/2025 11:00 AM EST Medication Management [facility] MEDICINE [address] [place] [address] Jer Guerra, PharmD [address] [place] [address] 12/14/2025 11:00 AM EST Office Visit [facility] OPTOMETRY [address] [place] [address] Colette Anders, OD [address] [place] [address] Scheduled Referrals Name Type Priority Associated Diagnoses Orde r Schedule Referral to Pharmacy CDTM Outpatient Referral Routine Type 2 diabetes mellitus without complication, without long-term current use of insulin ([facility]) Primary hypertension Ordered: 05/04/2025 documented as of this encounter Goals Goal Patient Goal Type Associated Problems Recent Progress Patient-Stated? Author Blood Pressure < 140/90 Blood Pressure 133/80( 025 11:51 AM EDT) No Jer Guerra, Gopi documented as of this encounter Visit Diagnoses Diagnosis Type 2 diabetes mellitus without complication, without long-term current use of insulin ([facility])- Primary Primary hypertension Unspecified essential hypertension documented in this encounter Additional Health Concerns Assessment Noted Time PHQ-9 Depression Total Score: 7 06/29/20 24 11:26 AM EDT documented as of this encounter Care Teams Fourth Mate Relationship Specialty Start Date End Date Richa Jeter MD [address] [place] [address] PCP - General Family Medicine 11/22/18 Jer Guerra, TrangD [address] [place] [address] Pharmacist Internal Medicine 10/08/23 documented as of this encounter
== END 2025-10-22 11:02 | disposition home or self-care (01) ==
LOC: HO.US 11:01
PROVIDERS: PCP Family Medicine; Visit Provider Family Medicine
DX: R10.20 Pelvic and perineal pain unspecified side (principal)
CPT/HCPCS: 76830; 76856

== ENCOUNTER → 2025-10-22 11:04 | Outpatient (BNV) | payer OTHER, SELFPAY | PROVIDERS: PCP Family Medicine; Visit Provider Radiology Diagnostic Radiology | DX: R10.20 Pelvic and perineal pain unspecified side (principal) | CPT/HCPCS: 76830; 76856 ==

== ENCOUNTER 2025-10-26 11:32 | Outpatient (AMB) | payer OTHER, SELFPAY ==
--- NOTE | 2025-10-26 11:35 | A.OFFVIS_ITS ---
Vital Signs 10/26/25 11:36 Height 5 ft 2 in Weight 167 lb BMI 30.5 BP 132/62 Blood Pressure Location Rt brachial Position Sitting Pulse 64 Pulse Source Pulse Oximeter Pulse Oximetry (%) 100 Oxygen Delivery Method Room Air Intake Visit Reasons: 3m GERD review imaging Intake Note: ESTABLISHED PATIENT for mgmt of GERD + Fatty liver. CC; Pt denies any new GI concerns or sx at this time. Confirms current Rx are working as intended. Rounder And Backer Required: No Accompanied by: Family/Other Allergies No Known Allergies (No Known Allergies*) Allergy (Verified 10/26/25 11:36) HPI HPI 3m GERD review imaging: Details: LAST VISIT: IBS (irritable colon syndrome) GERD (gastroesophageal reflux disease) Elevated transaminase measurement Steatosis of liver Hepatomegaly Plan Patient will continue taking Dulcolax. Will add Colace. Patient will take it together with Dulcolax. She can continue taking MiraLax daily. Increase fluid intake and activity to promote better bowel motility. Continue weight loss as discussed. Will order labs next visit. Discussed with patient low fat, low salt, low carb and high-protein diet. Avoid dietary triggers to avoid reflux. Continue pantoprazole daily. Patient will return to the office in 3 months, sooner on as needed basis. She is agreeable to this plan and verbalizes understanding of instructions. She was given the opportunity to ask questions and all questions answered. ? Thank you for allowing me to participate in her care New magnesium oxide 400 mg PO DAILY 90 caps 2RF K59.04 docusate sodium 200 mg (2 x 100 mg) PO BEDTIME 180 caps 3RF K59.00 Refilled bisacodyl (Dulcolax (bisacodyl)) 10 mg (2 x 5 mg) PO BEDTIME 90 tabs 4RF K59.00 TODAY'S VISIT Patient is here today for follow-up. Patient reports that she has been doing better since last visit. Patient is taking Dulcolax almost every day and reports that she is doing better with bowel movements. Patient reports that pain in the left upper quadrant has subsided. Now that she is moving her bowels daily. Patient holds Dulcolax if she has loose stools. Patient reports that she was unable to take Mag oxide S the tablet was to take for her to swallow. Patient denies melena, hematochezia, unintentional weight loss or ribbon like stools. Patient reports that she has been doing better except for left lower quadrant pain occasionally. Patient was sent by PCP for ultrasound. Ultrasound done few days ago. Unable to visualize ovaries to do patient's body habitus. Reviewed patient colonoscopy report no sigmoid diverticulosis. Patient had normal colon. Patient is taking pantoprazole daily. Patient reports that symptoms of acid reflux are suppressed. Patient denies any dyspepsia, dysphagia or odynophagia is [facility] Medical History Elevated cholesterol HTN (hypertension) Diabetes IBS (irritable colon syndrome) GERD (gastroesophageal reflux disease) Surgical History History of surgery on wrist History of carpal tunnel surgery of left wrist Hx of tubal ligation Hx of umbilical hernia repair Hx of ventral hernia repair Hx of laparoscopy Hx of colonoscopy History of esophagogastroduodenoscopy (EGD) Family History Mother Colon cancer Father Kidney disease Social History Patient Tobacco Use Status: Never used Tobacco Review of Systems Const Denies weight gain and Denies weight loss ENT Reports no additional complaints, Denies dysphagia and Denies odynophagia Card Reports no additional complaints Resp Reports no additional complaints GI Denies abdominal pain, Denies belching, Denies melena, Denies bloating, Denies change in bowel habits, Reports constipation (Occasional, uses Dulcolax), Denies dysphagia, Denies excessive flatus, Denies dyspepsia, Denies heartburn, Denies diarrhea, Denies loose stools, Denies nausea, Denies odynophagia and Denies vomiting Musc Reports no additional complaints Neuro Reports no additional complaints Psych Reports no additional complaints Endo Reports no additional complaints Physical Exam Const General: healthy appearing and no acute distress Nutritional Appearance: obese Orientation/consciousness: patient oriented x3 Resp Effort & Inspection: normal respiratory effort, able to speak in complete sentences, no tracheal deviation and symmetric chest movement Auscultation: clear to auscultation bilaterally Cardio Rate: regular rate GI Inspection: Yes normal to inspection, No distended and Yes obesity Palpation (GI): Soft to palpation, not firm, nontender and No hepatosplenomegaly present Auscultation: normal bowel sounds General: Yes no CVA tenderness Back/Spine/Pelvis Back: no CVA tenderness Skin General skin exam: elasticity normal, turgor normal and dry skin Neuro General: patient oriented x3 Psych Appearance: grossly normal Mental Status: mental status grossly normal Assessment & Plan Assessment & Plan (1) IBS (irritable colon syndrome): Code(s): K58.9 - Irritable bowel syndrome, unspecified Category: Medical Qualifiers: Irritable bowel syndrome type: with constipation Qualified Code(s): K58.1 - Irritable bowel syndrome with constipation (2) GERD (gastroesophageal reflux disease): Code(s): K21.9 - Gastro-esophageal reflux disease without esophagitis Category: Medical Qualifiers: Esophagitis presence: esophagitis presence not specified Qualified Code(s): K21.9 - Gastro-esophageal reflux disease without esophagitis (3) Elevated transaminase measurement: Code(s): R74.01 - Elevation of levels of liver transaminase levels (4) Steatosis of liver: Code(s): K76.0 - Fatty (change of) liver, not elsewhere classified (5) Hepatomegaly: Code(s): R16.0 - Hepatomegaly, not elsewhere classified Plan Patient will continue current management of her constipation. Increase fluid intake and activity to promote bowel motility. Increase fiber in her diet. Patient will continue taking pantoprazole. Avoid dietary triggers and late night snacking. Staying upright for minimum 3 hours after meals discussed with patient. Discussed with patient low-fat, low carb, low-salt and high-protein diet. Patient will go for another ultrasound with elastography in 6 months before her next appointment and she will repeat liver panel and liver fibrosis panel. Patient will call us if she will have any GI concerning symptoms. Patient is agreeable to this plan and verbalizes understanding of instructions. She was given the opportunity to ask questions and all questions answered. Thank you for allowing me to participate in her care Orders: Orders Liver Panel 6 Months R74.01 - Elevation of levels of liver transaminase levels Liver Fibrosis Pnl 6 Months K76.0 - Fatty (change of) liver, not elsewhere classified US abdomen garcia w elastography 6 Months K76.0 - Fatty (change of) liver, not elsewhere classified Medications: New polyethylene glycol 3350 17 grams PO DAILY PRN 510 grams 0RF constipation Refilled pantoprazole take one tablet half an hour before breakfast 40 mg PO DAILY 90 tabs 3RF K21.9 - Gastro-esophageal reflux disease without esophagitis Discontinued magnesium oxide Discontinued Reason: Doctor's Order 400 mg PO DAILY 90 caps 2RF K59.04 - Chronic idiopathic constipation Coding Level of Care Code Est Pt Level 3 (06867) Diagnoses Irritable bowel syndrome with constipation K58.1 Irritable bowel syndrome type: with constipation Gastroesophageal reflux disease, unspecified whether esophagitis present K21.9 Esophagitis presence: esophagitis presence not specified Elevated transaminase measurement R74.01 Steatosis of liver K76.0 Hepatomegaly R16.0 Time Spent (min) 30 Comment 20 minutes spent with patient and additional 10 minutes spent reviewing her records
[2025-10-26 11:36] VITALS: BP 132/62; PULSE 64; O2SAT 100; BMI 30.5
== END 2025-10-26 12:01 | disposition home or self-care (01) ==
LOC: HO.HGI 11:33
PROVIDERS: PCP Family Medicine; Visit Provider Nurse Practitioner Family
DX: K58.1 Irritable bowel syndrome with constipation (principal); K21.9 Gastro-esophageal reflux disease without esophagitis; R74.01 Elevation of levels of liver transaminase levels; K76.0 Fatty (change of) liver, not elsewhere classified; R16.0 Hepatomegaly, not elsewhere classified
CPT/HCPCS: 99213

== ENCOUNTER → 2025-10-26 11:32 | Outpatient (BNVA) | payer OTHER, SELFPAY | PROVIDERS: PCP Family Medicine; Visit Provider Nurse Practitioner Family | DX: K58.1 Irritable bowel syndrome with constipation (principal); K21.9 Gastro-esophageal reflux disease without esophagitis; R74.01 Elevation of levels of liver transaminase levels; K76.0 Fatty (change of) liver, not elsewhere classified; R16.0 Hepatomegaly, not elsewhere classified; Z79.899 Other long term (current) drug therapy | CPT/HCPCS: 99212 ==

== ENCOUNTER 2025-11-20 11:31 | Outpatient (REF) | payer OTHER, SELFPAY ==
--- NOTE | ~2025-11-20 | XR_ITS ---
EXAMINATION: XR KNEE, LEFT CLINICAL INFORMATION: left knee pain, acute COMPARISON: None available. TECHNIQUE: Four views of the left knee. FINDINGS: No fracture, dislocation, or suspicious bone lesion. Normal bone mineralization. Normal alignment. Joint spaces are preserved. No significant arthropathy. Mild superior and inferior patellar enthesopathy is noted. No significant joint effusion. Mild prepatellar soft tissue swelling noted. XR/XR knee LT 3V IMPRESSION: 1. No acute bony abnormality. 2. Mild prepatellar soft tissue swelling. Electronically signed by: Juan Madrid MD 11/20/2025 01:17 PM NICK
--- OUTSIDE RECORDS SUMMARY | 2025-11-20 10:45 | XMS_ITS | Encounter Summary ---
Author Organization [employer] Address [address] [facility] [address] [place] [address] Care Team Providers Care Kitchen Food Server Name Role Phone Richa Jeter MD Primary Care Provider [phone] Encounter Details Date Type Department Care Team (Latest Contact Info) Description 11/20/2025 10:45 AM EST Procedure Visit [facility] MED[facility] [address] [place], [place] [phone] Richa Jeter MD [address] [place] [address] Encounter for well woman exam with routine gynecological exam (Primary Dx); Primary hypertension; Type 2 diabetes mellitus without complication, without long-term current use of insulin (HCC); Acute pain of left knee; Gout, unspecified cause, unspecified chronicity, unspecified site Social History Tobacco Use Types Packs/Day Years [...] Sign Reading Time Taken Comments Blood Pressure 130/70 11/20/2025 10:48 AM EST Pulse 64 11/20/2025 10:48 AM EST Temperature 35.5 C (95.9 F) 11/20/2025 10:48 AM EST Respiratory Rate 14 11/20/2025 10:4 8 AM EST Oxygen Saturation 97% 11/20/2025 10: 48 AM EST Inhaled Oxygen Concentration - - Weight 78.4 kg (172 lb 12.8 oz) 025 10:48 AM EST Height - - Body Mass Index 31.61 08/23/2025 11:51 AM EDT documented in this encounter Functional Status * SBIRT - Alcohol Question Answer Date of Assessment Author How many times in the past y ear have you had 5 or more (for men) or 4 or more (for women) drinks in a day? 0 11/20/2025 11:11 AM EST Deborah Nunes MA Score 0 11/20/2025 11:11 AM EST Lucy Blake MA * SBIRT - Drugs Question Answer Date of Assessment Author How many times in the past y ear have you used an illegal drug or used a prescription medication for non-medical reasons? 0 11/20/2025 11:11 AM EST Deborah Nunes MA Score 0 11/20/2025 11:11 AM EST [facility] Lucy helton MA documented as of this encounter Plan of Treatment Upcoming Encounters Date Type Department Care Team (Late st Contact Info) Description 12/14/2025 11:00 AM EST Office Visit [facility] OPTOMETRY [address] [place] [address] Colette Anders, OD [address] [place] [address] Scheduled Orders Name Type Priority Associated Diagnoses Orde r Schedule Pap Smear Pathology and Cytology Routine Encounter for well woman exam with routine gynecological exam Ordered: 11/20/2025 HPV High Risk with Reflex to Subtypes Lab Routine Encounter for well woman exam with routine gynecological exam Ordered: 11/20/2025 C-reactive Protein Lab Routine Acute pain of left knee Expected: 11/20/2025 (Approximate), Expires: 11/20/2026 Uric acid Lab Routine Gout, unspecified cause, unspecified chronicity, unspecified site Expected: 11/20/2025, Expires: 11/20/2026 documented as of this encounter Goals Goal Patient Goal Type Associated Problems Recent Progress Patient-Stated? Author Blood Pressure < 140/90 Blood Pressure 130/70(2024 10:48 AM EST) No Jer Guerra PharmD Help patients manage their type 2 [...] Care Plan Weekly blood pressure task No Jer Guerra PharmD Weekly blood pressure task Care Plan Weekly blood pressure task No Jer Guerra, Gopi Patient has chronic kidney disease Care Plan Patient has chronic kidney disease No Jer Guerra PharmD Patient has chronic kidney disease Care Plan Patient has chronic kidney disease No Jer Guerra, TrangD Weekly blood pressure task Care Plan Weekly blood pressure task No Anahy Todd Weekly blood pressure task Care Plan Weekly blood pressure task No Anahy Todd Patient has chronic kidney disease Care Plan Patient has chronic kidney disease No Anahy Todd Patient has chronic kidney disease Care Plan Patient has chronic kidney disease No Anahy Todd Weekly blood pressure task Care Plan Weekly blood pressure task No Selina Rodriguez MA Weekly blood pressure task Care Plan Weekly blood pressure task No Selina Rodriguez MA Patient has chronic kidney disease Care Plan Patient has chronic kidney disease No Selina Rodriguez MA Patient has chronic kidney disease Care Plan Patient has chronic kidney disease No Selina Rodriguez MA Weekly blood pressure task Care Plan Weekly blood pressure task No Selina Rodriguez MA Weekly blood pressure task Care Plan Weekly blood pressure task No Selina Rodriguez MA Patient has chronic kidney disease Care Plan Patient has chronic kidney disease No Selina Rodriguez MA Patient has chronic kidney disease Care Plan Patient has chronic kidney disease No Selina Rodriguez MA documented as of this encounter Procedures Procedure Name Priority Date/Time Associated Diagnosis Comments XR KNEE 3 VIEWS LEFT Routine 11/20/2025 12:19 PM EST Acute pain of left knee CBC WITH AUTO DIFFERENTIAL Routine 11/20/2025 11:36 AM EST Acute pain of left knee SED RATE BY MODIFIED WESTERGREN Routine 11/20/2025 11:36 AM EST Acute pain of left knee POCT GLYCOSYLATED HEMOGLOBIN (HGB A1C) Routine 11/20/2025 10:51 AM EST Type 2 diabetes mellitus without complication, without long-term current use of insulin (HCC) POCT GLUCOSE (CPT-08426) Routine 11/20/2025 10:51 AM EST Type 2 diabetes mellitus without complication, without long-term current use of insulin (HCC) documented in this encounter Results * XR Knee 3 Views Left (11/20/2025 12:19 PM EST) Anatomical Region Laterality Modality Lower Extremities, Knee Left Radiogra phic Imaging 11/20/2025 12:1 9 PM EST Narrative 11/20/2025 1:20 PM EST [facility] [address] [place] [address] XRay Report Signed Patient: Pauly Mina MR#: [id number] : 1965 Acct:[id number] Age/Sex: 60 / F ADM Date: 11/20/25 Loc: .HHCX Attending Dr: Richa Jeter MD Ordering Physician: Richa Jeter MD Date of Service: 11/20/25 Procedure(s): XR knee LT 3V Accession Number(s): [id number] cc: Richa Jeter MD Reason for Exam: left knee pain, acute EXAMINATION: XR KNEE, LEFT CLINICAL INFORMATION: left knee pain, acute COMPARISON: None available. TECHNIQUE: Four views of the left knee. FINDINGS: No fracture, dislocation, or suspicious bone lesion. Normal bone mineralization. Normal alignment. Joint spaces are preserved. No significant arthropathy. Mild superior and inferior patellar enthesopathy is noted. No significant joint effusion. Mild prepatellar soft tissue swelling noted. XR/XR knee LT 3V IMPRESSION: 1. No acute bony abnormality. 2. Mild prepatellar soft tissue swelling. Electronically signed by: Juan Madrid MD 11/20/2025 01:17 PM EST Dictated By: Juan Madrid MD Signed By: <Electronically signed by Juan Madrid MD in OV> 11/20/25 1317 DD/ 1219 TD/TT: 11/20/25 1220 Sanding Line Operator: Procedure Note Donotuseinterpreter, Image - 11/20/2025 [facility] [address] [place] [address] XRay Report Signed Patient: Kumar MinaR#: [id number] : 1965Acct:[id number] Age/Sex: 60 / FADM Date: 11/20/25 Loc: HO.HHCX Attending Dr: Richa Jeter MD Ordering Physician: Richa Jeter MD Date of Service: 11/20/25 Procedure(s): XR knee LT 3V Accession Number(s): [id number] cc: Richa Jeter MD Reason for Exam: left knee pain, acute EXAMINATION: XR KNEE, LEFT CLINICAL INFORMATION: left knee pain, acute COMPARISON: None available. TECHNIQUE: Four views of the left knee. FINDINGS: No fracture, dislocation, or suspicious bone lesion. Normal bone mineralization. Normal alignment. Joint spaces are preserved. No significant arthropathy. Mild superior and inferior patellar enthesopathy is noted. No significant joint effusion. Mild prepatellar soft tissue swelling noted. XR/XR knee LT 3V IMPRESSION: 1. No acute bony abnormality. 2. Mild prepatellar soft tissue swelling. Electronically signed by: Juan Madrid MD 11/20/2025 01:17 PM EST Dictated By: Juan Madrid MD Signed By: <Electronically signed by Juan Madrid MD in OV> 11/20/25 1317 DD/ 1219 TD/TT: 11/20/25 1220 Sanding Line Operator: Richa Jeter MD IMG XR PROCEDURES Final Result * (ABNORMAL) Sed Rate by Modified Velergren (11/20/2025 11:36 AM EST) Erythrocyte Sedimentation Rate 39(H) 1 - 30 MM/HR [facility] Comment:Patients with polycy themia and many hemoglobin abnormalitiesmay have depressed sed rates whereas patients with anemiamay have elevated sed rates. Blood Venous blood specimen / Unknown 11/20/2025 11:36 AM EST 11/20/2025 1:52 PM EST Richa Jeter MD LAB BLOOD ORDERABLES Final Resul t [facility] [address] [place] [phone] * (ABNORMAL) CBC auto differential (11/20/2025 11:36 AM EST) White Blood Count 10.1 4.8 - 10.8 X10*3/uL [facility] Red Blood Count 4.43 4.20 - 5.50 X10*6/uL [facility] Hemoglobin 12.7 12.0 - 16.0 g/dl [facility] Hematocrit 39.0 37.0 - 47.0 % [facility] Mean Corpuscular Volume 88.0 80.0 - 98.0 fL [facility] Mean Corpuscular Hemoglobin 28.7 27.0 - 33.0 pg [facility] Mean Corpuscular HGB Conc 32.6 31.0 - 35.0 g/dl [facility] Red Cell Distribution Width 12.8 11.0 - 16.0 % [facility] Platelet Count 361 160 - 400 X10*3/uL [facility] Mean Platelet Volume 11.3 9.4 - 12.3 fL [facility] Neutrophils Percent Auto 57.0 45 - 73 % [facility] Imm Gran Pct Auto 0.5(H) 0.0 - 0.4 % [facility] Lymphocytes Percent Auto 31.1 20 - 40 % [facility] Monocytes Percent Auto 7.4 2 - 11 % [facility] Eosinophils Percent Auto 3.4 0 - 4 % [facility] Basophils Percent Auto 0.6 0 - 2 % [facility] NRBC Pct Auto 0.0 0.0 - 0.2 /100WBC [facility] Neutrophils Absolute Auto 5.7 2.0 - 8.3 x10*3/uL [facility] Imm Gran Abs Auto 0.05(H) 0.00 - 0.03 X10*3/uL [facility] Lymphocytes Absolute Auto 3.1 1.2 - 4.9 X10*3/uL [facility] Monocytes Absolute Auto 0.8 0.1 - 1.2 X10*3/uL [facility] Eosinophils Absolute Auto 0.3 0.0 - 0.4 X10*3/uL [facility] Basophils Absolute Auto 0.1 0.0 - 0.2 X10*3/uL [facility] NRBC Abs Auto 0.000 0.0 - 0.012 X10*3/uL [facility] Blood Venous blood specimen / Unknown 11/20/2025 11:36 AM EST 11/20/2025 1:56 PM EST Richa Jeter MD LAB BLOOD ORDERABLES Final Resul t [facility] [address] [place] [phone] * (ABNORMAL) POCT glycosylated hemoglobin (Hgb A1c) (11/20/2025 10:51 AM EST) Hemoglobin A1C 6.7(A) 4.0 - 5.7 % QC Media Lot # [id number] Lot# Expiration Date Blood Capillary blood specimen / Unknown 11/20/2025 10:51 AM EST Richa Jeter MD POINT OF CARE TEST ENTER/EDIT OR DERABLES Final Result * POCT glucose manually resulted (CPT-74755) (11/20/2025 10:51 AM EST) Glucose Blood, POC 139 60 - 200 mg/dL QC Media Lot # [id number] Lot# Expiration Date Blood Capillary blood specimen / Unknown 11/20/2025 10:51 AM EST Richa Jeter MD POINT OF CARE TEST ENTER/EDIT OR DERABLES Final Result documented in this encounter Visit Diagnoses Diagnosis Encounter for well woman exam with routine gynecological exam- Primary Primary hypertension Unspecified essential hypertension Type 2 diabetes mellitus without complication, without long-term current use of insulin (HCC) Acute pain of left knee Gout, unspecified cause, unspecified chronicity, unspecified site documented in this encounter Additional Health Concerns Active Problems Noted Date Diagnosed Date Help patients manage their type 2 diabetes 10/22 Weekly blood pressure task 10/22/2025 Help patients manage their type 2 diabetes 10/22 Patient has chronic kidney disease 10/22/2025 Weekly blood pressure task 10/22/2025 Patient has chronic kidney disease 10/22/2025 Weekly blood pressure task 10/24/2025 Weekly blood pressure task 10/24/2025 Patient has chronic kidney disease 10/24/2025 Patient has chronic kidney disease 10/24/2025 Weekly blood pressure task 11/13/2025 Weekly blood pressure task 11/13/2025 Patient has chronic kidney disease 11/13/2025 Patient has chronic kidney disease 11/13/2025 Weekly blood pressure task 11/19/2025 Weekly blood pressure task 11/19/2025 Patient has chronic kidney disease 11/19/2025 Patient has chronic kidney disease 11/19/2025 Weekly blood pressure task 11/19/2025 Weekly blood pressure task 11/19/2025 Patient has chronic kidney disease 11/19/2025 Patient has chronic kidney disease 11/19/2025 Assessment Noted Time PHQ-9 Depression Total Score: 8 06/04/20 25 10:04 AM EDT documented as of this encounter Care Teams Kitchen Food Server Relationship Specialty Start Date End Date Richa Jeter MD [address] [place] [phone] PCP - General Family Medicine 11/22/18 documented as of this encounter
[2025-11-20 14:04] LABS: MANUAL DIFF FLAG NO
[2025-11-20 14:08] LABS: Hematocrit 39.0 % (37.0-47.0); Hemoglobin 12.7 g/dl (12.0-16.0); Imm Gran Abs Auto 0.05 X10*3/uL (0.00-0.03); Imm Gran Pct Auto 0.5 % (0.0-0.4); Lymphocytes Absolute Auto 3.1 X10*3/uL (1.2-4.9); Mean Corpuscular HGB Conc 32.6 g/dl (31.0-35.0); Mean Corpuscular Hemoglobin 28.7 pg (27.0-33.0); Mean Corpuscular Volume 88.0 fL (80.0-98.0); NRBC Abs Auto 0.000 X10*3/uL (0.0-0.012); NRBC Pct Auto 0.0 /100WBC (0.0-0.2); Platelet Count 361 X10*3/uL (160-400); Red Blood Count 4.43 X10*6/uL (4.20-5.50); White Blood Count 10.1 X10*3/uL (4.8-10.8)
--- OUTSIDE RECORDS SUMMARY | 2025-11-20 15:34 | XMS_ITS | Encounter Summary ---
Author Organization [employer] Address [address] [facility] [address] [place] [address] Care Team Providers Care Enrollment Management Coordinator Name Role Phone Richa Jeter MD Primary Care Provider [phone] Jer Guerra PharmD Unavailable [phone] Reason for Visit * Reason Comments Med Refill Encounter Details Date Type Department Care Team ([facility] st Contact Info) Description 02/04/2025 Refill [facility] MEDICINE [address] [place], [place] [phone] Karen Becker MD [address] [place] [address] Type 2 diabetes mellitus without complication, without long-term current use of insulin ([facility]) Social History Tobacco Use Types [...] Description 12/14/2025 11:00 AM EST Office Visit [facility] OPTOMETRY [address] [place] [address] Colette Anders, OD [address] [place] [address] documented as of this encounter Goals Goal Patient Goal Type Associated Problems Recent Progress Patient-Stated? Author Blood Pressure < 140/90 Blood Pressure 130/70( 025 10:48 AM EST) No Jer Guerra, PharmD documented as of this encounter Visit Diagnoses Diagnosis Type 2 diabetes mellitus without complication, without long-term current use of insulin (HCC) documented in this encounter Additional Health Concerns Assessment Noted Time PHQ-9 Depression Total Score: 7 06/29/20 24 11:26 AM EDT documented as of this encounter Care Teams Enrollment Management Coordinator Relationship Specialty Start Date End Date Richa Jeter MD [address] [place], [place] [phone] PCP - General Family Medicine 11/22/18 Jer Guerra, PharmD [address] [place] [address] Pharmacist Internal Medicine 10/08/23 10/25/25 documented as of this encounter
--- OUTSIDE RECORDS SUMMARY | 2025-11-20 15:34 | XMS_ITS | Encounter Summary ---
Author Organization [employer] Address [address] [facility] [address] [address] Care Team Providers Care Telescope Repairer Name Role Phone Richa Jeter MD Primary Care Provider [phone] Jer Guerra PharmD Unavailable [phone] Reason for Visit * Reason Comments Med Refill Encounter Details Date Type Department Care Team (Late Contact Info) Description 02/26/2023 Refill [facility] [address] [place] [address] Richa Jeter MD [address] [place] [address] Type 2 diabetes mellitus without complication, without long-term current use of insulin ([facility]) Social History Tobacco Use [...] Department Care Team (Late Contact Info) Description 12/14/2025 11:00 AM EST Office Visit [facility] OPTOMETRY [address] [place] [address] Colette Anders, OD [address] [place] [address] documented as of this encounter Visit Diagnoses Diagnosis Type 2 diabetes mellitus without complication, without long-term current use of insulin (HCC) documented in this encounter Additional Health Concerns Assessment Noted Time PHQ-9 Depression Total Score: 4 12/31/19 23 11:23 AM EST documented as of this encounter Care Teams Telescope Repairer Relationship Specialty Start Date End Date Richa Jeter MD [address] [place] [address] PCP - General Family Medicine 11/22/18 Jer Guerra, Gopi [address] [place] [address] Pharmacist Internal Medicine 10/08/23 10/25/25 documented as of this encounter
--- OUTSIDE RECORDS SUMMARY | 2025-11-20 15:34 | XMS_ITS | Encounter Summary ---
Author Organization [employer] Address [address] [facility] [address] [place] [address] Care Team Providers Care Contractor General Engineering Name Role Phone Richa Jeter MD Primary Care Provider [phone] Reason for Visit * Reason Onset Date Comments chart prep 11/19/2025 Encounter Details Date Type Department Care Team (Late st Contact Info) Description 11/19/2025 Telephone [facility] MEDICINE [address] [place], [place] [phone] Richa Jeter MD [address] [place], [place] [phone] chart prep Social History Tobacco Use Types [...] encounter Miscellaneous Notes * Telephone Encounter - Selina Rodriguez MA - 11/19/2025 9:29 AM EST Chart Prep Labs: done Images: done Screenings: Not Applicable Vaccines due: Covid Due, RSV in Pharmacy Due, and Shingles in pharmacy Due Referrals: Completed Overdue care gaps: Glucose and Sbirt documented in this encounter Plan of Treatment Upcoming Encounters Date Type Department Care Team (Late st Contact Info) Description 12/14/2025 11:00 AM EST Office Visit [facility] OPTOMETRY [address] [place] [address] Colette Anders, OD [address] [place] [address] documented as of this encounter Goals Goal Patient Goal Type Associated Problems Recent Progress Patient-Stated? Author Blood Pressure < 140/90 Blood Pressure 130/70(2024 10:48 AM EST) No Jer Guerra, TrangD Help patients manage their type 2 diabetes [...] blood pressure task No Jer Guerra PharmD Patient has chronic kidney disease Care Plan Patient has chronic kidney disease No Jer Guerra PharmD Patient has chronic kidney disease Care Plan Patient has chronic kidney disease No Jer Guerra PharmD Weekly blood pressure [...] Rodriguez MA documented as of this encounter Visit [...] documented as of this encounter Care Teams Contractor General Engineering Relationship Specialty Start Date End Date Richa Jeter MD [address] [place] [address] PCP - General Family Medicine 11/22/18 documented as of this encounter
--- OUTSIDE RECORDS SUMMARY | 2025-11-20 15:34 | XMS_ITS | Encounter Summary ---
Author Organization [employer] Address [address] [facility] [address] [address] Care Team Providers Care Analytical Consultant Name Role Phone Richa Jeter MD Primary Care Provider [phone] Jer Guerra PharmD Unavailable [phone] Reason for Referral * Consultation (Routine) - Canceled Specialty Diagnoses / Procedures Referred By Contdavid t Referred To Contact Pharmacy Diagnoses Primary hypertension Type 2 diabetes mellitus without complication, without long-term current use of insulin (HCC) Richa Jeter MD [address] [place] [address] Phone: tel: fax: Referral ID Status Reason Start Date Expiration Date V isits Requested Visits Authorized [id number] Canceled Consult and Treat 10/03/2024 10/03/2025 6 6 Encounter Details Date Type Department Care Team (Late st Contact Info) Description 10/03/2024 Orders Only [facility] MEDICINE [address] [place], [place] [phone] Richa Jeter MD [address] [place], [place] [phone] Primary hypertension (Primary Dx); Type 2 diabetes [...] Description 12/14/2025 11:00 AM EST Office Visit [facility] OPTOMETRY [address] [place] [address] Chago, Colette, OD [address] [place] [address] Scheduled Referrals Name Type Priority Associated Diagnoses Orde r Schedule Referral to Pharmacy CDTM Outpatient Referral Routine Primary hypertension Type 2 diabetes mellitus without complication, without long-term current use of insulin ([facility]) Ordered: 10/03/2024 documented as of this [...] documented as of this encounter Care Teams Analytical Consultant Relationship Specialty Start Date End Date Richa Jeter MD [address] [place] [address] PCP - General Family Medicine 11/22/18 Jer Guerra, PharmD [address] [place] [address] Pharmacist Internal Medicine 10/08/23 10/25/25 documented as of this encounter
--- OUTSIDE RECORDS SUMMARY | 2025-11-20 15:34 | XMS_ITS | Encounter Summary ---
Author Organization [employer] Address [address] [facility] [address] [place] [address] Care Team Providers Care Assembling Fabricator Name Role Phone Richa Jeter MD Primary Care Provider [phone] Jer Guerra PharmD Unavailable [phone] Reason for Visit * Reason Comments Med Refill Encounter Details Date Type Department Care Team ([facility] st Contact Info) Description 03/07/2025 Refill [facility] MEDICINE [address] [place], [place] [phone] Karen Becker MD [address] [place] [address] Type 2 diabetes mellitus without complication, without long-term current use of insulin ([facility]) Social History Tobacco Use Types [...] Description 12/14/2025 11:00 AM EST Office Visit [facility] OPTOMETRY [address] [place] [address] Colette Anders, OD [address] [place] [address] documented as of this encounter Goals Goal [...] documented as of this encounter Care Teams Assembling Fabricator Relationship Specialty Start Date End Date Richa Jeter MD [address] [place], [place] [phone] PCP - General Family Medicine 11/22/18 Jer Guerra, PharmD [address] [place] [address] Pharmacist Internal Medicine 10/08/23 10/25/25 documented as of this encounter
--- OUTSIDE RECORDS SUMMARY | 2025-11-20 15:34 | XMS_ITS | Encounter Summary ---
Author Organization [employer] Address [address] [facility] [address] [place] [address] Care Team Providers Care Heel Lining Paster Name Role Phone Richa Jeter MD Primary Care Provider [phone] Jer Guerra PharmD Unavailable [phone] Reason for Visit * Reason Comments Med Refill Encounter Details Date Type Department Care Team ([facility] st Contact Info) Description 02/04/2025 Refill [facility] MEDICINE [address] [place], [place] [phone] Richa Jeter MD [address] [place] [address] Social History Tobacco Use Types Packs/Day Years [...] Description 12/14/2025 11:00 AM EST Office Visit [facility] OPTOMETRY [address] [place] [address] ChagoColette bullard, OD [address] [place] [address] documented as of this encounter Goals Goal Patient Goal Type Associated Problems Recent Progress Patient-Stated? Author Blood Pressure < 140/90 Blood Pressure 130/70( 025 10:48 AM EST) No Jer Guerra, Gopi documented as of this encounter Visit Diagnoses Not on filedocumented in this encounter Additional Health Concerns Assessment Noted Time PHQ-9 Depression Total Score: 7 06/29/20 24 11:26 AM EDT documented as of this encounter Care Teams Heel Lining Paster Relationship Specialty Start Date End Date Richa Jeter MD [address] [place] [phone] PCP - General Family Medicine 11/22/18 Jer Guerra, Gopi [address] [place] [address] [phone] Pharmacist Internal Medicine 10/08/23 10/25/25 documented as of this encounter
--- OUTSIDE RECORDS SUMMARY | 2025-11-20 15:34 | XMS_ITS | Encounter Summary ---
Author Organization [employer] Address [address] [place] [address] Care Team Providers Care Baggage Checker Name Role Phone Richa Jeter MD Primary Care Provider [phone] Jer Guerra PharmD Unavailable [phone] Encounter Details Date Type Department Care Team (Late Contact Info) Description 04/23/2023 Orders Only [facility] MEDICINE [address] [place] [address] Negin Flowers MD [address] [place] [address] Social History Tobacco Use Types Packs/Day Years [...] Visit [facility] OPTOMETRY [address] [place] [address] Colette Anders, OD [address] [place] [address] documented as of this encounter Procedures Procedure Name Priority Date/Time Associated Diagnosis Comments XR FOOT 3+ VIEWS RIGHT Routine 04/22/2023 2:49 PM EDT documented in this encounter Results * XR Foot 3+ Views Right (04/22/2023 2:49 PM EDT) Anatomical Region Laterality Modality Lower Extremities, Foot Right [facility] 04/22/2023 2:49 PM EDT Narrative 04/22/2023 3:23 PM EDT [facility] [address] [place] [address] XRay Report Signed Patient: Pauly Mendoza MR#: [id number] : 1965 Acct:[id number] Age/Sex: 57 / F ADM Date: 04/22/23 Loc: HO.HHCX Attending Dr: Negin Flowers MD Ordering Physician: Negin Flowers MD Date of Service: 04/22/23 Procedure(s): XR foot RT min 3V Accession Number(s): [id number] cc: Negin Flowers MD EXAMINATION: XR FOOT, [...] in OV> 04/22/23 1521 DD/ 1449 TD/TT: Program Rep: RYLIE Procedure Note Donsamantainterpreter, Image - 05/19/2023 [facility] [address] [place] [address] XRay Report Signed Patient: Kip Mendoza#: [id number] 168 : 1965Acct:[id number] Age/Sex: 57 / FADM Date: 04/22/23 Loc: HO.HHCX Attending Dr: Negin Flowers MD Ordering Physician: Negin Flowers MD Date of Service: 04/22/23 Procedure(s): XR foot RT min 3V Accession Number(s): [id number] cc: Negin Flowers MD EXAMINATION: XR FOOT, [...] in OV> 04/22/23 1521 DD/ 1449 TD/TT: Program Rep: RYLIE [facility] External Provider IMG XR PROCEDURES Final Result documented in this encounter Visit Diagnoses Not on filedocumented in this encounter Additional Health Concerns Assessment Noted Time PHQ-9 Depression Total Score: 4 12/31/19 23 11:23 AM EST documented as of this encounter Care Teams Baggage Checker Relationship Specialty Start Date End Date Richa Jeter MD [address] [place] [address] PCP - General Family Medicine 11/22/18 Jer Guerra, TrangD [address] [place] [address] Pharmacist Internal Medicine 10/08/23 10/25/25 documented as of this encounter
--- OUTSIDE RECORDS SUMMARY | 2025-11-20 15:34 | XMS_ITS | Clinical Summary ---
Demographics Address [address] [place] [address] Mobile Phone Home Phone Preferred Language es Marital Status Single Anabaptist Affiliation Unknown Race Other Race Ethnic Group Unknown Author Organization [employer] Address [address] [place] [address] Care Team Providers Care Law Professor Name Role Phone Richa Jeter MD Primary Care Provider [phone] Allergies No known active allergies Medications pantoprazole [...] by mouth 2 times daily. 023 Active albuterol 108 (90 Base) MCG/ACT [...] ORALLY ONCE DIRECTED BY GASTROENTEROLOGY DEPARTMENT AT [facility] 023 Active Blood Pressure Monitor kitIndications:E ssential hypertension Use daily as directed to measure blood pressure 1 kit 023 Active Aspirin Low Dose 81 MG EC tabletIndication s:Type 2 diabetes mellitus without complication, without long-term current use of insulin (HCC) TAKE 1 TABLET BY MOUTH EVERY DAY 90 tablet 3 025 Active rosuvastatin (Crestor) 20 MG tablet TAKE 1 TABLET BY MOUTH EVERY DAY 90 tablet 3 Active Ketotifen Fumarate 0.035 % solutionIndicati ons:Allergic conjunctivitis of both eyes Administer 1 drop into affected eye(s) if needed in the morning and at bedtime (allergies). 10 mL Active hydrocortisone 2.5 % cream APPLY TOPICALLY IF NEEDED EACH DAY FOR RASH. APPLY TO AFFECTED AREA THIN LAYER ONCE DAILY 453.6 g 11 Active metFORMIN XR (Glucophage-XR) 500 MG 24 hr tabletIndication s:Type 2 diabetes mellitus without complication, without long-term current use of insulin (HCC) Take 2 tablets (1,000 mg) by mouth with breakfast and with evening meal. Do not crush, chew, or split.TAKE 2 TABLETS BY MOUTH WITH BREAKFAST AND EVENING MEAL 360 tablet 3 Active FreeStyle lancetsIndicatio ns:Type 2 diabetes mellitus without complication, without long-term current use of insulin (HCC) 1 each by Other route 2 times daily. Check blood glucose 100 each 12 Active Blood Glucose Monitoring Suppl (FreeStyle Lite) w/Device kit 1 Device before breakfast. 1 kit 1 Active allopurinol (Zyloprim) 100 MG tablet TAKE 2 TABLETS BY MOUTH EVERY DAY 180 tablet 3 Active FREESTYLE LITE test stripIndications :Type 2 diabetes mellitus without complications (HCC),Essential (primary) hypertension USE TO TEST TWICE DAILY 100 strip 10 Active lisinopril 40 MG tablet Take 1 tablet (40 mg) by mouth Once per day. 90 tablet 3 Active chlorthalidone (Hygroton) 25 MG tabletIndication s:Primary hypertension TAKE 1 TABLET BY MOUTH EVERY DAY 90 tablet Active Bisacodyl EC 5 MG EC tablet Take 10 mg by mouth at bedtime. Active docusate sodium (Colace) 100 MG capsule Take 2 capsules by mouth at bedtime. Active ibuprofen 800 MG tablet TAKE 1 TABLET BY MOUTH EVERY 8 HOURS IF NEEDED FOR MILD PAIN OR MODERATE PAIN. 90 tablet 025 Active Farxiga 5 MG TAKE 1 TABLET (5 MG) BY MOUTH ONCE PER DAY. 90 tablet 3 025 Active cholecalciferol (Vitamin D3) 25 MCG (1000 UT) tablet TAKE 1 TABLET (25 MCG) BY MOUTH IN THE MORNING 90 tablet 2 025 Active metoprolol succinate XL (Toprol XL) 100 MG 24 hr tabletIndication s:Primary hypertension Take 1 tablet by mouth once daily 90 tablet 3 025 Active lidocaine (Lidoderm) 5 % patchIndications :Fibromyalgia,Di sseminated idiopathic skeletal hyperostosis Apply 1 patch topically in the morning. Remove & discard patch within 12 hours or as directed by MD. 90 patch 3 023 10/25 Discontinued( Med list cleanup (will not trigger notification to Pharmacy)) metoprolol succinate XL (Toprol XL) 100 MG 24 hr tabletIndication s:Primary hypertension Take 1 tablet by mouth once daily 90 tablet 3 024 11/20 Discontinued( Reorder (will not trigger notification to Pharmacy)) chlorthalidone (Hygroton) 25 MG tabletIndication s:Primary hypertension TAKE 1 TABLET BY MOUTH EVERY DAY 90 tablet 3 024 10/25 Discontinued dapagliflozin (Farxiga) 5 MG Take 1 tablet (5 mg) by mouth Once per day. 90 tablet 3 024 11/08 Discontinued cholecalciferol (Vitamin D3) 25 MCG (1000 UT) tablet TAKE 1 TABLET (25 MCG) BY MOUTH IN THE MORNING 90 tablet 2 025 11/12 Discontinued ibuprofen 800 MG tablet TAKE 1 TABLET BY MOUTH EVERY 8 HOURS IF NEEDED FOR MILD PAIN OR MODERATE PAIN. 90 tablet 025 11/06 Discontinued Magnesium Oxide -Mg Supplement 400 MG capsule Take 1 capsule by mouth Once per day. 025 11/20 Discontinued( Discontinued by another clinician) Active Problems Problem Noted Date Diagnosed Date [...] & Plan (06/04/2025 1:06 PM EDT): -GI: C -Last abdominal US performed on 03/07/25. Hepatic steatosis, no focal lesion or cirrhosis. The mean shear velocity is 1.23 m/s -FIB4 index 1.56 -Fibrosis test 08/11/24 Stage F0 -Avoid hepatotoxic drugs -Continue working on lifestyle modfications -Discussed about GLP1 RA pros and cons. Assessment & Plan (11/06/2024 5:08 AM EST): -GI: [facility] -Last abdominal US performed on 09/23/22, no focal lesion or cirrhosis -FIB4 index 1.23 -Fibrosis test 08/11/24 Stage F0 -Avoid hepatotoxic drugs -Continue working on lifestyle modfications Assessment & Plan (06/30/2024 6:06 PM EDT): -GI: C -Last abdominal US performed on 09/23/22, no focal lesion or cirrhosis -FIB4 index 1.23 -Avoid hepatotoxic drugs -Continue working on lifestyle modfications Assessment & Plan (03/28/2024 1:08 PM EDT): -Most recent LFT 11/30/23 AST 34; ALT 39, stable -[facility] [...] active. Pt has already been seen by senior backup administrator. Pt has already tried acupuncture and physical [...] active. Pt has already been seen by senior backup administrator. Pt has already tried acupuncture and physical [...] active. Pt has already been seen by senior backup administrator. Pt has already tried acupuncture and physical therapy. Continue judicious use of APAP prn. Previously tried medications: tramadol; cyclobenzaprine; gabapentin; tizanidine Continue lidocaine topical, which has been effective Assessment & Plan (01/01/2023 7:00 AM EST): Consider consulting her psychiatrist for changing sertraline to duloxetine, if her symptoms worsen. Encouraged to stay physically active. Pt has already been seen by senior backup administrator. Pt has already tried acupuncture and physical [...] to chlorthalidone in March 2023 - Invited [employer] walking program Assessment & Plan (06/30/2024 6:10 [...] today, continue monitoring BP and fu with [facility] HTN clinic on 01/29, consider changing metoprolol to a non selective B-jignesh. Order sleep study. Assessment & Plan (01/18/2024 4:11 PM EST): Uncontrolled x 1w, it had previously improved with increased dose of metoprolol. No change in meds today, continue monitoring BP and fu with [facility] HTN clinic on 01/29, consider changing metoprolol [...] on 06/04/2025; NANCY-7 score 8 on 06/04/2025 -[facility] provider: Dr. Diamond MEREDITH -Current medications: Clonazepam; sertraline; zolpidem -Continue current treatment plan. -She was able to contract her safety today. Assessment & Plan (06/11/2025 5:59 PM EDT): - PHQ-9 score 1 on 06/04/2025; NANCY-7 score 8 on 06/04/2025 -[facility] provider: Dr. Diamond MEREDITH -Current medications: Clonazepam; sertraline; zolpidem -Continue current treatment plan. -She was able to contract her safety today. Assessment & Plan (11/06/2024 6:03 PM EST): -[facility] provider: Dr. Diamond MEREDITH -Current medications: lorazepam; sertraline; zolpidem -Continue current treatment plan. -She was able to contract her safety today. Assessment & Plan (06/29/2024 11:32 AM EDT): -[facility] provider: Dr. Diamond MEREDITH -Current medications: lorazepam; sertraline -Continue current treatment plan. -She was able to contract her safety today. Assessment & Plan (01/03/2024 9:09 AM EST): -[facility] provider: Dr. Diamond MEREDITH -Current medications: lorazepam; sertraline -Continue current treatment plan. -She was able to contract her safety today. Assessment & Plan (03/31/2023 10:14 AM EDT): -[facility] provider: Dr. Diamond MEREDITH -Current medications: lorazepam; sertraline -Currently grieving. -Continue current treatment plan. -She was able to contract her safety today. Assessment & Plan (12/31/2022 11:36 AM EST): -[facility] provider: Dr. Diamond MEREDITH -Current medications: lorazepam; sertraline -Currently grieving. -Continue current treatment plan. -She was able to contract her safety today. Abdominal hernia without obstruction or gangrene 03/01/2013 Constipation 08/31/2012 Assessment & Plan (08/31/2025 3:36 PM EDT): -followed by [facility] GI -Fiber-rich diet -Continue Miralax and bisacodyl -Colonoscopy on 12/30/23 Assessment & Plan (01/03/2024 8:59 AM EST): -followed by [facility] GI -Fiber-rich diet -Continue Miralax and Dulolax -Colonoscopy on 12/30/23 Assessment & Plan (07/05/2023 1:01 PM EDT): -followed by [facility] GI -Fiber-rich diet -Continue Miralax and Dulolax Assessment & Plan (03/31/2023 5:14 PM EDT): -followed by [facility] GI -Fiber-rich diet -Continue Miralax and Dulolax Assessment & Plan (01/01/2023 7:04 AM EST): -followed by [facility] GI -Fiber-rich diet -Continue Miralax and Dulolax Chronic abdominal pain 08/31/2012 Assessment & Plan (11/06/2024 1:06 PM EST): - following with GI - colonoscopy / EGD done on 12/30/23 with [facility] GI Assessment & Plan (07/05/2023 1:00 PM EDT): - following with GI - currently having a new abdominal pain with increased BM - check H. Pylori - recommended to go to [facility] GI office to schedule colonoscopy / [...] Encounters Date Type Department Care Team Description 11/20/2025 10:45 AM EST Procedure Visit [facility] [address] [place] [address] Richa Jeter MD Encounter for well woman exam with routine gynecological exam (Primary Dx); Primary hypertension; Type 2 diabetes mellitus without complication, without long-term current use of insulin (HCC); Acute pain of left knee; Gout, unspecified cause, unspecified chronicity, unspecified site 11/20/2025 Travel 11/19/2025 Telephone [facility] [address] [place] [address] Richa Jeter MD chart prep 11/13/2025 Telephone [facility] [address] [place] [address] Richa Jeter MD Med Refill 11/12/2025 Refill [facility] [address] [place] [address] Ton Urrutia MD 11/07/2025 Refill [facility] [address] [place] [address] Richa Jeter MD 11/06/2025 Refill [facility] [address] [place] [address] Richa Jeter MD 10/25/2025 Travel 10/25/2025 Refill [facility] [address] [place] [address] Richa Jeter MD Primary hypertension 10/22/2025 Telephone [facility] [address] [place] [address] Richa Jeter MD november09/30/2025 Refill [facility] [address] [place] [address] Richa Jeter MD 09/02/2025 Refill [facility] [address] [place] [address] Richa Jeter MD 08/27/2025 Orders Only [address] [address] Richa Jeter MD 08/23/2025 11:30 AM EDT Office Visit [address] [address] Richa Jeter MD Primary hypertension (Primary Dx); [...] disorder; Pelvic pain 08/23/2025 Travel [address] [address] Richa Jeter MD chart prep 08/21/2025 Orders Only [address] [address] Richa Jeter MD from Last 3 Months [...] 12.8 oz) 025 10:48 AM EST Height 157.5 cm (5' 2 ) 08/23/2025 11:5 1 AM EDT Body Mass Index 31.61 08/23/2025 11:51 AM EDT Plan of Treatment Upcoming Encounters Date Type Department Care Team (Late st Contact Info) Description 12/14/2025 11:00 AM EST Office Visit [facility] OPTOMETRY [address] [place] [address] Chago, Colette, OD [address] [place] [address] Health Maintenance Due Date Last Done Comments CT Colonography 1965 FIT DNA/Cologuard 1965 FIT 1965 FOBT 1965 Sigmoidoscopy 1965 RSV Patients and Patients Aged 60 years or older (1 - Risk 50-74 years 1-dose series) 2013 Zoster Vaccines (1 of 2) 2013 Pap Smear 03/16/2025 03/16/2022 COVID-19 Vaccine ( season) 2025 12/31/2022, 12/05/2021, 02/21/2021, Additional history exists Diabetes: Hemoglobin A1C 02/18/2026 025, 08/23/2025, 04/25/2025, Additional history exists Depression Screening 06/04/2026 06/04/2025, 06/04/20 Diabetes: Foot Exam 06/04/2026 06/04/2025, 06/04/2025, 06/04/2025, Additional history exists Disability Screening 06/04/2026 06/04/2025 SDOH Screening 06/04/2026 06/04/2025 Lipid Panel 08/20/2026 08/20/2025, 07/25, 03/28/2024, Additional history exists Diabetes: Urine Protein Screening 08/21/2026 08/21/2025, 03/28/2024, 04/02/2023, Additional history exists Eye Exam 10/23/2026 10/23/2024, 12/2023, 10/23/2024, Additional history exists Alcohol/Substance Use Screening 11/20/2026 11/20/2025 Tobacco Screening 11/20/2026 11/20/2025 Cervical Cancer Screening 03/16/2027 HPV/Cotest 03/16/2027 03/16/2022, [...] exists Hepatitis A Vaccines Completed 06/04/2025, 11/06/20 Influenza Vaccine Completed 08/23/2025, , 10/04/2023, Additional [...] 130/70(2024 10:48 AM EST) No Jer Guerra, Gopi Help patients manage their type 2 diabetes [...] has chronic kidney disease No Jer Guerra, Gopi Patient has chronic kidney disease Care Plan Patient has chronic kidney disease No Jer Guerra, PharmEugenie Weekly blood pressure task Care Plan Weekly [...] chronic kidney disease No Selina Rodriguez MA Procedures Procedure Name Priority Date/Time Associated Diagnosis Comments XR KNEE 3 VIEWS LEFT Routine 11/20/2025 12:19 PM EST Acute pain of left knee SED RATE BY MODIFIED WESTERGREN Routine 11/20/2025 11:36 AM EST Acute pain of left knee CBC WITH AUTO DIFFERENTIAL Routine 11/20/2025 11:36 AM EST Acute pain of left knee POCT GLYCOSYLATED HEMOGLOBIN (HGB A1C) Routine 11/20/2025 10:51 AM EST Type 2 diabetes mellitus without complication, without long-term current use of insulin (HCC) POCT GLUCOSE (CPT-82662) Routine 11/20/2025 10:51 AM EST Type 2 diabetes mellitus without complication, without long-term current use of insulin (HCC) US PELVIS TRANSVAGINAL Routine 1:33 PM EST Pelvic pain BI MAMMOGRAM SCREENING TOMOSYNTHESIS BILATERAL Routine 08/27/2025 8:10 AM EDT POCT GLYCATED HEMOGLOBIN, TOTAL Routine 08/23/2025 11:55 AM EDT Type 2 diabetes mellitus without complication, without long-term current use of insulin (HCC) POCT GLUCOSE (CPT-85380) Routine 08/23/2025 11:53 AM EDT Type 2 diabetes mellitus without complication, without long-term current use of insulin (HCC) ALBUMIN, RANDOM URINE W/CREATININE Routine 08/21/2025 8:20 AM EDT LIPID PANEL, STANDARD Routine 08/20/2025 8:43 AM EDT HM COLONOSCOPY Routine 12/30/2023 ZZZ HISTORICAL HEPATITIS A,B,C PROFILE Routine 07/31/2022 4:21 PM EDT THINPREP IMAGING PAP AND HPV MRNA E6/E7 WITH REFLEX TO HPV 16,18/45 Routine 03/16/2022 2:00 PM EDT from Last 3 Months or Most Recently Relevant to Health Maintenance Results * XR Knee 3 Views Left (11/20/2025 12:19 PM EST) Anatomical Region Laterality Modality Lower Extremities, Knee Left Radiogra phic Imaging 11/20/2025 12:1 9 PM EST Narrative 11/20/2025 1:20 [place] [address] XRay Report Signed Patient: Pauly Mina MR#: [id number] : 1965 Acct:[id number] Age/Sex: 60 / F ADM Date: 11/20/25 Loc: HO.HHCX Attending Dr: Richa Jeter MD Ordering Physician: Richa Jeter MD Date of Service: 11/20/25 Procedure(s): XR knee LT 3V Accession Number(s): [id number] cc: Richa Jeter MD Reason for Exam: [...] Juan Madrid MD 11/20/2025 01:17 PM EST RP Dictated By: Juan Madrid MD Signed By: <Electronically signed by Juan Madrid MD in OV> 11/20/25 1317 DD/ 1219 TD/TT: 11/20/25 1220 [employer] Teacher: Procedure Note Donotuseinterpreter, Image - 11/20/2025 [place] [address] XRay Report Signed Patient: Kip Mina#: [id number] : 1965Acct:[id number] Age/Sex: 60 / FADM Date: 11/20/25 Loc: HO.HHCX Attending Dr: Richa Jeter MD Ordering Physician: Richa Jeter MD Date of Service: 11/20/25 Procedure(s): XR knee LT 3V Accession Number(s): [id number] cc: Richa Jeter MD Reason for Exam: [...] Juan Madrid MD 11/20/2025 01:17 PM EST RP Dictated By: Juan Madrid MD Signed By: <Electronically signed by Juan Madrid MD in OV> 11/20/25 1317 DD/ 1219 TD/TT: 11/20/25 1220 [employer] Teacher: Richa Jeter MD IMG XR PROCEDURES Final Result * (ABNORMAL) CBC auto differential (11/20/2025 11:36 AM EST) White Blood Count 10.1 4.8 - 10.8 X10*3/uL [facility] Red Blood Count 4.43 4.20 - 5.50 X10*6/uL [facility] Hemoglobin 12.7 12.0 - 16.0 g/dl [facility] Hematocrit 39.0 37.0 - 47.0 % [facility] Mean Corpuscular Volume 88.0 80.0 - 98.0 fL [facility] Mean Corpuscular Hemoglobin 28.7 27.0 - 33.0 pg [facility] Mean Corpuscular HGB Conc 32.6 31.0 - 35.0 g/dl [facility] Red Cell Distribution Width 12.8 11.0 - 16.0 % [facility] Platelet Count 361 160 - 400 X10*3/uL [facility] Mean Platelet Volume 11.3 9.4 - 12.3 fL [facility] Neutrophils Percent Auto 57.0 45 - 73 % [facility] Imm Gran Pct Auto 0.5(H) 0.0 - 0.4 % [facility] Lymphocytes Percent Auto 31.1 20 - 40 % [facility] Monocytes Percent Auto 7.4 2 - 11 % [facility] Eosinophils Percent Auto 3.4 0 - 4 % [facility] Basophils Percent Auto 0.6 0 - 2 % [facility] NRBC Pct Auto 0.0 0.0 - 0.2 /100WBC [facility] Neutrophils Absolute Auto 5.7 2.0 - 8.3 x10*3/uL [facility] Imm Gran Abs Auto 0.05(H) 0.00 - 0.03 X10*3/uL [facility] Lymphocytes Absolute Auto 3.1 1.2 - 4.9 X10*3/uL [facility] Monocytes Absolute Auto 0.8 0.1 - 1.2 X10*3/uL [facility] Eosinophils Absolute Auto 0.3 0.0 - 0.4 X10*3/uL [facility] Basophils Absolute Auto 0.1 0.0 - 0.2 X10*3/uL [facility] NRBC Abs Auto 0.000 0.0 - 0.012 X10*3/uL [facility] Blood Venous blood specimen / Unknown 11/20/2025 11:36 AM EST 11/20/2025 1:56 PM EST Richa Jeter MD LAB BLOOD ORDERABLES Final Resul t Performing Organization Address [facility] Co de Phone Number [facility] [address] [place] [phone] * (ABNORMAL) Sed Rate by Modified Westergren (11/20/2025 11:36 AM EST) Erythrocyte Sedimentation Rate 39(H) 1 - 30 MM/HR [facility] Comment:Patients with polycy themia and many hemoglobin abnormalitiesmay have depressed sed rates whereas patients with anemiamay have elevated sed rates. Blood Venous blood specimen / Unknown 11/20/2025 11:36 AM EST 11/20/2025 1:52 PM EST Richa Jeter MD LAB BLOOD ORDERABLES Final Resul t Performing Organization Address [facility]/ZIP Co de Phone Number [facility] [address] [place] [phone] * (ABNORMAL) POCT glycosylated hemoglobin (Hgb A1c) (11/20/2025 10:51 AM EST) Hemoglobin A1C 6.7(A) 4.0 - 5.7 % QC Media Lot # [id number] Lot# Expiration Date Blood Capillary blood specimen / Unknown 11/20/2025 10:51 AM EST us Richa Jeter MD POINT OF CARE TEST ENTER/EDIT OR DERABLES Final Result * POCT glucose manually resulted (CPT-49027) (11/20/2025 10:51 AM EST) Only the most recent of2 resultswithin the time period is included. Glucose Blood, POC 139 60 - 200 mg/dL QC Media Lot # [id number] Lot# Expiration Date Blood Capillary blood specimen / Unknown 11/20/2025 10:51 AM EST us Richa Jeter MD POINT OF CARE TEST ENTER/EDIT OR DERABLES Final Result * US Pelvis Transvaginal (10/22/2025 1:33 PM EST) Anatomical Region Laterality Modality Pelvis Ultrasound 10/22/2025 1:33 PM EST Narrative 10/22/2025 1:34 PM EST [place] [address] Ultrasound Report Signed Patient: Pauly Mina MR#: [id number] : 1965 Acct:[id number] Age/Sex: 60 / F ADM Date: 10/22/25 Loc: HO.US Attending Dr: Richa Jeter MD Ordering Physician: Ricah Jeter MD Date of Service: 10/22/25 Procedure(s): US pelvic and transvaginal Accession Number(s): [id number] cc: Richa Jeter MD Reason for Exam: [...] 10/22/25 1334 DD/ 1333 TD/TT: 10/22/25 1333 [employer]: Procedure Note Donotuseinterpreter, Image - 10/22/2025 [place] [address] Ultrasound Report Signed Patient: Kip Mina#: [id number] : 1965Acct:[id number] Age/Sex: 60 / FADM Date: 10/22/25 Loc: HO.US Attending Dr: Richa Jeter MD Ordering Physician: Richa Jeter MD Date of Service: 10/22/25 Procedure(s): US pelvic and transvaginal Accession Number(s): [id number] cc: Richa Jeter MD Reason for Exam: [...] OV> 10/22/25 1334 DD/ 1333 TD/TT: 10/22/25 133 [employer]: us Richa Jeter MD IMG US PROCEDURES Final Result * BI Mammogram Screening Tomosynthesis Bilateral (08/27/2025 8:10 AM EDT) Anatomical Region Laterality Modality Breast Bilateral Mammography 08/27/2025 8:10 AM EDT Narrative 09/02/2025 4:12 PM EDT [facility] [place], [place] [address] Mammography Report Signed Patient: Pauly Mina MR#: [id number] : 1965 Acct:[id number] Age/Sex: 60 / F ADM Date: 08/27/25 Loc: FORREST Attending Dr: Richa Jeter MD Ordering Physician: Richa Jeter MD Results: 1Negative Date of Service: 08/27/25 Follow Up: 1 Year From [facility] Mammogram Procedure(s): MM tomosynthesis screening BI Accession Number(s): [id number] cc: Richa Jeter MD Reason For Exam: [...] 09/02/25 1609 DD/ 0810 TD/TT: 08/27/25 0820 [employer] Teacher: Procedure Note Donotuseinterpreter, Image - [facility]02/[facility] [address] [place] [address] Mammography Report Signed Patient: Kip Mina#: [id number] : 1965Acct:[id number] Age/Sex: 60 / FADM Date: 08/27/25 Loc: FORREST Attending Dr: Richa Jeter MD Ordering Physician: Richa Jeter MDResults: 1Negative Date of Service: 08/27/25Follow Up: 1 Year From Orig inal Mammogram Procedure(s): MM tomosynthesis screening BI Accession Number(s): [id number] cc: Richa Jeter MD Reason For Exam: [...] 09/02/25 1609 DD/ 0810 TD/TT: 08/27/25 0820 [employer] Teacher: Richa Jeter MD IMG BI PROCEDURES Edited Result - Final * (ABNORMAL) POCT Hgb A1c (08/23/2025 11:55 AM EDT) Hemoglobin A1C 6.6(A) 4.0 - 5.7 % QC Media Lot # [id number] Lot# Expiration Date Blood 08/23/2025 11:5 5 AM EDT Richa Jeter MD POINT OF CARE TEST ENTER/EDIT OR DERABLES Final Result * Albumin, Random Urine W/Creatinine (08/21/2025 8:20 AM EDT) Creatinine, Urine 99.12 mg/dL [facility] Microalbumin Urine 14.0 mg/L [facility] Microalbum Creatinine Ratio Ur 14.1 <30 ug/mg cr [facility] Comment:Albumin/Creatinine R atio Reference Ranges: Normal: < 30 ug/mg creatinine Microalbuminuria: 30 - 300 ug/mg creatinineClinical Albuminuria: > 300 ug/mg creatinine 08/21/2025 8:20 AM EDT 08/21/2025 11:23 AM EDT Richa Jeter MD LAB URINE ORDERABLES Final Resul t [facility] [address] [place] [phone] [phone] * (ABNORMAL) Lipid Panel, Standard (08/20/2025 8:43 AM EDT) Triglycerides 77 <150 mg/dL [facility] Comment:Desirable Triglyceri de: less than 150 mg/dLBorderline High Triglyceride 150-199 mg/dLHigh Triglyceride: 200-499 mg/dLVery High Triglyceride: greater than or equal to 5OO mg/dL Cholesterol 112 <200 mg/dL [facility] Comment:Desirable Cholestero l: less than 200 mg/dLBorderline High Cholesterol: 200-239 mg/dLHigh Cholesterol: greater than 239 mg/dL LDL Cholesterol Calculated 64 <100 mg/dL [facility] Comment:Desirable LDL: less than 100 mg/dLNear Optimal/Above Optimal LDL: 110- 129 mg/dLBorderline High LDL: 130-159 mg/dLHigh LDL: 160-189 mg/dLVery High LDL: greater than or equal to 190 mg/dL HDL Cholesterol 33(L) >40 mg/dL [facility] Comment:Desirable HDL: great er than 40 mg/dL Note: This HDL assay may give artificially low results in patients with liver disease. 08/20/2025 8:43 AM EDT 08/20/2025 11:13 AM EDT Richa Jeter MD LAB BLOOD ORDERABLES Final Resul t [facility] [address] [place] [phone] * Colonoscopy (12/30/2023) Pathologist [facility] Colonoscopy Normal Normal Jodi Provider HEALTH MAINTENANCE [...] of detection of this assay. The [employer] HIV Ag/Ab Combo assay result and supplemental assay results should be interpreted in conjunction with the patient's clinical presentation, history and other laboratory results. If the results are inconsistent with clinical evidence, additional testing is suggested to confirm the result. 07/31/2022 4:21 PM EDT us Historical Provider MD HISTORICAL/NON ORDERABLE LABS Final Result [facility] [address] [place] [address], * THINPREP TIS PAP AND HPV mRNA E6/E7 WITH REFLEX TO HPV 16,18/45 (03/16/2022 2:00 PM EDT) Clinical Information: None given [facility] [...] computer assisted technology. [facility] Technical Support Analyst: SEE COMMENT [facility] Comment: RICARDA COLLAZO(ASCP) CT screening location: [address] [address] HPV nRNA E6/E7 Not Detected Not Detected [facility] [employer] [facility] Comment: Methodology: Java J2Ee Software Engineer-Mediated Amplification This assay detects E6/E7 viral messenger RNA (mRNA) from 14 high-risk HPV types (16,18,31,33,35,39,45,51,52,56,58,59,66,68). The analytical performance characteristics of this assay have been determined by [employer]. The modifications have not been cleared or approved by the FDA. This assay has been validated pursuant to the CLIA regulations and is used for clinical purposes. For additional information, please refer to http://education.[employer] Trevor.Milk Mantra/faq/DWR827b8 (This link if provided for information/ educational [...] R esult [facility] [address] from Last 3 Months or Most [...] 11/19/2025 Patient has chronic kidney disease 11/19/2025 Insurance 2 [place] [id number] ONE CARE < 65 [place] [id number] Care Teams Law Professor Relationship Specialty Start Date End Date Richa Jeter MD [address] [place] [address] [place] [address] PCP - General Family Medicine 11/22/18
--- OUTSIDE RECORDS SUMMARY | 2025-11-20 15:34 | XMS_ITS | Encounter Summary ---
Author Organization [employer] Address [address] [facility] [address] [place] [address] Care Team Providers Care Bowling Alley Refinisher Name Role Phone Richa Jeter MD Primary Care Provider [phone] Encounter Details Date Type Department Care Team (Latest Contact Info) Description 11/20/2025 Travel Social History Tobacco Use Types Packs/Day [...] Description 12/14/2025 11:00 AM EST Office Visit [facility] [address] [place] [address] ChagoColette, OD [address] [place] [address] documented as of this encounter Goals Goal [...] Weekly blood pressure task No Jer Guerra PharmEugenie Patient has chronic kidney disease Care Plan [...] documented as of this encounter Care Teams Bowling Alley Refinisher Relationship Specialty Start Date End Date Richa Jeter MD [address] [place] [address] PCP - General Family Medicine 11/22/18 documented as of this encounter
--- OUTSIDE RECORDS SUMMARY | 2025-11-20 15:34 | XMS_ITS | Encounter Summary ---
Author Organization [employer] Address [address] [facility] [address] [place] [address] Care Team Providers Care Auto Parts Manager Name Role Phone Richa Jeter MD Primary Care Provider [phone] Jer Guerra PharmD Unavailable [phone] Reason for Referral * Consultation (Routine) - Closed Specialty Diagnoses / Procedures Referred By Contac t Referred To Contact Pharmacy Diagnoses Type 2 diabetes mellitus without complication, without long-term current use of insulin (HCC) Primary hypertension Richa Jeter MD [address] [place] [address] Phone: tel: fax: Referral ID Status Reason Start Date Expiration Date V isits Requested Visits Authorized [id number] Closed Consult and Treat 05/04/2025 05/04/2026 6 6 Encounter Details Date Type Department Care Team (Late st Contact Info) Description 05/04/2025 Orders Only [facility] [address] [place], [place] [phone] Richa Jeter MD [address] [place], [place] [phone] Type 2 diabetes mellitus without complication, without [...] Office Visit [facility] [address] [place] [address] Chago, Colette, OD [address] [place] [address] Scheduled Referrals Name Type Priority Associated Diagnoses Orde r Schedule Referral to Pharmacy CDTM Outpatient Referral Routine Type 2 diabetes mellitus without complication, without long-term current use of insulin ([facility]) Primary hypertension Ordered: 05/04/2025 documented as of this encounter Goals Goal Patient Goal Type Associated Problems Recent Progress Patient-Stated? Author Blood Pressure < 140/90 Blood Pressure 130/70( 025 10:48 AM EST) No Jer Guerra, PharmD documented as of this encounter Visit Diagnoses Diagnosis Type 2 diabetes mellitus without complication, without long-term current use of insulin (HCC)- Primary Primary hypertension Unspecified essential hypertension documented in this encounter Additional Health Concerns Assessment Noted Time PHQ-9 Depression Total Score: 7 06/29/20 24 11:26 AM EDT documented as of this encounter Care Teams Auto Parts Manager Relationship Specialty Start Date End Date Richa Jeter MD [address] [place] [address] PCP - General Family Medicine 11/22/18 Jer Guerra, PharmD [address] [place] [address] Pharmacist Internal Medicine 10/08/23 10/25/25 documented as of this encounter
--- OUTSIDE RECORDS SUMMARY | 2025-11-20 15:34 | XMS_ITS | Encounter Summary ---
Author Organization [employer] Address [address] [facility] [address] [place] [address] Care Team Providers Care Location Worker Name Role Phone Richa Jeter MD Primary Care Provider [phone] Jer Guerra PharmD Unavailable [phone] Reason for Visit * Reason Comments Med Refill Encounter Details Date Type Department Care Team ([facility] st Contact Info) Description 03/07/2025 Refill [facility] [address] [place] [address] Lisa Sims MD [address] [place] [address] Social History Tobacco Use Types Packs/Day Years [...] Description 12/14/2025 11:00 AM EST Office Visit [facility] [address] [place] [address] Chago, Colette, OD [address] [place] [address] documented as of this encounter Goals Goal [...] documented as of this encounter Care Teams Location Worker Relationship Specialty Start Date End Date Richa Jeter MD [address] [place] [address] PCP - General Family Medicine 11/22/18 Jer Guerra, TrangD [address] [place] [address] Pharmacist Internal Medicine 10/08/23 10/25/25 documented as of this encounter
[2025-11-20 16:52] LABS: Uric Acid 6.3 mg/dL (2.4-5.7)
== END 2025-11-20 11:32 | disposition home or self-care (01) ==
LOC: HO.HHCX 11:31
PROVIDERS: PCP Family Medicine; Visit Provider Family Medicine
DX: Z01.419 Encounter for gynecological examination (general) (routine) without abnormal findings (principal); M25.562 Pain in left knee; M10.9 Gout, unspecified
CPT/HCPCS: 36415; 73562; 84550; 85025; 85652; 86140; 87626; 88175

== ENCOUNTER → 2025-11-20 11:55 | Outpatient (BNV) | payer OTHER, SELFPAY | PROVIDERS: PCP Family Medicine; Visit Provider Radiology Diagnostic Radiology | DX: M79.89 Other specified soft tissue disorders (principal) | CPT/HCPCS: 73562 ==